=== PATIENT | female | born 1970 | race Caucasian/White ===

== ENCOUNTER 2023-11-10 14:41 | Outpatient (CLI) | payer BC, SELFPAY ==
--- NOTE | ~2023-11-10 | US_ITS ---
EXAMINATION: US retroperitoneal comp DATE: 11/10/2023 15:16 INDICATION: Chronic cystitis without hematuria TECHNIQUE: Multiple ultrasound grayscale images of the kidneys were obtained. COMPARISON: CT dated 01/17/2018 FINDINGS: The right kidney measures 11.4 x 4.8 x 5.5 cm. The left kidney measures 11.5 x 5.9 x 5.4 cm. The kidn eys demonstrate normal echogenicity. There is no hydronephrosis in either kidney. No stones identifi ed. The bladder is normal with bilateral ureteral jets visualized on color Doppler. IMPRESSION: 1. Normal kidneys without hydronephrosis. Reviewed, dictated and finalized at location B.
== END 2023-11-10 14:42 | disposition home or self-care (01) ==
PROVIDERS: Visit Provider Physician Assistant
DX: N30.20 Other chronic cystitis without hematuria (principal)
CPT/HCPCS: 76770

== ENCOUNTER 2024-01-05 17:14 | Emergency (ER) | payer BC, SELFPAY ==
[2024-01-05 17:17] VITALS: BP 139/83; PULSE 82; RESP 18; TEMP 36.4; O2SAT 100
--- NOTE | 2024-01-05 19:19 | PC.NURSE ---
called pt from waiting room to re-assess vital signs. no answer
--- NOTE | 2024-01-05 23:31 | PC.NURSE ---
Patient called for in triage area; no answer.
--- NOTE | 2024-01-05 23:49 | PC.NURSE ---
Patient again called for in triage area; no answer
== END 2024-01-05 23:55 | disposition left against medical advice (07) ==
LOC: ANHED 23:55
DX: R10.9 Unspecified abdominal pain (principal)
CPT/HCPCS: 99199

== ENCOUNTER 2024-10-13 01:23 | Day surgery (SDC) | payer BC, SELFPAY ==
[2024-05-09 08:37] VITALS: BMI 34.6
--- OUTSIDE RECORDS SUMMARY | 2024-05-15 00:46 | XMS_ITS | Data Portability ---
Author Organization [facility] [address] Address [address] [address] [place] [address] Care Team Providers Care Celery Stripper Name Role Phone DAVID HOFF Primary Care Provider Assessment Encounter Date Assessment Date Assessment LastModified by Organization Details LastModified Time 06/11/2020 06/11/2020 Annual gynecological exam performed. Patient will come back in a year unless there are new symptoms. Not available 06/11/2020 15:08:07 05/26/2023 05/26/2023 Annual gynecological exam performed. Patient will come back in a year unless there are new symptoms. [email or web address] Not available 05/26/2023 09:32:48 Plan of Treatment Reminders Order Date Submit Date Provider Last Modified By Organization Details Last Modified Time Details Appointments None recorded. Lab urinalysis, dipstick 2023 024 [email or web address], [address], [place], [address], 4 09:51:06 urinalysis, dipstick 2021 022 [email or web address], [place], [address], 2 10:21:03 Referral urogynecolo gist referral 2023 024 WILFRID Aldridge MD, [address], [place], [address], 5 05:01:48 urogynecolo gist referral 2023 024 tabpretty Aldridge MD, [address] [facility] [address], [place], [address], 4 13:48:18 pelvic floor therapy referral - Referring this patient for Cystocele. Needs Pelvic floor therapy.Ple ase contact this patient to schedule an appointment Attached to this referral are the patients demographic s and most recent office visit notes.If you have any questions or require further information , please contact me at [phone].Thank you,Kelly, Referral's 2021 022 WILFRID [facility], [address], [address], [place], [address], 3 05:01:44 urogynecolo gist referral 2020 021 WILFRID Aldridge MD, [address] [facility] [address], [place], [address], 2 05:01:10 Procedures None recorded. Surgeries None recorded. Imaging MAMMO, screening, bilateral 2023 024 [facility] (Radiology), [address] [place], [address], 4 12:50:38 Medication Orders Vagifem 10 mcg vaginal tablet 2023 024 [id number], [address], [place], [id number], 4 13:15:43 estradiol 0.025 mg/24 hr weekly transdermal patch 2023 024 [facility][id number], [address], [place], [id number], 4 13:15:01 Bactrim DS 800 mg-160 mg tablet 2023 [facility] #25654, [address], [place], [id number], 4 10:00:11 Vagifem 10 mcg vaginal tablet 2023 [facility] #90705, [address], [place], [id number], 4 12:21:27 oxybutynin chloride ER 5 mg tablet,exte nded release 24 hr 2023 [facility] #46471, [address], [place], [id number], 4 10:06:00 mupirocin 2 % topical ointment 2023 [facility] #51170, [address], [place], [id number], 4 12:20:28 estradiol 0.01% (0.1 mg/gram) vaginal cream [address] [facility] #01886, [address], [place], [id number], 4 09:36:12 estradiol 0.5 mg tablet 2020 021 [facility] #58798, [address], [place], [id number], 4 13:15:06 Prometrium 100 mg capsule [address] [facility] #15679, [address], [place], [id number], 4 09:37:16 estradiol 0.5 mg tablet 2020 021 [facility] #49201, [address], [place], [id number], 13:15:06 Patient TargetsNo targets recorded. Patient InstructionsNo instructions recorded. Reason for Referral Urogynecologist Referral for Female stress incontinence Referring Physician: Anne Herrera TOW PICKER, Encounter Date: 06/11/2020 Pelvic Floor Therapy Referra l for Cystocele Referring this patient for Cystocele. Needs Pelvic floor therapy.Please contact this patient to schedule an appointmentAttached to this referral are the patients demographics and most recent office visit notes.If you have any questions or require further information, please contact me at [phone].Thank you,Kelly Referral's Referring Physician: Anne Herrera TOW PICKER, Encounter Date: 07/18/2021 Urogynecologist Referral for Female stress incontinence Referring Physician: Anne Herrera TOW PICKER, Encounter Date: 05/26/2023 Urogynecologist Referral for Recurrent urinary tract infection Referring Physician: Ghada Ruiz TOW PICKER, Encounter Date: 09/24/2023 Results Created Date Observation Date Name Description Value Unit Range Abnormal Flag Note LastModifiedBy Organization Detail LastModifiedTime 07/19/19 22 07/18/2021 URINA LYSIS , WITH MICRO SCOPI C color, urine Yellow colorl ess, light yellow , yellow , dark yellow , straw Not Available [facility] (Lab) [address] [place], [address], 07/19/2021 03:06:59 07/19/19 22 07/18/2021 URINA LYSIS , WITH MICRO SCOPI C clarity, urine Slight ly Cloudy Not Available [facility] (Lab) [address] [place], [address], 07/19/2021 03:06:59 07/19/19 22 07/18/2021 URINA LYSIS , WITH MICRO SCOPI C glucose, urine Negati ve mg/dL negati ve Not Available [facility] (Lab) [address] [facility], [place], [address], 07/19/2021 03:06:59 07/19/19 22 07/18/2021 URINA LYSIS , WITH MICRO SCOPI C bilirubin, urine Negati ve mg/dL negati ve Not Available [facility] (Lab) [address] [facility], [place], [address], 07/19/2021 03:06:59 07/19/19 22 07/18/2021 URINA LYSIS , WITH MICRO SCOPI C ketones, urine Negati ve mg/dL negati ve Not Available [facility] (Lab) [address] [facility], [place], [address], 07/19/2021 03:06:59 07/19/19 22 07/18/2021 URINA LYSIS , WITH MICRO SCOPI C pH, urine 6.0 . 5.0-9. 0 Not Available [facility] (Lab) [address] [facility], [place], [address], 07/19/2021 03:06:59 07/19/19 22 07/18/2021 URINA LYSIS , WITH MICRO SCOPI C specific gravity, urine 1.026 . 1.001- 1.035 Not Available [facility] (Lab) [address] [place], [address], 07/19/2021 03:06:59 07/19/19 22 07/18/2021 URINA LYSIS , WITH MICRO SCOPI C blood, urine Negati ve negati ve Not Available [facility] (Lab) [address] [place], [address], 07/19/2021 03:06:59 07/19/19 22 07/18/2021 URINA LYSIS , WITH MICRO SCOPI C protein, UA Negati ve mg/dL negati ve Not Available [facility] (Lab) [address] [place], [address], 07/19/2021 03:06:59 07/19/19 22 07/18/2021 URINA LYSIS , WITH MICRO SCOPI C urobilinogen , urine <2.0 mg/dL <2.0 Not Available [facility] (Lab) [address] [facility], [place], [address], 07/19/2021 03:06:59 07/19/19 22 07/18/2021 URINA LYSIS , WITH MICRO SCOPI C nitrite, urine Negati ve negati ve Not Available [facility] (Lab) [address] [facility], [place], [address], 07/19/2021 03:06:59 07/19/19 22 07/18/2021 URINA LYSIS , WITH MICRO SCOPI C leukocyte esterase, urine Negati ve mikie/u L negati ve Not Available [facility] (Lab) [address] [facility], [place], [address], 07/19/2021 03:06:59 07/19/19 22 07/18/2021 URINA LYSIS , WITH MICRO SCOPI C WBC, urine 0-5 /hpf none, 0-5 Not Available [facility] (Lab) [address] [facility], [place], [address], 07/19/2021 03:06:59 07/19/19 22 07/18/2021 URINA LYSIS , WITH MICRO SCOPI C RBC, urine 0-2 /hpf none, 0-2 Not Available [facility] (Lab) [address] [facility], [place], [address], 07/19/2021 03:06:59 07/19/19 22 07/18/2021 URINA LYSIS , WITH MICRO SCOPI C bacteria, urine Trace /hpf none abnormal Not Available [facility] (Lab) [address] [place], [address], 07/19/2021 03:06:59 07/19/19 22 07/18/2021 URINA LYSIS , WITH MICRO SCOPI C squamous epithelial cells, urine Modera te /hpf none abnormal Not Available [facility] (Lab) [address], [place], [address], 07/19/2021 03:06:59 07/19/19 22 07/18/2021 URINA LYSIS , WITH MICRO SCOPI C mucus, urine Trace /hpf none, trace, few CLEAN CATCH Not Available [facility] (Lab) [address], [place], [address], 07/19/2021 03:06:59 07/19/19 22 07/18/2021 urina lysis , dipst ick Leukocytes neg Not Available Beth jurado [address], [place], [address], 07/18/2021 10:20:18 07/19/19 22 07/18/2021 urina lysis , dipst ick Nitrite neg Not Available [address], [place], [address], 07/18/2021 10:20:18 07/19/19 22 07/18/2021 urina lysis , dipst ick Urobilinogen neg Not Available Katelynn morrow [address], [place], [address], 07/18/2021 10:20:18 07/19/19 22 07/18/2021 urina lysis , dipst ick Protein trace Not Available [address], [place], [address], 07/18/2021 10:20:18 07/19/19 22 07/18/2021 urina lysis , dipst ick pH 5 Not Available [address], [place], [address], 07/18/2021 10:20:18 07/19/19 22 07/18/2021 urina lysis , dipst ick Blood trace Not Available [address], [place], [address], 07/18/2021 10:20:18 07/19/19 22 07/18/2021 urina lysis , dipst ick Specific [place] 1.015 Not Available [facility], [place], [address], 07/18/2021 10:20:18 07/19/19 22 07/18/2021 urina lysis , dipst ick Ketone neg Not Available [address], [place], [address], 07/18/2021 10:20:18 07/19/19 22 07/18/2021 urina lysis , dipst ick Bilirubin neg Not Available [facility] [address], [place], [address], 07/18/2021 10:20:18 07/19/19 22 07/18/2021 urina lysis , dipst ick Glucose neg Not Available [address], [place], [address], 07/18/2021 10:20:18 07/19/19 22 07/18/2021 urina lysis , dipst ick Appearance cloudy Not Available [facility] [address], [place], [address], 07/18/2021 10:20:18 07/19/19 22 07/18/2021 urina lysis , dipst ick Color yellow Not Available [address], [place], [address], 07/18/2021 10:20:18 05/26/19 24 05/26/2023 urina lysis , dipst ick Leukocytes + Not Available [facility] [address], [place], [address], 05/26/2023 09:48:11 05/26/19 24 05/26/2023 urina lysis , dipst ick Nitrite + Not Available [address], [place], [address], 05/26/2023 09:48:11 05/26/19 24 05/26/2023 urina lysis , dipst ick Protein trace Not Available [address], [place], [address], 05/26/2023 09:48:11 05/26/19 24 05/26/2023 urina lysis , dipst ick pH 6 Not Available [address], [place], [address], 05/26/2023 09:48:11 05/26/19 24 05/26/2023 urina lysis , dipst ick Blood ++ Not Available [address], [place], [address], 05/26/2023 09:48:11 05/26/19 24 05/26/2023 urina lysis , dipst ick Specific [place] 1.010 Not Available [facility] [address], [place], [address], 05/26/2023 09:48:11 06/08/19 24 06/02/2023 MAMMO , scree jaden, bilat eral No observ ation record ed. [email or web address] [facility] [address] [place], [address], 06/15/2023 15:01:05 07/07/19 24 07/06/2023 MAMMO , diagn ostic , digit al, unila teral No observ ation record ed. [email or web address] [facility] [address] [place], [address], 07/07/2023 16:06:52 Result Notes None recorded. Problems Name Problem SNOMED Code Status Onset Date Resolution Date Notes Provider Name and Address Organization Details Recorded Time Postoper ative pain 118137230 Completed 201709/09/2020 Other acute postproce dural pain;Prac shelli ID: 0001 Kitty Summers [facility] 16:24:54 Genuine stress incontin ence [id number] Completed 201809/09/2020 Stress incontine nce (female) (male);Pr actice ID: 0001 Kitty Summers [facility] 16:24:44 Atrophic vaginiti s [id number] Completed 201809/09/2020 Postmenop ausal atrophic vaginitis ;Practice ID: 0001 Kitty Summers [facility] 16:24:34 Reduced libido [id number] Completed 201809/09/2020 Decreased libido;Pr actice ID: 0001 Kitty Summers [facility] 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 16:25:05 Cyst of ovary Completed 201709/09/2020 Ovarian cyst, NOS;Recor ded Elsewhere : No Locati on: [facility] So urce: EHR Chron ic: N Practic e ID: 0001 Bill able Time: 03:30:00 PM Kitty Summers [facility] 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 16:25:[address] Concept Completed 201709/09/2020 Encounter for general adult medical exam with abnormal finding;R ecorded Elsewhere : No Locati on: [facility] So urce: EHR Chron ic: N Practic e ID: 0001 Bill able Time: 08:30:00 AM Kitty Summers [facility] 1 16:24:56 Obesity [id number] Completed 201309/09/2020 Obesity;R ecorded Elsewhere : No Locati on: [facility] So urce: EHR Chron ic: N Practic e ID: 0001 Bill able Time: 02:15:00 PM Kitty Summers [facility] 1 16:24:47 Procedur e on genitour inary system Completed 201709/09/2020 Encounter for surgical aftercare following surgery on the genitouri nary system;Re corded Elsewhere : No Locati on: [facility] So urce: EHR Chron ic: N Practic e ID: 0001 Bill able Time: 03:30:00 PM Kitty Summers [facility] 1 16:24:57 Postoper ative care Completed 201709/09/2020 Encounter for surgical aftercare following surgery on the genitouri nary system;Re corded Elsewhere : No Locati on: [facility] So urce: EHR Chron ic: N Practic e ID: 0001 Bill able Time: 03:30:00 PM Kitty Summers [facility] 1 16:24:52 Screenin g for malignan t neoplasm of rectum Completed 201309/09/2020 Screening for malignant neoplasms of the rectum;Re corded Elsewhere : No Locati on: [facility] So urce: EHR Chron ic: N Practic e ID: 0001 Bill able Time: 02:15:00 PM Kitty Summers [facility] 1 16:25:02 Pelvic and perineal pain [id number] Completed 201709/09/2020 Pelvic and perineal pain;Mathieu rded Elsewhere : No Locati on: [facility] So urce: EHR Chron ic: N Practic e ID: 0001 Jeffry able Time: 08:30:00 AM [facility] 16:24:49 Carbuncl e of skin and/or subcutan eous tissue [id number] Completed 201309/09/2020 Carbuncle and furuncle of unspecifi ed site;Prac shelli ID: 0001 Kitty Summers [facility] 16:24:35 Speciali zed medical examinat ion Completed 201309/09/2020 Routine gynecolog ical examinati on;Practi ce ID: 0001 Kitty Summers [facility] 16:25:08 Screenin g for malignan t neoplasm of cervix Completed 201309/09/2020 Pap Smear;Pra ctice ID: 0001 Kitty Summers [facility] 16:25:00 Blood leukocyt e number above referenc e range [id number] Completed 201709/09/2020 Elevated white blood cell count, unspecifi ed;Practi ce ID: 0001 Kitty cowan [facility] 16:24:46 Chronic salpingi tis [id number] Completed 201709/09/2020 Chronic salpingit is;Practi ce ID: 0001 [facility] 16:24:37 Disorder of endocrin e ovary Completed 201709/09/2020 Corpus luteum cyst of ovary, unspecifi ed side;Prac shelli ID: 0001 Kitty Summers [facility] 16:24:41 Evaluati on finding Completed 201709/09/2020 Hematuria , unspecifi ed;Record ed Elsewhere : No Locati on: [facility] So urce: EHR Chron ic: N Practic e ID: 0001 Bill able Time: 03:30:[address] [facility] 16:24:42 Problem Notes None recorded. Procedures Surgical History Date Name Laterality Status Provider Name and Address Organization Details Recorded Time 06/12/19 21 Date of Last Pap Smear completed [facility] 06/11/2020 15:15:04 02/22/19 21 Date of Last Colonoscopy completed Tiffanie Oakes [facility] 05/26/2023 09:39:27 01/23/20 20 Unlisted px foot/toes completed [facility] 06/11/2020 15:36:19 03/25/19 20 Unlisted px foot/toes completed [facility] 06/11/2020 15:37:02 02/22/19 19 Date of Last Mammogram completed [facility] 06/11/2020 15:20:15 12/28/19 18 excision of bilateral fallopian tubes and ovaries completed [facility] 06/11/2020 15:35:25 11/09/19 14 Partial Hysterectomy completed [facility] 06/11/2020 15:35:39 02/22/19 06 Cholecystectomy completed [facility] 06/11/2020 15:35:01 02/22/18 85 Appendectomy completed [facility] 06/11/2020 15:34:51 Imaging Results Imaging Date Name Status LastModified by Organiz ation Details LastModified Time 06/02/2023 MAMMO, screening, bilateral completed [address] [place], [address], 06/15/2023 15:01:05 07/06/2023 MAMMO, diagnostic, digital, unilateral completed [email or web address] [facility] [address] [place], [address], 07/07/2023 16:06:52 Procedure Notes None recorded. Medical Equipment None Reported. Allergies No known drug allergies Medications Name Sig Start Date Stop Date Status Note LastModified by Organization Details LastModified Time cyclobenz aprine 10 mg tablet TAKE 1 TABLET BY MOUTH EVERY DAY AT BEDTIME 07/18 completed Not Available Not Available Not Available amoxicill in 500 mg capsule TAKE 1 CAPSULE BY MOUTH THREE TIMES DAILY FOR 7 DAYS 12/11 completed Not Available Not Available Not Available carvedilo l 25 mg tablet TAKE 1 TABLET BY MOUTH TWICE DAILY active Not Available Not Available No t Available carvedilo l 12.5 mg tablet TAKE 1 TABLET BY MOUTH TWICE DAILY 07/18 completed Not Available Not Available Not Available ammonium lactate 12 % lotion APPLY TOPICALL Y TO FOOT DAILY NEEDED 07/18 completed Not Available Not Available Not Available atorvasta tin 10 mg tablet TAKE 1 TABLET BY MOUTH EVERY DAY 05/25 completed Not Available Not Available Not Available azithromy hung 250 mg tablet TAKE 2 TABLETS BY MOUTH FOR 1 DAY THEN TAKE 1 TABLET BY MOUTH DAILY FOR 4 DAYS 05/25 completed Not Available Not Available Not Available tizanidin e 4 mg tablet TAKE 1 TABLET BY MOUTH AT BEDTIME NEEDED 05/25 completed Not Available Not Available Not Available hydrocodo ne 5 mg-acetam inophen 325 mg tablet TAKE 1 TABLET BY MOUTH TWICE DAILY NEEDED 12/11 completed Not Available Not Available Not Available meloxicam 15 mg tablet TAKE 1 TABLET BY MOUTH EVERY DAY active Not Available Not Available No t Available phenazopy ridine 200 mg tablet TAKE 1 TABLET BY MOUTH EVERY 6-8 HOURS NEEDED 09/23 completed Not Available Not Available Not Available ondansetr on HCl 4 mg tablet TAKE 2 TABLETS BY MOUTH THREE TIMES DAILY NEEDED FOR NAUSEA active Not Available Not Available No t Available prednison e 20 mg tablet TAKE 2 TABLETS BY MOUTH EVERY DAY FOR 5 DAYS 09/23 completed Not Available Not Available Not Available clonazepa m 0.5 mg tablet take 1 tablet by oral route 3 times every day 09/23 completed Prescrib ed Elsewher e: Yes Loca tion: Manuel zarate [facility] odify By: christin gutierrez DateTime : 11/09/19 14 02:15:00 PM Not Available Not Available Not Available clonazepa m 1 mg tablet TAKE 1 TABLET BY MOUTH 40 MINUTES BEFORE FLIGHT active Not Available Not Available No t Available phentermi ne 15 mg capsule TAKE ONE CAPSULE BY MOUTH ONCE DAILY 07/18 completed Not Available Not Available Not Available topiramat e 25 mg tablet TAKE 1 TABLET BY MOUTH TWICE DAILY 05/25 completed Not Available Not Available Not Available metronida zole 500 mg tablet TAKE 1 TABLET BY MOUTH THREE TIMES DAILY FOR 7 DAYS active Not Available Not Available No t Available ciproflox acin 500 mg tablet TAKE 1 TABLET BY MOUTH EVERY 12 HOURS FOR 7 DAYS active Not Available Not Available No t Available sulfameth oxazole 800 mg-trimet hoprim 160 mg tablet TAKE 1 TABLET BY MOUTH EVERY 12 HOURS WITH MEALS active Not Available Not Available No t Available tramadol 50 mg tablet TAKE 1 TABLET BY MOUTH THREE TIMES DAILY WITH TYLENOL FOR PAIN CONTROL 05/25 completed Not Available Not Available Not Available spironola ctone 25 mg tablet TAKE 1 TABLET BY MOUTH EVERY DAY active Not Available Not Available No t Available ondansetr on 8 mg disintegr ating tablet TAKE 1 TABLET BY MOUTH EVERY 6 HOURS NEEDED 12/11 completed Not Available Not Available Not Available levothyro xine 25 mcg tablet take 1 tablet by oral route every day 12/11 completed Prescrib ed Elsewher e: Yes Loca tion: Manuel [facility] odify By: amjodie gutierrez DateTime : 09/24/19 18 08:30:00 AM Not Available Not Available Not Available cefadroxi l 500 mg capsule take 1 capsule by oral route every 12 hours for 10 days 11/17 completed Prescrib ed Elsewher e: No [facility] By: ashlyn gutierrez DateTime : 11/09/19 14 02:15:00 PM Not Available Not Available Not Available levothyro xine 100 mcg tablet TAKE 1 TABLET BY MOUTH EVERY DAY active Not Available Not Available No t Available oxycodone -acetamin ophen 5 mg-325 mg tablet TK 1 T PO Q 8 H PRN FOR MODERATE TO SEVERE PAIN 12/11 completed Not Available Not Available Not Available estradiol 0.025 mg/24 hr weekly transderm al patch Apply 1 patch every week by transder mal route. active Not Available Not Available No t Available estradiol 1 mg tablet TAKE 1 TABLET BY MOUTH EVERY DAY 07/18 completed Not Available Not Available Not Available methotrex ate sodium 2.5 mg tablet TAKE 5 TABLETS BY MOUTH IN THE MORNING AND 5 TABLETS IN THE EVENING ONCE A WEEK. 05/25 completed Not Available Not Available Not Available diazepam 2 mg tablet TAKE 1 TABLET BY MOUTH 30 MINUTES BEFORE MRI 07/18 completed Not Available Not Available Not Available phenazopy ridine 100 mg tablet TAKE 1 TABLET BY MOUTH TWICE DAILY active Not Available Not Available No t Available pantopraz ole 40 mg tablet,de layed release TAKE 1 TABLET BY MOUTH DAILY active Not Available Not Available No t Available hydrochlo rothiazid e 12.5 mg capsule take 2 capsule by oral route every day 12/11 completed Prescrib ed Elsewher e: Yes Loca tion: [facility] odify By: estefani gutierrez DateTime : 11/09/19 14 02:15:00 PM Not Available Not Available Not Available oxybutyni n chloride ER 5 mg tablet,ex tended release 24 hr TAKE 1 TABLET BY MOUTH ONCE DAILY WITH A MEAL 09/23 completed Not Available Not Available Not Available diclofena c sodium 75 mg tablet,de layed release TAKE 1 TABLET BY MOUTH TWICE DAILY 05/25 completed Not Available Not Available Not Available cephalexi n 500 mg tablet TAKE 1 TABLET BY MOUTH THREE TIMES DAILY FOR 7 DAYS active Not Available Not Available No t Available folic acid 1 mg tablet TAKE 1 TABLET BY MOUTH EVERY DAY 05/25 completed Not Available Not Available Not Available etodolac 400 mg tablet TAKE 1 TABLET BY MOUTH TWICE DAILY 05/25 completed Not Available Not Available Not Available monteluka st 10 mg tablet TAKE 1 TABLET BY MOUTH EVERY DAY 05/25 completed Not Available Not Available Not Available ranitidin e 150 mg capsule take 1 capsule by oral route 2 times every day 09/23 completed Prescrib ed Elsewher e: Yes Loca tion: Manuel zarate [facility] odify By: [email or web address] Zarate ncounthyacinth DateTime : 11/09/19 14 02:15:00 PM Not Available Not Available Not Available hydrochlo rothiazid e 25 mg tablet TAKE 1 TABLET BY MOUTH EVERY DAY active Not Available Not Available No t Available mupirocin 2 % topical ointment APPLY SMALL AMOUNT TOPICALL Y TO THE AFFECTED AREA THREE TIMES DAILY NEEDED 09/22 completed Not Available Not Available Not Available estradiol 0.5 mg tablet TAKE 1 TABLET BY MOUTH EVERY DAY 09/23 completed Not Available Not Available Not Available azelastin e 137 mcg (0.1 %) nasal spray USE 2 SPRAYS IN EACH NOSTRIL TWICE DAILY 05/25 completed Not Available Not Available Not Available estradiol 0.01% (0.1 mg/gram) vaginal cream INSERT 1GM IN THE VAGINA EVERY NIGHT AT BEDTIME FOR 14 NIGHTS THEN TWICE WEEKLY FOR MAINTENA CE 05/25 completed Not Available Not Available Not Available methylpre dnisolone 4 mg tablets in a dose pack FOLLOW PACKAGE DIRECTIO NS active Not Available Not Available No t Available cefdinir 300 mg capsule TAKE 1 CAPSULE BY MOUTH TWICE DAILY FOR 7 DAYS 12/11 completed Not Available Not Available Not Available dicyclomi ne 10 mg capsule TAKE 1 CAPSULE BY MOUTH FOUR TIMES DAILY NEEDED active Not Available Not Available No t Available estradiol 0.1 mg/24 hr weekly transderm al patch apply 1 patch by transder mal route every week 07/13 completed Prescrib ed Elsewher e: No Locat ion: Manuel zarate [facility] odify By: [email or web address] Encount er DateTime : 04/13/19 19 11:08:14 AM Not Available Not Available Not Available phentermi ne 37.5 mg capsule TAKE 1 CAPSULE BY MOUTH ONCE DAILY 07/18 completed Not Available Not Available Not Available diazepam 5 mg tablet TAKE 1 TABLET BY MOUTH 30 MINUTES BEFORE FLYING 09/23 completed Not Available Not Available Not Available progester one micronize d 100 mg capsule TAKE 1 CAPSULE BY MOUTH EVERY DAY AT BEDTIME 05/25 completed Not Available Not Available Not Available amoxicill in 875 mg-potass ium clavulana te 125 mg tablet TAKE 1 TABLET BY MOUTH TWICE DAILY FOR 7 DAYS FOR UTI active Not Available Not Available No t Available ezetimibe 10 mg tablet TAKE 1 TABLET BY MOUTH EVERY DAY active Not Available Not Available No t Available cyclobenz aprine 5 mg tablet TAKE 1-2 TABLETS BY MOUTH EVERY NIGHT AT BEDTIME 05/25 completed Not Available Not Available Not Available rosuvasta tin 10 mg tablet TAKE 1 TABLET BY MOUTH EVERY DAY 05/25 completed Not Available Not Available Not Available Wellbutri n XL 150 mg 24 hr tablet, extended release take 1 tablet by oral route every day 06/11 completed Prescrib ed Elsewher e: No Locat ion: Manuel zarate [facility] odify By: robe cee DateTime : 02/01/20 19 03:15:00 PM Not Available Not Available Not Available nitrofura ntoin monohydra te/macroc rystals 100 mg capsule TAKE 1 CAPSULE BY MOUTH TWICE DAILY FOR 5 DAYS active Not Available Not Available No t Available pantopraz ole 12/11 completed Not Available Not Available Not Available estradiol 10 mcg vaginal tablet Insert 1 tablet vaginall y at night x 14 nights; then, use twice a week for maintena nce. active Not Available Not Available No t Available Zyrtec 10 mg capsule 09/23 completed Prescrib ed Elsewher e: Yes [facility] By: christin gutierrez DateTime : 11/09/19 14 02:15:00 PM Not Available Not Available Not Available PCCA T4 Sodium Dilution 1 mg/gram powder 09/23 completed Prescrib ed Elsewher e: Yes Loca [facility]ion: [facility] By: christin gutierrez DateTime : 11/09/19 14 02:15:00 PM Not Available Not Available Not Available EnovaRx-B aclofen 1 % topical cream 09/23 completed Prescrib ed Elsewher e: Yes Loca tion: [facility] odify By: christin gutierrez DateTime : 11/09/19 14 02:15:00 PM Not Available Not Available Not Available Wegovy 0.5 mg/0.5 mL subcutane ous pen injector INJECT 0.5 MG UNDER THE SKIN ONCE A WEEK 05/25 completed Not Available Not Available Not Available Zepbound 10 mg/0.5 mL subcutane ous pen injector ADMINIST ER 10 MG UNDER THE SKIN EVERY WEEK active Not Available Not Available No t Available Zepbound 5 mg/0.5 mL subcutane ous pen injector ADMINIST ER 5 MG UNDER THE SKIN EVERY WEEK 09/23 completed Not Available Not Available Not Available Zepbound 2.5 mg/0.5 mL subcutane ous pen injector ADMINIST ER 2.5 MG UNDER THE SKIN WEEKLY 05/25 completed Not Available Not Available Not Available Zepbound 12.5 mg/0.5 mL subcutane ous pen injector ADMINIST ER 12.5 MG UNDER THE SKIN EVERY WEEK active Not Available Not Available No t Available Zepbound 7.5 mg/0.5 mL subcutane ous pen injector ADMINIST ER 7.5 MG UNDER THE SKIN EVERY WEEK 09/23 completed Not Available Not Available Not Available Vitals Date Recorded Body height Body mass index (BMI) Body weight Systolic blood pressure Diastolic blood pressure Provider Name and Address Organization Details Last Updated DateTime 06/11/2020 157.48 cm 36.3 kg/m2 76087.01 g 130 mm[Hg] 80 mm[Hg] Anne Herrera [facility] [address], [place], [address], [facility] 15:29:19 Date Recorded Body height Body mass index (BMI) Body weight Provider Name and Address Organization Details Last Updated DateTime 12/11/2020 157.48 cm 34 kg/m2 53700.18 g Kitty Summers [facility] 12/11/2020 16:16:52 Date Recorded Systolic blood pressure Diastolic blood pressure Provider Name and Address Organization Details Last Updated DateTime 12/11/2020 122 mm[Hg] 80 mm[Hg] Anne Herrera [facility]- [address], [place], [address], [facility] 12/11/2020 16:35:58 Date Recorded Body height Body mass index (BMI) Body weight Systolic blood pressure Diastolic blood pressure Provider Name and Address Organization Details Last Updated DateTime 07/18/2021 157.48 cm 36.8 kg/m2 72087.07 g 118 mm[Hg] 70 mm[Hg] Kitty Summers [facility] 2 10:15:09 Date Recorded Body height Body mass index (BMI) Body weight Systolic blood pressure Diastolic blood pressure Provider Name and Address Organization Details Last Updated DateTime 05/26/2023 157.48 cm 36.9 kg/m2 00683.66 g 139 mm[Hg] 83 mm[Hg] Tiffanie Oakes [facility] 4 09:35:18 Date Recorded Body height Body mass index (BMI) Body weight Systolic blood pressure Diastolic blood pressure Provider Name and Address Organization Details Last Updated DateTime 09/24/2023 157.48 cm 34.8 kg/m2 98821.55 g 140 mm[Hg] 82 mm[Hg] Su Wise [facility] 4 10:03:20 Social History Question Answer Notes LastModified by Organizat ion Details LastModified Time Tobacco Smoking Status Current Every Day Smoker Kitty Summers [facility] 06/11/2020 15:32:19 What Is Your Level Of Alcohol Consumption? Moderate Information not available 06/11/2020 Are You Blind Or Do You Have Difficulty Seeing? No Information not available 06/11/2020 What Is Your Level Of Caffeine Consumption? Moderate Information not available 06/11/2020 In The 14 Days Before Symptom Onset, Have You Had Close Contact With A Laboratory-confi rmed COVID-19 While That Case Was Ill? No Information not available 06/11/2020 In The 14 Days Before Symptom Onset, Have You Had Close Contact With A Person Who Is Under Investigation For COVID-19 While That Person Was Ill? No Information not available 06/11/2020 Have You Been To An Area Known To Be High Risk For COVID-19? No Information not available 06/11/2020 Are You Deaf Or Do You Have Serious Difficulty Hearing? No Information not available 06/11/2020 What Type Of Diet Are You Following? REGULAR Information not available 06/11/2020 Have You Ever Been Counseled For Unhealthy Alcohol Use? No Information not available 06/11/2020 Do You Use Protection During Sex? No Hysterectomy Information not available 06/11/2020 Do You Use Your Seat Belt Or Car Seat Routinely? Yes Information not available 06/11/2020 Are You Sexually Active? Yes Information not available 06/11/2020 Do You Have Smoke And Carbon Monoxide Detectors In Your Home? Yes Information not available 06/11/2020 How Much Tobacco Do You Smoke? 1 PPW 5 Per Day Information not available 06/11/2020 Do You Feel Stressed (tense, Restless, Nervous, Or Anxious, Or Unable To Sleep At Night)? [id number] Information not available 06/11/2020 Do You Use Any Illicit Or Recreational Drugs? No Information not available 06/11/2020 Do You Use Sunscreen Routinely? Yes Information not available 06/11/2020 Do You Or Have You Ever Used Any Other Forms Of Tobacco Or Nicotine? No Information not available 06/11/2020 Sex: Unknown Functional Status Question Answer Note LastModified by Organizat ion Details LastModified Time Do you have difficulty walking or climbing stairs? No Information not available 07/18/2021 Are you able to walk? YESWOREST Information not available 06/11/2020 Are you able to care for yourself? Yes Information not available 07/18/2021 Do you have difficulty dressing or bathing? No Information not available 07/18/2021 What is your exercise level? Occasional Information not available 06/11/2020 Mental Status None recorded. Family History Relationship Description Onset Age of this Age Resolved Age Notes LastModified by Organization Details LastModified Time Mother Asthma Not available 15:27:24 Mother Diabetes mellitus Not available 2020 15:27:37 Mother Heart disease Not available 2020 15:28:00 Mother Hypercholest erolemia Not available 2020 15:28:15 Mother Hypertensive disorder Not available 2020 15:28:29 Sister Heart disease Not available 2020 15:28:00 Sister Cyst of ovary Not available 2020 15:28:53 Sister Rheumatoid arthritis Not available 2020 15:38:24 Maternal Grandmother Heart disease Not available 2020 15:28:00 Medical History Condition Response Anxiety Disorder Y Arthritis Y Thyroid Problems Y Hypertension Y High Cholesterol Y Gynecological History Statement/Question Response Abnormal Pap N Date of Last Mammogram 02/22/2018 Date of LMP 11/08/2013 STIs/STDs N HPV Vaccine N Current Control Method Hysterectom y Date of Last Colonoscopy 02/23/2020 Sexually Active? Y Menses Monthly N Date of Last Pap Smear 06/11/2020 Sexual Problems? Y Obstetrics History GPAL:G 3 P 2 1 0 3 Type Value Full Term 2 Premature 1 Living 3 Total 3 Past Encounters Encounter ID Performer Location Encounter Start Date Encounter Closed Date Diagnosis/Indication Diagnosis SNOMED-CT Code Diagnosis ICD10 Code Diagnosis Note [id number] Anne Herrera [facility] [address] [address] 06/11/2020 14:08:21 06/11/2020 15:37:19 Gynecologic examination 84806868 Z01.419 Suggested Calcium with Vitamin D 1200-1500m g daily. Patient advised to get an annual flu shot in the fall and she could obtain at [facility] or [facility] clinic. Also to obtain TDap vaccinatio n if you have not had one in the last 10 years. Recommend yearly mammograms . Encouraged monthly self breast exams. Encourage safe sexual practices, to use condoms and limit partners if not already in a monogamous relationsh ip. Engage in daily exercise of low impact aerobic exercise 45-60 minutes 4-5 times weekly. Avoid tobacco and illicit drugs as well as using moderation with alcohol intake less than 1-2 8 oz beverages daily. This lifestyle behavior pattern will lead to less health conditions and longer life span. If BMI greater than 25 weight watchers or dietary consult advised. All questions have been answered. Patient appears to understand informatio n, but if you have any questions please call or respond to this email. Pap/hpv d/c due to hyst for non-cancer indication s See's PCP regularly on HTN medication Colon UTD Dexa-PCP discussed Female str ess incontinence 91639073 N39.3 Exam is +urethral hypermobil ity and possible cystocele REfer for urogyn consult Menopausal syndrome 1237 57811 N95.9 HRT Therapy. We discussed E/P & P only therapy. All risks/bene fits of this therapy were discussed today. Patient meets criteria for use of E/P or P-only. Handouts/w ebsite resources were given for home review. We agreed to decrease estradiol dosage & add prometrium to even out hormones; rodrigo since HTN on medication ; she understand ing risks. We will see if this improves night time sx's. RTO x 3mos [id number] Anne Herrera [facility] [address],[facility] [place] [address] 12/11/2020 15:53:03 12/11/2020 16:56:23 Menopausal flushing 840816500 N95.1 Wishes to continue Estradiol 0.5mg but d/c prometrium .Appropria te since she had a full hysterecto my at younger age. Accepts risks for using HRT therapy. Time spent in visit is a total of 15 mins with at least 50% of visit consisting of counseling and review of plan of care.Addit ional precaution giselle measures were taken to minimize potential exposure to the Covid-19 virus during this patient s visit, including available hand personal banking officer upon arrive, temperatur e check and being asked a series of screening questions. All staff wore face coverings during this encounter, as well as provided additional cleaning and sanitizing of all surfaces, including countertop s, pens, chairs, door handles, light switches, etc, prior to and following the patient s visit. [id number] Anne Herrera [facility] [address] [address] 07/18/2021 09:50:31 07/18/2021 10:51:40 Pain in pelvis 23560773 R10.2 Determined that the majority of her issues are linked to Cystocele, postmenopa use, PDF. Cystocele 184268187 N81. 10 N94.10 Return for pessary fitting 30mins appt Discussed trial of vag estrogen therapy.Rx sentCounse led on medication R/B's, Most common side effects, & use. All questions were answered to patient satisfacti on. Pelvic floor therapy discussedD efinitely indicated on examReferr al placed Time spent in visit is a total of 26 mins with at least 50% of visit consisting of counseling and review of plan of care. [id number] Anne Herrera , [facility] [address] [address] 05/26/2023 09:27:53 05/26/2023 10:48:03 Urinary symptoms 440777444 R39.9 +urine dip UTIRx sent Counseled on medication R/B's, Most common side effects, & use. All questions were answered to patient satisfacti on. Gynecologi c examination 87087591 Z01.419 Suggested Calcium with Vitamin D 1200-1500m g daily. Patient advised to get an annual flu shot in the fall and she could obtain at [facility] or [facility] care clinic. Also to obtain TDap vaccinatio n if you have not had one in the last 10 years. Recommend yearly mammograms . Encouraged monthly self breast exams. Encourage safe sexual practices, to use condoms and limit partners if not already in a monogamous relationsh ip. Engage in daily exercise of low impact aerobic exercise 45-60 minutes 4-5 times weekly. Avoid tobacco and illicit drugs as well as using moderation with alcohol intake less than 1-2 8 oz beverages daily. This lifestyle behavior pattern will lead to less health conditions and longer life span. If BMI greater than 25 weight watchers or dietary consult advised. All questions have been answered. Patient appears to understand informatio n, but if you have any questions please call or respond to this email. Pap/hpv hysterecto my non-cancer ous indication s USPSTF recommends against screening for cervical cancer in women older than 65yo, those who've had a hysterecto my for non-cancer indication s, & who have had adequate prior screening & are not otherwise at high risk for cervical cancer. STD Screen declined Genetic Screen discussed Colon Screen PCP Dexa Screen na Routine Labs PCP Urinary tr act infectious disease 95031254 N39.0 Today we discussed the followin. Treat for UTI2. Refer to urogyn for urinary issues3. Start on Vag estradiol Furuncle 872950007 L02.9 2 Use prn Counseled on medication R/B's, Most common side effects, & use. All questions were answered to patient satisfacti on. Overactive urinary bladder 555752081 N32.81 Trial of oxybutynin for OAB Counseled on medication R/B's, Most common side effects, & use. All questions were answered to patient satisfacti on. RTO x 3mos med check Female str ess incontinence 00891894 N39.3 Exam is +urethral hypermobil ity and possible cystocele REfer for urogyn consultShe will call for appointmen t Screening mammography 24 593027 Z12.31 ZACK Gupta [facility] [address] [address] 09/24/2023 09:04:46 09/24/2023 13:59:31 Recurrent urinary tract infection 584623094 N39.0 Discussed recurrent UTIs / vaginal dryness / OABshe will start the vagifem she has at home / r/b/a reviewedur lazaro consult sent Overactive urinary bladder 175875711 N32.81 Menopausal flushing 1983 48826 N95.1 currently on oral estradiol 0.5mg dailyrecom mended switching to transderma l d/t medical hx (HTN, elevated cholestero l, tobacco smoker)rx sent, r/b/a/non- hormonal alternativ es discussedp t aware of risk of ERT and her current medical conditions med check in 3-4 months Time spent in visit is a total of 30 mins with at least 50% of visit consisting of counseling and review of plan of care. Urinary tr act infectious disease 89828277 N39.0 Health Concerns Section Related Observation LastModified by Organization Detai ls LastModified Time None Recorded Concern Status LastModified by Organization Details LastModified Time None Recorded Advance Directives Directive None Recorded Payers Encounter Date Sequence Insurance Name Policy Number Policy Powell Covered Member ID Powell Member ID Guarantor Name 06/11/2020 1 [place] [id number] Madhu Free [id number] Martha Free 12/11/2020 1 [place] [id number] Madhu Free [id number] Martha Free 07/18/2021 1 [place] [id number] Madhu Free [id number] Martha Free 05/26/2023 1 [place] [id number] Madhu Free [id number] Martha Free 09/24/2023 1 [place] [id number] Madhu Free [id number] Martha Free Notes Date Note Type Note Provider Name and Address Organization Details Recorded Time 06/11/2020 text/html 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.Menopaus al Symptoms:normal vaginal lubrication;insomn ia due to night sweats; weight gain Vaginal Bleeding:history of menopause having occurred; no history of post menopausal bleeding Urinary Symptoms:no hematuria; no nocturia; no urinary frequency;stress incontinence Vulva:no genital lesion; no vulvar atrophy Vagina:normal vaginal discharge; no vaginal atrophy Breast:no breast lump; no nipple discharge; no breast pain Sexual Complaints:no sexual complaints Psychological Symptoms:no depression; no anxiety Preventive Measures:encourage regular mammograms starting age 40; encourage self breast examination; encourage regular exercise; encourage no tobacco use; needs to schedule mammogram; history of recent colonoscopy Anne Herrera [facility] [address], [place], [address], [facility] 06/11/2020 15:35:05 12/11/2020 text/html Here today for medication check of HRT therapy.Continued estradiol 0.5mgFeels it has greatly helped hot flashes & overall mood.D/C prometrium.Ripplemead it made her feel off.Stopped it & noticed how well the estradiol was helping her. TONI Nayak [address], [place], [address], [facility] 12/11/2020 16:40:57 07/18/2021 text/html Here today for pelvic pressure, GLADYS, Vag dryness, & Dyspareunia.Neg new sexual partners Anne Herrera [facility] [address], [place], [address], [facility] 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 bypatient.Menopaus al Symptoms:no menopausal symptoms; normal vaginal lubrication Vaginal Bleeding:history of menopause having occurred; no history of post menopausal bleeding Urinary Symptoms:no hematuria; no incontinence; no nocturia; no urinary frequency Vulva:no genital lesion; no vulvar atrophy Vagina:normal vaginal discharge; no vaginal atrophy Breast:no breast lump; no nipple discharge; no breast pain Sexual Complaints:no sexual complaints Psychological Symptoms:no depression; no anxiety Preventive Measures:encourage regular mammograms starting age 40; encourage self breast examination; encourage regular exercise; encourage no tobacco use; needs to schedule mammogram; history of recent colonoscopy Anne Herrera [facility] [address], [place], [address], [facility] 05/26/2023 10:47:03 09/24/2023 text/html 53yopresents for med check -on oral estradiol tablets for hot flashes/night sweats. H/o of TLH, BSO. Symptoms have been controlled on estradiol -Vagifem tablets for dryness/frequent UTI's. She has not started this yet -oxybutynin for OAB. She did not start this medical hx : tobacco smoker, RA, anxiety, high cholesterol, HTN Ghada Ruiz [facility] [address], [place], [address], [facility] 09/24/2023 13:24:37 OBGyn Episode Ob Episode Information Episode Created Date Number of Fetuses Patient Bloodtype Patient rh Status Prepregnancy Weight lbs Domestic Partner Domestic Partner Phone Father Name District Associate Judge Status 06/12/19 21 1 CLOSED Fetus Data First Name Last Name Admitted to NICU Weight (g) Sex Living Outcome Pediatric Complications Fetus ID Race Codes Race Delivery Type 3713.55 [id number] F Full Term [id number] Vaginal Delivery Spenser Calculation Initial Spenser Date Initial Exam Date Initial Exam Provider Initial Ultrasound Date Last Menstrual Period Date Ultra Sound Weeks Gestation 0 Eighteen To Twenty Week Spenser Update Ultra Sound Date Fundal Height At Umbil Quickening Date Ultra Sound Latest Weeks Gestation Final Spenser Confirmed By Final Spenser Confirmed Date Final Spenser Date Ultra Sound Latest Days Gestation 0 0 Menstrual History Last Menstrual Date Menses Monthly On Bcp Conception Prior Menses Frequency Hcg Plus Date Menarche Onset Age Delivery Information Delivery Date Delivery Type Labor Anesthesia Weeks Gestation Incision Type Labor Labor Length Hrs Delivered By Post Complications Tubal Sterilization Discharge Date Comments 9 40 false Abida Discharge Information Feeding Method Contraceptive Method Maternal HG B and HCT Levels Ob Episode Information Episode Created Date Number of Fetuses Patient Bloodtype Patient rh Status Prepregnancy Weight lbs Domestic Partner Domestic Partner Phone Father Name District Associate Judge Status 06/12/19 21 1 CLOSED Fetus Data First Name Last Name Admitted to NICU Weight (g) Sex Living Outcome Pediatric Complications Fetus ID Race Codes Race Delivery Type 3231.84 3 M Prematur e [id number] Vaginal Delivery Spenser Calculation Initial Spenser Date Initial Exam Date Initial Exam Provider Initial Ultrasound Date Last Menstrual Period Date Ultra Sound Weeks Gestation 0 Eighteen To Twenty Week Spenser Update Ultra Sound Date Fundal Height At Umbil Quickening Date Ultra Sound Latest Weeks Gestation Final Spenser Confirmed By Final Spenser Confirmed Date Final Spenser Date Ultra Sound Latest Days Gestation 0 0 Menstrual History Last Menstrual Date Menses Monthly On Bcp Conception Prior Menses Frequency Hcg Plus Date Menarche Onset Age Delivery Information Delivery Date Delivery Type Labor Anesthesia Weeks Gestation Incision Type Labor Labor Length Hrs Delivered By Post Complications Tubal Sterilization Discharge Date Comments 3 36 true Roni Discharge Information Feeding Method Contraceptive Method Maternal HG B and HCT Levels Ob Episode Information Episode Created Date Number of Fetuses Patient Bloodtype Patient rh Status Prepregnancy Weight lbs Domestic Partner Domestic Partner Phone Father Name District Associate Judge Status 06/12/19 21 1 CLOSED Fetus Data First Name Last Name Admitted to NICU Weight (g) Sex Living Outcome Pediatric Complications Fetus ID Race Codes Race Delivery Type [id number] Full Term [id number] Vaginal Delivery Spenser Calculation Initial Spenser Date Initial Exam Date Initial Exam Provider Initial Ultrasound Date Last Menstrual Period Date Ultra Sound Weeks Gestation 0 Eighteen To Twenty Week Spenser Update Ultra Sound Date Fundal Height At Umbil Quickening Date Ultra Sound Latest Weeks Gestation Final Spenser Confirmed By Final Spenser Confirmed Date Final Spenser Date Ultra Sound Latest Days Gestation 0 0 Menstrual History Last Menstrual Date Menses Monthly On Bcp Conception Prior Menses Frequency Hcg Plus Date Menarche Onset Age Delivery Information Delivery Date Delivery Type Labor Anesthesia Weeks Gestation Incision Type Labor Labor Length Hrs Delivered By Post Complications Tubal Sterilization Discharge Date Comments 1 40 false [facility] Discharge Information Feeding Method Contraceptive Method Maternal HG B and HCT Levels
--- OUTSIDE RECORDS SUMMARY | 2024-05-15 00:46 | XMS_ITS | Referral Summary ---
Author Organization 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 CHOICE OOS Member Subscriber Plan / Payer (Ef fective 2022-Present) Name:Pati Perales Relation to Subscriber:Spouse Name:TREMAINE PERALES Date of :1966 (Home) Address: [address] [place] [address] Payer ID:[id number] (NAIC) Type: ALLIANCE Address: [facility] [id number] [id number] Care Teams Dispatch Supervisor Relationship Specialty Start Date End Date Adarsh Medina MD PCP - General Internal Medicine 09/09/22
--- OUTSIDE RECORDS SUMMARY | 2024-05-15 00:46 | XMS_ITS | Clinical Summary ---
Author Organization [facility] [employer] Address [address] [place] [address] Care Team Providers Care Surgery Attendant Name Role Phone Adarsh Medina MD Primary Care Provider [phone] Source Comments [facility] [employer]non-owned Affiliates and Associated Physician Practices is amultiple site organization consisting of ambulatory clinics and hospital sitesin [place], [place], [place] and [place]. This disclosure is being madepursuant to the Care Everywhere program and may not contain all information available regarding this patient. Last updated 17.[facility] [employer] Allergies No known active allergies Medications * Be aware that medications may not be up to date on this document. Alwaysverify current medications with the patient. Medication Sig Dispensed Refills Start Date End Date Status levothyroxine (SYNTHROID) 25 MCG tablet 09/23/2017 Active hydroCHLOROthiazide (HYDRODIURIL) 25 MG tablet TK 1 T PO QD 02/21/2019 Active estradiol (ESTRACE) 1 MG tablet TK 1 T PO QD 02/10/2019 Active carvedilol (COREG) 12.5 MG tablet TK 2 TS PO BID 02/04/2019 Active buPROPion XL 24hr (WELLBUTRIN-XL) 150 MG tablet TK 1 T PO QD 01/31/2019 Active atorvastatin (LIPITOR) 10 MG tablet TK 1 T PO QD 02/21/2019 Active Active Problems No known active problems Family History Medical History Relation Name Comments CAD (Coronary Artery Disease) Mother Diabetes - Type 2 Mother Hyperlipidemia Mother Hypertension Mother Relation Name Status Comments Mother Social History Tobacco Use Types Packs/Day Years Used Date Smoking Tobacco: Every Day Cigarettes 0.1 20 Smokeless Tobacco: Never Alcohol Use Standard Drinks/Week Comments Yes 6 (1 standard drink = 0.6 oz pur e alcohol) Sex and Gender Information Value Date Recorded Sex Assigned at Not on file Gender Identity Not on file Sexual Orientation Not on file Last Filed Vital Signs Vital Sign Reading Time Taken Comments Blood Pressure 130/78 03/02/2019 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 Pulse - - Temperature - - Respiratory Rate - - Oxygen Saturation - - Inhaled Oxygen Concentration - - Weight 92.1 kg (203 lb) 03/02/2019 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 Height 157.5 cm (5' 2) 03/02/2019 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 Body Mass Index 37.13 03/02/2019 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 Plan of Treatment Health Maintenance Due Date Last Done Comments COLOGUARD (AGES 45-75) - COL ON CA SCREENING 1970 COLON MONITORING 1970 COLONOSCOPY - COLON CA SCREENING 1970 CT COLONOGRAPHY - COLON CA SCREENING 1970 Colorectal Cancer Screening 1970 FIT - COLON CA SCREENING 1970 FLEX SIG - COLON CA SCREENING 1970 MAMMOGRAM 1970 HIV SCREENING 1985 HEPATITIS C SCREENING 08/04/1988 DTAP/TDAP/TD VACCINES (1 - Tdap) 1989 HEPATITIS B VACCINE (1 of 3 - 19+ 3-dose series) 1989 SCREENING FOR DIABETES 03/02/2019 PNEUMOCOCCAL VACCINE 50+ (1 of 1 - PCV) 2020 ZOSTER VACCINE (1 of 2) 2020 COVID-19 VACCINE (1 - 2023-2 5 season) 2023 INFLUENZA VACCINE (#1) 2023 DEPRESSION SCREENING 02/23/2024 HIB VACCINE Aged Out No longer eligi ble based on patient's age to complete this topic HPV VACCINE Aged Out No longer eligi ble based on patient's age to complete this topic MENINGOCOCCAL (Group B) VACC INE SHARED DECISION-MAKING Aged Out No longer eligibl e based on patient's age to complete this topic MENINGOCOCCAL GROUPS A/C/Y/W VACCINE Aged Out No longer eligible b ased on patient's age to complete this topic Care Teams Surgery Attendant Relationship Specialty Start Date End Date Adarsh Medina MD PCP - General 12/23/17
--- OUTSIDE RECORDS SUMMARY | 2024-05-15 00:46 | XMS_ITS | Clinical Summary ---
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 Gender Identity Not on file Sexual Orientation Not on file Plan of Treatment Health Maintenance Due Date Last Done Comments Breast Cancer Screening-Mammogram 1970 Cervical Cancer Screening 1970 Colon Cancer Screening-Colonoscopy 1970 Depression Screening 1970 Hepatitis C Screening 1970 Hepatitis B Screening 1988 Regular Well Visit/Exam 18-64 1988 Zoster Vaccine (1 of 2) 2020 Covid-19 Vaccine (3 - 2023-2 5 season) 2023 11/11/2020, 10/21/2020 Influenza Vaccine (#1) 2023 DTaP/Tdap/Td Vaccine (2 - Td or Tdap) 02/21/2032 02/20/2022 Pneumococcal vaccine <65 Aged Out No longer eligible based on patient's age to complete this topic Insurance [id number] [place] [place] [id number] BLUE [employer] CHOICE OOS Care Teams Fatback Trimmer Relationship Specialty Start Date End Date Adarsh Medina MD PCP - General Internal Medicine 09/09/22
--- OUTSIDE RECORDS SUMMARY | 2024-05-15 00:47 | XMS_ITS | Data Portability ---
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 Cephalexin for a week. Call if not improved she did not see a tick nor pull 1 off [email or web address] Not available 10/16/2023 13:45:56 01/04/2024 01/04/2024 staff is trying to acquire her Pap smears mammogram reports CBC CMP lipid and thyroid studies ordered continue current therapy and follow up in 4 months [email or web address] Not available 01/09/2024 10:40:05 01/11/2024 01/11/2024 . [place]. Quitting tobacco care instructions. Continue with Flagyl and Cipro get stool studies follow up 1-2 weeks if she gets worse call or go to ER. We will give some Zofran for nausea CT scan reviewed [email or web address] Not available 01/11/2024 20:24:42 01/25/2024 01/25/2024 imaging revealed colitis she is still having symptoms GI referral we will probably need colonoscopy. Dicyclomine for cramping. Healthy lifestyle care instructions. She will see me back in about 6 weeks if she gets worse she is told to go to the hospital she has discontinued her GLP 1 [email or web address] Not available 01/25/2024 21:32:15 05/02/2024 05/02/2024 we will await the colonoscopic findings. She did have a CT scan that showed some changes consistent with colitis . For her obesity she wants to restart phentermine she tolerated it well we will do that and she will monitor her blood pressure she will see me back in 4-6 weeks continue her medications for her chronic medical problems and those have been discussed as well [email or web address] Not available 05/07/2024 13:11:09 Plan of Treatment Reminders Order Date Submit Date Provider Last Modified By Organization Details Last Modified Time Details Appointments ANY 15 2024 03:15P Natalio Medina MD Not available Not available Not available Lab C diff toxin A+B, qual IA, stool 2023 024 [facility], [address], [address], [place], [address], 01/18/2024 15:11:00 O&P (ova & parasites ), stool 2023 024 [facility], [address] [place] [address], [address], [place], [address], 01/19/2024 15:11:45 gastroint estinal pathogens panel, culture, stool 2023 024 [facility], [address], [address], [place], [address], 01/21/2024 17:08:50 lipid panel, serum 2023 024 [facility] (Lab), [address] [place], [address], 01/07/2024 13:06:38 CMP, serum or plasma 2023 024 [facility] (Lab), [address] [place], [address], 01/07/2024 16:47:22 CBC w/ auto diff 2023 024 [facility] (Lab), [address] [place], [address], 01/07/2024 16:47:59 T3, free, serum or plasma 2023 024 [facility] (Lab), [address] [place], [address], 01/07/2024 16:47:50 TSH, serum or plasma 2023 024 [facility] (Lab), [address] [place], [address], 01/07/2024 16:47:44 T4, free, serum 2023 024 [facility] (Lab), [address] [place], [address], 01/07/2024 16:47:36 Referral gastroent erologist referral 2023 024 [facility], [address], [facility], [place], [address], 05/08/2024 16:52:09 Procedures None recorded. Surgeries None recorded. Imaging None recorded. Medication Orders dicyclomi ne 10 mg capsule 2023 024 [email or web address] [id number], [address], [place], [id number], 01/25/2024 18:04:36 Zofran 4 mg tablet 2023 025 [facility], [address], [place], [id number], 05/02/2024 16:30:47 Zepbound 12.5 mg/0.5 mL subcutane ous pen injector 2023 025 [facility] [address], [place], [id number], 05/04/2024 16:59:56 Medrol (Hussein) 4 mg tablets in a dose pack 2023 [facility] #[facility]2368, [address], [place], [id number], 01/04/2024 11:04:52 cephalexi n 500 mg tablet 2023 024 [email or web address]49986, [address], [place], [id number], 01/04/2024 11:04:41 Patient TargetsNo targets recorded. Patient Instructions Encounter Date Encounter Id Patient Instructions Last Modified By Organization Details Last Modified Time 01/04/2024 [id number] A healthy lifestyle: care instructions [email or web address] Not available 01/04/2024 13:15:47 01/11/2024 [id number] Quitting Tobacco : Care Instructions [email or web address] Not available 01/11/2024 16:54:42 01/25/2024 [id number] A healthy lifestyle: care instructions [email or web address] Not available 01/25/2024 17:28:56 05/02/2024 [id number] A healthy lifestyle: care instructions [email or web address] Not available 05/02/2024 16:49:23 Reason for Referral Integration Technician Referral for Colitis Referring Physician: David Medina, Internal Medicine, Encounter Date: 01/25/2024 Results Created Date Observation Date Name Description Value Unit Range Abnormal Flag Note LastModifiedBy Organization Detail LastModifiedTime 01/07/2001/07/2024 Thyro tropi n [Unit s/vol ume] in Serum or Plasm a thyroid-stim ulating hormone thyro id-st imula ting hormo ne Not Available Not Available 05/02/2024 05:13:59 01/07/20 24 01/07/2024 Thyro xine (T4) free [Mass /volu me] in Serum or Plasm a free T4 free T4 Not Available Not Available 05/02/2024 05:13:59 01/07/20 24 01/07/2024 Triio dothy bo e (T3) Free [Mass /volu me] in Serum or Plasm a free T3 free T3 Not Available Not Available 05/02/2024 05:13:59 01/07/20 24 01/07/2024 Lipas e [Enzy matic activ ity/v olume ] in Serum or Plasm a lipase lipas e Not Available Not Available 05/02/2024 05:13:59 01/07/20 24 01/07/2024 Compr ehens yoan metab olic 1999 panel - Serum or Plasm a sodium low sodiu m Not Available Not Available 05/02/2024 05:13:59 01/07/20 24 01/07/2024 Compr ehens yoan metab olic 1999 panel - Serum or Plasm a potassium potas sium Not Available Not Available 05/02/2024 05:13:59 01/07/20 24 01/07/2024 Compr ehens yoan metab olic 2000 panel - Serum or Plasm a chloride chlor leticia Not Available Not Available 05/02/2024 05:13:59 01/07/20 24 01/07/2024 Compr ehens yoan metab olic 2000 panel - Serum or Plasm a carbon dioxide carbo n dioxi de Not Available Not Available 05/02/2024 05:13:59 01/07/20 24 01/07/2024 Compr ehens oyan metab olic 2000 panel - Serum or Plasm a anion gap low anion gap Not Available Not Available 05/02/2024 05:13:59 01/07/20 24 01/07/2024 Compr ehens yoan metab olic 1999 panel - Serum or Plasm a glucose gluco se Not Available Not Available 05/02/2024 05:13:59 01/07/20 24 01/07/2024 Compr ehens yoan metab olic 2000 panel - Serum or Plasm a BUN BUN Not Available Not Availa ble 05/02/2024 05:13:59 01/07/20 24 01/07/2024 Compr ehens yoan metab olic 2000 panel - Serum or Plasm a creatinine creat inine Not Available Not Available 05/02/2024 05:13:59 01/07/20 24 01/07/2024 Compr ehens yoan metab olic 2000 panel - Serum or Plasm a GFR >60 GFR Not Available Not Availa ble 05/02/2024 05:13:59 01/07/20 24 01/07/2024 Compr ehens yoan metab olic 1999 panel - Serum or Plasm a alkaline phosphatase alkal ine phosp hatas e Not Available Not Available 05/02/2024 05:13:59 01/07/20 24 01/07/2024 Compr ehens yoan metab olic 1999 panel - Serum or Plasm a alanine aminotransfe rase richard ne amino trans feras e Not Available Not Available 05/02/2024 05:13:59 01/07/20 24 01/07/2024 Compr ehens yoan metab olic 1999 panel - Serum or Plasm a aspartate aminotransfe rase aspar neff amino trans feras e Not Available Not Available 05/02/2024 05:13:59 01/07/20 24 01/07/2024 [facility] - Serum or Plasm a bilirubin, total bilir ubin, total Not Available Not Available 05/02/2024 05:13:59 01/07/20 24 01/07/2024 [facility] panel - Serum or Plasm a calcium calci um Not Available Not Available 05/02/2024 05:13:59 01/07/20 24 01/07/2024 Compr ehens yoan metab ic 1999 panel - Serum or Plasm a total protein total prote in Not Available Not Available 05/02/2024 05:13:59 01/07/20 24 01/07/2024 Compr ens yoan metab [facility] 2000 panel - Serum or Plasm a albumin album in Not Available Not Available 05/02/2024 05:13:59 01/07/20 24 01/07/2024 Compr ehens yoan metab ic 1999 panel - Serum or Plasm a globulin globu vandana Not Available Not Available 05/02/2024 05:13:59 01/07/20 24 01/07/2024 Compr ehens yoan metab olic 1999 panel - Serum or Plasm a A/G ratio A/G ratio Not Available Not Available 05/02/2024 05:13:59 01/07/20 24 01/07/2024 Lipid 1996 panel - Serum or Plasm a cholesterol high brad stero l Not Available Not Available 05/02/2024 05:13:58 01/07/20 24 01/07/2024 Lipid 1996 panel - Serum or Plasm a triglyceride s trigl yceri yvette Not Available Not Available 05/02/2024 05:13:58 01/07/20 24 01/07/2024 Lipid 1996 panel - Serum or Plasm a HDL cholesterol HDL brad stero l Not Available Not Available 05/02/2024 05:13:58 01/07/20 24 01/07/2024 Lipid 1996 panel - Serum or Plasm a LDL cholesterol, calculated LDL brad stero l, calcu lated Not Available Not Available 05/02/2024 05:13:58 01/07/20 24 01/07/2024 CBC W Auto Diffe renti al panel - Blood white blood cells white blood cells Not Available Not Available 05/02/2024 05:13:58 01/07/20 24 01/07/2024 CBC W Auto Diffe renti al panel - Blood red blood cells red blood cells Not Available Not Available 05/02/2024 05:13:58 01/07/20 24 01/07/2024 CBC W Auto Diffe renti al panel - Blood hemoglobin high hemog lobin Not Available Not Available 05/02/2024 05:13:58 01/07/20 24 01/07/2024 CBC W Auto Diffe renti al panel - Blood hematocrit hemat ocrit Not Available Not Available 05/02/2024 05:13:58 01/07/20 24 01/07/2024 CBC W Auto Diffe renti al panel - Blood mean red cell volume mean red cell volum e Not Available Not Available 05/02/2024 05:13:58 01/07/20 24 01/07/2024 CBC W Auto Diffe renti al panel - Blood mean red cell hemoglobin mean red cell hemog lobin Not Available Not Available 05/02/2024 05:13:58 01/07/20 24 01/07/2024 CBC W Auto Diffe renti al panel - Blood mean RBC HGB concentratio n mean RBC HGB jo ntrat ion Not Available Not Available 05/02/2024 05:13:58 01/07/20 24 01/07/2024 CBC W Auto Diffe renti al panel - Blood red cell distribution width red cell distr ibuti on width Not Available Not Available 05/02/2024 05:13:58 01/07/20 24 01/07/2024 CBC W Auto Diffe renti al panel - Blood platelets plate lets Not Available Not Available 05/02/2024 05:13:58 01/07/20 24 01/07/2024 CBC W Auto Diffe renti al panel - Blood mean platelet volume mean plate let volum e Not Available Not Available 05/02/2024 05:13:58 01/07/20 24 01/07/2024 CBC W Auto Diffe renti al panel - Blood neutrophils neutr ophil s Not Available Not Available 05/02/2024 05:13:58 01/07/20 24 01/07/2024 CBC W Auto Diffe renti al panel - Blood lymphocytes lymph ocyte s Not Available Not Available 05/02/2024 05:13:58 01/07/20 24 01/07/2024 CBC W Auto Diffe renti al panel - Blood monocytes monoc ytes Not Available Not Available 05/02/2024 05:13:58 01/07/20 24 01/07/2024 CBC W Auto Diffe renti al panel - Blood eosinophils eosin ophil s Not Available Not Available 05/02/2024 05:13:58 01/07/20 24 01/07/2024 CBC W Auto Diffe renti al panel - Blood basophils basop hils Not Available Not Available 05/02/2024 05:13:58 01/07/20 24 01/07/2024 CBC W Auto Diffe renti al panel - Blood immature granulocytes immat ure granu locyt es Not Available Not Available 05/02/2024 05:13:58 01/07/20 24 01/07/2024 CBC W Auto Diffe renti al panel - Blood neutrophils, absolute count neutr ophil s, absol tatitlek count Not Available Not Available 05/02/2024 05:13:58 01/07/20 24 01/07/2024 CBC W Auto Diffe renti al panel - Blood lymphocytes, absolute count lymph ocyte s, absol tatitlek count Not Available Not Available 05/02/2024 05:13:58 01/07/20 24 01/07/2024 CBC W Auto Diffe renti al panel - Blood monocytes, absolute count monoc ytes, absol tatitlek count Not Available Not Available 05/02/2024 05:13:58 01/07/20 24 01/07/2024 CBC W Auto Diffe renti al panel - Blood eosinophils, absolute count eosin ophil s, absol tatitlek count Not Available Not Available 05/02/2024 05:13:58 01/07/20 24 01/07/2024 CBC W Auto Diffe renti al panel - Blood basophils, absolute count basop hils, absol tatitlek count Not Available Not Available 05/02/2024 05:13:58 01/07/20 24 01/07/2024 CBC W Auto Diffe renti al panel - Blood immature granulocytes ,absolute immat ure granu locyt es,ab solut e Not Available Not Available 05/02/2024 05:13:58 01/07/20 24 01/07/2024 CBC W Auto Diffe renti al panel - Blood nucleated red blood cells nucle ated red blood cells Not Available Not Available 05/02/2024 05:13:58 01/07/20 24 01/07/2024 CBC W Auto Diffe renti al panel - Blood NRBC# NRBC# Not Available Not Availa ble 05/02/2024 05:13:58 01/17/20 24 01/18/2024 C DIFFI CILE TOXIN S A+B, EIA C difficile toxins A+B, EIA NEGATI VE negati ve Not Available [facility] ([facility]) [address] [place], [address], 01/18/2024 15:11:00 01/17/20 24 01/19/2024 OVA + ENIO ITE EXAM ova + parasite exam FINAL REPORT These resul ts were obtai jody using wet prepa ratio n(s) and trich destin stain ed smear . This test does not inclu de testi ng for Crypt ospor idium parvu m, Cyclo spora , or Micro spori ashwin. Not Available [facility] ([facility]) [address], [place], [address], 01/19/2024 15:11:45 01/17/20 24 01/19/2024 OVA + ENIO ITE EXAM result 1 COMMEN T No ova, cysts , or enio ites seen. One negat yoan speci men does not rule out the possi bilit y of a enio itic infec tion. Not Available [facility] ([facility]) [address] [place], [address], 01/19/2024 15:11:45 01/17/20 24 01/19/2024 STOOL CULTU RE salmonella/s higella screen FINAL REPORT Not Available [facility] ([facility]) [address], [place], [address], 01/21/2024 17:08:50 01/17/20 24 01/19/2024 STOOL CULTU RE E coli shiga toxin EIA NEGATI VE negati ve Not Available [facility] ([facility]) [address] [place], [address], 01/21/2024 17:08:50 01/17/20 24 01/19/2024 STOOL CULTU RE result 1 COMMEN T No Salmo gaby or Shige lla recov ered. Not Available [facility] ([facility]) [address], [place], [address], 01/21/2024 17:08:50 01/17/20 24 01/21/2024 STOOL CULTU RE campylobacte r culture FINAL REPORT Not Available [facility] ([facility]) [address] [place], [address], 01/21/2024 17:08:50 01/17/20 24 01/21/2024 STOOL CULTU RE result 1 COMMEN T No Campy lobac ter speci es isola giana. Not Available [facility] ([facility]) [address] [place], [address], 01/21/2024 17:08:50 01/05/20 24 03/29/2015 colon oscop y proce dure (PROC ) No observ ation record ed. [email or web address] Not Available 2023 17:19:05 01/07/20 24 01/07/2024 CT, abdom en + pelvi s, w/ contr ast No observ ation record ed. [facility] [address], [place], [address], 01/10/2024 21:22:55 Result Notes None recorded. Problems Name Problem SNOMED Code Status Onset Date Resolution Date Notes Provider Name and Address Organization Details Recorded Time Essential hypertension 61719265 Active 2023 Sha Velásquez [place] null, [place] - [facility] 4 11:20:30 Hypothyroidism 03651082 Active 2023 Sha Velásquez [place], [place] [facility] 4 11:20:31 Overweight 473673328 Active 2023 David Medina MD Attn: Tara santiago,[address] [place], [address], [place] - [facility] 4 18:18:46 Gastroesophage al reflux disease without esophagitis 240526364 Active 2023 David Medina MD Attn: Tara santiago,[address] [facility], [place], [address], [place] - [facility] 4 18:18:47 Body mass index 30+ - obesity 341111450 Active 2023 Renate Canchola null, [place] - [facility] 4 08:53:26 Abdominal pain 31152448 Active 2023 Sha Velásquez [place], [place] - [facility] 4 17:28:34 Problem Notes None recorded. Procedures Surgical History Date Name Laterality Status Provider Name and Address Organization Details Recorded Time 03/23/19 07 Total hysterectomy completed Claudia Aiken MA [place] - [facility] 01/04/2024 11:08:14 Appendectomy completed Denis Wang MA [facility] 05/13/2023 10:39:02 Cholecystectomy completed Denis Wang MA [facility] 05/13/2023 10:39:11 Dilation and Curettage completed Denis Wang MA [facility] 05/13/2023 10:39:29 Imaging Results Imaging Date Name Status LastModified by [facility]iz [facility] Details LastModified Time 03/29/2015 colonoscopy procedure (PROC) completed [facility] Information not available 01/18/2024 17:19:05 01/07/2024 CT, abdomen + pelvis, w/ contrast completed [facility] [address] [place], [address], 01/10/2024 21:22:55 Procedure Notes None recorded. Medical Equipment None Reported. Allergies No known drug allergies Medications Name Sig Start Date Stop Date Status Note LastModified by Organization Details LastModified Time carvedilo l 25 mg tablet TAKE 1 TABLET BY MOUTH TWICE DAILY active Not Available Not Available No t Available atorvasta tin 10 mg tablet TAKE 1 TABLET BY MOUTH EVERY DAY 05/12 completed Not Available Not Available Not Available azithromy hung 250 mg tablet TAKE 2 TABLETS BY MOUTH FOR 1 DAY THEN TAKE 1 TABLET BY MOUTH DAILY FOR 4 DAYS 07/15 completed finished abx Not Available Not Available Not Available meloxicam 15 mg tablet TAKE 1 TABLET BY MOUTH EVERY DAY 05/15 completed Not Available Not Available Not Available phenazopy ridine 200 mg tablet TAKE 1 TABLET BY MOUTH EVERY 6-8 HOURS NEEDED 10/10 completed Not Available Not Available Not Available ondansetr on HCl 4 mg tablet Take 2 tablets 3 times a day by oral route as needed, for nausea. 05/02 completed Not Available Not Available Not Available prednison e 20 mg tablet TAKE 2 TABLETS BY MOUTH EVERY DAY FOR 5 DAYS 09/12 completed Not Available Not Available Not Available clonazepa m 1 mg tablet TAKE 1 TABLET BY MOUTH 40 MINUTES BEFORE FLIGHT 01/03 completed Not Available Not Available Not Available metronida zole 500 mg tablet TAKE 1 TABLET BY MOUTH THREE TIMES DAILY FOR 7 DAYS 01/24 completed Not Available Not Available Not Available phentermi ne 37.5 mg tablet TAKE 1 TABLET BY MOUTH EVERY DAY active Not Available Not Available No t Available ciproflox acin 500 mg tablet TAKE 1 TABLET BY MOUTH EVERY 12 HOURS FOR 7 DAYS 01/24 completed Not Available Not Available Not Available sulfameth oxazole 800 mg-trimet hoprim 160 mg tablet TAKE 1 TABLET BY MOUTH EVERY 12 HOURS WITH MEALS 07/15 completed finished the abx. Not Available Not Available Not Available tramadol 50 mg tablet TAKE 1 TABLET BY MOUTH THREE TIMES DAILY WITH TYLENOL FOR PAIN CONTROL 05/12 completed Not Available Not Available Not Available spironola ctone 25 mg tablet TAKE 1 TABLET BY MOUTH EVERY DAY active Not Available Not Available No t Available levothyro xine 100 mcg tablet TAKE ONE TABLET BY MOUTH DAILY active Not Available Not Available No t Available estradiol 0.025 mg/24 hr weekly transderm al patch APPLY 1 PATCH TOPICALL Y TO THE SKIN EVERY WEEK active Not Available Not Available No t Available methotrex ate sodium 2.5 mg tablet TAKE 5 TABLETS BY MOUTH IN THE MORNING AND 5 TABLETS IN THE EVENING ONCE A WEEK. 05/12 completed Not Available Not Available Not Available phenazopy ridine 100 mg tablet TAKE 1 TABLET BY MOUTH TWICE DAILY 01/03 completed Not Available Not Available Not Available pantopraz ole 40 mg tablet,de layed release TAKE 1 TABLET BY MOUTH DAILY active Not Available Not Available No t Available oxybutyni n chloride ER 5 mg tablet,ex tended release 24 hr TAKE 1 TABLET BY MOUTH ONCE DAILY WITH A MEAL 07/15 completed Not Available Not Available Not Available diclofena c sodium 75 mg tablet,de layed release TAKE 1 TABLET BY MOUTH TWICE DAILY 05/12 completed Not Available Not Available Not Available cephalexi n 500 mg tablet TAKE 1 TABLET BY MOUTH THREE TIMES DAILY FOR 7 DAYS 01/03 completed Not Available Not Available Not Available folic acid 1 mg tablet TAKE 1 TABLET BY MOUTH EVERY DAY 05/12 completed Not Available Not Available Not Available monteluka st 10 mg tablet TAKE 1 TABLET BY MOUTH EVERY DAY 05/12 completed Not Available Not Available Not Available hydrochlo rothiazid e 25 mg tablet TAKE 1 TABLET BY MOUTH EVERY DAY 2024 active Not Available Not Available Not Avai lable mupirocin 2 % topical ointment APPLY SMALL AMOUNT TOPICALL Y TO THE AFFECTED AREA THREE TIMES DAILY NEEDED 07/15 completed finished and cleared up Not Available Not Available Not Available estradiol 0.5 mg tablet TAKE 1 TABLET BY MOUTH EVERY DAY 10/10 completed Not Available Not Available Not Available azelastin e 137 mcg (0.1 %) nasal spray USE 2 SPRAYS IN EACH NOSTRIL TWICE DAILY 05/12 completed Not Available Not Available Not Available methylpre dnisolone 4 mg tablets in a dose pack FOLLOW PACKAGE DIRECTIO NS 01/03 completed Not Available Not Available Not Available dicyclomi ne 10 mg capsule TAKE 1 CAPSULE BY MOUTH FOUR TIMES DAILY NEEDED FOR ABDOMINA L PAIN active Not Available Not Available No t Available diazepam 5 mg tablet TAKE 1 TABLET BY MOUTH 30 MINUTES BEFORE FLYING 07/15 completed already went on trip, not taking at this time. Not Available Not Available Not Available amoxicill in 875 mg-potass ium clavulana te 125 mg tablet TAKE 1 TABLET BY MOUTH TWICE DAILY FOR 7 DAYS FOR UTI 10/10 completed Not Available Not Available Not Available ezetimibe 10 mg tablet TAKE 1 TABLET BY MOUTH EVERY DAY active Not Available Not Available No t Available cyclobenz aprine 5 mg tablet TAKE 1-2 TABLETS BY MOUTH EVERY NIGHT AT BEDTIME 05/12 completed Not Available Not Available Not Available rosuvasta tin 10 mg tablet TAKE 1 TABLET BY MOUTH EVERY DAY 05/12 completed Not Available Not Available Not Available nitrofura ntoin monohydra te/macroc rystals 100 mg capsule TAKE 1 CAPSULE BY MOUTH TWICE DAILY FOR 5 DAYS 01/03 completed Not Available Not Available Not Available estradiol 10 mcg vaginal tablet INSERT 1 TABLET INTRAVAG INALLY AT NIGHT FOR 14 DAYS THEN USE TWICE A WEEK 01/24 completed Not Available Not Available Not Available levothyro xine 100 mcg capsule take 1 tablet by mouth daily 07/15 completed on the tablet instead Not Available Not Available Not Available ID NOW COVID-19 Test Kit TEST DIRECTED TODAY 05/12 completed Not Available Not Available Not Available Wegovy 0.25 mg/0.5 mL subcutane ous pen injector 05/12 completed Not Available Not Available Not Available Wegovy 0.5 mg/0.5 mL subcutane ous pen injector INJECT 0.5 MG UNDER THE SKIN ONCE A WEEK 05/12 completed Not Available Not Available Not Available Zepbound 10 mg/0.5 mL subcutane ous pen injector ADMINIST ER 10 MG UNDER THE SKIN EVERY WEEK 05/04 completed stomach distress Not Available Not Available Not Available Zepbound 5 mg/0.5 mL subcutane ous pen injector ADMINIST ER 5 MG UNDER THE SKIN EVERY WEEK 07/15 completed on increase d dose now Not Available Not Available Not Available Zepbound 2.5 mg/0.5 mL subcutane ous pen injector INJECT 2.5MG SUBCUTAN EOUSLY ONCE WEEKLY active Not Available Not Available No t Available Zepbound 12.5 mg/0.5 mL subcutane ous pen injector ADMINIST ER 12.5 MG UNDER THE SKIN EVERY WEEK 05/04 completed stomach distress Not Available Not Available Not Available Zepbound 7.5 mg/0.5 mL subcutane ous pen injector ADMINIST ER 7.5 MG UNDER THE SKIN EVERY WEEK 07/15 completed on increase d dose now. Not Available Not Available Not Available Vitals Date Recorded Body height Body mass index (BMI) Body weight Heart rate Oxygen saturation Oxygen saturation in Arterial blood by Pulse oximetry Systolic blood pressure Diastolic blood pressure Provider Name and Address Organization Details Last Updated DateTime 4 157.48 cm 34.8 kg/m2 91960.8 4 g 85 /min 98 % 98 % 128 mm[Hg] 68 mm[Hg] Cadnie Rhoades MA [place] - [facility] 4 15:55:34 Date Recorded Body height Body mass index (BMI) Body weight Heart rate Oxygen saturation Oxygen saturation in Arterial blood by Pulse oximetry Systolic blood pressure Diastolic blood pressure Provider Name and Address Organization Details Last Updated DateTime 4 157.48 cm 34.6 kg/m2 31340.9 6 g 80 /min 99 % 99 % 122 mm[Hg] 84 mm[Hg] Claudia Aiken MA [place] [facility] 4 11:04:14 Date Recorded Body height Body mass index (BMI) Body weight Heart rate Oxygen saturation Oxygen saturation in Arterial blood by Pulse oximetry Systolic blood pressure Diastolic blood pressure Provider Name and Address Organization Details Last Updated DateTime 4 157.48 cm 34.5 kg/m2 59838.5 2 g 83 /min 99 % 99 % 124 mm[Hg] 64 mm[Hg] Chloe Buckner [place] [facility] 4 16:21:30 Date Recorded Body height Body mass index (BMI) Body weight Heart rate Oxygen saturation Oxygen saturation in Arterial blood by Pulse oximetry Systolic blood pressure Diastolic blood pressure Provider Name and Address Organization Details Last Updated DateTime 4 157.48 cm 34.1 kg/m2 58910.7 g 87 /min 99 % 99 % 132 mm[Hg] 84 mm[Hg] Claudia Aiken MA [facility] 4 16:54:57 Date Recorded Body height Body mass index (BMI) Body weight Heart rate Oxygen saturation Oxygen saturation in Arterial blood by Pulse oximetry Systolic blood pressure Diastolic blood pressure Provider Name and Address Organization Details Last Updated DateTime 5 157.48 cm 34.3 kg/m2 00201.2 1 g 86 /min 100 % 100 % 114 mm[Hg] 68 mm[Hg] Claudiajaneth Aiken MA [facility] 5 16:22:56 Social History Question Answer Notes LastModified by Organizat ion Details LastModified Time Tobacco Smoking Status Current Every Day Smoker 4 cigarettes per day Denis Wang MA [facility] 05/13/2023 10:37:56 Do You Have An Advance Directive? No Information not available 05/13/2023 What Is Your Level Of Alcohol Consumption? Occasional Information not available 05/13/2023 Are You Blind Or Do You Have Difficulty Seeing? No Information not available 05/13/2023 What Is Your Level Of Caffeine Consumption? Moderate Information not available 05/13/2023 In The 14 Days Before Symptom Onset, Have You Had Close Contact With A Laboratory-confi rmed COVID-19 While That Case Was Ill? No [email or web address] Information not available 07/16/2023 In The 14 Days Before Symptom Onset, Have You Had Close Contact With A Person Who Is Under Investigation For COVID-19 While That Person Was Ill? No [email or web address] Information not available 07/16/2023 Have You Been To An Area Known To Be High Risk For COVID-19? No [email or web address] Information not available 07/16/2023 Are You Currently Employed? No [email or web address] Information not available 07/16/2023 Are You Deaf Or Do You Have Serious Difficulty Hearing? No Information not available 05/13/2023 What Type Of Diet Are You Following? REGULAR Information not available 05/13/2023 Are There Any Guns Present In Your Home? No Information not available 05/13/2023 What Was The Date Of Your Most Recent Tobacco Screening? 05/02/2024 Information not available 05/02/2024 What Is Your Current Pack Years? 10-19packyear s Information not available 05/13/2023 What Is Your Relationship Status? Information not available 05/13/2023 Do You Use Your Seat Belt Or Car Seat Routinely? Yes Information not available 05/13/2023 Do You Have Smoke And Carbon Monoxide Detectors In Your Home? Yes Information not available 05/13/2023 How Much Tobacco Do You Smoke? 1 PPW Information not available 05/13/2023 Do You Feel Stressed (tense, Restless, Nervous, Or Anxious, Or Unable To Sleep At Night)? [id number] Information not available 05/13/2023 Do You Use Any Illicit Or Recreational Drugs? No Information not available 05/13/2023 Do You Use Sunscreen Routinely? No Information not available 05/13/2023 Has Tobacco Cessation Counseling Been Provided? Yes Information not available 01/04/2024 On What Date Was Tobacco Cessation Counseling Provided? 05/02/2024 Information not available 05/02/2024 Do You Or Have You Ever Used Any Other Forms Of Tobacco Or Nicotine? No Information not available 05/13/2023 Sex: Female Functional Status Question Answer Note LastModified by Organizat ion Details LastModified Time Are you able to care for yourself? Yes Information not available 05/13/2023 What is your exercise level? Occasional Information not available 05/13/2023 Mental Status None recorded. Family History Relationship Description Onset Age of this Age Resolved Age Notes LastModified by Organization Details LastModified Time Mother Asthma [email or web address] Not availabl e 05/13/2023 10:35:47 Mother Diabetes mellitus [email or web address] Not available 04/23 10:35:53 Mother Heart disease [email or web address] Not available 04/23 10:36:04 Mother Hypercholest erolemia bandersonma Not available 04/23 10:36:09 Mother Hypertensive disorder [email or web address] Not available 04/23 10:36:14 Medical History Condition Response Coronary Artery Disease N Depression N COPD N Blood Clots N Anxiety Disorder N Acid Reflux (GERD) Y Stroke N Skin Problems N Asthma N Liver Disease N Thyroid Problems Y GI Problems N Anemia N Heart Attack (GA) N Diabetes N Heart Failure N Other N Atrial Fibrillation N High Blood Pressure Y Muscle, Joint, or Bone Problems Y Cancer N Headaches N Kidney or Bladder Problems N Allergies N Hepatitis N High Cholesterol Y Seizures/Epilepsy N Osteoporosis N Gynecological History Statement/Question Response If Post Menopausal, Age at Menopause 42 Obstetrics History GPAL:G 3 P 3 0 0 3 Type Value Full Term 3 Living 3 Total 3 Immunizations Vaccine Type Date Status Note Provider Nam e and Address Organization Details Recorded Time MMR 03/01/2022 completed Yas Hoffman R[place] null, [place] [facility] 08/23/2023 17:13:26 COVID-19, mRNA, LNP-S, PF, 30 mcg/0.3 mL dose 10/21/2020 completed Yas [place], [place] [facility] 08/23/2023 17:13:26 COVID-19, mRNA, LNP-S, PF, 30 mcg/0.3 mL dose 11/11/2020 ashutosh Hoffman R[place] [facility] 08/23/2023 17:13:26 Tdap 02/20/2022 completed Yas Hoffman [place] [facility] 08/23/2023 17:13:26 Past Encounters Encounter ID Performer Location Encounter Start Date Encounter Closed Date Diagnosis/Indication Diagnosis SNOMED-CT Code Diagnosis ICD10 Code Diagnosis Note [id number] MD Dasia Pagan (Adult Med) [address] [place] [phone] 05/13/2023 10:15:30 05/13/2023 11:23:14 Essential hypertension 26507426 I10 Hypothyroidism 31186401 E03.9 Overweight 551111566 E66 .3 Gastroesop hageal reflux disease without esophagitis 961129918 K21.9 Speckled a ntinuclear antibody pattern 356056474 R76.8 [id number] MD Dasia Pagan (Adult Med) [address] [place] [address] 06/01/2023 11:38:26 06/01/2023 12:29:23 Pain in right foot 2482324270 45366 M79.626 [id number] OBDULIO Cox [facility] [employer] [facility] [place] [address] [place] [address] 07/16/2023 08:41:48 07/16/2023 09:10:33 Acute maxillary sinusitis 67868103 J01.00 start augmentin therapy course as directed. Dysfunctio n of right eustachian tube 3314478684 952561 H69.91 start prednisone 40mg daily x 5 days. [id number] David Medina MD [facility] [employer] [facility] [place] [address] [place] [address] 09/13/2023 09:57:24 09/13/2023 10:24:10 Obesity 945070372 E66.8 Smoker 34687075 F17.200 Essential hypertension 97451303 I10 Gastroesop hageal reflux disease without esophagitis 909085040 K21.9 Body mass index 30+ - obesity 639719669 Z68.35 Hypothyroidism 64613784 E03.9 [id number] David Medina MD [facility] [employer] [facility] [place] [address] [place] [address] 10/11/2023 15:20:05 10/11/2023 16:21:59 Bite of insect 139133372 W57.XXXA [id number] MD Dasia Pagan (Adult Med) [address] [place] [address] 01/04/2024 10:50:15 01/04/2024 11:15:41 Body mass index 30+ - obesity 140012573 Z68.34 Obesity 202837870 E66.9 Essential hypertension 06862401 I10 Hypothyroidism 28219013 E03.9 [id number] MD Dasia Pagan (Adult Med) [address] [place] [address] 01/11/2024 16:07:05 01/11/2024 16:35:18 Smoker 93679385 F17.200 Colitis 85788279 K52.9 Diarrhea 05897820 R19.7 Nausea 289907503 R11.0 [id number] MD Dasia Pagan (Adult Med) [address] [place] [address] 01/25/2024 16:20:47 01/25/2024 17:26:36 Body mass index 30+ - obesity 149076934 Z68.34 Obesity 067893584 E66.9 Abdominal pain 17607958 R10.9 Colitis 74471092 K52.9 [id number] MD Dasia Pagan (Adult Med) [address] [place] [address] 05/02/2024 16:02:40 05/02/2024 17:03:33 Body mass index 30+ - obesity 604668497 Z68.34 Overweight 818184384 E66 .3 Abdominal pain 62779908 R10.9 Gastroesop hageal reflux disease without esophagitis 539107484 K21.9 Essential hypertension 80829874 I10 Hypothyroidism 62123921 E03.9 Health Concerns Section Related Observation LastModified by Organization Detai ls LastModified Time None Recorded Concern Status LastModified by Organization Details LastModified Time None Recorded Advance Directives Directive N: Payers Encounter Date Sequence Insurance Name Policy Number Policy Powell Covered Member ID Powell Member ID Guarantor Name 10/11/2023 1 [place] [id number] Madhu Free [id number] Pati Free 01/04/2024 1 [place] [id number] Madhu Free [id number] Pati Free 01/11/2024 1 [place] [id number] Madhu Free [id number] Pati Free 01/25/2024 1 [place] [id number] Madhu Free [id number] Pati Free 05/02/2024 1 [place] [id number] Madhu Free [id number] Pati Free Notes Date Note Type Note Provider Name and Address Organization Details Recorded Time 10/11/2023 text/html camping bit by a n insect she thinks now she has got a red swollen hot area on her left anterior thigh David Medina MD Attn: Accounting, [address] [facility], [place], [address], [place] [facility] 10/16/2023 13:46:14 01/04/2024 text/html Hypertension no headache or dizziness. Obesity trouble losing weight hypothyroid no heat or cold intolerance tolerance GERD no nausea no vomiting positive CM speckled still has some arthralgias and myalgias David Medina MD Attn: Accounting, [address] [facility], [place], [address], [place] [facility] 01/09/2024 10:40:52 01/11/2024 text/html she is still having some abdominal pain and some right lower back pain CT scan showed colitis her white blood cell count was normal. She is having some intermittent nausea not vomiting some stools are loose from time to time she is tolerating the Cipro and the Flagyl. No fever no chills no blood in her stool symptoms came on acutely David Medina MD Attn: Accounting, [address] [facility], [place], [address], [place] [facility] 01/11/2024 20:25:00 01/25/2024 text/html still with cramp y abdominal pain and loose stools but she is not having any blood no mucus pain is in the right flank area extending into the right groin and at times she will have it in the left lower quadrant as well David Mdeina MD Attn: Accounting, [address] [place], [address], [place] [facility] 01/25/2024 21:32:57 05/02/2024 text/html colonoscopy set up for May 15 she stopped the GLP 1 because of the bowel complaints but would like to go back on her phentermine GERD has been stable she has not had any heat or cold intolerance she was taking her blood pressure medication and her cholesterol medications David Medina MD Attn: Accounting, [address] [place], [address], [place] [facility] 05/07/2024 13:11:53 OBGyn Episode No OBEpisode recorded.
--- OUTSIDE RECORDS SUMMARY | 2024-05-15 00:47 | XMS_ITS | Data Portability ---
Author Organization [place] - [facility] [employer], Main Office Address [address] [place] [address] Care Team Providers Care Butter Printer Name Role Phone DAVID MEDINA Primary Care Provider [phone] DAVID MEDINA Referring Provider Assessment Encounter Date Assessment Date Assessment LastModified by Organization Details LastModified Time 05/01/2022 05/01/2022 Physical therapy for the back Singulair for the rhinitis will try to get wegovy for weight loss Return to clinic 1 month [email or web address] Not available 05/02/2022 13:14:45 05/26/2022 05/26/2022 Allergy consult rtc 3 months [email or web address] Not available 05/26/2022 22:16:09 09/04/2022 09/04/2022 CBC CMP lipid an d A1c T3-T4 TSH. MRI lumbar spine. X-ray both hips in CS legs sleep study Valium to be taken prior to flight she is going on a trip also before her MRI because of claustrophobia see me back in 6 weeks and hopefully she will have everything tested by then [email or web address] Not available 09/04/2022 20:13:01 11/11/2022 11/11/2022 G LP 1 no contraindication will start that inflammatory markers for joint pain rheumatoid factor CM etc.. Continue on her antihypertensive follow-up 4 months [email or web address] Not available 02/18/2023 16:02:13 03/01/2023 03/01/2023 Her medical problems have been discussed including her rheumatological problems she will see me back in several months we will try to get her on a G LP 1 agent [email or web address] Not available 03/01/2023 14:50:52 Plan of Treatment Reminders Order Date Submit Date Provider Last Modified By Organization Details Last Modified Time Details Appointments None recorded. Lab rf (rheumatoid factor), serum 2022 023 [facility] (Lab), [address] [place], [address], 3 10:30:43 CM (antinuclea r antibodies) screen, serum [address] (Lab), [address] [place], [address], 4 18:32:22 C-reactive protein, quantitativ e, serum or plasma [address] (Lab), [address] [place], [address], 4 18:32:22 ESR (erythrocyt e sedimentati on rate), blood 2022 023 [facility] (Lab), [address] [place], [address], 3 11:33:15 CMP, serum or plasma 2022 023 [facility] (Lab), [address] [place], [address], 3 10:33:53 CBC w/ auto diff 2022 023 [facility] (Lab), [address] [place], [address], 3 10:49:48 HbA1c (hemoglobin A1c), blood 2022 023 [facility] (Lab), [address] [place], [address], 3 14:28:36 CM (antinuclea r antibodies) screen, serum 2022 023 [facility] (Lab), [address] [place], [address], 3 14:28:45 CBC w/ auto diff [address] (Lab), [address] [place], [address], 3 14:48:37 lipid panel, serum [address] (Lab), [address] [place], [address], 3 14:48:37 CMP, serum or plasma [address] (Lab), [address] [place], [address], 3 14:48:37 T3, free, serum or plasma [address] (Lab), [address] [place], [address], 3 14:48:37 T4, free, serum [address] (Lab), [address] [place], [address], 3 14:48:37 TSH, serum or plasma [address] (Lab), [address] [place], [address], 3 14:48:37 Referral press tender long goods referral 2022 023 [email or web address] Dias MD, [address] [place] [address], [address], 3 14:29:34 physical therapist referral 2022 023 [facility] [place], [address] [facility], [place], [address], 3 09:00:15 Procedures polysomnogr aphy, diagnostic (PROC) - No auth required call ref# [id number] 2022 023 [facility] [place], [address] [place], [address], 4 18:01:17 Surgeries None recorded. Imaging nerve conduction study - NCS B/L legs 2022 023 [facility] [place] Scheduling, [address] [facility] [place], [address], 4 09:18:11 XR, hip, bilateral 2022 023 [facility], [address] [place], [address], 3 14:27:56 MRI, lumbar spine, w/o contrast - PT needs open MRI. no auth required 2022 023 [facility], [address] [facility] [place], [address], 3 12:55:09 Medication Orders Wegovy 0.25 mg/0.5 mL subcutaneou s pen injector 2022 023 [email or web address] [facility], [address], [place], [id number], 4 11:42:43 Wegovy 0.5 mg/0.5 mL subcutaneou s pen injector 2022 023 [email or web address] [address] [facility] #78322, [address], [place], [id number], 4 11:42:55 Wegovy 1 mg/0.5 mL subcutaneou s pen injector 2022 023 [email or web address] [address], [place], [id number], 4 11:43:00 meloxicam 15 mg tablet 2022 023 [email or web address] [facility]94589, [address], [place], [id number], 3 15:26:49 Wegovy 0.25 mg/0.5 mL subcutaneou s pen injector 2022 023 [email or web address] [facility], [address], [place], [id number], 4 11:42:43 Singulair 10 mg tablet 2022 023 [email or web address] [address] [facility] [address], [place], [id number], 3 10:29:50 Patient TargetsNo targets recorded. Patient InstructionsNo instructions recorded. Reason for Referral Physical Therapist Referral for Low back pain Referring Physician: David Medina, Internal Medicine, Encounter Date: 05/01/2022 Technician Assistant Referral for Seaso nal allergy Referring Physician: David Medina, Internal Medicine, Encounter Date: 05/26/2022 Results Created Date Observation Date Name Description Value Unit Range Abnormal Flag Note LastModifiedBy Organization Detail LastModifiedTime 04/20/19 23 04/20/2022 COVID /FLU/ RSV PCR PANEL RSV/resp.syn ctial virus,RT-PCR negati ve Not Available [facility] (Lab) [address] [place], [address], 04/20/2022 17:38:58 04/20/19 23 04/20/2022 COVID /FLU/ RSV PCR PANEL sars-cov-2 RNA(covid19) ,RT-PCR negati ve This test has been autho rized by the FDA under an Emerg ency Use Autho rizat ion (EUA) for use by autho rized labor atori es. Negat oralia resul ts do not precl ude SARS- CoV-2 and shoul d not be used as the sole basis for treat ment or other patie nt manag ement decis ions. Test resul ts shoul d be corre lated with the clini angelito histo ry, epide miolo gical data, and other data avail able to the clini gudelia evalu ating the patie nt. Luis em w the Fact Sheet s for healt h care provi ders and patie nts at the [facility] lena: https ://Penxy.Parkzzz .gov/ media /1363 12/do wnloa d https ://ww w.fda .gov/ media /1363 13/do wnloa d https ://[employer] w.fda .gov/ media /1421 92/do wnloa d https ://[employer] w.fda .gov/ media /1421 91/do wnloa d David thayer y: Real- Time RT-PC R Not Available [facility] (Lab) [address] [place], [address], 04/20/2022 17:38:58 04/20/19 23 04/20/2022 COVID /FLU/ RSV PCR PANEL influenza A RNA, RT-PCR negati ve Not Available [facility] (Lab) [address] [place], [address], 04/20/2022 17:38:58 04/20/19 23 04/20/2022 COVID /FLU/ RSV PCR PANEL influenza B RNA, RT-PCR negati ve Not Available [facility] (Lab) [address] [place], [address], 04/20/2022 17:38:58 0204/20/2022 RAPID STREP A DNA strep A DNA, VIET negati ve negati ve Not Available [facility] (Lab) [address] [place], [address], 04/20/2022 17:11:05 05/22/19 23 05/22/2022 IMMUN OGLOB ULIN IGG, QN, SERUM immunoglobul in g, qn, serum 1112 mg/dL 586-16 02 Perfo rmed at: [facility] n [address] [place] [address] Lab Direc tor: Dylan powell PhD, Phone : [phone] Not Available [facility] (Lab) [address] [place], [address], 05/22/2022 11:13:03 05/22/19 23 05/22/2022 IMMUN OGLOB ULIN IGM, QN, SERUM immunoglobul in M, qn, serum 134 mg/dL 26-217 Perfo rmed at: [facility] n [address] [place] [address] Lab Direc tor: Dylan powell PhD, Phone : [phone] Not Available [facility] (Lab) [address] [place], [address], 05/22/2022 13:09:53 05/22/19 23 05/22/2022 IMMUN OGLOB ULIN IGA, QN, SERUM immunoglobul in A, qn, serum 190 mg/dL 87-352 Perfo rmed at: [facility] [address] [place] [address] Lab Direc tor: Dylan powell PhD, Phone : [phone] Not Available [facility] (Lab) [address] [place], [address], 05/22/2022 13:09:56 05/22/19 23 05/24/2022 IMMUN OGLOB ULIN IGE, TOTAL immunoglobul in E, total 49 IU/mL 6-495 Perfo rmed at: [facility] [place] [address] , [place] [address] Lab Direc tor: Tiffanie montenegro MD, Phone : [phone] Not Available [facility] (Lab) [address] [place], [address], 05/24/2022 02:06:39 09/05/1909/04/2022 CBC/C OMPLE TE BLD COUNT W/DIF F white blood cells 9.0 x10'3 /uL 4.2-10 .8 Not Available [facility] (Lab) [address] [place], [address], 09/04/2022 12:59:05 09/05/19 23 09/04/2022 CBC/C OMPLE TE BLD COUNT W/DIF F red blood cells 4.55 x10'6 /uL 3.80-5 .20 Not Available [facility] (Lab) [address] [place], [address], 09/04/2022 12:59:05 09/05/1909/04/2022 CBC/C OMPLE TE BLD COUNT W/DIF F hemoglobin 14.5 g/dL 12.0-1 5.6 Not Available [facility] (Lab) [address] [place], [address], 09/04/2022 12:59:05 09/05/1909/04/2022 CBC/C OMPLE TE BLD COUNT W/DIF F hematocrit 43.7 % 35.7-4 5.7 Not Available [facility] (Lab) [address] [place], [address], 09/04/2022 12:59:05 09/05/19 23 09/04/2022 CBC/C OMPLE TE BLD COUNT W/DIF F mean red cell volume 96.0 fL 82.0-9 9.0 Not Available [facility] (Lab) [address] [place], [address], 09/04/2022 12:59:05 09/05/19 23 09/04/2022 CBC/C OMPLE TE BLD COUNT W/DIF F mean red cell hemoglobin 31.9 pg 27.0-3 3.0 Not Available [facility] (Lab) [address] [place], [address], 09/04/2022 12:59:05 09/05/19 23 09/04/2022 CBC/C OMPLE TE BLD COUNT W/DIF F mean RBC HGB concentratio n 33.2 g/dL 31.0-3 6.0 Not Available [facility] (Lab) [address] [place], [address], 09/04/2022 12:59:05 09/05/19 23 09/04/2022 CBC/C OMPLE TE BLD COUNT W/DIF F red cell distribution width 13.2 % 11.8-1 5.5 Not Available [facility] (Lab) [address] [place], [address], 09/04/2022 12:59:05 09/05/19 23 09/04/2022 CBC/C OMPLE TE BLD COUNT W/DIF F platelets 282 x10'3 /uL 150-40 0 Not Available [facility] (Lab) [address] [place], [address], 09/04/2022 12:59:05 09/05/19 23 09/04/2022 CBC/C OMPLE TE BLD COUNT W/DIF F mean platelet volume 11.3 fL 9.0-12 .4 Not Available [facility] (Lab) [address] [place], [address], 09/04/2022 12:59:05 09/05/19 23 09/04/2022 CBC/C OMPLE TE BLD COUNT W/DIF F neutrophils 59.0 % 39.0-7 2.0 Not Available [facility] (Lab) [address] [facility] [place], [address], 09/04/2022 12:59:05 09/05/19 23 09/04/2022 CBC/C OMPLE TE BLD COUNT W/DIF F lymphocytes 31.4 % 16.0-4 7.0 Not Available [facility] (Lab) [address] [place], [address], 09/04/2022 12:59:05 09/05/19 23 09/04/2022 CBC/C OMPLE TE BLD COUNT W/DIF F monocytes 6.5 % 5.0-12 .0 Not Available [facility] (Lab) [address] [place], [address], 09/04/2022 12:59:05 09/05/19 23 09/04/2022 CBC/C OMPLE TE BLD COUNT W/DIF F eosinophils 2.0 % 1.0-7. 0 Not Available [facility] (Lab) [address] [place], [address], 09/04/2022 12:59:05 09/05/19 23 09/04/2022 CBC/C OMPLE TE BLD COUNT W/DIF F basophils 0.8 % 0.0-2. 0 Not Available [facility] (Lab) [address] [place], [address], 09/04/2022 12:59:05 09/05/19 23 09/04/2022 CBC/C OMPLE TE BLD COUNT W/DIF F immature granulocytes 0.3 % 0.00-0 .50 Not Available [facility] (Lab) [address] [place], [address], 09/04/2022 12:59:05 09/05/19 23 09/04/2022 CBC/C OMPLE TE BLD COUNT W/DIF F neutrophils, absolute count 5.29 x10'3 /uL 1.5-8. 0 Not Available [facility] (Lab) [address] [place], [address], 09/04/2022 12:59:05 09/05/19 23 09/04/2022 CBC/C OMPLE TE BLD COUNT W/DIF F lymphocytes, absolute count 2.81 x10'3 /uL 1.07-3 .43 Not Available [facility] (Lab) [address] [place], [address], 09/04/2022 12:59:05 09/05/19 23 09/04/2022 CBC/C OMPLE TE BLD COUNT W/DIF F monocytes, absolute count 0.58 x10'3 /uL 0.29-0 .99 Not Available [facility] (Lab) [address] [place], [address], 09/04/2022 12:59:05 09/05/19 23 09/04/2022 CBC/C OMPLE TE BLD COUNT W/DIF F eosinophils, absolute count 0.18 x10'3 /uL 0.02-0 .53 Not Available [facility] (Lab) [address] [place], [address], 09/04/2022 12:59:05 09/05/19 23 09/04/2022 CBC/C OMPLE TE BLD COUNT W/DIF F basophils, absolute count 0.07 x10'3 /uL 0.01-0 .08 Not Available [facility] (Lab) [address] [place], [address], 09/04/2022 12:59:05 09/05/19 23 09/04/2022 CBC/C OMPLE TE BLD COUNT W/DIF F immature granulocytes ,absolute 0.03 x10'3 /uL 0.00-0 .05 Not Available [facility] (Lab) [address] [place], [address], 09/04/2022 12:59:05 09/05/19 23 09/04/2022 CBC/C OMPLE TE BLD COUNT W/DIF F nucleated red blood cells 0.0 % -0 Not Available [facility] (Lab) [address] [place], [address], 09/04/2022 12:59:05 09/05/19 23 09/04/2022 CBC/C OMPLE TE BLD COUNT W/DIF F NRBC# 0.00 x10'3 /uL Not Available [facility] (Lab) [address] [place], [address], 09/04/2022 12:59:05 09/05/1909/04/2022 LIPID PANEL cholesterol 221 mg/dL 140-19 9 high NIH LEANDRA NSUS RECOM MENDA TION FOR ARTURO STERO L: ADULT CHILD LOW RISK: <200 <170 BORDE RLINE : <200- 239 ----- HIGH RISK: >240 >200 Not Available [facility] (Lab) [address] [place], [address], 09/04/2022 13:48:55 09/05/1909/04/2022 LIPID PANEL triglyceride s 156 mg/dL 0-150 high NIH LEANDRA NSUS REPOR T RECOM MENDA TION FOR TRIGL YCERI YVETTE: ADULT CHILD LOW RISK: <150 ----- BODER LINE: 150-1 99 ----- HIGH RISK: >200 ----- Not Available [facility] (Lab) [address] [place], [address], 09/04/2022 13:48:55 09/05/19 23 09/04/2022 LIPID PANEL HDL cholesterol 100 mg/dL 40- Not Available [facility] (Lab) [address] [place], [address], 09/04/2022 13:48:55 09/05/19 23 09/04/2022 LIPID PANEL LDL cholesterol, calculated 90 mg/dL 0-130 NIH LEANDRA NSUS REPOR T RECOM MENDA TIONS FOR LDL: ADULT CHILD LOW RISK <130 <110 (OPTI MAL LDL) <100 ----- BORDE RLINE : 130-1 59 ----- HIGH RISK: >160 >130 A TRIGL YCERI DE RESUL T >400 INVAL IDATE S THE CALCU LATIO N FOR LDL FRACT IONAT ION - THE LDL RESUL T WILL NOT BE REPOR GIANA. Not Available [facility] (Lab) [address] [place], [address], 09/04/2022 13:48:55 09/05/19 23 09/04/2022 COMPR EHENS ORALIA METAB OLIC PANEL sodium 137 mmol/ L 137-14 5 Not Available [facility] (Lab) [address] [place], [address], 09/04/2022 13:49:02 09/05/19 23 09/04/2022 COMPR EHENS ORALIA METAB OLIC PANEL potassium 4.1 mmol/ L 3.5-5. 1 Not Available [facility] (Lab) [address] [place], [address], 09/04/2022 13:49:02 09/05/19 23 09/04/2022 COMPR EHENS ORALIA METAB OLIC PANEL chloride 102 mmol/ L 98-107 Not Available [facility] (Lab) [address] [place], [address], 09/04/2022 13:49:02 09/05/19 23 09/04/2022 COMPR EHENS ORALIA METAB OLIC PANEL carbon dioxide 28 mmol/ L 22-30 Not Available [facility] (Lab) [address] [place], [address], 09/04/2022 13:49:02 09/05/19 23 09/04/2022 COMPR EHENS ORALIA METAB OLIC PANEL anion gap 11.1 mmol/ L 14-22 low Not Available [facility] (Lab) [address] [place], [address], 09/04/2022 13:49:02 09/05/19 23 09/04/2022 COMPR EHENS ORALIA METAB OLIC PANEL glucose 97 mg/dL 70-99 Not Available [facility] (Lab) [address] [place], [address], 09/04/2022 13:49:02 09/05/19 23 09/04/2022 COMPR EHENS ORALIA METAB OLIC PANEL BUN 12 mg/dL 8-19 Not Available [facility] (Lab) [address] [place], [address], 09/04/2022 13:49:02 09/05/1909/04/2022 COMPR EHENS ORALIA METAB OLIC PANEL creatinine 0.54 mg/dL 0.66-1 .25 low Not Available [facility] (Lab) [address] [place], [address], 09/04/2022 13:49:02 09/05/1909/04/2022 COMPR EHENS ORALIA METAB OLIC PANEL GFR >60 Refer ence Range : [place] ge GFR Healt hy Adult : >60 mL/mi n/1.7 3 m2 Chron ic Kidne y Disea se: 15-60 mL/mi n/1.7 3 m2 Kidne y Failu re: <15/m L/min /1.73 m2 www.n iddk. nih.g ov The MDRD study equat ion has not been valid ated in child renetta <18 years of age; pregn ant women ; the elder ly >85 years of age; or in some racia l or ethni c subgr oups, such as Hispa nics. Outsi de the valid ated arianna eters , estim ated GFR is less accur ate, requi ring clini angelito judgm ent on a case- by-ca se basis . Clini angelito inter preta tion for other races and ages must be made by the clini gudelia. The MDRD study equat ion has not been valid ated for the evalu ation of serum creat inine relat ed to nutri jean-pierre l statu s or medic ation usage . For perso ns <18 years of age, a pedia tric GFR calcu lator is avail able on the [facility] websi te: https ://lex robb.kari zapata/osbaldo ofess ional s/kdo qi/gf r_cal culat or Not Available [facility] (Lab) [address] [place], [address], 09/04/2022 13:49:02 09/05/19 23 09/04/2022 COMPR EHENS ORALIA METAB OLIC PANEL alkaline phosphatase 59 U/L 38-126 Not Available [facility] (Lab) [address] [place], [address], 09/04/2022 13:49:02 09/05/19 23 09/04/2022 COMPR EHENS ORALIA METAB OLIC PANEL alanine aminotransfe rase 21 U/L 0-35 Not Available [facility] (Lab) [address] [place], [address], 09/04/2022 13:49:02 09/05/19 23 09/04/2022 COMPR EHENS ORALIA METAB OLIC PANEL aspartate aminotransfe rase 25 U/L 15-37 Not Available [facility] (Lab) [address] [place], [address], 09/04/2022 13:49:02 09/05/19 23 09/04/2022 COMPR EHENS ORALIA METAB OLIC PANEL bilirubin, total 0.70 mg/dL 0.20-1 .30 Not Available [facility] (Lab) [address] [place], [address], 09/04/2022 13:49:02 09/05/19 23 09/04/2022 COMPR EHENS ORALIA METAB OLIC PANEL calcium 9.5 mg/dL 8.4-10 .2 Not Available [facility] (Lab) [address] [place], [address], 09/04/2022 13:49:02 09/05/19 23 09/04/2022 COMPR EHENS ORALIA METAB OLIC PANEL total protein 7.6 g/dL 6.3-8. 2 Not Available [facility] (Lab) [address] [place], [address], 09/04/2022 13:49:02 09/05/19 23 09/04/2022 COMPR EHENS ORALIA METAB OLIC PANEL albumin 4.4 g/dL 3.4-5. 0 Not Available [facility] (Lab) [address] [place], [address], 09/04/2022 13:49:02 09/05/19 23 09/04/2022 COMPR EHENS ORALIA METAB OLIC PANEL globulin 3.2 g/dL 2.6-4. 2 Not Available [facility] (Lab) [address] [place], [address], 09/04/2022 13:49:02 09/05/19 23 09/04/2022 COMPR EHENS ORALIA METAB OLIC PANEL A/G ratio 1.4 ratio 1.0-2. 0 Not Available [facility] (Lab) [address] [place], [address], 09/04/2022 13:49:02 09/05/19 23 09/04/2022 T3 FREE free T3 3.5 pg/mL 2.77-5 .27 Not Available [facility] (Lab) [address] [place], [address], 09/04/2022 13:52:27 09/05/19 23 09/04/2022 T4 FREE free T4 1.56 NG/dL 0.78-2 .19 Not Available [facility] (Lab) [address] [place], [address], 09/04/2022 13:52:29 09/05/19 23 09/04/2022 TSH thyroid-stim ulating hormone 0.595 uIU/m L 0.465- 4.680 Not Available [facility] (Lab) [address] [place], [address], 09/04/2022 14:17:09 09/05/19 23 09/04/2022 HEMOG LOBIN A1C HA1C 5.4 % 4.0-6. 0 Diabe lena Scree jaden Crite sudheer: <5.7% Consi stent with absen ce of diabe lena 5.7-6 .4% Consi stent with incre ased risk for diabe lena (pred iabet es) >OR=6 .5% Consi stent with diabe lena REFER ENCE: Diabe lena Care 2016, 39(Dunn ppl.1 ):s13 -s22 Not Available [facility] (Lab) [address] [place], [address], 09/04/2022 15:45:53 09/05/19 23 09/07/2022 CM BY IFA RFX TITER /RANDOLPH CORNELL antinuclear antibodies, ifa Negati ve Negat oralia <1:80 Borde rline 1:80 Posit oralia >1:80 ICAP nomen sona re: AC-0 For more infor meagan olmstead about Hep-2 cell patte rns use ANApa ttern s.org , the offic ial websi te for the Inter natio nal Conse nsus on Antin uclea r Antib marcio (CM) Patte rns (ICAP ). [facility]: [facility] [address] [place] [address] Lab Direc tor: Dylan powell PhD, Phone : [phone] Not Available [facility] (Lab) [address] [place], [address], 09/07/2022 15:09:20 11/17/19 23 11/16/2022 RHEUM ATOID FACTO R rf 9.4 IU/mL 0.0-11 .9 Not Available [facility] (Lab) [address] [place], [address], 11/16/2022 10:30:43 11/17/19 23 11/16/2022 C REACT ORALIA PROTE IN,UL TRA SENS C-reactive protein 0.90 mg/dL 0.0-0. 5 high Not Available [facility] (Lab) [address] [place], [address], 11/16/2022 10:30:49 11/17/19 23 11/16/2022 COMPR EHENS ORALIA METAB OLIC PANEL sodium 134 mmol/ L 137-14 5 low Not Available [facility] (Lab) [address] [place], [address], 11/16/2022 10:33:53 11/17/19 23 11/16/2022 COMPR EHENS ORALIA METAB OLIC PANEL potassium 4.1 mmol/ L 3.5-5. 1 Not Available [facility] (Lab) [address] [place], [address], 11/16/2022 10:33:53 11/17/19 23 11/16/2022 COMPR EHENS ORALIA METAB OLIC PANEL chloride 100 mmol/ L 98-107 Not Available [facility] (Lab) [address] [place], [address], 11/16/2022 10:33:53 11/17/19 23 11/16/2022 COMPR EHENS ORALIA METAB OLIC PANEL carbon dioxide 28 mmol/ L 22-30 Not Available [facility] (Lab) [address] [place], [address], 11/16/2022 10:33:53 11/17/19 23 11/16/2022 COMPR EHENS ORALIA METAB OLIC PANEL anion gap 10.1 mmol/ L 14-22 low Not Available [facility] (Lab) [address] [place], [address], 11/16/2022 10:33:53 11/17/19 23 11/16/2022 COMPR EHENS ORALIA METAB OLIC PANEL glucose 109 mg/dL 70-99 high Not Available [facility] (Lab) [address] [place], [address], 11/16/2022 10:33:53 11/17/1911/16/2022 COMPR EHENS ORALIA METAB OLIC PANEL BUN 16 mg/dL 8-19 Not Available [facility] (Lab) [address] [place], [address], 11/16/2022 10:33:53 11/17/1911/16/2022 COMPR EHENS ORALIA METAB OLIC PANEL creatinine 0.56 mg/dL 0.66-1 .25 low Not Available [facility] (Lab) [address] [place], [address], 11/16/2022 10:33:53 11/17/1911/16/2022 COMPR EHENS ORALIA METAB OLIC PANEL GFR >60 Refer ence Range : [place] ge GFR Healt hy Adult : >60 mL/mi n/1.7 3 m2 Chron ic Kidne y Disea se: 15-60 mL/mi n/1.7 3 m2 Kidne y Failu re: <15/m L/min /1.73 m2 www.n iddk. nih.g ov The MDRD study equat ion has not been valid ated in child renetta <18 years of age; pregn ant women ; the elder ly >85 years of age; or in some racia l or ethni c subgr oups, such as [facility] nics. Outsi de the valid ated arianna eters , estim ated GFR is less accur ate, requi ring clini angelito judgm ent on a case- by-ca se basis . Clini angelito inter preta tion for other races and ages must be made by the clini gudelia. The MDRD study equat ion has not been valid ated for the evalu ation of serum creat inine relat ed to nutri jean-pierre l statu s or medic ation usage . For perso ns <18 years of age, a pedia tric GFR calcu lator is avail able on the [facility] websi te: https ://lex w.farzad robb.o rg/pr ofess ional s/kdo qi/gf r_cal culat or Not Available [facility] (Lab) [address] [place], [address], 11/16/2022 10:33:53 11/17/19 23 11/16/2022 COMPR EHENS ORALIA METAB OLIC PANEL alkaline phosphatase 62 U/L 38-126 Not Available [facility] (Lab) [address] [place], [address], 11/16/2022 10:33:53 11/17/19 23 11/16/2022 COMPR EHENS ORALIA METAB OLIC PANEL alanine aminotransfe rase 22 U/L 0-35 Not Available [facility] (Lab) [address] [place], [address], 11/16/2022 10:33:53 11/17/19 23 11/16/2022 COMPR EHENS ORALIA METAB OLIC PANEL aspartate aminotransfe rase 21 U/L 15-37 Not Available [facility] (Lab) [address] [place], [address], 11/16/2022 10:33:53 11/17/19 23 11/16/2022 COMPR EHENS ORALIA METAB OLIC PANEL bilirubin, total 0.80 mg/dL 0.20-1 .30 Not Available [facility] (Lab) [address] [place], [address], 11/16/2022 10:33:53 11/17/19 23 11/16/2022 COMPR EHENS ORALIA METAB OLIC PANEL calcium 9.9 mg/dL 8.4-10 .2 Not Available [facility] (Lab) [address] [place], [address], 11/16/2022 10:33:53 11/17/19 23 11/16/2022 COMPR EHENS ORALIA METAB OLIC PANEL total protein 7.5 g/dL 6.3-8. 2 Not Available [facility] (Lab) [address] [place], [address], 11/16/2022 10:33:53 11/17/19 23 11/16/2022 COMPR EHENS ORALIA METAB OLIC PANEL albumin 4.4 g/dL 3.4-5. 0 Not Available [facility] (Lab) [address] [place], [address], 11/16/2022 10:33:53 11/17/19 23 11/16/2022 COMPR EHENS ORALIA METAB OLIC PANEL globulin 3.1 g/dL 2.6-4. 2 Not Available [facility] (Lab) [address] [place], [address], 11/16/2022 10:33:53 11/17/19 23 11/16/2022 COMPR EHENS ORALIA METAB OLIC PANEL A/G ratio 1.4 ratio 1.0-2. 0 Not Available [facility] (Lab) [address] [place], [address], 11/16/2022 10:33:53 11/17/19 23 11/16/2022 CBC/C OMPLE TE BLD COUNT W/DIF F white blood cells 8.4 x10'3 /uL 4.2-10 .8 Not Available [facility] (Lab) [address] [place], [address], 11/16/2022 10:49:48 11/17/19 23 11/16/2022 CBC/C OMPLE TE BLD COUNT W/DIF F red blood cells 4.75 x10'6 /uL 3.80-5 .20 Not Available [facility] (Lab) [address] [place], [address], 11/16/2022 10:49:48 11/17/19 23 11/16/2022 CBC/C OMPLE TE BLD COUNT W/DIF F hemoglobin 15.0 g/dL 12.0-1 5.6 Not Available [facility] (Lab) [address] [place], [address], 11/16/2022 10:49:48 11/17/19 23 11/16/2022 CBC/C OMPLE TE BLD COUNT W/DIF F hematocrit 44.0 % 35.7-4 5.7 Not Available [facility] (Lab) [address] [place], [address], 11/16/2022 10:49:48 11/17/1911/16/2022 CBC/C OMPLE TE BLD COUNT W/DIF F mean red cell volume 92.6 fL 82.0-9 9.0 Not Available [facility] (Lab) [address] [place], [address], 11/16/2022 10:49:48 11/17/1911/16/2022 CBC/C OMPLE TE BLD COUNT W/DIF F mean red cell hemoglobin 31.6 pg 27.0-3 3.0 Not Available [facility] (Lab) [address] [place], [address], 11/16/2022 10:49:48 11/17/1911/16/2022 CBC/C OMPLE TE BLD COUNT W/DIF F mean RBC HGB concentratio n 34.1 g/dL 31.0-3 6.0 Not Available [facility] (Lab) [address] [place], [address], 11/16/2022 10:49:48 11/17/1911/16/2022 CBC/C OMPLE TE BLD COUNT W/DIF F red cell distribution width 13.0 % 11.8-1 5.5 Not Available [facility] (Lab) [address] [place], [address], 11/16/2022 10:49:48 11/17/1911/16/2022 CBC/C OMPLE TE BLD COUNT W/DIF F platelets 292 x10'3 /uL 150-40 0 Not Available [facility] (Lab) [address] [place], [address], 11/16/2022 10:49:48 11/17/1911/16/2022 CBC/C OMPLE TE BLD COUNT W/DIF F mean platelet volume 11.0 fL 9.0-12 .4 Not Available [facility] (Lab) [address] [place], [address], 11/16/2022 10:49:48 11/17/1911/16/2022 CBC/C OMPLE TE BLD COUNT W/DIF F neutrophils 59.5 % 39.0-7 2.0 Not Available [facility] (Lab) [address] [place], [address], 11/16/2022 10:49:48 11/17/1911/16/2022 CBC/C OMPLE TE BLD COUNT W/DIF F lymphocytes 29.8 % 16.0-4 7.0 Not Available [facility] (Lab) [address] [place], [address], 11/16/2022 10:49:48 11/17/1911/16/2022 CBC/C OMPLE TE BLD COUNT W/DIF F monocytes 7.7 % 5.0-12 .0 Not Available [facility] (Lab) [address] [place], [address], 11/16/2022 10:49:48 11/17/1911/16/2022 CBC/C OMPLE TE BLD COUNT W/DIF F eosinophils 1.9 % 1.0-7. 0 Not Available [facility] (Lab) [address] [place], [address], 11/16/2022 10:49:48 11/17/1911/16/2022 CBC/C OMPLE TE BLD COUNT W/DIF F basophils 0.7 % 0.0-2. 0 Not Available [facility] (Lab) [address] [place], [address], 11/16/2022 10:49:48 11/17/19 23 11/16/2022 CBC/C OMPLE TE BLD COUNT W/DIF F immature granulocytes 0.4 % 0.00-0 .50 Not Available [facility] (Lab) [address] [place], [address], 11/16/2022 10:49:48 11/17/1911/16/2022 CBC/C OMPLE TE BLD COUNT W/DIF F neutrophils, absolute count 4.99 x10'3 /uL 1.5-8. 0 Not Available [facility] (Lab) [address] [place], [address], 11/16/2022 10:49:48 11/17/19 23 11/16/2022 CBC/C OMPLE TE BLD COUNT W/DIF F lymphocytes, absolute count 2.50 x10'3 /uL 1.07-3 .43 Not Available [facility] (Lab) [address] [place], [address], 11/16/2022 10:49:48 11/17/1911/16/2022 CBC/C OMPLE TE BLD COUNT W/DIF F monocytes, absolute count 0.65 x10'3 /uL 0.29-0 .99 Not Available [facility] (Lab) [address] [place], [address], 11/16/2022 10:49:48 11/17/1911/16/2022 CBC/C OMPLE TE BLD COUNT W/DIF F eosinophils, absolute count 0.16 x10'3 /uL 0.02-0 .53 Not Available [facility] (Lab) [address] [place], [address], 11/16/2022 10:49:48 11/17/19 23 11/16/2022 CBC/C OMPLE TE BLD COUNT W/DIF F basophils, absolute count 0.06 x10'3 /uL 0.01-0 .08 Not Available [facility] (Lab) [address] [place], [address], 11/16/2022 10:49:48 11/17/19 23 11/16/2022 CBC/C OMPLE TE BLD COUNT W/DIF F immature granulocytes ,absolute 0.03 x10'3 /uL 0.00-0 .05 Not Available [facility] (Lab) [address] [place], [address], 11/16/2022 10:49:48 11/17/19 23 11/16/2022 CBC/C OMPLE TE BLD COUNT W/DIF F nucleated red blood cells 0.0 % -0 Not Available [facility] (Lab) [address] [place], [address], 11/16/2022 10:49:48 11/17/19 23 11/16/2022 CBC/C OMPLE TE BLD COUNT W/DIF F NRBC# 0.00 x10'3 /uL Not Available [facility] (Lab) [address] [place], [address], 11/16/2022 10:49:48 11/17/19 23 11/16/2022 SEDIM ENTAT ION RATE erythrocyte sedimentatio n rate 15 mm/HR 0-20 Not Available [facility] (Lab) [address] [place], [address], 11/16/2022 11:33:15 11/17/19 23 11/17/2022 CM BY IFA RFX TITER /RANDOLPH CORNELL antinuclear antibodies, ifa Positi ve abnormal Negat oralia <1:80 Borde rline 1:80 Posit oralia >1:80 Perfo rmed at: CB - [facility] [place] [address] [facility], [place] [address] Lab Direc tor: Dylan powell PhD, Phone : [phone] Not Available [facility] (Lab) [address] [place] [address], [address], 11/17/2022 15:09:50 11/17/19 23 11/17/2022 CM BY IFA RFX TITER /RANDOLPH CORNELL speckled pattern 1:160 high Dense Fine Speck led alvin cabral is noted . This alvin cabral sugge sts the prese nce of DFS70 antib marcio which has a low preva lence in syste abi autoi mmune rheum atic disea ses. ICAP orville magallanes re: AC-2, 4,5,2 9 Not Available [facility] (Lab) [address] [place], [address], 11/17/2022 15:09:50 11/17/19 23 11/17/2022 CM BY IFA RFX TITER /RANDOLPH CORNELL note: Greg t abnormal . Alvin [facility] n ----- ----- --- ----- ----- ----- ----- ----- ----- ----- ----- ----- Homog eneou s Syste abi Lupus Eryth emato segundo, Drug Induc ed Syste abi Lupus Eryth emato segundo, Chron ic Autoi mmune hepat itis, Yonis ile Idiop athic Arthr itis ----- ----- --- ----- ----- ----- ----- ----- ----- ----- ----- ----- Speck led Sjogr en Syndr ome, Syste abi Lupus Eryth emato segundo, [place] Cutan eous Lupus , Neona chucho Lupus , Conge nital Heart Block , Mixed Conne ctive Tissu e Disea se, Scler oderm a-dif fuse, Scler oderm a-Aut oimmu ne Myosi tis Overl ap Syndr ome, Syste abi Lupus Eryth emato segundo-S clero derma -Auto immun e Myosi tis Overl ap Syndr ome, Syste abi Autoi mmune Rheum atic Disea se, Undif jasmin rodarteive Tissu e Disea se ----- ----- --- ----- ----- ----- ----- ----- ----- ----- ----- ----- Nucle olar Syste abi Scler osis, Scler oderm a-Aut oimmu ne Myosi tis Overl ap Syndr ome, Sjogr en Syndr ome, Radha ud pheno yesi , Pulmo nary Arter ial Hyper tensi on, Syste abi Autoi mmune Rheum atic Disea se, Cance r ----- ----- --- ----- ----- ----- ----- ----- ----- ----- ----- ----- Centr omere Scler oderm a-CRE ST, Limit ed Cutan eous SSc, Radha ud's Pheno yesi , Prima ry Bilia ry Chola ngiti s ----- ----- --- ----- ----- ----- ----- ----- ----- ----- ----- ----- Nucle ar Dot Prima ry Bilia ry Chola ngiti s ----- ----- --- ----- ----- ----- ----- ----- ----- ----- ----- ----- Nucle ar Prima ry Bilia ry Chola ngiti s, Autoi mmune Membr ane Hepat itis/ Liver disea se, Syste abi Autoi mmune Rheum atic Disea se, Autoi mmune Cytop enias , Linea r Scler oderm a, Antip hosph olipi d Syndr ome ----- ----- --- ----- ----- ----- ----- ----- ----- ----- ----- ----- Perfo rmed at: - [facility] Ramiro olmstead [address] [facility], [place] [id number] Lab Direc tor: Dylan powell PhD, Phone : [phone] Not Available [facility] (Lab) [address] [place], [address], 11/17/2022 15:09:50 05/26/1905/26/2023 CBC/C OMPLE TE BLD COUNT W/DIF F white blood cells 8.1 x10'3 /uL 4.2-10 .8 Not Available [facility] (Lab) [address] [place], [address], 05/26/2023 14:17:22 05/26/19 24 05/26/2023 CBC/C OMPLE TE BLD COUNT W/DIF F red blood cells 4.79 x10'6 /uL 3.80-5 .20 Not Available [facility] (Lab) [address] [place], [address], 05/26/2023 14:17:22 05/26/19 24 05/26/2023 CBC/C OMPLE TE BLD COUNT W/DIF F hemoglobin 15.1 g/dL 12.0-1 5.6 Not Available [facility] (Lab) [address] [place], [address], 05/26/2023 14:17:22 05/26/19 24 05/26/2023 CBC/C OMPLE TE BLD COUNT W/DIF F hematocrit 44.9 % 35.7-4 5.7 Not Available [facility] (Lab) [address] [place], [address], 05/26/2023 14:17:22 05/26/19 24 05/26/2023 CBC/C OMPLE TE BLD COUNT W/DIF F mean red cell volume 93.7 fL 82.0-9 9.0 Not Available [facility] (Lab) [address] [place], [address], 05/26/2023 14:17:22 05/26/19 24 05/26/2023 CBC/C OMPLE TE BLD COUNT W/DIF F mean red cell hemoglobin 31.5 pg 27.0-3 3.0 Not Available [facility] (Lab) [address] [place], [address], 05/26/2023 14:17:22 05/26/19 24 05/26/2023 CBC/C OMPLE TE BLD COUNT W/DIF F mean RBC HGB concentratio n 33.6 g/dL 31.0-3 6.0 Not Available [facility] (Lab) [address] [place], [address], 05/26/2023 14:17:22 05/26/19 24 05/26/2023 CBC/C OMPLE TE BLD COUNT W/DIF F red cell distribution width 12.8 % 11.8-1 5.5 Not Available [facility] (Lab) [address] [place], [address], 05/26/2023 14:17:22 05/26/19 24 05/26/2023 CBC/C OMPLE TE BLD COUNT W/DIF F platelets 280 x10'3 /uL 150-40 0 Not Available [facility] (Lab) [address] [place], [address], 05/26/2023 14:17:22 05/26/19 24 05/26/2023 CBC/C OMPLE TE BLD COUNT W/DIF F mean platelet volume 11.7 fL 9.0-12 .4 Not Available [facility] (Lab) [address] [place], [address], 05/26/2023 14:17:22 05/26/19 24 05/26/2023 CBC/C OMPLE TE BLD COUNT W/DIF F neutrophils 62.8 % 39.0-7 2.0 Not Available [facility] (Lab) [address] [place], [address], 05/26/2023 14:17:22 05/26/19 24 05/26/2023 CBC/C OMPLE TE BLD COUNT W/DIF F lymphocytes 27.2 % 16.0-4 7.0 Not Available [facility] (Lab) [address] [place], [address], 05/26/2023 14:17:22 05/26/19 24 05/26/2023 CBC/C OMPLE TE BLD COUNT W/DIF F monocytes 7.2 % 5.0-12 .0 Not Available [facility] (Lab) [address] [place], [address], 05/26/2023 14:17:22 05/26/19 24 05/26/2023 CBC/C OMPLE TE BLD COUNT W/DIF F eosinophils 1.9 % 1.0-7. 0 Not Available [facility] (Lab) [address] [place], [address], 05/26/2023 14:17:22 05/26/19 24 05/26/2023 CBC/C OMPLE TE BLD COUNT W/DIF F basophils 0.5 % 0.0-2. 0 Not Available [facility] (Lab) [address] [place], [address], 05/26/2023 14:17:22 05/26/19 24 05/26/2023 CBC/C OMPLE TE BLD COUNT W/DIF F immature granulocytes 0.4 % 0.00-0 .50 Not Available [facility] (Lab) [address] [place], [address], 05/26/2023 14:17:22 05/26/19 24 05/26/2023 CBC/C OMPLE TE BLD COUNT W/DIF F neutrophils, absolute count 5.08 x10'3 /uL 1.5-8. 0 Not Available [facility] (Lab) [address] [place], [address], 05/26/2023 14:17:22 05/26/19 24 05/26/2023 CBC/C OMPLE TE BLD COUNT W/DIF F lymphocytes, absolute count 2.20 x10'3 /uL 1.07-3 .43 Not Available [facility] (Lab) [address] [place], [address], 05/26/2023 14:17:22 05/26/19 24 05/26/2023 CBC/C OMPLE TE BLD COUNT W/DIF F monocytes, absolute count 0.58 x10'3 /uL 0.29-0 .99 Not Available [facility] (Lab) [address] [place], [address], 05/26/2023 14:17:22 05/26/19 24 05/26/2023 CBC/C OMPLE TE BLD COUNT W/DIF F eosinophils, absolute count 0.15 x10'3 /uL 0.02-0 .53 Not Available [facility] (Lab) [address] [place], [address], 05/26/2023 14:17:22 05/26/19 24 05/26/2023 CBC/C OMPLE TE BLD COUNT W/DIF F basophils, absolute count 0.04 x10'3 /uL 0.01-0 .08 Not Available [facility] (Lab) [address] [place], [address], 05/26/2023 14:17:22 05/26/19 24 05/26/2023 CBC/C OMPLE TE BLD COUNT W/DIF F immature granulocytes ,absolute 0.03 x10'3 /uL 0.00-0 .05 Not Available [facility] (Lab) [address] [place], [address], 05/26/2023 14:17:22 05/26/19 24 05/26/2023 CBC/C OMPLE TE BLD COUNT W/DIF F nucleated red blood cells 0.0 % -0 Not Available [facility] (Lab) [address] [place], [address], 05/26/2023 14:17:22 05/26/19 24 05/26/2023 CBC/C OMPLE TE BLD COUNT W/DIF F NRBC# 0.00 x10'3 /uL Not Available [facility] (Lab) [address] [place], [address], 05/26/2023 14:17:22 05/26/19 24 05/26/2023 COMPR EHENS ORALIA METAB OLIC PANEL sodium 137 mmol/ L 137-14 5 Not Available [facility] (Lab) [address] [place], [address], 05/26/2023 18:03:38 05/26/19 24 05/26/2023 COMPR EHENS ORALIA METAB OLIC PANEL potassium 3.9 mmol/ L 3.5-5. 1 Not Available [facility] (Lab) [address] [place], [address], 05/26/2023 18:03:38 05/26/19 24 05/26/2023 COMPR EHENS ORALIA METAB OLIC PANEL chloride 102 mmol/ L 98-107 Not Available [facility] (Lab) [address] [place], [address], 05/26/2023 18:03:38 05/26/19 24 05/26/2023 COMPR EHENS ORALIA METAB OLIC PANEL carbon dioxide 29 mmol/ L 22-30 Not Available [facility] (Lab) [address] [place], [address], 05/26/2023 18:03:38 05/26/19 24 05/26/2023 COMPR EHENS ORALIA METAB OLIC PANEL anion gap 9.9 mmol/ L 14-22 low Not Available [facility] (Lab) [address] [place], [address], 05/26/2023 18:03:38 05/26/19 24 05/26/2023 COMPR EHENS ORALIA METAB OLIC PANEL glucose 87 mg/dL 70-99 Not Available [facility] (Lab) [address] [place], [address], 05/26/2023 18:03:38 05/26/19 24 05/26/2023 COMPR EHENS ORALIA METAB OLIC PANEL BUN 17 mg/dL 8-19 Not Available [facility] (Lab) [address] [place], [address], 05/26/2023 18:03:38 05/26/19 24 05/26/2023 COMPR EHENS ORALIA METAB OLIC PANEL creatinine 0.74 mg/dL 0.66-1 .25 Not Available [facility] (Lab) [address] [place], [address], 05/26/2023 18:03:38 05/26/19 24 05/26/2023 COMPR EHENS ORALIA METAB OLIC PANEL GFR >60 Refer ence Range : [place] ge GFR Healt hy Adult : >60 mL/mi n/1.7 3 m2 Chron ic Kidne y Disea se: 15-60 mL/mi n/1.7 3 m2 Kidne y Failu re: <15/m L/min /1.73 m2 www.n iddk. nih.g ov The MDRD study equat ion has not been valid ated in child renetta <18 years of age; pregn ant women ; the elder ly >85 years of age; or in some racia l or ethni c subgr oups, such as Hispa nics. Outsi de the valid ated arianna eters , estim ated GFR is less accur ate, requi ring clini angelito judgm ent on a case- by-ca se basis . Clini angelito inter preta tion for other races and ages must be made by the clini gudelia. The MDRD study equat ion has not been valid ated for the evalu ation of serum creat inine relat ed to nutri jean-pierre l statu s or medic ation usage . For perso ns <18 years of age, a pedia tric GFR calcu lator is avail able on the [facility] websi te: https ://ww w.kid cezar.o rg/pr ofess ional s/kdo qi/gf r_cal culat or Not Available [facility] (Lab) [address] [place], [address], 05/26/2023 18:03:38 05/26/19 24 05/26/2023 COMPR EHENS ORALIA METAB OLIC PANEL alkaline phosphatase 64 U/L 38-126 Not Available [facility] (Lab) [address] [place], [address], 05/26/2023 18:03:38 05/26/19 24 05/26/2023 COMPR EHENS ORALIA METAB OLIC PANEL alanine aminotransfe rase 19 U/L 0-35 Not Available [facility] (Lab) [address] [place], [address], 05/26/2023 18:03:38 05/26/19 24 05/26/2023 COMPR EHENS ORALIA METAB OLIC PANEL aspartate aminotransfe rase 25 U/L 15-37 Not Available [facility] (Lab) [address] [place], [address], 05/26/2023 18:03:38 05/26/19 24 05/26/2023 COMPR EHENS ORALIA METAB OLIC PANEL bilirubin, total 1.20 mg/dL 0.20-1 .30 Not Available [facility] (Lab) [address] [place], [address], 05/26/2023 18:03:38 05/26/19 24 05/26/2023 COMPR EHENS ORALIA METAB OLIC PANEL calcium 9.6 mg/dL 8.4-10 .2 Not Available [facility] (Lab) [address] [place], [address], 05/26/2023 18:03:38 05/26/19 24 05/26/2023 COMPR EHENS ORALIA METAB OLIC PANEL total protein 7.1 g/dL 6.3-8. 2 Not Available [facility] (Lab) [address] [place], [address], 05/26/2023 18:03:38 05/26/19 24 05/26/2023 COMPR EHENS ORALIA METAB OLIC PANEL albumin 4.4 g/dL 3.4-5. 0 Not Available [facility] (Lab) [address] [place], [address], 05/26/2023 18:03:38 05/26/19 24 05/26/2023 COMPR EHENS ORALIA METAB OLIC PANEL globulin 2.7 g/dL 2.6-4. 2 Not Available [facility] (Lab) [address] [place], [address], 05/26/2023 18:03:38 05/26/19 24 05/26/2023 COMPR EHENS ORALIA METAB OLIC PANEL A/G ratio 1.6 ratio 1.0-2. 0 Not Available [facility] (Lab) [address] [place], [address], 05/26/2023 18:03:38 05/26/19 24 05/26/2023 LIPID PANEL cholesterol 207 mg/dL 140-19 9 high NIH LEANDRA NSUS RECOM MENDA TION FOR ARTURO STERO L: ADULT CHILD LOW RISK: <200 <170 BORDE RLINE : <200- 239 ----- HIGH RISK: >240 >200 Not Available [facility] (Lab) [address] [place], [address], 05/26/2023 18:03:42 05/26/19 24 05/26/2023 LIPID PANEL triglyceride s 99 mg/dL 0-150 NIH LEANDRA NSUS REPOR T RECOM MENDA TION FOR TRIGL YCERI YVETTE: ADULT CHILD LOW RISK: <150 ----- BODER LINE: 150-1 99 ----- HIGH RISK: >200 ----- Not Available [facility] (Lab) [address] [place], [address], 05/26/2023 18:03:42 05/26/19 24 05/26/2023 LIPID PANEL HDL cholesterol 73 mg/dL 40- Not Available [facility] (Lab) [address] [place], [address], 05/26/2023 18:03:42 05/26/19 24 05/26/2023 LIPID PANEL LDL cholesterol, calculated 114 mg/dL 0-130 NIH LEANDRA NSUS REPOR T RECOM MENDA TIONS FOR LDL: ADULT CHILD LOW RISK <130 <110 (OPTI MAL LDL) <100 ----- BORDE RLINE : 130-1 59 ----- HIGH RISK: >160 >130 A TRIGL YCERI DE RESUL T >400 INVAL IDATE S THE CALCU LATIO N FOR LDL FRACT IONAT ION - THE LDL RESUL T WILL NOT BE REPOR GIANA. Not Available [facility] (Lab) [address] [place], [address], 05/26/2023 18:03:42 05/26/19 24 05/26/2023 T4 FREE free T4 1.57 NG/dL 0.78-2 .19 Not Available [facility] (Lab) [address] [place], [address], 05/26/2023 18:03:52 05/26/19 24 05/26/2023 T3 FREE free T3 3.7 pg/mL 2.77-5 .27 Not Available [facility] (Lab) [address] [place], [address], 05/26/2023 18:03:58 05/26/1905/26/2023 TSH thyroid-stim ulating hormone 0.406 uIU/m L 0.465- 4.680 low Not Available [facility] (Lab) [address] [place], [address], 05/26/2023 18:04:18 01/07/20 24 01/07/2024 CBC/C OMPLE TE BLD COUNT W/DIF F white blood cells 9.3 x10'3 /uL 4.2-10 .8 Not Available [facility] (Lab) [address] [place], [address], 01/07/2024 11:37:49 01/07/20 24 01/07/2024 CBC/C OMPLE TE BLD COUNT W/DIF F red blood cells 4.85 x10'6 /uL 3.80-5 .20 Not Available [facility] (Lab) [address] [place], [address], 01/07/2024 11:37:49 01/07/20 24 01/07/2024 CBC/C OMPLE TE BLD COUNT W/DIF F hemoglobin 15.7 g/dL 12.0-1 5.6 high Not Available [facility] (Lab) [address] [place], [address], 01/07/2024 11:37:49 01/07/20 24 01/07/2024 CBC/C OMPLE TE BLD COUNT W/DIF F hematocrit 45.6 % 35.7-4 5.7 Not Available [facility] (Lab) [address] [place], [address], 01/07/2024 11:37:49 01/07/20 24 01/07/2024 CBC/C OMPLE TE BLD COUNT W/DIF F mean red cell volume 94.0 fL 82.0-9 9.0 Not Available [facility] (Lab[facility] [address] [facility] [place], [address], 01/07/2024 11:37:49 01/07/20 24 01/07/2024 CBC/C OMPLE TE BLD COUNT W/DIF F mean red cell hemoglobin 32.4 pg 27.0-3 3.0 Not Available [facility] (Lab) [address] [facility] [place], [address], 01/07/2024 11:37:49 01/07/20 24 01/07/2024 CBC/C OMPLE TE BLD COUNT W/DIF F mean RBC HGB concentratio n 34.4 g/dL 31.0-3 6.0 Not Available [facility] (Lab) [address] [place], [address], 01/07/2024 11:37:49 01/07/20 24 01/07/2024 CBC/C OMPLE TE BLD COUNT W/DIF F red cell distribution width 13.0 % 11.8-1 5.5 Not Available [facility] (Lab) [address] [place], [address], 01/07/2024 11:37:49 01/07/20 24 01/07/2024 CBC/C OMPLE TE BLD COUNT W/DIF F platelets 324 x10'3 /uL 150-40 0 Not Available [facility] (Lab) [address] [place], [address], 01/07/2024 11:37:49 01/07/20 24 01/07/2024 CBC/C OMPLE TE BLD COUNT W/DIF F mean platelet volume 10.3 fL 9.0-12 .4 Not Available [facility] (Lab) [address] [place], [address], 01/07/2024 11:37:49 01/07/20 24 01/07/2024 CBC/C OMPLE TE BLD COUNT W/DIF F neutrophils 56.3 % 39.0-7 2.0 Not Available [facility] (Lab) [address] [place], [address], 01/07/2024 11:37:49 01/07/20 24 01/07/2024 CBC/C OMPLE TE BLD COUNT W/DIF F lymphocytes 33.7 % 16.0-4 7.0 Not Available [facility] (Lab) [address] [place], [address], 01/07/2024 11:37:49 01/07/20 24 01/07/2024 CBC/C OMPLE TE BLD COUNT W/DIF F monocytes 7.7 % 5.0-12 .0 Not Available [facility] (Lab) [address] [place], [address], 01/07/2024 11:37:49 01/07/20 24 01/07/2024 CBC/C OMPLE TE BLD COUNT W/DIF F eosinophils 1.2 % 1.0-7. 0 Not Available [facility] (Lab) [address] [place], [address], 01/07/2024 11:37:49 01/07/20 24 01/07/2024 CBC/C OMPLE TE BLD COUNT W/DIF F basophils 0.8 % 0.0-2. 0 Not Available [facility] (Lab) [address] [place], [address], 01/07/2024 11:37:49 01/07/20 24 01/07/2024 CBC/C OMPLE TE BLD COUNT W/DIF F immature granulocytes 0.3 % 0.00-0 .50 Not Available [facility] (Lab) [address] [place], [address], 01/07/2024 11:37:49 01/07/20 24 01/07/2024 CBC/C OMPLE TE BLD COUNT W/DIF F neutrophils, absolute count 5.24 x10'3 /uL 1.5-8. 0 Not Available [facility] (Lab) [address] [place], [address], 01/07/2024 11:37:49 01/07/20 24 01/07/2024 CBC/C OMPLE TE BLD COUNT W/DIF F lymphocytes, absolute count 3.13 x10'3 /uL 1.07-3 .43 Not Available [facility] (Lab) [address] [place], [address], 01/07/2024 11:37:49 01/07/20 24 01/07/2024 CBC/C OMPLE TE BLD COUNT W/DIF F monocytes, absolute count 0.72 x10'3 /uL 0.29-0 .99 Not Available [facility] (Lab) [address] [place], [address], 01/07/2024 11:37:49 01/07/20 24 01/07/2024 CBC/C OMPLE TE BLD COUNT W/DIF F eosinophils, absolute count 0.11 x10'3 /uL 0.02-0 .53 Not Available [facility] (Lab) [address] [place], [address], 01/07/2024 11:37:49 01/07/20 24 01/07/2024 CBC/C OMPLE TE BLD COUNT W/DIF F basophils, absolute count 0.07 x10'3 /uL 0.01-0 .08 Not Available [facility] (Lab) [address] [place], [address], 01/07/2024 11:37:49 01/07/20 24 01/07/2024 CBC/C OMPLE TE BLD COUNT W/DIF F immature granulocytes ,absolute 0.03 x10'3 /uL 0.00-0 .05 Not Available [facility] (Lab) [address] [place], [address], 01/07/2024 11:37:49 01/07/20 24 01/07/2024 CBC/C OMPLE TE BLD COUNT W/DIF F nucleated red blood cells 0.0 % -0 Not Available [facility] (Lab) [address] [place], [address], 01/07/2024 11:37:49 01/07/20 24 01/07/2024 CBC/C OMPLE TE BLD COUNT W/DIF F NRBC# 0.00 x10'3 /uL Not Available [facility] (Lab) [address] [place], [address], 01/07/2024 11:37:49 01/07/20 24 01/07/2024 URINA LYSIS COMPL ETE, IRIS color LIGHT- YELLOW Not Available [facility] (Lab) [address] [place], [address], 01/07/2024 12:08:09 01/07/20 24 01/07/2024 URINA LYSIS COMPL ETE, IRIS appear TURBID abnormal Not Available [facility] (Lab) [address] [place], [address], 01/07/2024 12:08:09 01/07/20 24 01/07/2024 URINA LYSIS COMPL ETE, IRIS specific gravity 1.019 1.001- 1.030 Not Available [facility] (Lab) [address] [place], [address], 01/07/2024 12:08:09 01/07/20 24 01/07/2024 URINA LYSIS COMPL ETE, IRIS pH 6.5 pH_un its 5.0-9. 0 Not Available [facility] (Lab) [address] [place], [address], 01/07/2024 12:08:09 01/07/20 24 01/07/2024 URINA LYSIS COMPL ETE, IRIS leukocytes NEGATI VE mikie/u L negati ve- Not Available [facility] (Lab) [address] [facility] [place], [address], 01/07/2024 12:08:09 01/07/20 24 01/07/2024 URINA LYSIS COMPL ETE, IRIS nitrite NEGATI VE negati ve- Not Available [facility] (Lab) [address] [place], [address], 01/07/2024 12:08:09 01/07/20 24 01/07/2024 URINA LYSIS COMPL ETE, IRIS protein NEGATI VE mg/dL negati ve- Not Available [facility] (Lab) [address] [place], [address], 01/07/2024 12:08:09 01/07/20 24 01/07/2024 URINA LYSIS COMPL ETE, IRIS glucose NORMAL mg/dL normal - Not Available [facility] (Lab) [address] [place], [address], 01/07/2024 12:08:09 01/07/2001/07/2024 URINA LYSIS COMPL ETE, IRIS ketones NEGATI VE mg/dL negati ve- Not Available [facility] (Lab) [address] [place], [address], 01/07/2024 12:08:09 01/07/20 24 01/07/2024 URINA LYSIS COMPL ETE, IRIS urobilinogen NORMAL mg/dL normal - Not Available [facility] (Lab) [address] [place], [address], 01/07/2024 12:08:09 01/07/20 24 01/07/2024 URINA LYSIS COMPL ETE, IRIS bilirubin NEGATI VE mg/dL negati ve- Not Available [facility] (Lab) [address] [place], [address], 01/07/2024 12:08:09 01/07/20 24 01/07/2024 URINA LYSIS COMPL ETE, IRIS blood NEGATI VE mg/dL negati ve- Not Available [facility] (Lab) [address] [place], [address], 01/07/2024 12:08:09 01/07/20 24 01/07/2024 URINA LYSIS COMPL ETE, IRIS white blood cells 0-8 /i??h pfi?? 0-8 Not Available [facility] (Lab) [address] [place], [address], 01/07/2024 12:08:09 01/07/2001/07/2024 URINA LYSIS COMPL ETE, IRIS red blood cells 0-4 /i??h pfi?? 0-4 Not Available [facility] (Lab) [address] [place], [address], 01/07/2024 12:08:09 01/07/20 24 01/07/2024 URINA LYSIS COMPL ETE, IRIS bacteria OCCASI ONAL abnormal Not Available [facility] (Lab) [address] [place], [address], 01/07/2024 12:08:09 01/07/20 24 01/07/2024 URINA LYSIS COMPL ETE, IRIS mucous OCCASI ONAL /i??l pfi?? abnormal Not Available [facility] (Lab) [address] [place], [address], 01/07/2024 12:08:09 01/07/20 24 01/07/2024 URINA LYSIS COMPL ETE, IRIS squamous epithelial MODERA TE /i??l pfi?? abnormal Not Available [facility] (Lab) [address] [facility] [place], [address], 01/07/2024 12:08:09 01/07/20 24 01/07/2024 LIPID PANEL cholesterol 221 mg/dL 140-19 9 high NIH LEANDRA NSUS RECOM MENDA TION FOR ARTURO STERO L: ADULT CHILD LOW RISK: <200 <170 BORDE RLINE : <200- 239 ----- HIGH RISK: >240 >200 Not Available [facility] (Lab) [address] [place], [address], 01/07/2024 12:08:19 01/07/20 24 01/07/2024 LIPID PANEL triglyceride s 147 mg/dL 0-150 NIH LEANDRA NSUS REPOR T RECOM MENDA TION FOR TRIGL YCERI YVETTE: ADULT CHILD LOW RISK: <150 ----- BODER LINE: 150-1 99 ----- HIGH RISK: >200 ----- Not Available [facility] (Lab) [address] [place], [address], 01/07/2024 12:08:19 01/07/20 24 01/07/2024 LIPID PANEL HDL cholesterol 78 mg/dL 40- Not Available [facility] (Lab) [address] [place], [address], 01/07/2024 12:08:19 01/07/2001/07/2024 LIPID PANEL LDL cholesterol, calculated 114 mg/dL 0-130 NIH LEANDRA NSUS REPOR T RECOM MENDA TIONS FOR LDL: ADULT CHILD LOW RISK <130 <110 (OPTI MAL LDL) <100 ----- BORDE RLINE : 130-1 59 ----- HIGH RISK: >160 >130 A TRIGL YCERI DE RESUL T >400 INVAL IDATE S THE CALCU LATIO N FOR LDL FRACT IONAT ION - THE LDL RESUL T WILL NOT BE REPOR GIANA. Not Available [facility] (Lab) [address] [place], [address], 01/07/2024 12:08:19 01/07/20 24 01/07/2024 COMPR EHENS ORALIA METAB OLIC PANEL sodium 136 mmol/ L 137-14 5 low Not Available [facility] (Lab) [address] [place], [address], 01/07/2024 12:08:24 01/07/20 24 01/07/2024 COMPR EHENS ORALIA METAB OLIC PANEL potassium 3.9 mmol/ L 3.5-5. 1 Not Available [facility] (Lab) [address] [place], [address], 01/07/2024 12:08:24 01/07/20 24 01/07/2024 COMPR EHENS ORALIA METAB OLIC PANEL chloride 101 mmol/ L 98-107 Not Available [facility] (Lab) [address] [place], [address], 01/07/2024 12:08:24 01/07/20 24 01/07/2024 COMPR EHENS ORALIA METAB OLIC PANEL carbon dioxide 29 mmol/ L 22-30 Not Available [facility] (Lab) [address] [place], [address], 01/07/2024 12:08:24 01/07/20 24 01/07/2024 COMPR EHENS ORALIA METAB OLIC PANEL anion gap 9.9 mmol/ L 14-22 low Not Available [facility] (Lab) [address] [place], [address], 01/07/2024 12:08:24 01/07/20 24 01/07/2024 COMPR EHENS ORALIA METAB OLIC PANEL glucose 92 mg/dL 70-99 Not Available [facility] (Lab) [address] [place], [address], 01/07/2024 12:08:24 01/07/20 24 01/07/2024 COMPR EHENS ORALIA METAB OLIC PANEL BUN 17 mg/dL 8-19 Not Available [facility] (Lab) [address] [place], [address], 01/07/2024 12:08:24 01/07/20 24 01/07/2024 COMPR EHENS ORALIA METAB OLIC PANEL creatinine 0.69 mg/dL 0.66-1 .25 Not Available [facility] (Lab) [address] [place], [address], 01/07/2024 12:08:24 01/07/20 24 01/07/2024 COMPR EHENS ORALIA METAB OLIC PANEL GFR >60 Refer ence Range : [place] ge GFR Healt hy Adult : >60 mL/mi n/1.7 3 m2 Chron ic Kidne y Disea se: 15-60 mL/mi n/1.7 3 m2 Kidne y Failu re: <15/m L/min /1.73 m2 www.n iddk. nih.g ov The MDRD study equat ion has not been valid ated in child renetta <18 years of age; pregn ant women ; the elder ly >85 years of age; or in some racia l or ethni c subgr oups, such as Hisny nics. Outsi de the valid ated arianna eters , estim ated GFR is less accur ate, requi ring clini angelito judgm ent on a case- by-ca se basis . Clini angelito inter preta tion for other races and ages must be made by the clini gudelia. The MDRD study equat ion has not been valid ated for the evalu ation of serum creat inine relat ed to nutri jean-pierre l statu s or medic ation usage . For perso ns <18 years of age, a pedia tric GFR calcu lator is avail able on the [facility] websi te: https ://lex robb.kari zapata/pr ofess ional s/kdo qi/gf r_cal culat or Not Available [facility] (Lab) [address] [place], [address], 01/07/2024 12:08:24 01/07/20 24 01/07/2024 COMPR EHENS ORALIA METAB OLIC PANEL alkaline phosphatase 64 U/L 38-126 Not Available [facility] (Lab) [address] [place], [address], 01/07/2024 12:08:24 01/07/20 24 01/07/2024 COMPR EHENS ORALIA METAB OLIC PANEL alanine aminotransfe rase 23 U/L 0-35 Not Available [facility] (Lab) [address] [place], [address], 01/07/2024 12:08:24 01/07/20 24 01/07/2024 COMPR EHENS ORALIA METAB OLIC PANEL aspartate aminotransfe rase 28 U/L 15-37 Not Available [facility] (Lab) [address] [place], [address], 01/07/2024 12:08:24 01/07/20 24 01/07/2024 COMPR EHENS ORALIA METAB OLIC PANEL bilirubin, total 0.90 mg/dL 0.20-1 .30 Not Available [facility] (Lab) [address] [place], [address], 01/07/2024 12:08:24 01/07/20 24 01/07/2024 COMPR EHENS ORALIA METAB OLIC PANEL calcium 10.0 mg/dL 8.4-10 .2 Not Available [facility] (Lab) [address] [place], [address], 01/07/2024 12:08:24 01/07/20 24 01/07/2024 COMPR EHENS ORALIA METAB OLIC PANEL total protein 7.0 g/dL 6.3-8. 2 Not Available [facility] (Lab) [address] [place], [address], 01/07/2024 12:08:24 01/07/20 24 01/07/2024 COMPR EHENS ORALIA METAB OLIC PANEL albumin 4.2 g/dL 3.4-5. 0 Not Available [facility] (Lab) [address] [place], [address], 01/07/2024 12:08:24 01/07/20 24 01/07/2024 COMPR EHENS ORALIA METAB OLIC PANEL globulin 2.8 g/dL 2.6-4. 2 Not Available [facility] (Lab) [address] [place], [address], 01/07/2024 12:08:24 01/07/20 24 01/07/2024 COMPR EHENS ORALIA METAB OLIC PANEL A/G ratio 1.5 ratio 1.0-2. 0 Not Available [facility] (Lab) [address] [place], [address], 01/07/2024 12:08:24 01/07/20 24 01/07/2024 LIPAS E SERUM lipase 72 U/L 23-300 Not Available [facility] (Lab) [address] [place], [address], 01/07/2024 12:08:29 01/07/20 24 01/07/2024 T3 FREE free T3 3.3 pg/mL 2.77-5 .27 Not Available [facility] (Lab) [address] [place], [address], 01/07/2024 12:30:56 01/07/20 24 01/07/2024 T4 FREE free T4 1.33 NG/dL 0.78-2 .19 Not Available [facility] (Lab) [address] [place], [address], 01/07/2024 12:30:57 01/07/20 24 01/07/2024 TSH thyroid-stim ulating hormone 1.060 uIU/m L 0.465- 4.680 Not Available [facility] (Lab) [address] [place], [address], 01/07/2024 13:01:53 04/13/19 23 04/13/2022 XR, lumba r spine [facility] [address] [place] [address] Patien t Name: FREE, TINY R Access ion #: [id number] Sex: F : 1970 7 Locati on: RAD Attend ing Physic christie: ANNA MEDINA Orderi ng Physic christie: ANNA MEDINA Exam Date: 9:46 AM Exam Name: XR L SPINE 4V+ Admitt ing Diagno sis(es ): RADIOL OGY REPORT - FINAL EXAM: XR L SPINE 4V+ HISTOR Y: low back pain COMPAR FOZIA: None availa ble. TECHNI QUE: AP, bilate ral obliqu e's, latera l, and coned latera l views of the lumbar sacral juncti on. FINDIN GS: Examin ation of the lumbar spine demons trates . The bony pedicl es appear intact . There is no radiog raphic eviden ce of spondy lolysi s or spondy lolist hesis. The sacral iliac joints appear normal . There is no fractu re or bone destru ction identi fied. Modera te multil evel degene rative change s noted throug hout the lumbar spine. Cholec ystect carlee clips noted. Page 1 of 2 [facility] Patien t Name: TINY PERALES Access ion #: [id number] Sex: F : 1970 7 Exam Date: 023 9:46 AM Exam Name: XR L SPINE 4V+ Admitt ing Diagno sis(es ): If clinic al sympto ms persis t, MRI examin ation could be consid ered. IMPRES BAUTISTA: No acute proces s, see above. Create d and electr onical ly signed by: Madhu vega MD Signed Date: 3:18 PM (CT) Dictat ed by: Madhu vega MD DD: 3:18 PM (CT) DT: 3:18 PM (CT) Page 2 of 2 [id number] [facility] (Imaging) [address] [place], [address], 04/22/2022 01:16:06 09/05/19 23 09/04/2022 XR, hip, bilat eral [facility] [address] [place] [address] [phone] Patien t Name: TINY PERALES Access ion #: [id number] Sex: F : 1970 2 Dictat ed By: Anna nguyen Attend ing Physic christie: [facility]ie: LUIS EDUARDO CASTILLO Exam Date: 2022 11:08 AM Exam Name: XR HIP/PE LVIS BILAT 2V Admitt ing Diagno sis(es ): Bilate ral HIP RADIOG RAPH. CLINIC AL INDICA TION: Hip Pain. TECHNI QUE: 2 views of the bilate ral hip were obtain ed. FINDIN GS: There is no eviden ce of fractu re, sublux ation or disloc ation. The alignm ent is within normal limits .The bony minera lizati on is normal .No radiop aque foreig n body is identi fied. IMPRES BAUTISTA: 1. No eviden ce of acute bony injury . Electr onical ly Signed by: Anna nguyen at 2022 13:10: 40 PM Page 1 [facility] (Imaging) [address] [place], [address], 10/15/2022 14:27:56 10/24/1910/23/2022 MRI, lumba r spine , w/o contr ast No observ ation record ed. [email or web address] [facility] [address] [place] [address] [place], [address], 11/12/2022 15:42:59 04/30/19 24 04/30/2023 XR, hand [facility] [address] [place] [address] [phone] Patien t Name: TINY PERALES Access ion #: [id number] Sex: F : 1970 2 Dictat ed By: Anna nguyen Attend ing Physic christie: ANNA MEDINA ng Physic christie: ANNA MEDINA Exam Date: 2023 11:32 AM Exam Name: XR HAND RT Admitt ing Diagno sis(es ): CLINIC AL INFORM ATION: Right hand pain after injury . There is a 9 swelli ng. TECHNI QUE: 3 views of the right hand were obtain ed, includ ing AP, latera l, and obliqu e views. COMPAR FOZIA: No prior studie s. FINDIN GS: No acute fractu re or disloc ation. No signif icant arthro bethanie. Mild diffus e soft tissue swelli ng. No radiop aque foreig n body visual ized. IMPRES BAUTISTA: No eviden ce of acute bony abnorm ality. Electr onical ly Signed by: Anna nguyen at 2023 11:58: 46 AM Page 1 [email or web address] [facility] (Imaging) [address] [place], [address], 06/03/2023 14:08:44 01/07/20 24 01/07/2024 CT, abdom en + pelvi s, w/ contr ast [facility] [address] [place] [address] Patien t Name: TINY PERALES ion #: [id number] Sex: F : 1970 9 Dictat ed By: Naomi Tolentino Attend ing Physic christie: ANNA MEDINA ng Physic christie: ANNA MEDINA Exam Date: 2023 12:15 PM Exam Name: CT ABDOME N PELVIS W Admitt ing Diagno sis(es ): Exam: CT ABDOME N PELVIS W Histor y: Unspec ified abdomi nal pain COMPAR FOZIA: CT ABDOME N PELVIS W on DOS: 2 Techni que: Multid etecto r spiral CT of the abdome n and pelvis was perfor med from lung bases to pubic symphy sis. Intrav enous contra st was admini stered during this examin ation. Portal venous imagin g was obtain ed. Axial, hutson l and sagitt al multip lanar reform ats were perfor med by the techno logist on a [facility]. Rad[facility] ion Dose : 1. Abdome n/Pelv is: CTDIvo l 16.9mG y, DLP 909.4 mGy*cm . Findin gs: Lung Bases: No acute or signif icant lung base findin g. Normal heart size. No pleura l or perica rdial effusi on. Liver: Hepati c steato sis. Gallbl adder and Biliar y Tree: Gallbl adder is surgic ally absent . Spleen : Unrema rkable Pancre as: The pancre as is normal in appear ance withou t focal lesion s or abnorm al enhanc ement. Adrena l Glands : Unrema rkable Page 1 [facility] [address] [address] Patien t Name: TINY PERALES ion #: [id number] Sex: F : 1970 9 Dictat ed By: Naomi Tolentino Attend ing Physic christie: [facility] Physic christie: ANNA MEDINA Exam Date: 2023 12:15 PM Exam Name: CT ABDOME N PELVIS W Admitt ing Diagno sis(es ): Kidney s: No hydron ephros is. Bladde r: Unrema rkable Bowel: The stomac h is grossl y normal in appear ance. Modera te to severe diffus e coloni c bowel wall thicke jaden. The append ix is not visual ized; howeve r, no second giselle findin gs of acute append icitis identi fied. Ascite s: Absent Lympha denopa thy: No mesent lulu, retrop eriton eal or peripo rtal lympha denopa thy. Abdomi nal Wall and Mesent louie: Unrema rkable . Vascul ature: The visual ized abdomi nal aorta is normal in size and calibe r. There is calcif ied athero sclero tic plaque involv ing the aorta and its branch es. Abdomi nal and pelvic vessel s demons trate normal enhanc ement. Pelvic Organs : Post cholec ystect carlee. Muscul oskele chucho: No aggres sive focal bony lesion s, acute fractu res or disloc ation. Degene rative change s of the spine. Degene rative disc space narrow ing at L5-S1. IMPRES BAUTISTA: Findin gs are suspic ious for modera te to severe acute on chroni c coliti s. Radiat ion optimi zation : All CT scans at this facili ty use at least one of these dose optimi zation techni ques: automa giana exposu re contro l mA and/or kV adjust ment per patien t size (inclu yvette target ed exams where dose is matche d to clinic al indica tion) or iterat oralia recons tructi on. Electr onical ly Signed by: Naomi Tolentino at 2023 12:55: 41 PM Page 3 [email or web address] [facility] (Imaging) [address] [place], [address], 01/08/2024 13:59:12 Result Notes None recorded. Problems Name Problem SNOMED Code Status Onset Date Resolution Date Notes Provider Name and Address Organization Details Recorded Time Sprain of right ankle 1842091445362 9105 Active 2019 [facility] Available [facility] 3 00:26:47 Bilateral plantar fasciitis 2022044656605 9108 Active 2018 Not Available [facility] 3 00:26:47 Benign essential hypertensi on 4692265 Active Not Available [facility] 3 00:26:47 Plantar fasciitis of left foot 3236710549824 9101 Active 2021 Not Available [facility] 3 00:26:47 Plantar fasciitis of right foot 3331588299793 9101 Active 2019 Not Available [facility] 3 00:26:47 Hyperchole sterolemia 08163206 Active Not Available [facility] 3 00:26:47 Acute sinusitis 23894725 Active 2022 Not Available [facility] 3 00:26:47 Pain of right ankle joint 3489136513473 9106 Active 2019 Not Available [facility] 3 00:26:47 Dry skin 57777247 Active 2020 Not Available [facility] 3 00:26:47 Postoperat oralia visit 387541553 Active 2019 Not Available [facility] 3 00:26:47 Claustroph obia 01348711 Active 2021 Not Available [facility] 3 00:26:47 Equinus contractur e of the ankle 975891563 Active 2018 Not Available [facility] 3 00:26:47 Equinus contractur e of the ankle 724362173 Active 2018 Not Available [facility] 3 00:26:47 Abdominal pain 41992640 Active 2021 Not Available [facility] 3 00:26:47 Gastroesop hageal reflux disease 404725423 Active 2021 Not Available [facility] 3 00:26:47 Adrenal mass 057089373 Active 2021 Not Available [facility] 3 00:26:47 Overweight 984002143 Active Not Available [facility] 3 00:26:47 Ankle pain 406350108 Active 2019 Not Available [facility] 3 00:26:47 Gastroesop hageal reflux disease without esophagiti s 647416729 Active 2020 Not Available [facility] 3 00:26:47 Feeling of lump in throat 682199842 Active 2021 Not Available [facility] 3 00:26:47 On examinatio n - rash present Active Not Available [facility] 3 00:26:47 Eruption 322177780 Active 2021 Not Available [facility] 3 00:26:47 Jaw pain 934087999 Active Not Available [facility] 3 00:26:47 Low back pain 329747580 Active 2021 Not Available [facility] 3 00:26:47 Chest pain 01876735 Active Not Available [facility] 3 00:26:47 Lesion of nose 082542105 Active Not Available [facility] 3 00:26:47 Disorder of adrenal gland 25992539 Active 2021 Not Available [facility] 3 00:26:47 Pain in left foot 2835982471568 07 Active 2021 Not Available [facility] 3 00:26:47 Pain in right hip joint 5274553205060 02 Active 2021 Not Available [facility] 3 00:26:47 Closed fracture of lateral malleolus 23971675 Active 2019 Not Available [facility] 3 00:26:47 Dizziness 023972225 Active 2021 Not Available [facility] 3 00:26:47 Dysphagia 14958073 Active 2021 Not Available [facility] 3 00:26:47 Hypothyroi dism 65035843 Active Not Available [facility] 3 00:26:47 Obesity 903994774 Active 2016 Not Available [facility] 3 00:26:47 Numbness 81616827 Active Not Available [facility] 3 00:26:47 Foot pain 75043579 Active Not Available [facility] 3 00:26:47 Foot pain 60017580 Active 2018 Not Available [facility] 3 00:26:48 Foot pain 53467679 Active Not Available [facility] 3 00:26:48 Anxiety 55979294 Active Not Available [facility] 3 00:26:48 Dysuria 17650454 Active Not Available [facility] 3 00:26:48 Cough 99312856 Active 2022 Not Available [facility] 3 00:26:48 Upper respirator y infection 34660626 Active 2022 Not Available [facility] 3 00:26:48 Diarrhea 04183532 Active Not Available [facility] 3 00:26:48 Urinary tract infectious disease 92486928 Active Not Available [facility] 3 00:26:48 Rhinitis 30572349 Active Not Available [facility] 3 00:26:48 Weight loss 81173852 Active 2021 Not Available [facility] 3 00:26:48 Weight gain 6085167 Active 2021 Not Available [facility] 3 00:26:48 Chronic cough 40650102 Active 2022 Not Available [facility] 3 00:26:48 Seasonal allergy 089932126 Active 2022 Not Available [facility] 3 00:26:47 Paresthesi a of lower extremity 158745213 Active 2022 Not Available [facility] 3 00:26:47 Pain in bilateral legs 5484754295811 9108 Active 2022 Not Available [facility] 3 00:26:47 Sleep disorder 39230392 Active 2022 Not Available [facility] 3 00:26:47 Joint pain 61441537 Active 2022 Not Available [facility] 3 00:26:48 Anti-nucle ar factor detected 148813246 Active 2022 MARCIN Hinson null, [place] [facility] 3 09:12:58 Notes:back/neck problems, ca rdiac arrhythmia, thyroid disease Problem Notes None recorded. Procedures Surgical History Date Name Laterality Status Provider Name and Address Organization Details Recorded Time 01/26/20 repair of ankle completed Not Available [facility] 02/2022 00:57:11 [facility]omy completed [facility]/22/2022 00:57:11 plantar fasciectomy completed Not Available [facility] 04/22/2022 00:57:11 Imaging Results Imaging Date Name Status LastModified by Organiz ation Details LastModified Time 04/13/2022 XR, lumbar spine completed [id number] [facility] (Imaging) [address] [place], [address], 04/22/2022 01:16:06 09/04/2022 XR, hip, bilateral completed [email or web address] [facility] (Imaging) [address] [place], [address], 10/15/2022 14:27:56 10/23/2022 MRI, lumbar spine, w/o contrast completed [email or web address] [facility] [address] [place] [address], [address], 11/12/2022 15:42:59 04/30/2023 XR, hand completed [email or web address] [facility] (Imaging) [address] [place], [address], 06/03/2023 14:08:44 01/07/2024 CT, abdomen + pelvis, w/ contrast completed [email or web address] [facility] (Imaging) [address] [place], [address], 01/08/2024 13:59:12 Procedure Notes None recorded. Medical Equipment None Reported. Allergies No known drug allergies Medications Name Sig Start Date Stop Date Status Note LastModified by Organization Details LastModified Time cyclobenz aprine 10 mg tablet Take 1 tablet every day by oral route at bedtime. active Not Available Not Available No t Available amoxicill in 500 mg capsule Take 1 capsule 3 times a day by oral route for 7 days. active Not Available Not Available No t Available carvedilo l 25 mg tablet TAKE 1 TABLET BY MOUTH TWICE DAILY active Not Available Not Available No t Available clonidine HCl 0.1 mg tablet 10/17 completed Not Available Not Available Not Available prednison e 10 mg tablet take po - 3 x 2 days, 2 x 2 days, 1 x 2 days active Not Available Not Available No t Available clindamyc in HCl 300 mg capsule active Not Available Not Available Not Available ammonium lactate 12 % lotion apply to foot daily as needed 09/06 completed Not Available Not Available Not Available atorvasta tin 10 mg tablet TAKE 1 TABLET BY MOUTH EVERY DAY 09/04 completed Not Available Not Available Not Available azithromy hung 250 mg tablet TAKE 2 TABLETS BY MOUTH FIRST DAY THEN TAKE 1 TABLET BY MOUTH EVERY DAY 05/01 completed Not Available Not Available Not Available ibuprofen 800 mg tablet Take 1 tablet 3 times a day by oral route with meals. 09/04 completed Not Available Not Available Not Available tizanidin e 4 mg tablet TK 1 T PO HS PRN active Not Available Not Available No t Available fluconazo le 150 mg tablet TAKE 1 TABLET BY MOUTH EVERY DAY FOR 3 DAYS 02/18 completed Not Available Not Available Not Available benzonata te 200 mg capsule Take 1 capsule 3 times a day by oral route. active Not Available Not Available No t Available ranitidin e 300 mg tablet 10/17 completed Not Available Not Available Not Available hydrocodo ne 5 mg-acetam inophen 325 mg tablet Take 1 tablet twice a day by oral route as needed for 7 days. 05/08 completed Not Available Not Available Not Available meloxicam 15 mg tablet TAKE 1 TABLET BY MOUTH EVERY DAY active Not Available Not Available No t Available phenazopy ridine 200 mg tablet TK 1 T PO TID 07/15 completed Not Available Not Available Not Available ondansetr on HCl 4 mg tablet TAKE 1 TABLET BY MOUTH EVERY 8 HOURS 08/18 completed Not Available Not Available Not Available prednison e 20 mg tablet take two tablets daily for 5 days active Not Available Not Available No t Available clonazepa m 1 mg tablet TAKE 1 TABLET BY MOUTH 40 MINUTES PRIOR TO FLIGHT 09/04 completed Not Available Not Available Not Available phentermi ne 15 mg capsule TAKE ONE CAPSULE BY MOUTH ONCE DAILY 02/03 completed Not Available Not Available Not Available penicilli n V potassium 500 mg tablet Take 1 tablet 3 times a day by oral route for 7 days. active Not Available Not Available No t Available topiramat e 25 mg tablet TAKE 1 TABLET BY MOUTH TWICE DAILY 05/26 completed Not Available Not Available Not Available phentermi ne 37.5 mg tablet 11/11 completed dupl Not Available Not Available Not Available ciproflox acin 250 mg tablet Take 1 tablet twice a day by oral route for 7 days. 02/28 completed Not Available Not Available Not Available ciproflox acin 500 mg tablet TAKE 1 TABLET BY MOUTH TWICE DAILY 05/12 completed Not Available Not Available Not Available sulfameth oxazole 800 mg-trimet hoprim 160 mg tablet TK 1 T PO BID 03/21 completed Not Available Not Available Not Available hydrocodo ne 10 mg-acetam inophen 325 mg tablet 12/17 completed Not Available Not Available Not Available peg-elect rolyte solution 420 gram oral solution 04/22 completed Not Available Not Available Not Available tramadol 50 mg tablet TAKE 1 TABLET BY MOUTH THREE TIMES DAILY WITH TYLENOL FOR PAIN CONTROL active Not Available Not Available No t Available triamcino lone acetonide 0.1 % topical cream APPLY THIN LAYER TOPICALL Y TO THE AFFECTED AREA EVERY DAY 05/01 completed Not Available Not Available Not Available spironola ctone 25 mg tablet TAKE 1 TABLET BY MOUTH EVERY DAY active Not Available Not Available No t Available amoxicill in 500 mg tablet Take 1 tablet 3 times a day by oral route for 7 days. 08/13 completed Not Available Not Available Not Available ondansetr on 8 mg disintegr ating tablet TAKE 1 TABLET BY MOUTH EVERY 6 HOURS NEEDED active Not Available Not Available No t Available baclofen 20 mg tablet 10/17 completed Not Available Not Available Not Available ketorolac 10 mg tablet 03/21 completed Not Available Not Available Not Available cefadroxi l 500 mg capsule 10/17 completed Not Available Not Available Not Available levothyro xine 100 mcg tablet TAKE 1 TABLET BY MOUTH EVERY DAY active Not Available Not Available No t Available oxycodone -acetamin ophen 5 mg-325 mg tablet TK 1 T PO Q 8 H PRN FOR MODERATE TO SEVERE PAIN active Not Available Not Available No t Available lorazepam 0.5 mg tablet Take 1 tablet every day by oral route as needed. active Not Available Not Available No t Available estradiol 1 mg tablet TAKE 1 TABLET BY MOUTH EVERY DAY 05/01 completed Not Available Not Available Not Available methotrex ate sodium 2.5 mg tablet TAKE 5 TABLETS BY MOUTH IN THE MORNING AND 5 TABLETS IN THE EVENING ONCE A WEEK. active Not Available Not Available No t Available diazepam 2 mg tablet TAKE 1 TABLET BY MOUTH 30 MINUTES BEFORE MRI 04/18 completed Not Available Not Available Not Available cephalexi n 500 mg capsule Take 1 capsule every 12 hours by oral route for 10 days. active Not Available Not Available No t Available pantopraz ole 40 mg tablet,de layed release TAKE 1 TABLET BY MOUTH EVERY DAY active Not Available Not Available No t Available nystatin 100,000 unit/gram topical cream APPLY TO THE AFFECTED AREA(S) BY TOPICAL ROUTE 2 TIMES PER DAY active Not Available Not Available No t Available diclofena c sodium 75 mg tablet,de layed release TAKE 1 TABLET BY MOUTH TWICE DAILY active Not Available Not Available No t Available folic acid 1 mg tablet TAKE 1 TABLET BY MOUTH EVERY DAY active Not Available Not Available No t Available etodolac 400 mg tablet TAKE 1 TABLET BY MOUTH TWICE DAILY 05/12 completed Not Available Not Available Not Available monteluka st 10 mg tablet TAKE 1 TABLET BY MOUTH EVERY DAY 11/11 completed Not Available Not Available Not Available bisacodyl 5 mg tablet,de layed release TK ALL 6 TS AT 9AM ON 03-28-15 active Not Available Not Available No t Available hydrochlo rothiazid e 25 mg tablet TAKE 1 TABLET BY MOUTH EVERY DAY active Not Available Not Available No t Available mupirocin 2 % topical ointment 04/10 completed Not Available Not Available Not Available estradiol 0.5 mg tablet TAKE 1 TABLET BY MOUTH EVERY DAY active Not Available Not Available No t Available lorazepam 1 mg tablet TK 1 T PO QD PRN active Not Available Not Available No t Available azelastin e 137 mcg (0.1 %) nasal spray USE 2 SPRAYS IN EACH NOSTRIL TWICE DAILY 09/04 completed Not Available Not Available Not Available Pepcid 20 mg tablet Take 1 tablet twice a day by oral route. 11/03 completed Not Available Not Available Not Available cefuroxim e axetil 500 mg tablet 10/17 completed Not Available Not Available Not Available levofloxa hung 500 mg tablet TK 1 T PO Q 24 H FOR 7 DAYS 05/12 completed Not Available Not Available Not Available estradiol 0.01% (0.1 mg/gram) vaginal cream INSERT 1GM IN THE VAGINA EVERY NIGHT AT BEDTIME FOR 14 NIGHTS THEN TWICE WEEKLY FOR MAINTENA CE 05/01 completed Not Available Not Available Not Available zolpidem 10 mg tablet 10/17 completed Not Available Not Available Not Available methylpre dnisolone 4 mg tablets in a dose pack FOLLOW PACKAGE DIRECTIO NS 05/01 completed Not Available Not Available Not Available labetalol 100 mg tablet 10/17 completed Not Available Not Available Not Available ketoconaz ole 2 % topical cream APPLY TO THE AFFECTED AREA(S) BY TOPICAL ROUTE twice daily active Not Available Not Available No t Available cefdinir 300 mg capsule Take 1 capsule twice a day by oral route for 7 days. active Not Available Not Available No t Available fluticaso ne propionat e 50 mcg/actua tion nasal spray,segundo pension Burns 1 spray every day by intranas al route. active Not Available Not Available No t Available Climara 0.1 mg/24 hr transderm al patch NESSA 1 PA EXT TO THE SKIN Q WK 07/15 completed Not Available Not Available Not Available phentermi ne 37.5 mg capsule TAKE 1 CAPSULE BY MOUTH DAILY 05/26 completed Not Available Not Available Not Available naproxen 500 mg tablet TK 1 T PO BID PRN P 03/21 completed Not Available Not Available Not Available diazepam 5 mg tablet TAKE 1 TABLET BY MOUTH 30 MINUTES BEFORE PROCEDUR E 11/11 completed Not Available Not Available Not Available progester one micronize d 100 mg capsule TAKE 1 CAPSULE BY MOUTH EVERY DAY AT BEDTIME 12/09 completed pt stopped on her own. Not Available Not Available Not Available amoxicill in 875 mg-potass ium clavulana te 125 mg tablet TK 1 T PO BID 01/20 completed Not Available Not Available Not Available Coreg 12.5 mg tablet Take 1 tablet twice a day by oral route. 05/12 completed Not Available Not Available Not Available metaxalon e 800 mg tablet TK 1 T PO TID PRN P 03/21 completed Not Available Not Available Not Available ezetimibe 10 mg tablet TAKE 1 TABLET BY MOUTH EVERY DAY active Not Available Not Available No t Available cyclobenz aprine 5 mg tablet TAKE 1-2 TABLETS BY MOUTH EVERY NIGHT AT BEDTIME 2023 active Not Available Not Available Not Avai lable rosuvasta tin 10 mg tablet TAKE 1 TABLET BY MOUTH EVERY DAY 11/11 completed Not Available Not Available Not Available bupropion HCl XL 150 mg 24 hr tablet, extended release TK 1 T PO QD 02/28 completed Not Available Not Available Not Available nitrofura ntoin monohydra te/macroc rystals 100 mg capsule TAKE 1 CAPSULE BY MOUTH EVERY 12 HOURS FOR 10 DAYS 08/18 completed Not Available Not Available Not Available azelastin e 205.5 mcg (0.15 %) nasal spray 10/17 completed Not Available Not Available Not Available ID NOW COVID-19 Test Kit TEST DIRECTED TODAY 05/26 completed Not Available Not Available Not Available Wegovy 1 mg/0.5 mL subcutane ous pen injector Inject 1 mg weekly for 4 weeks 03/01 completed Not Available Not Available Not Available Wegovy 0.25 mg/0.5 mL subcutane ous pen injector inject 0.25mg weekly for 4wks then go to 0.5mg weekly. 03/01 completed Not Available Not Available Not Available Wegovy 0.5 mg/0.5 mL subcutane ous pen injector Inject 0.5 mg weekly for 4 weeks 03/01 completed Not Available Not Available Not Available Mounjaro 2.5 mg/0.5 mL subcutane ous pen injector Inject by subcutan eous route for 28 days. active Not Available Not Available No t Available Zepbound 2.5 mg/0.5 mL subcutane ous pen injector active Not Available Not Available Not Available Vitals Date Recorded Body height Body mass index (BMI) Body weight Body temperature Heart rate Systolic blood pressure Diastolic blood pressure Provider Name and Address Organization Details Last Updated DateTime 3 157.48 cm 36 kg/m2 74288.7 g 97.2 [degF] 88 /min 126 mm[Hg] 78 mm[Hg] [facility] [employer] [facility] 3 10:10:34 Date Recorded Body height Body mass index (BMI) Body weight Body temperature Heart rate Systolic blood pressure Diastolic blood pressure Provider Name and Address Organization Details Last Updated DateTime 3 157.48 cm 36 kg/m2 17234.7 g 98.3 [degF] 80 /min 120 mm[Hg] 84 mm[Hg] MARCIN Rodriguez [facility] [employer] [facility] 3 10:03:48 Date Recorded Body height Body mass index (BMI) Body weight Body temperature Heart rate Systolic blood pressure Diastolic blood pressure Provider Name and Address Organization Details Last Updated DateTime 3 157.48 cm 36.2 kg/m2 11381.2 9 g 97.6 [degF] 74 /min 130 mm[Hg] 82 mm[Hg] MARCIN Rodriguez [employer] 3 10:45:18 Date Recorded Body height Body mass index (BMI) Body weight Body temperature Heart rate Systolic blood pressure Diastolic blood pressure Provider Name and Address Organization Details Last Updated DateTime 3 157.48 cm 36.8 kg/m2 10793.0 7 g 97.4 [degF] 81 /min 124 mm[Hg] 72 mm[Hg] MARCIN Rodriguez [employer] 3 10:33:17 Date Recorded Body height Body mass index (BMI) Body weight Body temperature Heart rate Systolic blood pressure Diastolic blood pressure Provider Name and Address Organization Details Last Updated DateTime 4 157.48 cm 38.4 kg/m2 16247.4 g 98.3 [degF] 77 /min 120 mm[Hg] 74 mm[Hg] MARCIN Rodriguez [employer] 4 11:44:48 Social History Question Answer Notes LastModified by Organization Details LastModified Time Tobacco Smoking Status Former Smoker quit 11/2017-res tarted 2018; quit , restarted MARCIN Rodriguez [employer] 05/01/2022 10:09:11 Do You Have An Advance Directive? No MIGRATION.0301 [id number] Information not available 04/22/2022 What Is Your Level Of Alcohol Consumption? Occasional MIGRATION.0301 [id number] Information not available 04/22/2022 What Is Your Level Of Caffeine Consumption? Moderate MIGRATION.0301 [id number] Information not available 04/22/2022 How Much Tobacco Do You Chew? None MIGRATION.0301 [id number] Information not available 04/22/2022 In The 14 Days Before Symptom Onset, Have You Had Close Contact With A Laboratory-conf nely YANG-19 While That Case Was Ill? No MIGRATION.0301 [id number] Information not available 04/22/2022 In The 14 Days Before Symptom Onset, Have You Had Close Contact With A Person Who Is Under Investigation For COVID-19 While That Person Was Ill? No MIGRATION.0301 [id number] Information not available 04/22/2022 What Type Of Diet Are You Following? REGULAR MIGRATION.0301 [id number] Information not available 04/22/2022 Which Illicit Or Recreational Drugs Have You Used? None MIGRATION.0301 [id number] Information not available 04/22/2022 Do You Or Have You Ever Used E-cigarettes Or Vape? Never Used Electronic Cigarettes MIGRATION.0301 [id number] Information not available 04/22/2022 What Is The Highest Grade Or Level Of School You Have Completed Or The Highest Degree You Have Received? 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 No MIGRATION.0301 [id number] Information not available 04/22/2022 What Is The Fluoride Status Of Your Home? Unknown MIGRATION.0301 471993 Information not available 04/22/2022 When Did You Quit Smoking? 1-5yearssincelastc igarette MIGRATION.0301 750814 Information not available 04/22/2022 Are There Any Guns Present In Your Home? Yes MIGRATION.0301 [id number] Information not available 04/22/2022 Do You Use Insect Repellent Routinely? Yes MIGRATION.0301 [id number] Information not available 04/22/2022 Where Do You Live? SingleLevelHouse MIGRATION.0301 [id number] Information not available 04/22/2022 Do You Have A Medical Power Of Per Diem Clerk? No MIGRATION.0301 219807 Information not available 04/22/2022 What Was The Date Of Your Most Recent Tobacco Screening? 03/01/2023 [email or web address] Information not available 03/01/2023 Have You Ever Been Counseled For Unhealthy Alcohol Use? No MIGRATION.0301 [id number] Information not available 04/22/2022 Do You Have Any Pets? Yes MIGRATION.0301 855448 Information not available 04/22/2022 What Is Your Relationship Status? MIGRATION.0301 165700 Information not available 04/22/2022 Do You Use Your Seat Belt Or Car Seat Routinely? Yes MIGRATION.0301 269596 Information not available 04/22/2022 Do You Have Smoke And Carbon Monoxide Detectors In Your Home? Yes MIGRATION.0301 684140 Information not available 04/22/2022 Are You Passively Exposed To Smoke? Yes MIGRATION.0301 300417 Information not available 04/22/2022 Do You Or Have You Ever Used Smokeless Tobacco? Never Used Smokeless Tobacco MIGRATION.0301 612392 Information not available 04/22/2022 Are There Any Smokers In Your House? No MIGRATION.0301 745389 Information not available 04/22/2022 How Much Tobacco Do You Smoke? 1 PPW [email or web address] Information not available 05/01/2022 What Types Of Sporting Activities Do You Participate In? None MIGRATION.0301 704671 Information not available 04/22/2022 Do You Feel Stressed (tense, Restless, Nervous, Or Anxious, Or Unable To Sleep At Night)? [id number] MIGRATION.0301 [id number] Information not available 04/22/2022 Do You Use Any Illicit Or Recreational Drugs? No MIGRATION.0301 124303 Information not available 04/22/2022 Do You Use Sunscreen Routinely? Yes MIGRATION.0301 [id number] Information not available 04/22/2022 Has Tobacco Cessation Counseling Been Provided? No MIGRATION.0301 969083 Information not available 04/22/2022 Have You Recently Traveled Abroad? No MIGRATION.0301 552262 Information not available 04/22/2022 Do You Have Any Dietary Restrictions? No MIGRATION.0301 429854 Information not available 04/22/2022 Do You Or Have You Ever Used Any Other Forms Of Tobacco Or Nicotine? No MIGRATION.0301 562568 Information not available 04/22/2022 Sex: Female Functional Status Question Answer Note LastModified by Organizat ion Details LastModified Time What is your exercise level? Occasional [id number] Information not available 04/22/2022 Mental Status None recorded. Family History Relationship Description Onset Age of this Age Resolved Age Notes LastModified by Organization Details LastModified Time Mother Heart disease MIGRATION.121 [id number] Not available 04/22/2022 00:57:13 Mother Diabetes mellitus MIGRATION.350 [id number] Not available 04/22/2022 00:57:13 Mother Hypertensive disorder MIGRATION.952 [id number] Not available 04/22/2022 00:57:13 Father General health good MIGRATION.349 [id number] Not available 04/22/2022 00:57:13 Brother Heart disease 43 heart attack MIGRATION.315 [id number] Not available 04/22/2022 00:57:13 Medical History Condition Response BLINDNESS N NERVE DISEASE N RHEUMATIC FEVER N BLADDER PROBLEMS N KIDNEY STONES N MRSA N OTHER # 1 N POLIO N LUNG DISEASE/DISORDER N RADIATION / CHEMOTHERAPY N COPD N Other # 2 N BLOOD DISEASES N SURGERY N EAR OR HEARING PROBLEMS N MUMPS N SHINGLES N DEPRESSION (INCLUDING POST ) N BOWEL PROBLEMS N STROKE/TIA N ULCERS N BENIGN PROSTATIC HYPERPLASIA N MEASLES N HYPOTENSION N MYOCARDIAL INFARCTION N OBESITY Y GERD/NAUSEA N ANEURYSM N URINARY/BLADDER/KIDNEY PROBLEMS N INPATIENT PSYCH CARE N CORONARY ARTERY DISEASE (CAD) N ADDICTION CONCERNS N Impotence N ENDOMETRIOSIS N USE OF BLOOD THINNERS N SKIN PROBLEMS N GASTROINTESTINAL DISORDER N PERIPHERAL VASCULAR DISEASE N MUSCLE,JOINT OR BONE PROBLEMS N GASTROINTESTINAL BLEEDING N BLOOD CLOTS N ASTHMA N CATARACTS N ERECTILE DYSFUNCTION N VARICOSITIES N GI PROBLEMS N Low Testosterone N INFERTILITY N AIDS/HIV N LIVER DISEASE N MALE HYPOGONADISM N HYPERTENSION Y Deficiency N TOURETTE'S N ANXIETY DISORDER Y BLOOD TRANSFUSION N ANEMIA/BLOOD DISORDER N CHRONIC EAR INFECTIONS N BRONCHITIS N TUBERCULOSIS N GLAUCOMA N FOOT PROBLEM N DIVERTICULITIS N SLEEP APNEA N CHICKENPOX N INFECTIOUS DISEASE N PROSTATE N HEART ARRHYTHMIA N INSOMNIA N HIGH CHOLESTEROL / HYPERLIPIDEMIA Y HYPERTHYROIDISM N EYE PROBLEMS N NEUROLOGICAL PROBLEMS N EDEMA N CHRONIC PAIN SYNDROME N HYPOTHYROIDISM Y CONSTIPATION N CAROTID BLOCKAGE N BACK / NECK PROBLEMS N HAVE YOU BEEN HOSPITALIZED OR SEEN IN [facility] IN THE PAST YEAR ? N ATHEROSCLEROSIS N BREAST PROBLEMS N DIALYSIS N ECZEMA N OSTEOPOROSIS N ARTHRITIS N APPENDICITIS N DIABETES, TYPE N BAD TEETH N ENT N HEARTBURN / REFLUX Y AUTISM SPECTRUM DISORDER (ASD) N HEPATITIS / LIVER DISEASE N PULMONARY DISEASE N GOUT N SLEEP DISORDER N ALZHEIMER'S DISEASE N Brain Problems N HERPES N DEMENTIA N SEIZURES/EPILEPSY N HEADACHES/MIGRAINES N VASCULAR DISEASE N PACEMAKER N Blood Disorder N DIZZINESS N KIDNEY DISEASE N HEART DISEASE/HEART PROBLEMS N MULTIPLE SCLEROSIS N CARDIAC ARRHYTHMIA N CANCER: SPECIFY N ANESTHESIA COMPLICATIONS N Gall Stones N ATRIAL FIBRILLATION N PULMONARY EMBOLISM N AUTOIMMUNE DISEASE N Gynecological HistoryNo gynecological history recorded. Obstetrics History GPAL:G 0 P 0 0 0 0 Immunizations Vaccine Type Date Status Note Provider Nam e and Address Organization Details Recorded Time COVID-19, mRNA, LNP-S, PF, 30 mcg/0.3 mL dose 11/11/2020 completed Not Available [facility] 3 00:26:49 COVID-19, mRNA, LNP-S, PF, 30 mcg/0.3 mL dose 10/21/2020 completed Not Available [facility] 3 00:26:49 Tdap 02/20/2022 completed Not Available [facility] 11/18/2022 00:26:49 Past Encounters Encounter ID Performer Location Encounter Start Date Encounter Closed Date Diagnosis/Indication Diagnosis SNOMED-CT Code Diagnosis ICD10 Code Diagnosis Note [id number] [facility] [address] [address] 05/08/2020 00:00:00 05/19/2020 18:43:52 [id number] [facility] [place] [address] [facility] [address] [place] [address] 06/10/2020 00:00:00 06/11/2020 11:26:54 [id number] [facility] [address] [place] [address] [address] [address] 09/06/2020 00:00:00 09/07/2020 14:15:08 [id number] [facility] [address] [place] [address] [address] [address] 11/11/2020 00:00:00 11/24/2020 17:33:54 [id number] [facility] [address] [place] [address] Ave[address] [address] 12/09/2020 00:00:00 12/09/2020 22:07:44 [id number] [facility] [address] [place] [address] [address] [address] 12/30/2020 00:00:00 01/27/2021 20:51:42 [id number] [facility] [place] [address] [place] [address] [place] [facility] [address] [place] [address] 02/03/2021 00:00:00 02/22/2021 21:54:51 [id number] [facility] [place] [address] [facility] [address] [place] [address] 03/17/2021 00:00:00 03/17/2021 21:11:45 [id number] [facility] [place] [facility] [facility] [address] [address] 04/11/2021 00:00:00 04/13/2021 12:43:04 [id number] [facility] [address] [facility] [address] [address] 04/18/2021 00:00:00 04/18/2021 20:15:45 [id number] [facility] [address] [facility] [address] [address] 05/12/2021 00:00:00 05/12/2021 21:15:29 [id number] [facility] [place] [address] [facility] [address] [place] [address] 07/31/2021 00:00:00 07/31/2021 09:15:55 [id number] [facility] [address] [facility] [address] [address] 08/18/2021 00:00:00 08/18/2021 21:58:59 [id number] [facility] [address] [place], [place] [address]e., [address] [address] 09/19/2021 00:00:00 09/19/2021 16:29:27 [id number] [facility] [address] [place], [place] [address]e., [address] [address] 11/03/2021 00:00:00 11/04/2021 08:37:02 [id number] [facility] [address] [place], [place] [address]., [address] [address] 12/10/2021 00:00:00 02/01/2022 14:23:15 [id number] [facility] [address] [address] 01/19/2022 00:00:00 03/08/2022 17:32:39 [id number] [facility] [address] [address] 02/20/2022 00:00:00 02/20/2022 15:54:43 [id number] [facility] [place] [address] [place] [address] 02/24/2022 00:00:00 02/24/2022 14:46:05 [id number] David Medina MD [facility] [address] [address] 05/01/2022 10:03:48 05/01/2022 10:56:28 Low back pain 937098237 M54.50 Rhinitis 15141060 J00 Weight gain 5604231 R63. 5 [id number] David Medina MD [facility] [address] [address] 05/26/2022 09:53:26 05/26/2022 10:28:24 Seasonal allergy 124623106 J30.2 [id number] David Medina MD [facility] [address] [address] 09/04/2022 10:34:12 09/04/2022 11:33:35 Benign essential hypertension 7250697 I10 Pain in bi lateral legs 5271507250 0051884 M79.604 M79.605 Paresthesi a of lower extremity 447162335 R20.2 Sleep disorder 09177466 G47.9 [id number] David Medina MD [facility] [address] [address] 11/11/2022 10:21:27 11/11/2022 11:19:22 Overweight 802781529 E66.3 Benign ess ential hypertension 5421021 I10 Joint pain 26675810 M25. 50 [id number] David Medina MD [facility] Internal Med [facility] [address], [facility] [address] [place] [address] 03/01/2023 11:16:27 03/01/2023 12:10:24 Gastroesophageal reflux disease without esophagitis 725284613 K21.9 Obesity 124272936 E66.9 Benign ess ential hypertension 3474559 I10 Hypothyroidism 53883978 E03.9 Hypercholesterolemia 136 16899 E78.00 Health Concerns Section Related Observation LastModified by Organization Detai ls LastModified Time None Recorded Concern Status LastModified by Organization Details LastModified Time None Recorded Advance Directives Directive N: Payers Encounter Date Sequence Insurance Name Policy Number Policy Powell Covered Member ID Powell Member ID Guarantor Name 05/01/2022 1 [place] [id number] Madhu Free [id number] [employer] 05/26/2022 1 [place] [id number] Madhu Free [id number] [employer] 09/04/2022 1 [place] [id number] Madhu Free [id number] [employer] 11/11/2022 1 [place] [id number] Madhu Free [id number] [employer] 03/01/2023 1 [place] [id number] Madhu Free [id number] [employer] Notes Date Note Type Note Provider Name and Address Organization Details Recorded Time 05/01/2022 text/html Still having pro blems with low back no bowel or bladder incontinence no numbness or tinglingWeight still having problems phentermine now workingRhinitis bothering her about signs symptoms of infection David Medina MD [address], [facility] [address], [place], [address], [facility] 05/02/2022 13:15:03 05/26/2022 text/html Sinuses are both ering her real bad does not feel good David Medina MD [address], [facility] [address], [place], [address], [employer] [facility] [employer] [facility] 05/26/2022 22:16:26 09/04/2022 text/html Pain in legs whe n she walks nothing that is clear-cut claudication symptoms got out both eyes sometimes with some numbness. Start to begin walking is not seemed get any worse as she ambulate. Also sinuses doing fine hypertension no headache no dizziness current stable assessment says that she snoring and that she stops breathing when she sleeps and she is tired in the morning David Medina MD [address], [place], [address], [employer] [facility] [employer] [facility] 09/04/2022 20:13:19 11/11/2022 text/html Trouble losing weight. Hypertension no chest pain or dizziness. Joint pain with morning stiffness David Medina MD [address], [place], [address], [employer] [facility] [employer] [facility] 02/18/2023 16:02:38 03/01/2023 text/html GERD no nausea n o vomiting obesity needs help hypertension no headache no dizziness hypothyroid some fatigue dyslipidemia could do better with diet David Medina MD [address], [place], [address], [employer] [facility] [employer] [facility] 03/01/2023 14:51:14 OBGyn Episode No OBEpisode recorded.
--- OUTSIDE RECORDS SUMMARY | 2024-05-15 00:47 | XMS_ITS | CONTINUITY OF CARE DOCUMENT ---
Author Name nicholas peterson Address Unknown Organization [facility] Address [address] [place] [address] Phone [phone] Care Team Providers Care Director Data Architecture Name Role Phone Eric MEJÍA, Yamileth Unavailable DAVID HOFF MD Unavailable DAVID HOFF MD Unavailable PROBLEMS Condition Status Date Provider Notes Chest pain-normal stress nuc ef 67%, 05/2020 active Jimbo Pathak Hypertension--normal renals, echo ef 65%, mild TR, 06/2021 Calcium score 35, 06/2021 active Jimbo Pathak Hypothyroidism active Yamileth Reyes MD Arm numbness active Yamileth Reyes MD Tobacco abuse, quit active Jimbo Pathak Other symptoms involving cardiovascular system completed - Yamileth Reyes MD Hx of ovarian cyst, post surgery active Yamileth Reyes MD Abnormal EKG active Yamileth Reyes MD Family Hx premature CAD (mother at 50 yo) - normal stress nuc 03/2019 active Bob Holloway Shortness of breath active Bob Varela rg Palpitations active Bob Holloway ENCOUNTERS Date Type Provider Location Encounter Diag nosis - In-person encounter Office Visit Yamileth Reyes MD [place] [facility] - In-person encounter Office Visit Yamileth Reyes MD [place] [facility] - In-person encounter Office Visit Yamileth Reyes MD [place] [facility] - In-person encounter Office Visit Yamileth Reyes MD [place] [facility] Hypertension--normal renals, echo ef 65%, mild TR, 06/2021 Calcium score 35, 06/2021 - In-person encounter Office Visit Yamileth Reyes MD [place] [facility] Chest pain-normal stress nuc ef 67%, 05/2020Tobacco abuse, quit - In-person encounter Office Visit Yamileth Reyes MD [place] [facility] Family Hx premature CAD (mother at 50 yo) - normal stress nuc 03/2019Shortness of breathPalpitations - In-person encounter Office Visit Yamileth Reyes MD [place] [facility] Chest pain-normal stress nuc ef 67%, 05/2020 - In-person encounter Office Visit Yamileth Reyes MD [place] [facility] Abnormal EKG - In-person encounter Office Visit Yamileth Reyes MD [place] [facility] Tobacco abuse, quitHx of ovarian cyst, post surgery - In-person encounter Office Visit Yamileth Reyes MD, [place] [facility] Chest pain-normal st ress nuc ef 67%, 05/2020Other symptoms involving cardiovascular systemHx of ovarian cyst, post surgery - In-person encounter Office Visit Yamileth Guerra Office Arm numbnessTobacco abuse, quit - In-person encounter Office Visit Yamileth Reyes MD [place] [facility] - In-person encounter Office Visit Yamileth Reyes MD [place] [facility] Chest pain-normal stress nuc ef 67%, 05/2020Hypertension--norm al renals, echo ef 65%, mild TR, 06/2021 Calcium score 35, 06/2021Hypothyroidism VITAL SIGNS Date Observation Value Provider Body Mass Index (Ratio) 37.13 kg/m2 Eric Reyes MD blood pressure, diastolic 85 mm[Hg] Li nkLogic blood pressure, systolic 127 mm[Hg] Carolina kLog blood pressure, diastolic 85 mm[Hg] Elaina harrell Mendoza blood pressure, systolic 127 mm[Hg] Kym le Mendoza oxygen saturation, oximetry 95 % Connie Mendoza pulse rate 72 /min Connie Mendoza weight E&M 203 [lb_av] Connie Mendoza blood pressure, cuff size large Elaina harrell Mendoza height E&M 62 [in_i] Connie Mendoza Body Mass Index (Ratio) 37.49 kg/m2 Eric Reyes MD pulse rate 82 /min Jimbo Ahmedzamaxwell blood pressure, diastolic 95 mm[Hg] Ri az Ahmedzai blood pressure, systolic 160 mm[Hg] Nay z Ahmedzai weight E&M 205 [lb_av] Jimbo Ahmedzai Body Mass Index (Ratio) 36.21 kg/m2 Eric Reyes MD blood pressure, diastolic 72 mm[Hg] Ke rri Gruenenfeldhyacinth blood pressure, cuff size regular Ke rri Gruenenfeldhyacinth blood pressure, systolic 136 mm[Hg] Ker ri Frediuenenfniesha oxygen saturation, oximetry 98 % Farheen Konstantinnenfniesha respiratory rate E&M 12 /min Farheen G ruenenfelder pulse rate 80 /min Farheen Gruenenfe lder weight E&M 198 [lb_av] Farheen Gruenenfe lder height E&M 62 [in_i] Farheen Gruenenfe lder Body Mass Index (Ratio) 38.04 kg/m2 Eric Reyes MD blood pressure, diastolic 70 mm[Hg] Ri az medzai blood pressure, systolic 110 mm[Hg] Nay christine medzai weight E&M 208 [lb_av] Jimbo medzai pulse rate 84 /min Jimbo medzai oxygen saturation, oximetry 96 % Jimbo medzai Body Mass Index (Ratio) 36.58 kg/m2 Eric Reyes MD blood pressure, diastolic -1 mm[Hg] Li nkLogic blood pressure, systolic 169 mm[Hg] Carolina kLogic blood pressure, diastolic 91 mm[Hg] Sa ra Tamez blood pressure, systolic 169 mm[Hg] Tamara a Tamez oxygen saturation, oximetry 98 % Zabrina Tamez respiratory rate E&M 19 /min Zabrina Si ms pulse rate 87 /min Zabrina Tamez weight E&M 200 [lb_av] Zabrina Tamez blood pressure, cuff size large Sa ra Tamez height E&M 62 [in_i] Zabrina Tamez Body Mass Index (Ratio) 35.48 kg/m2 Eric Reyes MD blood pressure, cuff size large Ke rri Gruenenfelder blood pressure, diastolic 96 mm[Hg] Ke rri Gruenenfelder blood pressure, systolic 168 mm[Hg] Kianna ri Frediuenenfelder oxygen saturation, oximetry 99 % Farheen Jayantnfelder respiratory rate E&M 16 /min Farheen Na stewartnfelder pulse rate 92 /min Farheen Vie lder weight E&M 194 [lb_av] Farheen Konstantinnenfe lder height E&M 62 [in_i] Farheen Grterencenenfe er Body Mass Index (Ratio) 35.66 kg/m2 Eric Reyes MD blood pressure, cuff size large Ke rri Gruenenfelder blood pressure, diastolic 80 mm[Hg] Ke rri Gruenenfelder blood pressure, systolic 140 mm[Hg] Ker ri Gruenenfelder oxygen saturation, oximetry 97 % Farheen Gruenenfelder respiratory rate E&M 16 /min Farheen G ruenenfelder pulse rate 89 /min Farheen Gruenenfe er weight E&M 195 [lb_av] Farheen Gruenenfe er height E&M 62 [in_i] Farheen Gruenenfe [facility] Body Mass Index (Ratio) 37.13 kg/m2 Eric Reyes MD respiratory rate E&M 16 /min [facility] pulse rate 86 /min [facility] oxygen saturation, oximetry 98 % [facility] blood pressure, diastolic 65 mm[Hg] To [facility] blood pressure, systolic 128 mm[Hg] Ton [facility] weight E&M 203 [lb_av] [facility] height E&M 62 [in_i] [facility] Body Mass Index (Ratio) 36.39 kg/m2 Eric Reyes MD blood pressure, cuff size regular Ke rri Gruenenfelder blood pressure, diastolic 80 mm[Hg] Ke rri Gruenenfelder blood pressure, systolic 104 mm[Hg] Ker ri Gruenenfelder oxygen saturation, oximetry 99 % Farheen Gruenenfelder respiratory rate E&M 18 /min Farheen G ruenenfelder pulse rate 91 /min Farheen Gruenenfe lder weight E&M 199 [lb_av] Farheen Sherwin er height E&M 62 [in_i] Farheen Sherwin er Body Mass Index (Ratio) 32.92 kg/m2 Eric Reyes MD blood pressure, diastolic 76 mm[Hg] Rh onda Clarissa blood pressure, systolic 119 mm[Hg] Rho nda Clarissa weight E&M 180 [lb_av] Letirey Romo oxygen saturation, oximetry 99 % Leti Romo respiratory rate E&M 18 /min Leti Romo pulse rate 89 /min Leti Romo height E&M 62 [in_i] Leti Romo Body Mass Index (Ratio) 31.09 kg/m2 Eric Reyes MD blood pressure, cuff size regular Susana George blood pressure, diastolic 80 mm[Hg] Susana George blood pressure, systolic 130 mm[Hg] Desmond George oxygen saturation, oximetry 99 % Anabell George respiratory rate E&M 16 /min Anabell Geogre pulse rate 82 /min Anabell George blood pressure, resting Yes Aliza George weight E&M 170 [lb_av] Anabell George height E&M 62 [in_i] Anabell George Body Mass Index (Ratio) 35.30 kg/m2 Eric Reyes MD blood pressure, diastolic 82 mm[Hg] Da anna Cass blood pressure, systolic 136 mm[Hg] Dac ia Cass oxygen saturation, oximetry 98 % Melissa Cass respiratory rate E&M 16 /min Melissa V oss pulse rate 77 /min Melissa Cass weight E&M 193 [lb_av] Melissa Cass height E&M 62 [in_i] Melissa Cass blood pressure, diastolic 100 mm[Hg] Юлия Underwood blood pressure, systolic 172 mm[Hg] Ale Underwood pulse rate 85 /min Josh jacob oxygen saturation, oximetry 96 % Josh Underwood respiratory rate E&M 16 /min Bette Underwood Body Mass Index (Ratio) 37.60 kg/m2 Carie Underwood weight E&M 205.6 [lb_av] Josh walker height E&M 62 [in_i] Josh jacob ALLERGIES Allergy Name Onset Date Reaction Criticality Status ROSUVASTATIN myalgia myalgia High Criticality a ctive ATORVASTATIN myalgias myalgias High Criticality active HISTORY OF MEDICATION USE Medication Status Instructions Dates Provider Indications Com ments spironolactone 25 mg tablet active TAKE 1 TABLET BY MOUTH EVERY DAY 11/07 Jimbo Ahmikezai Zepbound 5 mg/0.5 mL pen injector active Jimbo Ahmedzai rosuvastatin 10 mg tablet completed Take 1 tablet by mouth once a day 09/22 - 05/17 Jimbo Ahmedzai spironolactone 25 mg tablet completed Take 1 tablet by mouth once a day 09/22 - 11/07 Jimbo Ahmedzai estradiol 0.5 mg tablet active Jimbo Erwinzai carvedilol 25 mg tablet active TAKE 1 TABLET BY MOUTH TWICE DAILY 08/05 Meme Candelario Zetia 10 mg tablet active Take 1 tablet by mouth once a day 07/13 Jimbo Ahmedzai carvedilol 25 mg tablet completed - 08/05 Meme Candelario montelukast 10 mg tablet active Jimbo Valeromedzai Wegovy 0.5 mg/0.5 mL pen injector completed - 05/17 Jimbo Ahmedzai estradiol 0.5 mg tablet completed - 09/22 Jimbo Erwinzai Ozempic 0.25 mg or 0.5 mg(2 mg/1.5 mL) pen injector completed Inject 1/4 mg subcutaneously once a week Take 0.25mg once a week x4 weeks then increase to 0.5mg weekly 07/01 - 07/13 Jimbo Pathak pantoprazole 40 mg tablet,delayed release (DR/EC) active Take 1 tablet by mouth once a day 10/11 Farheen Mckinnon #30, 30 days supply, Prescribed by DAVID HOFF, Filled 12/13/2019 estradiol 1 mg tablet completed Take 1 by mouth once a day 04/13 - 09/22 Jimbo Pathak #30, 30 days supply, Filled 01/15/2020 BUPROPION HCL ER (XL) 150 MG ORAL TABLET EXTENDED RELEASE 24 HOUR completed one tab daily 04/11 - 09/24 Farheen Mckinnon PHENTERMINE HCL 37.5 MG ORAL CAPSULE completed Take one tablet daily 05/03 - 09/24 Farheen Mckinnon CLIMARA 0.1 MG/24HR TRANSDERMAL PATCH WEEKLY completed change every 7 days 04/13 - 09/24 Farheen Mckinnon #12, 84 days supply, Prescribed by NOHEMY FUNK, Filled 04/13/2018 DIAZEPAM 5 MG ORAL TABLET completed po daily 04/07 - 09/24 Anabell George carvedilol 25 mg tablet completed Take 1 tablet by mouth twice a day 04/07 - 05/01 Jimbo Pathak Lipitor 10 mg tablet completed tablet by mouth once a day 03/10 - 07/13 Jimbo Pathak NAPROXEN 500 MG ORAL TABLET completed 1 tab every 12 hours as needed - 04/07 Yamileth Reyes MD LORAZEPAM TABLET completed 1mg every day as needed - 04/07 Yamileth Reyes MD levothyroxine 100 mcg tablet active 1 tablet by mouth once a day Yamileth Reyes MD CARVEDILOL 25 MG ORAL TABLET completed one tab twice daily 03/10 - 09/24 Melissa Odell hydrochlorothiazi de 25 mg tablet active Take 0.5 tablet by mouth once a day 05/03 Yamileth Reyes MD SOCIAL HISTORY Date Observation Value Provider alcohol use yes Jimbo mikecristal smoking/tobacco cess ation, patient education and counseling yes Jimbo mikecristal cigarette use yes Jimbo mikecristal smoking status Current some day smoker Grace Erwincristal social history reviewed E&M revi ewed - no changes required Ijmbo mikecristal social history reviewed E&M revi ewed - no changes required Jimbo Ahmikecristal social history reviewed E&M revi ewed - no changes required [facility] E&M revi ewed - no changes required [facility] reviewed E&M revi ewed - no changes required Bob Holloway social history E&M Smoking Histo ry: P atient currently smokes sometimes. P atient has been counseled to quit. Bob Holloway smoking/tobacco cess ation, patient education and counseling yes Farheen Mckinnon cigarette use yes Farheen scherer smoking status Current some day smoker Brenden Mckinnon social history E&M S moking History: P atient currently smokes sometimes. P atient has been counseled to quit. Yamileth Reyes MD social history reviewed E&M revi ewed - no changes required Yamileth Reyes MD smoking/tobacco cess ation, patient education and counseling yes Farheen Mckinnon cigarette use yes Farheen scherer smoking status Current some day smoker Brenden Mckinnon number of grandchildren Yamileth Reyes MD T nuno Reyes MD social history E&M S moking History: P atient currently smokes sometimes. P atient has been counseled to quit. Yamileth Reyes MD social history reviewed E&M revi ewed - no changes required Yamileth Reyes MD smoking/tobacco cess ation, patient education and counseling yes Yamileth Reyes MD cigarette use yes Tonsari Summers smoking status Current some day smoker To nsha Summers social history E&M S moking History: P atient currently smokes sometimes. P atient has been counseled to quit. Yamileth Reyes MD social history reviewed E&M revi ewed - no changes required Yamileth Reyes MD smoking/tobacco cess ation, patient education and counseling yes Farheen Pratibha alcohol use yes Farheen Raigloria lder cigarette use yes Farheen Raisuni scherer smoking status Current some day smoker Brenden ange Pratibha social history E&M S moking History: P atient currently smokes every day. P atient has been counseled to quit. Yamileth Reyes MD smoking/tobacco cess ation, patient education and counseling yes Yamileth Reyes MD social history reviewed E&M revi ewed - no changes required Yamileth Reyes MD smoking status Current every day smoker Roxana ray Clarissa social history reviewed E&M revi ewed - no changes required Yamileth Reyes MD alcohol use yes Anabell George cigarette use yes Anabell George smoking status Current every day smoker L fransisco Ariel social history reviewed E&M revi ewed - no changes required Yamileth Reyes MD cigarette use yes Melissa Cass smoking status Current some day smoker Da anna Cass social history reviewed E&M revi ewed - no changes required Yamileth Reyes MD cigarette use yes Josh walker smoking status Current some day smoker Юлия Underwood FAMILY HISTORY Family Member Condition Mother CO female <65 Mother Family History Coron giselle Heart Disease female < 65: Mother Family History of Co ronary Artery Disease: Mother Family History of Hy pertension: Mother Family History of Di abetes: INSURANCE PROVIDERS Payer name Policy type / Coverage type [place] red libertarian ID [facility] [id number] 1 ADVANCE DIRECTIVES Name Date DISCUSSED - NO DECISION MADE TREATMENT PLAN Date Name Performer [id number],BYamileth MD [id number],B, Yamileth Reyes MD [id number],B, Yamileth Reyes MD [id number],BYamileth MD [id number],S, Jimbo Ahmedza i [id number],S, Jimbo Ahmedza i [id number],S, Jimbo Ahmedza i [id number],S, Jimbo Ahmedza i [id number],S, Jimbo Ahmedza i [id number],S, Jimbo Ahmedza i [id number],S, Jimbo Ahmedza i [id number],S, Jimbo Ahmedza i [id number],S, Jimbo Ahmedza i [id number],S, Jimbo Ahmedza i [id number],S, Jimbo Ahmedza i [id number],S, Jimbo Ahmedza i [id number],S, Jimbo Ahmedza i [id number],S, Jimbo Ahmedza i [id number],S, Jimbo Ahmedza i [id number],S, Jimbo Valeromedza i [id number],B, Jimbo Valeromedza i [id number],S, Jimbo Valeromedza i [id number],B, Jimbo Valeromedza i [id number],S, Jimbo Valeromedza i [id number],B, Jimbo Valeromedza i Cardiology: O rders: S tress Routine (CPT-25286) L IPID PANEL (7600) [facility] H er updated medication list for this problem includes: Carvedilol 25 Mg Tablet (Carvedilol) ..... Take 1 tablet by mouth twice daily [facility]: B P today: 127/85 P rior BP: 160/95 (09/22/2022) Her updated medication list for this problem includes: Spironolactone 25 Mg Tablet (Spironolactone) ..... Take 1 tablet by mouth once a day Carvedilol 25 Mg Tablet (Carvedilol) ..... Take 1 tablet by mouth twice daily Hydrochlorothiazide 25 Mg Tablet (Hydrochlorothiazide) ..... Take 0.5 tablet by mouth once a day Jimbochristine Erwintyshawnmaxwell Cardiology: O rders: S tress Routine (CPT-31286) L IPID PANEL (7600) Jimbochristine Pathak Cardiology Jimbo Pathak Telehealth- needs 6 m f/up Dorita Reyes MD Telehealth- needs 6 m f/up Dorita Reyes MD Telehealth- needs 6 m f/up Dorita Reyes MD Telehealth- needs 6 m f/up Dorita Reyes MD Cardiology Jimbo Pathak Cardiology Jimbo Ahmedzai Cardiology Jimbo Ahmedzai Cardiology Jimbo Ahmedzai Cardiology Jimbo Ahmedzai Cardiology Jimbo Ahmedzai Cardiology Jimbo Ahmedzai Cardiology Jimbo Ahmedzai Cardiology Jimbo Ahmedzai Cardiology Jimbo Ahmedzai Cardiology Jimbo Ahmedzai Cardiology Jimbo Ahmedzai Cardiology Jimbo Ahmedzai Cardiology Jimbo Ahmedzai Cardiology Jimbo Ahmedzai Cardiology Jimbo Ahmedzai Cardiology Jimbo Ahmedzai Cardiology Jimbo Ahmedzai Cardiology Jimbo Ahmedzai Cardiology Jimbo Ahmedzai Cardiology Jimbo Ahmedzai Cardiology Yamileth Reyes MD Cardiology Yamileth Reyes MD Cardiology Yamileth Reyes MD Cardiology Yamileth Reyes MD Cardiology Follow up - ltr done Yamileth Reyes MD Cardiology Follow up - ltr done Yamileth Reyes MD Cardiology Follow up - ltr done Yamileth Reyes MD Cardiology Follow up - ltr done Yamileth Reyes MD Cardiology: P t will be getting oopherectomy in the near future due to a cyst. Yamileth Reyes MD Cardiology: B P is controlled today. Yamileth Reyes MD Cardiology: H er updated medication list for this problem includes: Levothyroxine Sodium 100 Mcg Oral Tablet (Levothyroxine sodium) ..... One tab. daily Yamileth Reyes MD Cardiology: C ounseled to quit. Yamileth Reyes MD Cardiology Yamileth Reyes MD Cardiology Yamileth Reyes MD Cardiology Yamileth Reyes MD Cardiology Yamileth Reyes MD Cardiology Yamileth Reyes MD Cardiology follow up Yamileth allen MD Cardiology follow up Yamileth allen MD Cardiology follow up :stress echo , no ischemia on echo images Yamileth Reyes MD Cardiology Yamileth Reyes MD Cardiology Yamileth Reyes MD Cardiology Yamileth Reyes MD Date Name LIPID PANEL Stress Routine LIPID PANEL TSH, free T4, total T3 CBC (INCLUDES DIFF/P LT) HEMOGLOBIN A1c COMPREHENSIVE METABO LIC PANEL, W/EGFR Sleep Study Home CT, Coronary Calcium Score Renal Artery Duplex Sleep Study Home Complete Echo CT, Coronary Calcium Score Stress Exercise Card iolite Stress Exercise Card iolite HEMOGLOBIN A1c LIPID PANEL CT, Coronary Calcium Score HISTORY OF PROCEDURES Procedure Date Procedure Name Provider Procedure Notes S tatus EKG Yamileht Reyes MD completed EKG Yamileth Reyes MD completed CT- Coronary CA score Yamileth Reyes MD completed EKG Yamileth Reyes MD completed EKG Yamileth Reyes MD completed Cardiolite, 2 units Yamileth Reyes MD completed SPECT Images Yamileth Reyes MD complet ed Stress EKG Yamileth Reyes MD completed EKG Yamileth Reyes MD completed SNOMED-CT: 48261948 Physical Exam, Performed: Pulse Exam of Foot Yamileth Reyes MD completed SNOMED-CT: 87544225 Physical Exam, Performed: Pulse Exam of Foot Yamileth Reyes MD completed SNOMED-CT: 374492639 [id number] Current Medications Documented Melissa Odell completed SNOMED-CT: 24050098 Physical Exam, Performed: Pulse Exam of Foot Yamileth Reyes MD completed EKG Yamileth Reyes MD completed SNOMED-CT: 378462557 675372 Current Medications Documented Yamileth Reyes MD completed
--- OUTSIDE RECORDS SUMMARY | 2024-05-15 00:48 | XMS_ITS | Patient Health Record ---
Author Organization [facility] Address [address] [place] [address] Care Team Providers Care Map Colorer Name Role Phone Zana Norman DPM Primary Care Provider PCP, NO Unavailable Unavailable ALLERGIES No Known Allergies REASON FOR REFERRAL No Information MEDICATIONS Medication SIG (Take, Route, Frequency, Duration) [...] 07/26/2023 Encounters Encounter Location Date Provider Diagnosis [facility] [address] [place] [address] 07/26/2023 Zana Norman DPM PLAN OF TREATMENT No Information Insurance Providers Payer Name Payer Address Payer Phone Subscriber Number Group Number Insured Name Patient Relationship to Insured Coverage Start Date Coverage End Date [facility] [address] [place] [address] [id number] Free, Pati Spouse - patient is the spouse of the insured MEDICAL (GENERAL) HISTORY Medical History History ICD Code High Cholesterol High Blood Pressure Arthritis Surgical History Surgery Date(Month/Year) Endoscopic cholecystectomy 2005 Partial or subtotal hysterectomy 2007 Appendicectomy 1987 Oophorectomy 2018 Carpal tunnel release 2005 Endoscopic fasciomtomy 2019 Ankle fracture surgery 2020
--- OUTSIDE RECORDS SUMMARY | 2024-05-15 00:48 | XMS_ITS ---
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
--- OUTSIDE RECORDS SUMMARY | 2024-05-15 00:48 | XMS_ITS | Patient Health Record ---
Author Organization [facility] Address [address] [place] [address] Care Team Providers Care Mental Health Clinician Name Role Phone Adarsh Medina Primary Care Provider UnavailRaina Orosco Unavailable [phone] [facility], Provider Unavailable Unavailab le Allergies No Known Allergies Reason For Referral No Information Medications Medication SIG (Take, Route, Frequency, Duration) Notes Start Date End Date Status MONTELUKAST 10 mg 1 tab(s) orally once a day for 30 day(s) Active ESTRADIOL 0.5 mg 1 tab(s) orally once a day for 30 day(s) Active LEVOTHYROXINE 100 mcg (0.1 mg) 1 tab(s) orally once a day for 30 day(s) Active HYDROCHLOROTHIAZIDE 25 mg 1 tab(s) orall y once a day for 30 day(s) Active CARVEDILOL 25 mg 1 tab(s) orally 2 times a day for 30 day(s) Active PANTOPRAZOLE 40 mg 1 tab(s) orally once a day for 30 day(s) Active LEVOCETIRIZINE DIHYDROCHLORI DE 5 mg 1 tab(s) orally once a day (in the evening) for 30 day(s) Active Levocetirizine Dihydrochlori de 5 MG 1 tab(s) orally once a day (in the evening) for 30 day(s) Active AZELASTINE HYDROCHLORIDE LIDIA AL 137 mcg/inh 2 spray(s) intranasally 2 times a day for 30 day(s) Active Azelastine HCl 137 MCG/SPRAY 2 spray(s) intranasally 2 times a day for 30 day(s) Active hydroCHLOROthiazide 25 MG 1 tab(s) orall y once a day for 30 day(s) Active Carvedilol 25 MG 1 tab(s) orally 2 times a day for 30 day(s) Active Pantoprazole Sodium 40 MG 1 tab(s) orall y once a day for 30 day(s) Active Montelukast Sodium 10 MG 1 tab(s) orally once a day for 30 day(s) Active Estradiol 0.5 MG 1 tab(s) orally once a day for 30 day(s) Active Levothyroxine Sodium 100 MCG 1 tab(s) or ally once a day for 30 day(s) Active Problems Problem Type SNOMED Code ICD Code Onset Dates Problem Status W/U Status Risk Notes Problem Hypothyroidism (38581998) Hypothyroidism, unspecified (E03.9) Active confirmed Problem Chronic allergic conjunctivitis (97533836) Other chronic allergic conjunctivitis (H10.45) Active confirmed Problem Allergic rhinitis (59107320) Other allergic rhinitis (J30.89) Active confirmed Problem Gastro-esophageal reflux disease without esophagitis (669689707) Gastro-esophageal reflux disease without esophagitis (K21.9) Active confirmed Problem Allergic rhinitis caused by animal hair and dander (453442698650562) Allergic rhinitis due to animal (cat) (dog) hair and dander (J30.81) Active confirmed Problem Essential hypertension (92243716) Essential (primary) hypertension (I10) Active confirmed Encounters Encounter Location Date Provider Diagnosis [address] [address] 08/07/2023 Provider Ede Other allergic rhinitis J30.89 Assessments Encounter Date Diagnosis (ICD Code) Assessment Notes Treatment Notes Treatment Clinical Notes Section Notes 08/07/2023 Other allergic rhinitis (ICD-10 - J30.89) Plan Of Treatment No Information Insurance Providers Payer Name Payer Address Payer Phone Subscriber Number Group Number Insured Name Patient Relationship to Insured Coverage Start Date Coverage End Date [facility] [address] [place] [address] [id number] Ludmila Flowers Spouse - patient is the spouse of the insured Medical (General) History Medical History History ICD Code Gastro-esophageal reflux disease without esophagitis K21.9 Hypothyroidism, unspecified E03.9 Essential (primary) hypertension I10 Surgical History Surgery Date(Month/Year) Cholecystectomy Appendectomy Partial Hysterectomy Oophorectomy Carpal Tunnel Ankle surgery Hospitalization History Reason Date(Month/Year) above surgery
--- OUTSIDE RECORDS SUMMARY | 2024-05-15 00:48 | XMS_ITS ---
Author Organization [facility] Address [address] [place] [address] Care Team Providers Care Architecture Drafter Name Role Phone Adarsh Medina Primary Care Provider UnavailRaina Orosco Unavailable [phone] [facility], Provider Unavailable Unavailab le [facility] Con[facility] Encounter Medications Medication SIG (Take, [...] once a day for 30 day(s) Active Levocetirizine Dihydrochlori de 5 MG 1 tab(s) orally once a day (in the evening) for 30 day(s) Active Azelastine HCl 137 MCG/SPRAY 2 spray(s) intranasally 2 times a day for 30 day(s) Active Montelukast Sodium 10 MG 1 tab(s) orally once a day for 30 day(s) Active Encounters Encounter Location Date Provider Diagnosis [facility] [address] [place] [address] 08/07/2023 Provider ZZ-Migration Other allergic rhinitis J30.89 Assessments Encounter Date Diagnosis (ICD Code) Assessment Notes Treatment Notes Treatment Clinical Notes Section Notes 08/07/2023 Other allergic rhinitis (ICD-10 - J30.89) Plan Of Treatment Medication Medication Name Sig Start Date Stop Date Notes Levocetirizine Dihydrochlori de 5 MG 1 tab(s) orally once a day (in the evening) for 30 day(s) Azelastine HCl 137 MCG/SPRAY 2 spray(s) intranasally 2 times a day for 30 day(s) Progress Notes * Pati PRADODOB:1970 ( 53 yo F)Acc No.[id number]:08/07/2023 Patient: Pati PRYOR Provider: Justin Syed :1970 A ge:52 Y S ex:Female Date:08/07/2023 Address:[facility] [address] [facility] [place], [id number] Pcp:Adarsh Medina Subjective: * Chief Complaints: * 1 . [facility] Conversion Encounter. * Medical History: * [...] Codes: * Electronic signature of Prov leticiar ZZ-Migration on 05/15/2024 at 12:48 AM CDT Sign off status: Pending * Provider: Justin Syed Date: 08/07/2023 Generated for Avila chamorro/Sara/Jose Alfredo on: 05/15/2024 12:48 AM CDT
--- NOTE | 2024-06-16 09:19 | SUR.PREOP ---
Patient updated with new date and time of procedure. Patient confirmed there has been no changes to medical hx but she is no longer taking Mounjaro.
[2024-10-03 12:26] VITALS: BMI 34.6
--- OUTSIDE RECORDS SUMMARY | 2024-10-13 01:26 | XMS_ITS | Clinical Summary ---
Author Organization [facility] Address [address] [facility] [place] [address] Care Team Providers Care Wig Sales Consultant Name Role Phone Adarsh Medina MD Primary Care Provider [phone] Source Comments [facility],non-owned Affiliates and Associated Physician Practices is amultiple site organization consisting of ambulatory clinics and hospital sitesin [place], [place], [place] and [place]. This disclosure is being madepursuant to the Care Everywhere program and may not contain all information available regarding this patient. Last updated 17.[facility] Allergies No known active allergies Medications * Be aware that medications may not be up to date on this document. Alwaysverify current medications with the patient. levothyroxine (SYNTHROID) 25 MCG tablet 09/23/2017 Active hydroCHLOROthiaz leticia (HYDRODIURIL) 25 MG tablet TK 1 T [...] drink = 0.6 oz pur e alcohol) Comments Unknown Sex and Gender Information Value Date Recorded Sex Assigned at Not on file Legal Sex Female 12:29 PM CDT Gender Identity Not on file Sexual Orientation Not on file Last Filed Vital Signs Vital Sign Reading Time Taken Comments Blood Pressure 130/78 03/02/2019 9:10 AM GOLF TECHNICIAN Pulse - - Temperature - - Respiratory Rate - - Oxygen Saturation - - Inhaled Oxygen Concentration - - Weight 92.1 kg (203 lb) 03/02/2019 9:10 AM GOLF TECHNICIAN Height 157.5 cm (5' 2) 03/02/2019 9:10 AM GOLF TECHNICIAN Body Mass Index 37.13 03/02/2019 9:10 AM GOLF TECHNICIAN Plan of Treatment Health Maintenance Due Date [...] VACCINE (1 - 2023-2 5 season) 2023 DEPRESSION SCREENING 02/23/2024 INFLUENZA VACCINE (#1) 2024 HIB VACCINE Aged Out No longer eligi [...] patient's age to complete this topic Insurance ANTH Care Teams Wig Sales Consultant Relationship Specialty Start Date End Date Adarsh Medina MD PCP - General 12/23/17
--- OUTSIDE RECORDS SUMMARY | 2024-10-13 01:26 | XMS_ITS | Clinical Summary ---
Author Organization [facility] Address [address] [place] [address] Care Team Providers Care Peanut Blancher Name Role Phone Adarsh Medina MD Primary Care Provider [phone] Allergies No known active allergies Active Problems Problem Noted Date Diagnosed Date Pain of foot 11/05/2014 Social History Tobacco Use Types Packs/Day Years Used Date Smoking Tobacco: Never Assessed Personal Safety Answer Date Recorded Getting School Help Needed Not on file 05/07 Comments Unknown Sex and Gender Information Value Date Recorded Sex Assigned at Not on file Legal Sex Female 11:09 AM TRAFFIC MONITOR SPECIALIST Gender Identity Not on file Sexual Orientation [...] season) 2023 11/11/2020, 10/21/2020 Influenza Vaccine (#1) 2024 DTaP/Tdap/Td Vaccine (2 - Td or Tdap) 02/21/2032 02/20/2022 Pneumococcal vaccine <65 Aged Out No longer eligible based on patient's age to complete this topic Insurance BLUE ACC CHOICE OOS Care Teams Peanut Blancher Relationship Specialty Start Date End Date Adarsh Medina MD PCP - General Internal Medicine 09/09/22
[2024-10-13 06:20] VITALS: BP 136/86; PULSE 80; RESP 18; TEMP 36.1; O2SAT 99; BMI 34.7
[2024-10-13] MEDS: LACTATED RINGERS 1,000 ML 150 ML IV CONT (06:37)
--- NOTE | 2024-10-13 06:57 | WPDANESEPPF ---
Anes - Initial Pre Proc Eval Procedure: Operation Date: 10/13/24 07:30 Proposed Procedures p Colonoscopy - Nick Kingsley MD Date/Time: 10/13/24 06:57 Surgeon: Nick Kingsley MD Pre Op Diagnosis: Colitis Patient Data Age: 54 Gender: F Height: 1.57 m Weight: 86.1 kg Last Vital Signs Temp 36.1 C L 10/13/24 06:20 Pulse 80 10/13/24 06:20 Resp 18 10/13/24 06:20 BP 136/86 10/13/24 06:20 Pulse Ox 99 10/13/24 06:20 O2 Del Method Room Air 10/13/24 06:20 Allergies Allergy/AdvReac Type Severity Reaction Status Date / Time No Known Allergies Allergy Verified 10/13/24 06:17 Home Medications ?Medication ?Instructions ?Recorded ?Confirmed ?Type carvedilol 25 mg tablet 25 mg PO Q12H 03/17/24 10/13/24 History estradiol 0.025 mg/24 hr 1 patch transdermal 2XW 03/17/24 05/09/24 History semiweekly transdermal patch (Vivelle-Dot) ezetimibe 10 mg tablet 10 mg PO DAILY 03/17/24 10/13/24 History hydrochlorothiazide 25 mg tablet 25 mg PO DAILY 03/17/24 10/13/24 History levothyroxine 100 mcg tablet 100 mcg PO DAILY 03/17/24 10/13/24 History (Levoxyl) ondansetron HCl 4 mg tablet 4 mg PO Q8H 03/17/24 10/03/24 History pantoprazole 40 mg tablet,delayed 40 mg PO QAM 03/17/24 10/13/24 History release spironolactone 25 mg tablet 25 mg PO DAILY 03/17/24 10/13/24 History dicyclomine 10 mg capsule 10 mg PO QID PRN abdominal pain 1 03/20/24 05/09/24 Rx month #120 caps phentermine 37.5 mg tablet 37.5 mg PO DAILY 10/03/24 10/13/24 History Patient hx anesthesia problems: none Family hx anesthesia problems: none Results Review: All pre-operative results and documents have been reviewed as part of the pre-operative evaluation. [facility] Past Medical History Medical History (Updated 03/20/24 @ 15:38 by SUSAN Medina) Tenesmus Diarrhea Nonspecific colitis Surgical History Surgical History H/O total hysterectomy History of appendectomy History of cholecystectomy H/O dilation and curettage Family History Family History Mother Hypertension Asthma Family history of elevated blood lipids Family history of diabetes mellitus in first degree relative Acute myocardial infarction Family history of emphysema Family history of heart disease in male family member before age 55 Sibling Hypertension Family history of arthritis Other Diabetes mellitus Family history of cardiovascular disease Social History Social History Years smoked: 20 Smoking status: Current every day smoker Tobacco type: cigarettes Second hand tobacco smoke exposure: No Alcohol intake: current Drinks per week: 4 Alcohol use details: Occasionally Substance use: never Substance use type: does not use Living arrangements: with family Spiritual care concerns: No Anes - Eval Final PreProcedure Day of Procedure 10/13/24 06:57 Patient weight: obese Heart: regular rate and rhythm Lungs: clear to auscultation Airway: Mallampati scale class II Neurological: alert and oriented Last oral intake: >/= 8 hours ASA classification: III Emergent: no Anesthetic plan: proceed Anesthesia type and monitoring: general GIVS and standard monitoring Results Review: All pre-operative results and documents have been reviewed as part of the pre-operative evaluation. Informed Consent: The patient's anesthetic plan and its attendant risks and benefits were discussed with the patient/family/POA. Questions were solicited and answers provided to the satisfaction of the patient/family/POA.
--- NOTE | 2024-10-13 07:34 | PM.HPGS ---
History of Present Illness History of Present Illness Consent: Risks, benefits, and alternatives have been discussed and questions answered. Patient agrees to proceed with procedure. Chief complaint: Colitis Narrative: Pati Perales is a 54 year old female with colitis months ago, had colonoscopy years ago Review of Systems Review of Systems: All systems reviewed & are unremarkable except as noted in HPI and below PMFSH Past Medical History Medical History (Updated 10/13/24 @ 07:35 by Nick Kingsley MD) History of colitis Tenesmus Diarrhea Nonspecific colitis Surgical History Surgical History H/O total hysterectomy History of appendectomy History of cholecystectomy H/O dilation and curettage Family History Family History Mother Hypertension Asthma Family history of elevated blood lipids Family history of diabetes mellitus in first degree relative Acute myocardial infarction Family history of emphysema Family history of heart disease in male family member before age 55 Sibling Hypertension Family history of arthritis Other Diabetes mellitus Family history of cardiovascular disease Social History Social History Years smoked: 20 Smoking status: Current every day smoker Tobacco type: cigarettes Second hand tobacco smoke exposure: No Alcohol intake: current Drinks per week: 4 Alcohol use details: Occasionally Substance use: never Substance use type: does not use Living arrangements: with family Spiritual care concerns: No Meds Home Medications and Allergies Home Medications ?Medication ?Instructions ?Recorded ?Confirmed ?Type carvedilol 25 mg tablet 25 mg PO Q12H 03/17/24 10/13/24 History estradiol 0.025 mg/24 hr 1 patch transdermal 2XW 03/17/24 05/09/24 History semiweekly transdermal patch (Vivelle-Dot) ezetimibe 10 mg tablet 10 mg PO DAILY 03/17/24 10/13/24 History hydrochlorothiazide 25 mg tablet 25 mg PO DAILY 03/17/24 10/13/24 History levothyroxine 100 mcg tablet 100 mcg PO DAILY 03/17/24 10/13/24 History (Levoxyl) ondansetron HCl 4 mg tablet 4 mg PO Q8H 03/17/24 10/03/24 History pantoprazole 40 mg tablet,delayed 40 mg PO QAM 03/17/24 10/13/24 History release spironolactone 25 mg tablet 25 mg PO DAILY 03/17/24 10/13/24 History dicyclomine 10 mg capsule 10 mg PO QID PRN abdominal pain 1 03/20/24 05/09/24 Rx month #120 caps phentermine 37.5 mg tablet 37.5 mg PO DAILY 10/03/24 10/13/24 History Allergies Allergy/AdvReac Type Severity Reaction Status Date / Time No Known Allergies Allergy Verified 10/13/24 06:17 Vital Signs Vital Signs - 24 hr 10/13/24 06:20 Temperature 97 F L Pulse Rate 80 Respiratory Rate 18 Blood Pressure 136/86 Pulse Oximetry 99 Oxygen Delivery Room Air Exam Const: General: comfortable and no acute distress HENMT: Face/Nose/Sinus: Normal nares present Eyes: General: appearance normal, both eyes and all related structures Neck: Neck: no JVD Resp: Auscultation: clear to auscultation bilaterally Cardio: Rate: regular rate Rhythm: regular rhythm GI: Inspection: non-distended GI Palp: Yes Soft to palpation Skin: General skin exam: normal color Neuro: Speech: normal speech Extrem: General: normal to inspection Psych: Mental Status: mental status grossly normal Assessment and Plan Assessment and plan (1) History of colitis: Code(s): Z87.19 - Personal history of other diseases of the digestive system Status: Acute Assessment and Plan: colonoscopy
[2024-10-13 07:46] VITALS: BP 100/49; PULSE 71; RESP 15; O2SAT 99
[2024-10-13 07:56] VITALS: BP 110/62; PULSE 68; RESP 14; O2SAT 100
[2024-10-13 08:06] VITALS: BP 128/67; PULSE 64; RESP 16; O2SAT 100
== END 2024-10-13 08:13 | disposition home or self-care (01) ==
PROVIDERS: PCP Internal Medicine; Referring Provider Nurse Practitioner Family; Visit Provider Internal Medicine Gastroenterology
PROC: 0DJD8ZZ Inspection of Lower Intestinal Tract, Via Natural or Artificial Opening Endoscopic (ICD-10-PCS; CPT 45378; principal; 2024-10-13 07:30)
DX: Z12.11 Encounter for screening for malignant neoplasm of colon (principal); F17.210 Nicotine dependence, cigarettes, uncomplicated; E66.9 Obesity, unspecified; Z68.34 Body mass index [BMI] 34.0-34.9, adult; Z98.890 Other specified postprocedural states; Z90.49 Acquired absence of other specified parts of digestive tract; Z87.19 Personal history of other diseases of the digestive system; Z82.49 Family history of ischemic heart disease and other diseases of the circulatory system
CPT/HCPCS: 45378; J2704; J7120

== ENCOUNTER 2024-11-27 12:45 | Outpatient (CLI) | payer BC, SELFPAY ==
--- OUTSIDE RECORDS SUMMARY | 2023-07-26 09:10 | XMS_ITS ---
Author Organization [facility] Address [address] [place] [address] Care Team Providers Care Manufacturing Engineering Manager Name Role Phone Zana Norman DPM Primary Care Provider [phone] PCP, NO Unavailable Unavailable ALLERGIES No Known Allergies REASON FOR VISIT new MEDICATIONS Medication SIG (Take, Route, Frequency, Duration) Notes Start Date End Date Status Pantoprazole Sodium 1; Prescribe d By: Dr medina Active Spironolactone 25 MG 1 Prescribed By: Dr Reyes Active Carvedilol 25 MG 1 Prescribed By: Dr Reyes Active hydroCHLOROthiazide 25 MG 1 Prescr ibed By: Dr medina Active Estradiol 0.5 MG 1 Prescribed By: Dr Quick Active Levothyroxine Sodium 1; Prescrib ed By: Dr Medina Active SOCIAL HISTORY Tobacco Use: Social History Observation Description Date Details (start date - stop date) Current Smoker NA - NA Sex Assigned At : Social History Observation Description Sex Assigned At Unknown Tobacco Use: Question Answer Notes Patient is a: current smoker How often do you smoke cigarettes? some days, bu t not every day How many cigarettes a day do you smoke? 5 or les s How soon after you wake up d o you smoke your first cigarette? after 60 minutes Are you interested in quitting? Thinking about q uitting Alcohol screening: Question Answer Notes Did you have a drink contain ing alcohol in the past year? Yes How often did you have a dri nk containing alcohol in the past year? Two to four times a month (2 points) How many drinks did you have on a typical day when you were drinking in the past year? 3 or 4 (1 point) How often did you have six o r more drinks on one occasion in the past year? Less than monthly (1 point) Points 4 Interpretation Positive VITAL SIGNS Height 62 in 07/26/2023 Weight 195 lbs 07/26/2023 BMI 35.66 kg/m2 07/26/2023 Encounters Encounter Location Date Provider Diagnosis [facility] [address] [place] [address] 07/26/2023 Zana Norman DPM PLAN OF TREATMENT No Information History and Physical Notes * HPI (History of Present Illness) Category Sub-Category Detail Notes Depression Screening PHQ-2 (2015 Edition) Little interest or pleasure in doing things?: Not at all Feeling down, depressed, or hopeless?: N ot at all Total Score: 0
--- OUTSIDE RECORDS SUMMARY | 2023-08-07 16:30 | XMS_ITS ---
Author Organization [facility] [email or web address] [place] ([address]) Address [address] [place] [address] Care Team Providers Care Senior Hardware Engineer Name Role Phone Adarsh Medina Primary Care Provider UnavailRaina Orosco Unavailable [phone] [employer], Provider Unavailable Unavailab le [facility] Conversion Encounter Medications Medication SIG (Take, Route, Frequency, Duration) Notes Start Date End Date Status hydroCHLOROthiazide 25 MG 1 tab(s) orall y once a day; Duration: 30 day(s) Active Carvedilol 25 MG 1 tab(s) orally 2 times a day; Duration: 30 day(s) Active Pantoprazole Sodium 40 MG 1 tab(s) orall y once a day; Duration: 30 day(s) Active Estradiol 0.5 MG 1 tab(s) orally once a day; Duration: 30 day(s) Active Levothyroxine Sodium 100 MCG 1 tab(s) or ally once a day; Duration: 30 day(s) Active Levocetirizine Dihydrochlori de 5 MG 1 tab(s) orally once a day (in the evening); Duration: 30 day(s) Active Azelastine HCl 137 MCG/SPRAY 2 spray(s) intranasally 2 times a day; Duration: 30 day(s) Active Montelukast Sodium 10 MG 1 tab(s) orally once a day; Duration: 30 day(s) Active Encounters Encounter Location Date Provider Diagnosis [facility] [address] [facility] [place] [address] 08/07/2023 Provider Ede Other allergic rhinitis J30.89 Assessments Encounter Date Diagnosis (ICD Code) Assessment Notes Treatment Notes Treatment Clinical Notes Section Notes 08/07/2023 Other allergic rhinitis (ICD-10 - J30.89) Plan Of Treatment Medication Medication Name Sig Start Date Stop Date Notes Levocetirizine Dihydrochlori de 5 MG 1 tab(s) orally once a day (in the evening); Duration: 30 day(s) Azelastine HCl 137 MCG/SPRAY 2 spray(s) intranasally 2 times a day; Duration: 30 day(s) Progress Notes * Pati FLOWERSDOB:1970 ( 54 yo F)Acc No.[id number]:08/07/2023 Patient: Pati PRYOR Provider: Justin Syed :1970 A ge:52 Y S ex:Female Date:08/07/2023 Address:[facility] [address] [facility] Pcp:Adarsh Medina Subjective: * Chief Complaints: * [facility] . [facility] Conversion Encounter. * Medical History: * Medications: T aking Montelukast Sodium 10 MG Tablet 1 tab(s) orally once a day , Taking Estradiol 0.5 MG Tablet 1 tab(s) orally once a day , Taking Levothyroxine Sodium 100 MCG Tablet 1 tab(s) orally once a day , Taking hydroCHLOROthiazide 25 MG Tablet 1 tab(s) orally once a day , Taking Carvedilol 25 MG Tablet 1 tab(s) orally 2 times a day , Taking Pantoprazole Sodium 40 MG Tablet Delayed Release 1 tab(s) orally once a day Objective: * Vitals: Assessment: * Assessment: 1. O ther allergic rhinitis - J30.89 Plan: * Treatment: * Billing Information: * Visit Code: * Procedure Codes: * Electronic signature of Prov leticiar ShellZ-Migration on 11/27/2024 at 01:40 PM CDT Sign off status: Pending * Provider: Justin Syed Date: 0 08/07/2023 Generated for Avila chamorro/Sara/Jose Alfredo on: 1 01:40 PM CDT
--- NOTE | ~2024-11-27 | XR_ITS ---
Lumbar spine series Indication: Right leg pain after fall Comparison: None Technique: 3 views lumbar spine Findings: 5 nonrib-bearing lumbar-type vertebral bodies. No acute fracture. Grade 1 anterolisthesis L4 on 5. Vertebral bodies normal height. Disc spaces maintained. Moderate facet joint degenerative changes below L3. SI joints congruent. Sacrum intact. Aortic atherosclerotic disease. Cholecystectomy clips. IMPRESSION: 1. No acute findings. Reviewed, dictated and finalized at location R. IMPRESSION: 1. No acute findings.
--- NOTE | ~2024-11-27 | XR_ITS ---
EXAMINATION: XR sacrum coccyx min 2V, 11/27/2024 13:00 CDT HISTORY: pain in rt leg COMPARISON: No comparisons available. Findings: No acute fracture or malalignment. No significant degenerative changes. Soft tissues unremarkable. Impression: No acute fracture or malalignment. Reviewed, dictated and finalized at location P. Impression: No acute fracture or malalignment.
--- NOTE | ~2024-11-27 | XR_ITS ---
Examination: XR hip RT 2V w AP pelvis Clinical History: LBP AND RT HIP PAIN AFTER FALL YESTERDAY Comparison: None Technique: 2 views right hip with AP pelvis Findings/impression: 1. No fracture or dislocation right hip. 2. No pelvic fracture. Reviewed, dictated and finalized at location .
--- OUTSIDE RECORDS SUMMARY | 2024-11-27 13:40 | XMS_ITS | Clinical Summary ---
Author Organization [facility] Address [address] [place] [address] Care Team Providers Care Director Of Analytical Development Name Role Phone Adarsh Medina MD Primary Care Provider [phone] Source Comments [facility],non-owned Affiliates and Associated Physician Practices is amultiple site organization consisting of ambulatory clinics and hospital sitesin [place], [place]. This disclosure is being madepursuant to the Care Everywhere program and may not contain all information available regarding this patient. Last updated 17.[facility] Allergies No known active allergies Medications * [...] Comments Blood Pressure 130/78 03/02/2019 9:10 AM TELEPHONE TECHNICIAN Pulse - - Temperature - - Respiratory Rate - - Oxygen Saturation - - Inhaled Oxygen Concentration - - Weight 92.1 kg (203 lb) 03/02/2019 9:10 AM TELEPHONE TECHNICIAN Height 157.5 cm (5' 2) 03/02/2019 9:10 AM TELEPHONE TECHNICIAN Body Mass Index 37.13 03/02/2019 9:10 AM TELEPHONE TECHNICIAN Plan of Treatment Health Maintenance Due [...] 2020 ZOSTER VACCINE (1 of 2) 2020 DEPRESSION SCREENING 02/23/2024 COVID-19 VACCINE (1 - 2023-2 5 season) 2024 INFLUENZA VACCINE (#1) 2024 HIB VACCINE Aged [...] complete this topic Insurance ANTH Care Teams Director Of Analytical Development Relationship Specialty Start Date End Date Adarsh Medina MD PCP - General 12/23/17
--- OUTSIDE RECORDS SUMMARY | 2024-11-27 13:40 | XMS_ITS | Patient Health Record ---
Author Organization [facility] Address [address] [place] [address] Care Team Providers Care Audit Specialist Name Role Phone Zana Norman DPM Primary [...] monthly (1 point) Points 4 Interpretation Positive PLAN OF TREATMENT No Information Insurance Providers Payer Name Payer Address Payer Phone Subscriber Number Group Number Insured Name Patient Relationship to Insured Coverage Start Date Coverage End Date [facility] [address] [place] [address] [id number] Diaz Pati Spouse - patient is the spouse of the insured MEDICAL (GENERAL) HISTORY Medical History History ICD Code High Cholesterol High Blood Pressure Arthritis Surgical History Surgery Date(Month/Year) Endoscopic cholecystectomy 2005 Partial or subtotal hysterectomy 2007 Appendicectomy 1987 Oophorectomy 2018 Carpal tunnel release 2006 Endoscopic fasciomtomy 2019 Ankle fracture surgery 2020
--- OUTSIDE RECORDS SUMMARY | 2024-11-27 13:40 | XMS_ITS | Patient Health Record ---
Author Organization [facility] [place] ([address]) Address [address] [place] [address] Care Team Providers Care Sales Mgr Name Role Phone Adarsh Medina Primary Care Provider Raina Up Unavailable [phone] Allergies No Known Allergies Reason For Referral No Information Medications Medication SIG (Take, Route, Frequency, Duration) Notes Start Date End Date Status MONTELUKAST 10 mg 1 tab(s) orally once a day; Duration: 30 day(s) Active ESTRADIOL 0.5 mg 1 tab(s) orally once a day; Duration: 30 day(s) Active LEVOTHYROXINE 100 mcg (0.1 mg) 1 tab(s) orally once a day; Duration: 30 day(s) Active HYDROCHLOROTHIAZIDE 25 mg 1 tab(s) orall y once a day; Duration: 30 day(s) Active CARVEDILOL 25 mg 1 tab(s) orally 2 times a day; Duration: 30 day(s) Active PANTOPRAZOLE 40 mg 1 tab(s) orally once a day; Duration: 30 day(s) Active LEVOCETIRIZINE DIHYDROCHLORI DE 5 mg 1 tab(s) orally once a day (in the evening); Duration: 30 day(s) Active Levocetirizine Dihydrochlori de 5 MG 1 tab(s) orally once a day (in the evening); Duration: 30 day(s) Active AZELASTINE HYDROCHLORIDE LIDIA AL 137 mcg/inh 2 spray(s) intranasally 2 times a day; Duration: 30 day(s) Active Azelastine HCl 137 MCG/SPRAY 2 spray(s) intranasally 2 times a day; Duration: 30 day(s) Active hydroCHLOROthiazide 25 MG 1 tab(s) orall y once a day; Duration: 30 day(s) Active Carvedilol 25 MG 1 tab(s) orally 2 times a day; Duration: 30 day(s) Active Pantoprazole Sodium 40 MG 1 tab(s) orall y once a day; Duration: 30 day(s) Active Montelukast Sodium 10 MG 1 tab(s) orally once a day; Duration: 30 day(s) Active Estradiol 0.5 MG 1 tab(s) orally once a day; Duration: 30 day(s) Active Levothyroxine Sodium 100 MCG 1 tab(s) or ally once a day; Duration: 30 day(s) Active Problems Problem Type SNOMED Code ICD Code Onset Dates Problem Status W/U Status Risk Notes Problem Hypothyroidism (24466039) Hypothyroidism, unspecified (E03.9) Active confirmed Problem Chronic allergic conjunctivitis (11910974) Other chronic allergic conjunctivitis (H10.45) Active confirmed Problem Allergic rhinitis (42175506) Other allergic rhinitis (J30.89) Active confirmed Problem Gastro-esophageal reflux disease without esophagitis (553368646) Gastro-esophageal reflux disease without esophagitis (K21.9) Active confirmed Problem Allergic rhinitis caused by animal hair and dander (382083705254541) Allergic rhinitis due to animal (cat) (dog) hair and dander (J30.81) Active confirmed Problem Essential hypertension (85527919) Essential (primary) hypertension (I10) Active confirmed Plan Of Treatment No Information Insurance Providers Payer Name Payer Address Payer Phone Subscriber Number Group Number Insured Name Patient Relationship to Insured Coverage Start Date Coverage End Date [facility] [address] [place] [address] [id number] Ludmila Flowers Spouse - patient is the spouse of the insured Medical (General) History Medical History History ICD Code Gastro-esophageal reflux disease without esophagitis K21.9 Hypothyroidism, unspecified E03.9 Essential (primary) hypertension I10 Surgical History Surgery Date(Month/Year) Cholecystectomy Appendectomy Partial Hysterectomy Oophorectomy Carpal Tunnel Ankle surgery Hospitalization History Reason Date(Month/Year) above surgery
--- OUTSIDE RECORDS SUMMARY | 2024-11-27 13:40 | XMS_ITS | Clinical Summary ---
Author Organization [facility] Address [address] [place] [address] Care Team Providers Care Ticket Collector Name Role Phone Adarsh Medina MD Primary Care Provider [phone] Allergies No known active allergies Active Problems Problem Noted Date Diagnosed Date Pain of foot 11/05/2014 Social History Tobacco Use Types Packs/Day Years Used Date Smoking Tobacco: Never Assessed Personal Safety Answer Date Recorded Getting School Help Needed Not on file 05/07 Comments Unknown Sex and Gender Information Value Date Recorded Sex Assigned at Not on file Legal Sex Female 11:09 AM DOCK MANAGER Gender Identity Not on file Sexual Orientation Not on file Plan of Treatment Health Maintenance Due Date Last Done Comments Breast Cancer Screening-Mammogram 1970 Cervical Cancer Screening 1970 Colon Cancer Screening-Colonoscopy 1970 Depression Screening 1970 Hepatitis C Screening 1970 Hepatitis B Screening 1988 Regular Well Visit/Exam 18-64 1988 Zoster Vaccine (1 of 2) 2020 Covid-19 Vaccine (3 - 2024-2 6 season) 2024 11/11/2020, 10/21/2020 Influenza Vaccine (#1) 2024 DTaP/Tdap/Td Vaccine (2 - Td or Tdap) 02/21/2032 02/20/2022 Pneumococcal vaccine <65 Aged Out No longer eligible based on patient's age to complete this topic Insurance BLUE ACC CHOICE OOS Care Teams Ticket Collector Relationship Specialty Start Date End Date Adarsh Medina MD PCP - General Internal Medicine 09/09/22
== END 2024-11-27 12:46 | disposition home or self-care (01) ==
PROVIDERS: PCP Internal Medicine; Visit Provider Internal Medicine
DX: M79.604 Pain in right leg (principal); M25.551 Pain in right hip; W19.XXXA Unspecified fall, initial encounter; M43.16 Spondylolisthesis, lumbar region; M47.816 Spondylosis without myelopathy or radiculopathy, lumbar region; I70.0 Atherosclerosis of aorta; Z18.9 Retained foreign body fragments, unspecified material
CPT/HCPCS: 72100; 72220; 73502

== ENCOUNTER 2024-12-07 13:58 | Emergency (ER) | payer BC, SELFPAY ==
--- OUTSIDE RECORDS SUMMARY | 2023-07-26 09:10 | XMS_ITS ---
Author Organization [facility] Address [address] [place] [address] Care Team Providers Care Test Center Administrator Name Role Phone Zana Norman DPM Primary Care Provider [phone] PCP, NO Unavailable Unavailable ALLERGIES No Known [...] 07/26/2023 Encounters Encounter Location Date Provider Diagnosis [facility] [address] [place] [address] 07/26/2023 Zana Norman DPM PLAN OF TREATMENT No Information History and Physical Notes * HPI (History of Present Illness) Category Sub-Category Detail Notes Depression Screening PHQ-2 (2015 Edition) Little interest or pleasure in doing things?: Not at all Feeling down, depressed, or hopeless?: N ot at all Total Score: 0
--- OUTSIDE RECORDS SUMMARY | 2023-08-07 16:30 | XMS_ITS ---
Author Organization [facility] [employer] [facility] [employer] [place] ([address]) Address [address] [place] [address] Care Team Providers Care Sand Worker Name Role Phone Adarsh Medina Primary Care Provider UnavailRaina Orosco Unavailable [phone] [employer], Provider Unavailable Unavailab le [facility] Conversion Encounter Medications Medication SIG (Take, Route, [...] Encounter Location Date Provider Diagnosis [facility] [place] [address] [facility] [place] [address] 08/07/2023 Provider Ede Other allergic rhinitis J30.89 [...] * Pati FLOWERSDOB:1970 ( 54 yo F)Acc No.[id number]:08/07/2023 Patient: Pati PRYOR Provider: Justin Syed :1970 A ge:52 Y S ex:Female Date:08/07/2023 Address:[facility] [address] [facility] Pcp:Adarsh Medina Subjective: * Chief Complaints: * [address] [facility] [address] [facility] Conversion Encounter. * Medical History: * Medications: [...] Procedure Codes: * Electronic signature of Prov ricardo GoffZ-Migration on 12/07/2024 at 04:02 PM CDT Sign off status: Pending * Provider: Justin Syed Date: 0 08/07/2023 Generated for Avila chamorro/Sara/Bossmansmmikel on: 1 04:02 PM CDT
[2024-12-07 14:16] VITALS: BP 206/93; PULSE 78; RESP 16; TEMP 36.6; O2SAT 100
--- NOTE | 2024-12-07 14:22 | ECG_ITS ---
Test Date: 2024-12-07 14:27:58 Measurements Intervals [place] Rate: 72 P: 61 [place]: 142 QRS: 3 QRSD: 90 T: 18 QT: 384 QTc: 422 Interpretive Statements SINUS RHYTHM VOLTAGE CRITERIA FOR LVH BASELINE ARTIFACT- I, II, III, AVR, AVL, AVF, V2 BORDERLINE ECG No previous ECG available for comparison Electronically Signed On 12-07-2024 14:54:24 CDT by Davin Kumar D.O.
--- OUTSIDE RECORDS SUMMARY | 2024-12-07 16:03 | XMS_ITS | Patient Health Record ---
Author Organization [facility] ([address]) Address [address] [place] [address] Care Team Providers Care National Accounts Recruiter Name Role Phone Adarsh Medina Primary Care Provider Raina Up Unavailable [phone] Allergies No Known Allergies Reason For Referral [...] Status W/U Status Risk Notes Problem Hypothyroidism (66828631) Hypothyroidism, unspecified (E03.9) Active confirmed Problem Chronic allergic conjunctivitis (67939924) Other chronic allergic conjunctivitis (H10.45) Active confirmed Problem Allergic rhinitis (08606693) Other allergic rhinitis (J30.89) Active confirmed Problem Gastro-esophageal reflux disease without esophagitis (438680833) Gastro-esophageal reflux disease without esophagitis (K21.9) Active confirmed Problem Allergic rhinitis caused by animal hair and dander (396681650055764) Allergic rhinitis due to animal (cat) (dog) hair and dander (J30.81) Active confirmed Problem Essential hypertension (67796110) Essential (primary) hypertension (I10) Active confirmed Plan Of Treatment No Information Insurance Providers Payer Name Payer Address Payer Phone Subscriber Number Group Number Insured Name Patient Relationship to Insured Coverage Start Date Coverage End Date [facility] [id number] [place] [address] [id number] Ludmila Flowers Spouse - patient is the spouse of the insured Medical (General) History Medical History History ICD Code Gastro-esophageal reflux disease without esophagitis K21.9 Hypothyroidism, unspecified E03.9 Essential (primary) hypertension I10 Surgical History Surgery Date(Month/Year) Cholecystectomy Appendectomy Partial Hysterectomy Oophorectomy Carpal Tunnel Ankle surgery Hospitalization History Reason Date(Month/Year) above surgery
--- OUTSIDE RECORDS SUMMARY | 2024-12-07 16:03 | XMS_ITS | Data Portability ---
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 MRI lumbar spine. X-ray both hips in CS legs sleep study Valium to be taken prior to flight she is going on a trip also before her MRI because of claustrophobia see me back in 6 weeks and hopefully she will have everything tested by then [email or web address] Not available 09/04/2022 20:13:01 11/11/2022 11/11/2022 G LP 1 no contraindication will start that inflammatory markers for joint pain rheumatoid factor CM etc.. Continue on her antihypertensive follow-up 4 months [email or web address] Not available 02/18/2023 16:02:13 03/01/2023 03/01/2023 Her medical problems have been discussed including her rheumatological problems she will see me back in several months we will try to get her on a G LP 1 agent [email or web address] Not available 03/01/2023 14:50:52 Plan of Treatment Reminders Order Date Submit Date Provider Last Modified By Organization Details Last Modified Time Details Appointments None recorded. Lab rf (rheumatoid factor), serum 2022 023 [facility] (Lab), [address] [place], [address], 3 10:30:43 CM (antinuclea r antibodies) screen, serum [address] (Lab), [address] [place], [address], 4 18:32:22 C-reactive protein, quantitativ e, serum or plasma [address] (Lab), [address] [place], [address], 4 18:32:22 ESR (erythrocyt e sedimentati on rate), blood 2022 023 [facility] (Lab), [address] [place], [address], 3 11:33:15 CMP, serum or plasma 2022 023 [facility] (Lab), [address] [place], [address], 3 10:33:53 CBC w/ auto diff 2022 023 [facility] (Lab), [address] [place], [address], 3 10:49:48 HbA1c (hemoglobin A1c), blood 2022 023 [facility] (Lab), [address] [place], [address], 3 14:28:36 CM (antinuclea r antibodies) screen, serum 2022 023 [facility] ([facility] [address] [place], [address], 3 14:28:45 CBC w/ auto diff [address] (Lab), [address] [place], [address], 3 14:48:37 lipid panel, serum [address] (Lab), [address] [place], [address], 3 14:48:37 CMP, serum or plasma [address] (Lab), [address] [place], [address], 3 14:48:37 T3, free, serum or plasma [address] (Lab), [address] [place], [address], 3 14:48:37 T4, free, serum [address] (Lab), [address] [place], [address], 3 14:48:37 TSH, serum or plasma [address] (Lab), [address] [place], [address], 3 14:48:37 Referral medical doctor referral 2022 023 WILFRID Dias MD, [address], [place], [address], 3 14:29:34 physical therapist referral 2022 023 [facility] [place], [address] [place], [address], 3 09:00:15 Procedures polysomnogr aphy, diagnostic (PROC) - No auth required call ref# [id number] 2022 023 [facility] [place], [address] [place], [address], 4 18:01:17 Surgeries None recorded. Imaging nerve conduction study - NCS B/L legs 2022 023 [facility] [place] [facility] Scheduling, 1 [facility] [place], [address], 4 09:18:11 XR, hip, bilateral 2022 023 [facility], [address] [place] [address] [place], [address], 3 14:27:56 MRI, lumbar spine, w/o contrast - PT needs open MRI. no auth required 2022 023 [facility], [address] [facility] [place], [address], 3 12:55:09 Medication Orders Wegovy 0.25 mg/0.5 mL subcutaneou s pen injector 2022 023 [email or web address] [facility], [address] [place], [place], [id number], 4 11:42:43 Wegovy 0.5 mg/0.5 mL subcutaneou s pen injector 2022 023 [email or web address] [id number] [place], [place], [id number], 4 11:42:55 Wegovy 1 mg/0.5 mL subcutaneou s pen injector [address] [facility], [address] [place], [place], [id number], 4 11:43:00 meloxicam 15 mg tablet 2022 023 [email or web address] [facility] #50750, [address] [place], [place], [id number], 3 15:26:49 Wegovy 0.25 mg/0.5 mL subcutaneou s pen injector [address] [facility], [address] [place], [place], [id number], 4 11:42:43 Singulair 10 mg tablet [email or web address] [facility], [address] [place], [place], [id number], 3 10:29:50 Patient TargetsNo targets recorded. Patient InstructionsNo instructions recorded. Reason for Referral Physical Therapist Referral for Low back pain Referring Physician: David Medina, Internal Medicine, Encounter Date: 05/01/2022 Hospice Coordinator Referral for Seaso nal allergy Referring Physician: David Medina, Internal Medicine, Encounter Date: 05/26/2022 Results Created Date Observation Date Name Description Value Unit Range Abnormal Flag Note LastModifiedBy Organization Detail LastModifiedTime 04/20/19 23 04/20/2022 COVID /FLU/ RSV PCR PANEL RSV/resp.syn ctial virus,RT-PCR negati ve Not Available [facility] (Lab) [address] [place], [address], 04/20/2022 17:38:58 04/20/19 23 04/20/2022 COVID /FLU/ [...] clini gudelia evalu ating the patie nt. Jorge Alberto baca the Fact Sheet s for healt h care provi ders and patie nts at the [facility] lena: https ://ww Vettro.fda .gov/ media /1363 12/do wnloa d https ://ww w.fda .gov/ media /1363 13/do wnloa d https ://Churn Labs.fda .gov/ media /1421 92/do wnloa d https ://Churn Labs.fda .gov/ media /1421 91/do wnloa d David thayer y: Real- Time RT-PC R Not Available [facility] (Lab) [address] [place], [address], 04/20/2022 17:38:58 04/20/1904/20/2022 COVID /FLU/ RSV PCR PANEL influenza A RNA, RT-PCR negati ve Not Available [facility] (Lab) [address] [place], [address], 04/20/2022 17:38:58 04/20/19 23 04/20/2022 COVID /FLU/ RSV PCR PANEL influenza B RNA, RT-PCR negati ve Not Available [facility] (Lab) [address] [place], [address], 04/20/2022 17:38:58 04/20/19 23 04/20/2022 RAPID STREP A DNA strep A DNA, VIET negati ve negati ve Not Available [facility] (Lab) [address] [place], [address], 04/20/2022 17:11:05 05/22/19 23 05/22/2022 IMMUN OGLOB ULIN IGG, QN, SERUM immunoglobul in g, qn, serum 1112 mg/dL 586-16 02 Perfo rmed at: [facility] [place] [address] [facility] [employer] [place], [place] [id number] Lab Direc tor: Dylan powell PhD, Phone : [phone] Not Available [facility] (Lab) [address] [place], [address], 05/22/2022 11:13:03 05/22/19 23 05/22/2022 IMMUN OGLOB ULIN IGM, QN, SERUM immunoglobul in M, qn, serum 134 mg/dL 26-217 [facility] [address] [facility] [employer] [place], [place] [id number] Lab Direc tor: Dylan powell PhD, Phone : [phone] Not Available [facility] (Lab) [address] [place], [address], 05/22/2022 13:09:53 05/22/19 23 05/22/2022 IMMUN OGLOB ULIN IGA, QN, SERUM immunoglobul in A, qn, serum 190 mg/dL 87-352 [facility] [address] [facility] [employer] [place], [place] [id number] Lab Direc tor: Dylan powell PhD, Phone : [phone] Not Available [facility] (Lab) [address] [place], [address], 05/22/2022 13:09:56 05/22/19 23 05/24/2022 IMMUN OGLOB ULIN IGE, TOTAL immunoglobul in E, total 49 IU/mL 6-495 Perfo rmed at: [facility] [place] [address] , [place] [address] Lab Direc tor: Tiffanie montenegro MD, Phone : [phone] Not Available [facility] (Lab) [address] [place], [address], 05/24/2022 02:06:39 09/05/1909/04/2022 CBC/C OMPLE TE BLD COUNT W/DIF F white blood cells 9.0 x10'3 /uL 4.2-10 .8 Not Available [facility] (Lab) [address] [place], [address], 09/04/2022 12:59:05 09/05/19 23 09/04/2022 CBC/C OMPLE TE BLD COUNT W/DIF F red blood cells 4.55 x10'6 /uL 3.80-5 .20 Not Available [facility] (Lab) [address] [place], [address], 09/04/2022 12:59:05 09/05/1909/04/2022 CBC/C OMPLE TE BLD COUNT W/DIF F hemoglobin 14.5 g/dL 12.0-1 5.6 Not Available [facility] (Lab) [address] [place], [address], 09/04/2022 12:59:05 09/05/19 23 09/04/2022 CBC/C OMPLE TE BLD COUNT W/DIF F hematocrit 43.7 % 35.7-4 5.7 Not Available [facility] (Lab) [address] [place], [address], 09/04/2022 12:59:05 09/05/19 23 09/04/2022 CBC/C OMPLE TE BLD COUNT W/DIF F mean red cell volume 96.0 fL 82.0-9 9.0 Not Available [facility] (Lab) [address] [place], [address], 09/04/2022 12:59:05 09/05/19 23 09/04/2022 CBC/C OMPLE TE BLD COUNT W/DIF F mean red cell hemoglobin 31.9 pg 27.0-3 3.0 Not Available [facility] (Lab) [address] [place], [address], 09/04/2022 12:59:05 09/05/19 23 09/04/2022 CBC/C OMPLE TE BLD COUNT W/DIF F mean RBC HGB concentratio n 33.2 g/dL 31.0-3 6.0 Not Available [facility] (Lab) [address] [place], [address], 09/04/2022 12:59:05 09/05/19 23 09/04/2022 CBC/C OMPLE TE BLD COUNT W/DIF F red cell distribution width 13.2 % 11.8-1 5.5 Not Available [facility] (Lab) [address] [place], [address], 09/04/2022 12:59:05 09/05/19 23 09/04/2022 CBC/C OMPLE TE BLD COUNT W/DIF F platelets 282 x10'3 /uL 150-40 0 Not Available [facility] (Lab) [address] [place], [address], 09/04/2022 12:59:05 09/05/19 23 09/04/2022 CBC/C OMPLE TE BLD COUNT W/DIF F mean platelet volume 11.3 fL 9.0-12 .4 Not Available [facility] (Lab) [address] [place], [address], 09/04/2022 12:59:05 09/05/19 23 09/04/2022 CBC/C OMPLE TE BLD COUNT W/DIF F neutrophils 59.0 % 39.0-7 2.0 Not Available [facility] (Lab) [address] [place], [address], 09/04/2022 12:59:05 09/05/19 23 09/04/2022 CBC/C OMPLE TE BLD COUNT W/DIF F lymphocytes 31.4 % 16.0-4 7.0 Not Available [facility] (Lab) [address] [place], [address], 09/04/2022 12:59:05 09/05/19 23 09/04/2022 CBC/C OMPLE TE BLD COUNT W/DIF F monocytes 6.5 % 5.0-12 .0 Not Available [facility] (Lab) [address] [place], [address], 09/04/2022 12:59:05 09/05/19 23 09/04/2022 CBC/C OMPLE TE BLD COUNT W/DIF F eosinophils 2.0 % 1.0-7. 0 Not Available [facility] (Lab) [address] [place], [address], 09/04/2022 12:59:05 09/05/19 23 09/04/2022 CBC/C OMPLE TE BLD COUNT W/DIF F basophils 0.8 % 0.0-2. 0 Not Available [facility] (Lab) [address] [place], [address], 09/04/2022 12:59:05 09/05/19 23 09/04/2022 CBC/C OMPLE TE BLD COUNT W/DIF F immature granulocytes 0.3 % 0.00-0 .50 Not Available [facility] (Lab) [address] [place], [address], 09/04/2022 12:59:05 09/05/19 23 09/04/2022 CBC/C OMPLE TE BLD COUNT W/DIF F neutrophils, absolute count 5.29 x10'3 /uL 1.5-8. 0 Not Available [facility] (Lab) [address] [place], [address], 09/04/2022 12:59:05 09/05/19 23 09/04/2022 CBC/C OMPLE TE BLD COUNT W/DIF F lymphocytes, absolute count 2.81 x10'3 /uL 1.07-3 .43 Not Available [facility] (Lab) [address] [place], [address], 09/04/2022 12:59:05 09/05/19 23 09/04/2022 CBC/C OMPLE TE BLD COUNT W/DIF F monocytes, absolute count 0.58 x10'3 /uL 0.29-0 .99 Not Available [facility] (Lab) [address] [place], [address], 09/04/2022 12:59:05 09/05/19 23 09/04/2022 CBC/C OMPLE TE BLD COUNT W/DIF F eosinophils, absolute count 0.18 x10'3 /uL 0.02-0 .53 Not Available [facility] (Lab) [address] [place], [address], 09/04/2022 12:59:05 09/05/19 23 09/04/2022 CBC/C OMPLE TE BLD COUNT W/DIF F basophils, absolute count 0.07 x10'3 /uL 0.01-0 .08 Not Available [facility] (Lab) [address] [place], [address], 09/04/2022 12:59:05 09/05/1909/04/2022 CBC/C OMPLE TE BLD COUNT W/DIF F immature granulocytes ,absolute 0.03 x10'3 /uL 0.00-0 .05 Not Available [facility] (Lab) [address] [place], [address], 09/04/2022 12:59:05 09/05/19 23 09/04/2022 CBC/C OMPLE TE BLD COUNT W/DIF F nucleated red blood cells 0.0 % -0 Not Available [facility] (Lab) [address] [place], [address], 09/04/2022 12:59:05 09/05/19 23 09/04/2022 CBC/C OMPLE TE BLD COUNT W/DIF F NRBC# 0.00 x10'3 /uL Not Available [facility] (Lab) [address] [place], [address], 09/04/2022 12:59:05 09/05/1909/04/2022 LIPID PANEL cholesterol 221 mg/dL 140-19 9 high NIH LEANDRA NSUS RECOM MENDA TION FOR ARTURO STERO L: ADULT CHILD LOW RISK: <200 <170 BORDE RLINE : <200- 239 ----- HIGH RISK: >240 >200 Not Available [facility] (Lab) [address] [place], [address], 09/04/2022 13:48:55 09/05/1909/04/2022 LIPID PANEL triglyceride s 156 mg/dL 0-150 high NIH LEANDRA NSUS REPOR T RECOM MENDA TION FOR TRIGL YCERI YVETTE: ADULT CHILD LOW RISK: <150 ----- BODER LINE: 150-1 99 ----- HIGH RISK: >200 ----- Not Available [facility] (Lab) [address] [place], [address], 09/04/2022 13:48:55 09/05/1909/04/2022 LIPID PANEL HDL cholesterol 100 mg/dL 40- Not Available [facility] (Lab) [address] [place], [address], 09/04/2022 13:48:55 09/05/19 23 09/04/2022 LIPID PANEL [...] WILL NOT BE REPOR GIANA. Not Available [facility] (Lab) [address] [place], [address], 09/04/2022 13:48:55 09/05/19 23 09/04/2022 COMPR EHENS ORALIA METAB OLIC PANEL sodium 137 mmol/ L 137-14 5 Not Available [facility] (Lab) [address] [place], [address], 09/04/2022 13:49:02 09/05/19 23 09/04/2022 COMPR EHENS ORALIA METAB OLIC PANEL potassium 4.1 mmol/ L 3.5-5. 1 Not Available [facility] (Lab) [address] [place], [address], 09/04/2022 13:49:02 09/05/19 23 09/04/2022 COMPR EHENS ORALIA METAB OLIC PANEL chloride 102 mmol/ L 98-107 Not Available [facility] (Lab) [address] [place], [address], 09/04/2022 13:49:02 09/05/19 23 09/04/2022 COMPR EHENS ORALIA METAB OLIC PANEL carbon dioxide 28 mmol/ L 22-30 Not Available [facility] (Lab) [address] [place], [address], 09/04/2022 13:49:02 09/05/19 23 09/04/2022 COMPR EHENS ORALIA METAB OLIC PANEL anion gap 11.1 mmol/ L 14-22 low Not Available [facility] (Lab) [address] [place], [address], 09/04/2022 13:49:02 09/05/19 23 09/04/2022 COMPR EHENS ORALIA METAB OLIC PANEL glucose 97 mg/dL 70-99 Not Available [facility] (Lab) [address] [facility] [place], [address], 09/04/2022 13:49:02 09/05/19 23 09/04/2022 COMPR EHENS ORALIA METAB OLIC PANEL BUN 12 mg/dL 8-19 Not Available [facility] (Lab) [address] [place], [address], 09/04/2022 13:49:02 09/05/19 23 09/04/2022 COMPR EHENS ORALIA METAB OLIC PANEL creatinine 0.54 mg/dL 0.66-1 .25 low Not Available [facility] (Lab) [address] [place], [address], 09/04/2022 13:49:02 09/05/19 23 09/04/2022 COMPR EHENS ORALIA METAB OLIC PANEL GFR >60 Refer ence Range : Reading ge GFR Healt hy Adult : >60 [...] calcu lator is avail able on the [facility] websi te: https ://lex robb.kari zapata/pr ofess ional s/kdo qi/gf r_cal culat or Not Available [facility] (Lab) [address] [place], [address], 09/04/2022 13:49:02 09/05/1909/04/2022 COMPR EHENS ORALIA METAB OLIC PANEL alkaline phosphatase 59 U/L 38-126 Not Available [facility] (Lab) [address] [place], [address], 09/04/2022 13:49:02 09/05/19 23 09/04/2022 COMPR EHENS ORALIA METAB OLIC PANEL alanine aminotransfe rase 21 U/L 0-35 Not Available [facility] (Lab) [address] [place], [address], 09/04/2022 13:49:02 09/05/19 23 09/04/2022 COMPR EHENS ORALIA METAB OLIC PANEL aspartate aminotransfe rase 25 U/L 15-37 Not Available [facility] (Lab) [address] [place], [address], 09/04/2022 13:49:02 09/05/19 23 09/04/2022 COMPR EHENS ORALIA METAB OLIC PANEL bilirubin, total 0.70 mg/dL 0.20-1 .30 Not Available [facility] (Lab) [address] [place], [address], 09/04/2022 13:49:02 09/05/19 23 09/04/2022 COMPR EHENS ORALIA METAB OLIC PANEL calcium 9.5 mg/dL 8.4-10 .2 Not Available [facility] (Lab) [address] [place], [address], 09/04/2022 13:49:02 09/05/19 23 09/04/2022 COMPR EHENS ORALIA METAB OLIC PANEL total protein 7.6 g/dL 6.3-8. 2 Not Available [facility] (Lab) [address] [place], [address], 09/04/2022 13:49:02 09/05/19 23 09/04/2022 COMPR EHENS ORALIA METAB OLIC PANEL albumin 4.4 g/dL 3.4-5. 0 Not Available [facility] (Lab) [address] [place], [address], 09/04/2022 13:49:02 09/05/19 23 09/04/2022 COMPR EHENS ORALIA METAB OLIC PANEL globulin 3.2 g/dL 2.6-4. 2 Not Available [facility] (Lab) [address] [place], [address], 09/04/2022 13:49:02 09/05/19 23 09/04/2022 COMPR EHENS ORALIA METAB OLIC PANEL A/G ratio 1.4 ratio 1.0-2. 0 Not Available [facility] (Lab) [address] [place], [address], 09/04/2022 13:49:02 09/05/19 23 09/04/2022 T3 FREE free T3 3.5 pg/mL 2.77-5 .27 Not Available [facility] (Lab) [address] [place], [address], 09/04/2022 13:52:27 09/05/19 23 09/04/2022 T4 FREE free T4 1.56 NG/dL 0.78-2 .19 Not Available [facility] (Lab) [address] [place], [address], 09/04/2022 13:52:29 09/05/1909/04/2022 TSH thyroid-stim ulating hormone 0.595 uIU/m L 0.465- 4.680 Not Available [facility] (Lab) [address] [place], [address], 09/04/2022 14:17:09 09/05/19 23 09/04/2022 HEMOG LOBIN A1C HA1C 5.4 % 4.0-6. 0 Diabe lena Scree jaden Crite sudheer: <5.7% Consi stent with absen ce of diabe lena 5.7-6 .4% Consi stent with incre ased risk for diabe lena (pred iabet es) >OR=6 .5% Consi stent with diabe lena REFER ENCE: Diabe lena Care 2016, 39(Dunn ppl.1 ):s13 -s22 Not Available [facility] (Lab) [address] [place], [address], 09/04/2022 15:45:53 09/05/1909/07/2022 CM BY IFA RFX TITER /RANDOLPH CORNELL antinuclear antibodies, ifa Negati ve Negat oralia <1:80 Borde rline 1:80 Posit oralia >1:80 ICAP nomjaneth magallanes re: AC-0 For more infor meagan n about Hep-2 cell patte rns use ANApa ttern s.org , the offic ial websi te for the Inter natio nal Conse nsus on Antin uclea r Antib marcio (CM) Patte rns (ICAP ). Perfo rmed at: [facility] [address] [place] [address] Lab Direc tor: Dylan powell PhD, Phone : [phone] Not Available [facility] (Lab) [address] [place], [address], 09/07/2022 15:09:20 11/17/19 23 11/16/2022 RHEUM ATOID FACTO R rf 9.4 IU/mL 0.0-11 .9 Not Available [facility] (Lab) [address] [place], [address], 11/16/2022 10:30:43 11/17/19 23 11/16/2022 C REACT ORALIA PROTE IN,UL TRA SENS C-reactive protein 0.90 mg/dL 0.0-0. 5 high Not Available [facility] (Lab) [address] [place], [address], 11/16/2022 10:30:49 11/17/19 23 11/16/2022 COMPR EHENS ORALIA METAB OLIC PANEL sodium 134 mmol/ L 137-14 5 low Not Available [facility] (Lab) [address] [place], [address], 11/16/2022 10:33:53 11/17/19 23 11/16/2022 COMPR EHENS ORALIA METAB OLIC PANEL potassium 4.1 mmol/ L 3.5-5. 1 Not Available [facility] (Lab) [address] [place], [address], 11/16/2022 10:33:53 11/17/19 23 11/16/2022 COMPR EHENS ORALIA METAB OLIC PANEL chloride 100 mmol/ L 98-107 Not Available [facility] (Lab) [address] [place], [address], 11/16/2022 10:33:53 11/17/19 23 11/16/2022 COMPR EHENS ORALIA METAB OLIC PANEL carbon dioxide 28 mmol/ L 22-30 Not Available [facility] (Lab) [address] [place], [address], 11/16/2022 10:33:53 11/17/19 23 11/16/2022 COMPR EHENS ORALIA METAB OLIC PANEL anion gap 10.1 mmol/ L 14-22 low Not Available [facility] (Lab) [address] [place], [address], 11/16/2022 10:33:53 11/17/19 23 11/16/2022 COMPR EHENS ORALIA METAB OLIC PANEL glucose 109 mg/dL 70-99 high Not Available [facility] (Lab) [address] [place], [address], 11/16/2022 10:33:53 11/17/19 23 11/16/2022 COMPR EHENS ORALIA METAB OLIC PANEL BUN 16 mg/dL 8-19 Not Available [facility] (Lab) [address] [place], [address], 11/16/2022 10:33:53 11/17/19 23 11/16/2022 COMPR EHENS ORALIA METAB OLIC PANEL creatinine 0.56 mg/dL 0.66-1 .25 low Not Available [facility] (Lab) [address] [place], [address], 11/16/2022 10:33:53 11/17/19 23 11/16/2022 COMPR EHENS ORALIA METAB OLIC PANEL GFR >60 Refer ence Range : Reading ge GFR Healt hy Adult : >60 [...] or ethni c subgr oups, such as Hismn nics. Outsi de the valid ated arianna [...] calcu lator is avail able on the [facility] websi te: https ://lex robb.kari zapata/pr мария walker s/kdo qi/gf r_cal culat or Not Available [facility] (Lab) [address] [place], [address], 11/16/2022 10:33:53 11/17/19 23 11/16/2022 COMPR EHENS ORALIA METAB OLIC PANEL alkaline phosphatase 62 U/L 38-126 Not Available [facility] (Lab) [address] [place], [address], 11/16/2022 10:33:53 11/17/19 23 11/16/2022 COMPR EHENS ORALIA METAB OLIC PANEL alanine aminotransfe rase 22 U/L 0-35 Not Available [facility] (Lab) [address] [place], [address], 11/16/2022 10:33:53 11/17/19 23 11/16/2022 COMPR EHENS ORALIA METAB OLIC PANEL aspartate aminotransfe rase 21 U/L 15-37 Not Available [facility] (Lab) [address] [place], [address], 11/16/2022 10:33:53 11/17/19 23 11/16/2022 COMPR EHENS ORALIA METAB OLIC PANEL bilirubin, total 0.80 mg/dL 0.20-1 .30 Not Available [facility] (Lab) [address] [place], [address], 11/16/2022 10:33:53 11/17/19 23 11/16/2022 COMPR EHENS ORALIA METAB OLIC PANEL calcium 9.9 mg/dL 8.4-10 .2 Not Available [facility] (Lab) [address] [place], [address], 11/16/2022 10:33:53 11/17/19 23 11/16/2022 COMPR EHENS ORALIA METAB OLIC PANEL total protein 7.5 g/dL 6.3-8. 2 Not Available [facility] (Lab) [address] [place], [address], 11/16/2022 10:33:53 11/17/19 23 11/16/2022 COMPR EHENS ORALIA METAB OLIC PANEL albumin 4.4 g/dL 3.4-5. 0 Not Available [facility] (Lab) [address] [place], [address], 11/16/2022 10:33:53 11/17/19 23 11/16/2022 COMPR EHENS ORALIA METAB OLIC PANEL globulin 3.1 g/dL 2.6-4. 2 Not Available [facility] (Lab) [address] [place], [address], 11/16/2022 10:33:53 11/17/19 23 11/16/2022 COMPR EHENS ORALIA METAB OLIC PANEL A/G ratio 1.4 ratio 1.0-2. 0 Not Available [facility] (Lab) [address] [place], [address], 11/16/2022 10:33:53 11/17/19 23 11/16/2022 CBC/C OMPLE TE BLD COUNT W/DIF F white blood cells 8.4 x10'3 /uL 4.2-10 .8 Not Available [facility] (Lab) [address] [place], [address], 11/16/2022 10:49:48 11/17/19 23 11/16/2022 CBC/C OMPLE TE BLD COUNT W/DIF F red blood cells 4.75 x10'6 /uL 3.80-5 .20 Not Available [facility] (Lab) [address] [place], [address], 11/16/2022 10:49:48 11/17/1914 1111/16/2022 CBC/C OMPLE TE BLD COUNT W/DIF F hemoglobin 15.0 g/dL 12.0-1 5.6 Not Available [facility] (Lab) [address] [place], [address], 11/16/2022 10:49:48 11/17/19 23 11/16/2022 CBC/C OMPLE TE BLD COUNT W/DIF F hematocrit 44.0 % 35.7-4 5.7 Not Available [facility] (Lab) [address] [place], [address], 11/16/2022 10:49:48 11/17/1911/16/2022 CBC/C OMPLE TE BLD COUNT W/DIF F mean red cell volume 92.6 fL 82.0-9 9.0 Not Available [facility] (Lab) [address] [place], [address], 11/16/2022 10:49:48 11/17/19 23 11/16/2022 CBC/C OMPLE TE BLD COUNT W/DIF F mean red cell hemoglobin 31.6 pg 27.0-3 3.0 Not Available [facility] (Lab) [address] [place], [address], 11/16/2022 10:49:48 11/17/19 23 11/16/2022 CBC/C OMPLE TE BLD COUNT W/DIF F mean RBC HGB concentratio n 34.1 g/dL 31.0-3 6.0 Not Available [facility] (Lab) [address] [place], [address], 11/16/2022 10:49:48 11/17/19 23 11/16/2022 CBC/C OMPLE TE BLD COUNT W/DIF F red cell distribution width 13.0 % 11.8-1 5.5 Not Available [facility] (Lab) [address] [place], [address], 11/16/2022 10:49:48 11/17/19 23 11/16/2022 CBC/C OMPLE TE BLD COUNT W/DIF F platelets 292 x10'3 /uL 150-40 0 Not Available [facility] (Lab) [address] [place], [address], 11/16/2022 10:49:48 11/17/1911/16/2022 CBC/C OMPLE TE BLD COUNT W/DIF F mean platelet volume 11.0 fL 9.0-12 .4 Not Available [facility] (Lab) [address] [place], [address], 11/16/2022 10:49:48 11/17/1911/16/2022 CBC/C OMPLE TE BLD COUNT W/DIF F neutrophils 59.5 % 39.0-7 2.0 Not Available [facility] (Lab) [address] [place], [address], 11/16/2022 10:49:48 11/17/1911/16/2022 CBC/C OMPLE TE BLD COUNT W/DIF F lymphocytes 29.8 % 16.0-4 7.0 Not Available [facility] (Lab) [address] [place], [address], 11/16/2022 10:49:48 11/17/1911/16/2022 CBC/C OMPLE TE BLD COUNT W/DIF F monocytes 7.7 % 5.0-12 .0 Not Available [facility] (Lab) [address] [place], [address], 11/16/2022 10:49:48 11/17/1911/16/2022 CBC/C OMPLE TE BLD COUNT W/DIF F eosinophils 1.9 % 1.0-7. 0 Not Available [facility] (Lab) [address] [place], [address], 11/16/2022 10:49:48 11/17/19 23 11/16/2022 CBC/C OMPLE TE BLD COUNT W/DIF F basophils 0.7 % 0.0-2. 0 Not Available [facility] (Lab) [address] [place], [address], 11/16/2022 10:49:48 11/17/19 23 11/16/2022 CBC/C OMPLE TE BLD COUNT W/DIF F immature granulocytes 0.4 % 0.00-0 .50 Not Available [facility] (Lab) [address] [place], [address], 11/16/2022 10:49:48 11/17/1911/16/2022 CBC/C OMPLE TE BLD COUNT W/DIF F neutrophils, absolute count 4.99 x10'3 /uL 1.5-8. 0 Not Available [facility] (Lab) [address] [place], [address], 11/16/2022 10:49:48 11/17/19 23 11/16/2022 CBC/C OMPLE TE BLD COUNT W/DIF F lymphocytes, absolute count 2.50 x10'3 /uL 1.07-3 .43 Not Available [facility] (Lab) [address] [place], [address], 11/16/2022 10:49:48 11/17/1911/16/2022 CBC/C OMPLE TE BLD COUNT W/DIF F monocytes, absolute count 0.65 x10'3 /uL 0.29-0 .99 Not Available [facility] (Lab) [address] [place], [address], 11/16/2022 10:49:48 11/17/19 23 11/16/2022 CBC/C OMPLE TE BLD COUNT W/DIF F eosinophils, absolute count 0.16 x10'3 /uL 0.02-0 .53 Not Available [facility] (Lab) [address] [place], [address], 11/16/2022 10:49:48 11/17/19 23 11/16/2022 CBC/C OMPLE TE BLD COUNT W/DIF F basophils, absolute count 0.06 x10'3 /uL 0.01-0 .08 Not Available [facility] (Lab) [address] [place], [address], 11/16/2022 10:49:48 11/17/19 23 11/16/2022 CBC/C OMPLE TE BLD COUNT W/DIF F immature granulocytes ,absolute 0.03 x10'3 /uL 0.00-0 .05 Not Available [facility] (Lab) [address] [place], [address], 11/16/2022 10:49:48 11/17/19 23 11/16/2022 CBC/C OMPLE TE BLD COUNT W/DIF F nucleated red blood cells 0.0 % -0 Not Available [facility] (Lab) [address] [place], [address], 11/16/2022 10:49:48 11/17/19 23 11/16/2022 CBC/C OMPLE TE BLD COUNT W/DIF F NRBC# 0.00 x10'3 /uL Not Available [facility] (Lab) [address] [place], [address], 11/16/2022 10:49:48 11/17/19 23 11/16/2022 SEDIM ENTAT ION RATE erythrocyte sedimentatio n rate 15 mm/HR 0-20 Not Available [facility] (Lab) [address] [place], [address], 11/16/2022 11:33:15 11/17/19 23 11/17/2022 CM BY IFA RFX TITER /RANDOLPH CORNELL antinuclear antibodies, ifa Positi ve abnormal Negat oralia <1:80 Borde rline 1:80 Posit oralia >1:80 Perfo rmed at: - [facility] [address], [place] [id number] [facility] Lab Direc tor: Dylan powell PhD, Phone : [phone] Not Available [facility] (Lab) [address] [place], [address], 11/17/2022 15:09:50 11/17/19 23 11/17/2022 CM BY IFA RFX TITER /RANDOLPH CORNELL speckled pattern 1:160 high Dense Fine Speck led alvin cabral is noted . This alvin cabral sugge sts the prese nce of DFS70 antib marcio which has a low preva lence in syste abi autoi mmune rheum atic disea ses. ICAP nomen clatu re: AC-2, 4,5,2 9 Not Available [facility] (Lab) [address] [place], [address], 11/17/2022 15:09:50 11/17/19 23 11/17/2022 CM BY IFA RFX TITER /RANDOLPH CORNELL note: Commjaneth t abnormal . Alvin Shepherd tial Disea se Assoc iatio n ----- ----- --- [...] Syste abi Lupus Eryth emato segundo, Subac [place] Cutan eous Lupus , Neona chucho Lupus , Conge nital Heart Block , Mixed Conne ctive Tissu e Disea se, Scler oderm a-dif fuse, Scler oderm a-Aut oimmu ne Myosi tis Overl ap Syndr ome, Syste abi Lupus Eryth emato segundo-S clero derma -Auto immun e Myosi tis Overl ap Syndr ome, Syste abi Autoi mmune Rheum atic Disea se, Undif jasmin Ashe ctive Tissu e Disea se ----- ----- --- [...] ----- ----- Perfo rmed at: - [facility] [address] [place] [address], [place] [address] Lab Direc tor: Dylan powell PhD, Phone : [phone] Not Available [facility] (Lab) [address] [place], [address], 11/17/2022 15:09:50 05/26/19 24 05/26/2023 CBC/C OMPLE TE BLD COUNT W/DIF F white blood cells 8.1 x10'3 /uL 4.2-10 .8 Not Available [facility] (Lab) [address] [place], [address], 05/26/2023 14:17:22 05/26/19 24 05/26/2023 CBC/C OMPLE TE BLD COUNT W/DIF F red blood cells 4.79 x10'6 /uL 3.80-5 .20 Not Available [facility] (Lab) [address] [place], [address], 05/26/2023 14:17:22 05/26/19 24 05/26/2023 CBC/C OMPLE TE BLD COUNT W/DIF F hemoglobin 15.1 g/dL 12.0-1 5.6 Not Available [facility] (Lab) [address] [place], [address], 05/26/2023 14:17:22 05/26/19 24 05/26/2023 CBC/C OMPLE TE BLD COUNT W/DIF F hematocrit 44.9 % 35.7-4 5.7 Not Available [facility] (Lab) [address] [place], [address], 05/26/2023 14:17:22 05/26/19 24 05/26/2023 CBC/C OMPLE TE BLD COUNT W/DIF F mean red cell volume 93.7 fL 82.0-9 9.0 Not Available [facility] (Lab) [address] [place], [address], 05/26/2023 14:17:22 05/26/19 24 05/26/2023 CBC/C OMPLE TE BLD COUNT W/DIF F mean red cell hemoglobin 31.5 pg 27.0-3 3.0 Not Available [facility] (Lab) [address] [place], [address], 05/26/2023 14:17:22 05/26/19 24 05/26/2023 CBC/C OMPLE TE BLD COUNT W/DIF F mean RBC HGB concentratio n 33.6 g/dL 31.0-3 6.0 Not Available [facility] (Lab) [address] [place], [address], 05/26/2023 14:17:22 05/26/19 24 05/26/2023 CBC/C OMPLE TE BLD COUNT W/DIF F red cell distribution width 12.8 % 11.8-1 5.5 Not Available [facility] (Lab) [address] [place], [address], 05/26/2023 14:17:22 05/26/19 24 05/26/2023 CBC/C OMPLE TE BLD COUNT W/DIF F platelets 280 x10'3 /uL 150-40 0 Not Available [facility] (Lab) [address] [place], [address], 05/26/2023 14:17:22 05/26/19 24 05/26/2023 CBC/C OMPLE TE BLD COUNT W/DIF F mean platelet volume 11.7 fL 9.0-12 .4 Not Available [facility] (Lab) [address] [place], [address], 05/26/2023 14:17:22 05/26/19 24 05/26/2023 CBC/C OMPLE TE BLD COUNT W/DIF F neutrophils 62.8 % 39.0-7 2.0 Not Available [facility] (Lab) [address] [place], [address], 05/26/2023 14:17:22 05/26/19 24 05/26/2023 CBC/C OMPLE TE BLD COUNT W/DIF F lymphocytes 27.2 % 16.0-4 7.0 Not Available [facility] (Lab) [address] [place], [address], 05/26/2023 14:17:22 05/26/19 24 05/26/2023 CBC/C OMPLE TE BLD COUNT W/DIF F monocytes 7.2 % 5.0-12 .0 Not Available [facility] (Lab) [address] [place], [address], 05/26/2023 14:17:22 05/26/1905/26/2023 CBC/C OMPLE TE BLD COUNT W/DIF F eosinophils 1.9 % 1.0-7. 0 Not Available [facility] (Lab) [address] [place], [address], 05/26/2023 14:17:22 05/26/19 24 05/26/2023 CBC/C OMPLE TE BLD COUNT W/DIF F basophils 0.5 % 0.0-2. 0 Not Available [facility] (Lab) [address] [place], [address], 05/26/2023 14:17:22 05/26/19 24 05/26/2023 CBC/C OMPLE TE BLD COUNT W/DIF F immature granulocytes 0.4 % 0.00-0 .50 Not Available [facility] (Lab) [address] [place], [address], 05/26/2023 14:17:22 05/26/19 24 05/26/2023 CBC/C OMPLE TE BLD COUNT W/DIF F neutrophils, absolute count 5.08 x10'3 /uL 1.5-8. 0 Not Available [facility] (Lab) [address] [place], [address], 05/26/2023 14:17:22 05/26/19 24 05/26/2023 CBC/C OMPLE TE BLD COUNT W/DIF F lymphocytes, absolute count 2.20 x10'3 /uL 1.07-3 .43 Not Available [facility] (Lab) [address] [place], [address], 05/26/2023 14:17:22 05/26/19 24 05/26/2023 CBC/C OMPLE TE BLD COUNT W/DIF F monocytes, absolute count 0.58 x10'3 /uL 0.29-0 .99 Not Available [facility] (Lab) [address] [place], [address], 05/26/2023 14:17:22 05/26/19 24 05/26/2023 CBC/C OMPLE TE BLD COUNT W/DIF F eosinophils, absolute count 0.15 x10'3 /uL 0.02-0 .53 Not Available [facility] (Lab) [address] [place], [address], 05/26/2023 14:17:22 05/26/19 24 05/26/2023 CBC/C OMPLE TE BLD COUNT W/DIF F basophils, absolute count 0.04 x10'3 /uL 0.01-0 .08 Not Available [facility] (Lab) [address] [place], [address], 05/26/2023 14:17:22 05/26/19 24 05/26/2023 CBC/C OMPLE TE BLD COUNT W/DIF F immature granulocytes ,absolute 0.03 x10'3 /uL 0.00-0 .05 Not Available [facility] (Lab) [address] [place], [address], 05/26/2023 14:17:22 05/26/19 24 05/26/2023 CBC/C OMPLE TE BLD COUNT W/DIF F nucleated red blood cells 0.0 % -0 Not Available [facility] (Lab) [address] [place], [address], 05/26/2023 14:17:22 05/26/19 24 05/26/2023 CBC/C OMPLE TE BLD COUNT W/DIF F NRBC# 0.00 x10'3 /uL Not Available [facility] (Lab) [address] [place], [address], 05/26/2023 14:17:22 05/26/19 24 05/26/2023 COMPR EHENS ORALIA METAB OLIC PANEL sodium 137 mmol/ L 137-14 5 Not Available [facility] (Lab) [address] [place], [address], 05/26/2023 18:03:38 05/26/19 24 05/26/2023 COMPR EHENS ORALIA METAB OLIC PANEL potassium 3.9 mmol/ L 3.5-5. 1 Not Available [facility] (Lab) [address] [place], [address], 05/26/2023 18:03:38 05/26/19 24 05/26/2023 COMPR EHENS ORALIA METAB OLIC PANEL chloride 102 mmol/ L 98-107 Not Available [facility] (Lab) [address] [place], [address], 05/26/2023 18:03:38 05/26/19 24 05/26/2023 COMPR EHENS ORALIA METAB OLIC PANEL carbon dioxide 29 mmol/ L 22-30 Not Available [facility] (Lab) [address] [place], [address], 05/26/2023 18:03:38 05/26/19 24 05/26/2023 COMPR EHENS ORALIA METAB OLIC PANEL anion gap 9.9 mmol/ L 14-22 low Not Available [facility] (Lab) [address] [place], [address], 05/26/2023 18:03:38 05/26/19 24 05/26/2023 COMPR EHENS ORALIA METAB OLIC PANEL glucose 87 mg/dL 70-99 Not Available [facility] (Lab) [address] [place], [address], 05/26/2023 18:03:38 05/26/19 24 05/26/2023 COMPR EHENS ORALIA METAB OLIC PANEL BUN 17 mg/dL 8-19 Not Available [facility] (Lab) [address] [place], [address], 05/26/2023 18:03:38 05/26/19 24 05/26/2023 COMPR EHENS ORALIA METAB OLIC PANEL creatinine 0.74 mg/dL 0.66-1 .25 Not Available [facility] (Lab) [address] [place], [address], 05/26/2023 18:03:38 05/26/19 24 05/26/2023 COMPR EHENS ORALIA METAB OLIC PANEL GFR >60 Refer ence Range : Reading ge GFR Healt hy Adult : >60 [...] calcu lator is avail able on the [facility] websi te: https ://ww w.kid cezar.o rg/pr ofess ional s/kdo qi/gf r_cal culat or Not Available [facility] (Lab) [address] [place], [address], 05/26/2023 18:03:38 05/26/19 24 05/26/2023 COMPR EHENS ORALIA METAB OLIC PANEL alkaline phosphatase 64 U/L 38-126 Not Available [facility] (Lab) [address] [place], [address], 05/26/2023 18:03:38 05/26/19 24 05/26/2023 COMPR EHENS ORALIA METAB OLIC PANEL alanine aminotransfe rase 19 U/L 0-35 Not Available [facility] (Lab) [address] [place], [address], 05/26/2023 18:03:38 05/26/19 24 05/26/2023 COMPR EHENS ORALIA METAB OLIC PANEL aspartate aminotransfe rase 25 U/L 15-37 Not Available [facility] (Lab) [address] [place], [address], 05/26/2023 18:03:38 05/26/19 24 05/26/2023 COMPR EHENS ORALIA METAB OLIC PANEL bilirubin, total 1.20 mg/dL 0.20-1 .30 Not Available [facility] (Lab) [address] [place], [address], 05/26/2023 18:03:38 05/26/19 24 05/26/2023 COMPR EHENS ORALIA METAB OLIC PANEL calcium 9.6 mg/dL 8.4-10 .2 Not Available [facility] (Lab) [address] [place], [address], 05/26/2023 18:03:38 05/26/19 24 05/26/2023 COMPR EHENS ORALIA METAB OLIC PANEL total protein 7.1 g/dL 6.3-8. 2 Not Available [facility] (Lab) [address] [place], [address], 05/26/2023 18:03:38 05/26/19 24 05/26/2023 COMPR EHENS ORALIA METAB OLIC PANEL albumin 4.4 g/dL 3.4-5. 0 Not Available [facility] (Lab) [address] [place], [address], 05/26/2023 18:03:38 05/26/19 24 05/26/2023 COMPR EHENS ORALIA METAB OLIC PANEL globulin 2.7 g/dL 2.6-4. 2 Not Available [facility] (Lab) [address] [place], [address], 05/26/2023 18:03:38 05/26/19 24 05/26/2023 COMPR EHENS ORALIA METAB OLIC PANEL A/G ratio 1.6 ratio 1.0-2. 0 Not Available [facility] (Lab) [address] [place], [address], 05/26/2023 18:03:38 05/26/19 24 05/26/2023 LIPID PANEL cholesterol 207 mg/dL 140-19 9 high NIH LEANDRA NSUS RECOM MENDA TION FOR ARTURO STERO L: ADULT CHILD LOW RISK: <200 <170 BORDE RLINE : <200- 239 ----- HIGH RISK: >240 >200 Not Available [facility] (Lab) [address] [place], [address], 05/26/2023 18:03:42 05/26/19 24 05/26/2023 LIPID PANEL triglyceride s 99 mg/dL 0-150 NIH LEANDRA NSUS REPOR T RECOM MENDA TION FOR TRIGL YCERI YVETTE: ADULT CHILD LOW RISK: <150 ----- BODER LINE: 150-1 99 ----- HIGH RISK: >200 ----- Not Available [facility] (Lab) [address] [place], [address], 05/26/2023 18:03:42 05/26/19 24 05/26/2023 LIPID PANEL HDL cholesterol 73 mg/dL 40- Not Available [facility] (Lab) [address] [place], [address], 05/26/2023 18:03:42 05/26/19 24 05/26/2023 LIPID PANEL [...] WILL NOT BE REPOR GIANA. Not Available [facility] (Lab) [address] [place], [address], 05/26/2023 18:03:42 05/26/19 24 05/26/2023 T4 FREE free T4 1.57 NG/dL 0.78-2 .19 Not Available [facility] (Lab) [address] [place], [address], 05/26/2023 18:03:52 05/26/19 24 05/26/2023 T3 FREE free T3 3.7 pg/mL 2.77-5 .27 Not Available [facility] (Lab) [address] [place], [address], 05/26/2023 18:03:58 05/26/1905/26/2023 TSH thyroid-stim ulating hormone 0.406 uIU/m L 0.465- 4.680 low Not Available [facility] (Lab) [address] [place], [address], 05/26/2023 18:04:18 01/07/20 24 01/07/2024 CBC/C OMPLE TE BLD COUNT W/DIF F white blood cells 9.3 x10'3 /uL 4.2-10 .8 Not Available [facility] (Lab) [address] [place], [address], 01/07/2024 11:37:49 01/07/20 24 01/07/2024 CBC/C OMPLE TE BLD COUNT W/DIF F red blood cells 4.85 x10'6 /uL 3.80-5 .20 Not Available [facility] (Lab) [address] [place], [address], 01/07/2024 11:37:49 01/07/20 24 01/07/2024 CBC/C OMPLE TE BLD COUNT W/DIF F hemoglobin 15.7 g/dL 12.0-1 5.6 high Not Available [facility] (Lab) [address] [place], [address], 01/07/2024 11:37:49 01/07/20 24 01/07/2024 CBC/C OMPLE TE BLD COUNT W/DIF F hematocrit 45.6 % 35.7-4 5.7 Not Available [facility] (Lab) [address] [place], [address], 01/07/2024 11:37:49 01/07/20 24 01/07/2024 CBC/C OMPLE TE BLD COUNT W/DIF F mean red cell volume 94.0 fL 82.0-9 9.0 Not Available [facility] (Lab) [address] [place], [address], 01/07/2024 11:37:49 01/07/20 24 01/07/2024 CBC/C OMPLE TE BLD COUNT W/DIF F mean red cell hemoglobin 32.4 pg 27.0-3 3.0 Not Available [facility] (Lab) [address] [place], [address], 01/07/2024 11:37:49 01/07/20 24 01/07/2024 CBC/C OMPLE TE BLD COUNT W/DIF F mean RBC HGB concentratio n 34.4 g/dL 31.0-3 6.0 Not Available [facility] (Lab) [address] [place], [address], 01/07/2024 11:37:49 01/07/20 24 01/07/2024 CBC/C OMPLE TE BLD COUNT W/DIF F red cell distribution width 13.0 % 11.8-1 5.5 Not Available [facility] (Lab) [address] [place], [address], 01/07/2024 11:37:49 01/07/20 24 01/07/2024 CBC/C OMPLE TE BLD COUNT W/DIF F platelets 324 x10'3 /uL 150-40 0 Not Available [facility] (Lab) [address] [place], [address], 01/07/2024 11:37:49 01/07/20 24 01/07/2024 CBC/C OMPLE TE BLD COUNT W/DIF F mean platelet volume 10.3 fL 9.0-12 .4 Not Available [facility] (Lab) [address] [place], [address], 01/07/2024 11:37:49 01/07/20 24 01/07/2024 CBC/C OMPLE TE BLD COUNT W/DIF F neutrophils 56.3 % 39.0-7 2.0 Not Available [facility] (Lab) [address] [place], [address], 01/07/2024 11:37:49 01/07/20 24 01/07/2024 CBC/C OMPLE TE BLD COUNT W/DIF F lymphocytes 33.7 % 16.0-4 7.0 Not Available [facility] (Lab) [address] [place], [address], 01/07/2024 11:37:49 01/07/2001/07/2024 CBC/C OMPLE TE BLD COUNT W/DIF F monocytes 7.7 % 5.0-12 .0 Not Available [facility] (Lab) [address] [place], [address], 01/07/2024 11:37:49 01/07/20 24 01/07/2024 CBC/C OMPLE TE BLD COUNT W/DIF F eosinophils 1.2 % 1.0-7. 0 Not Available [facility] (Lab) [address] [place], [address], 01/07/2024 11:37:49 01/07/2001/07/2024 CBC/C OMPLE TE BLD COUNT W/DIF F basophils 0.8 % 0.0-2. 0 Not Available [facility] (Lab) [address] [place], [address], 01/07/2024 11:37:49 01/07/20 24 01/07/2024 CBC/C OMPLE TE BLD COUNT W/DIF F immature granulocytes 0.3 % 0.00-0 .50 Not Available [facility] (Lab) [address] [place], [address], 01/07/2024 11:37:49 01/07/20 24 01/07/2024 CBC/C OMPLE TE BLD COUNT W/DIF F neutrophils, absolute count 5.24 x10'3 /uL 1.5-8. 0 Not Available [facility] (Lab) [address] [place], [address], 01/07/2024 11:37:49 01/07/20 24 01/07/2024 CBC/C OMPLE TE BLD COUNT W/DIF F lymphocytes, absolute count 3.13 x10'3 /uL 1.07-3 .43 Not Available [facility] (Lab) [address] [place], [address], 01/07/2024 11:37:49 01/07/20 24 01/07/2024 CBC/C OMPLE TE BLD COUNT W/DIF F monocytes, absolute count 0.72 x10'3 /uL 0.29-0 .99 Not Available [facility] (Lab) [address] [place], [address], 01/07/2024 11:37:49 01/07/20 24 01/07/2024 CBC/C OMPLE TE BLD COUNT W/DIF F eosinophils, absolute count 0.11 x10'3 /uL 0.02-0 .53 Not Available [facility] (Lab) [address] [place], [address], 01/07/2024 11:37:49 01/07/20 24 01/07/2024 CBC/C OMPLE TE BLD COUNT W/DIF F basophils, absolute count 0.07 x10'3 /uL 0.01-0 .08 Not Available [facility] (Lab) [address] [place], [address], 01/07/2024 11:37:49 01/07/20 24 01/07/2024 CBC/C OMPLE TE BLD COUNT W/DIF F immature granulocytes ,absolute 0.03 x10'3 /uL 0.00-0 .05 Not Available [facility] (Lab) [address] [place], [address], 01/07/2024 11:37:49 01/07/20 24 01/07/2024 CBC/C OMPLE TE BLD COUNT W/DIF F nucleated red blood cells 0.0 % -0 Not Available [facility] (Lab) [address] [place], [address], 01/07/2024 11:37:49 01/07/20 24 01/07/2024 CBC/C OMPLE TE BLD COUNT W/DIF F NRBC# 0.00 x10'3 /uL Not Available [facility]Lab) [address] [facility] [place], [address], 01/07/2024 11:37:49 01/07/20 24 01/07/2024 URINA LYSIS COMPL ETE, IRIS color LIGHT- YELLOW Not Available [facility] (Lab) [address] [place], [address], 01/07/2024 12:08:09 01/07/20 24 01/07/2024 URINA LYSIS COMPL ETE, IRIS appear TURBID abnormal Not Available [facility] (Lab) [address] [place], [address], 01/07/2024 12:08:09 01/07/2001/07/2024 URINA LYSIS COMPL ETE, IRIS specific gravity 1.019 1.001- 1.030 Not Available [facility] (Lab) [address] [place], [address], 01/07/2024 12:08:09 01/07/2001/07/2024 URINA LYSIS COMPL ETE, IRIS pH 6.5 pH_un its 5.0-9. 0 Not Available [facility] (Lab) [address] [place], [address], 01/07/2024 12:08:09 01/07/20 24 01/07/2024 URINA LYSIS COMPL ETE, IRIS leukocytes NEGATI VE mikie/u L negati ve- Not Available [facility] (Lab) [address] [place], [address], 01/07/2024 12:08:09 01/07/20 24 01/07/2024 URINA LYSIS COMPL ETE, IRIS nitrite NEGATI VE negati ve- Not Available [facility] (Lab) [address] [place], [address], 01/07/2024 12:08:09 01/07/20 24 01/07/2024 URINA LYSIS COMPL ETE, IRIS protein NEGATI VE mg/dL negati ve- Not Available [facility] (Lab) [address] [place], [address], 01/07/2024 12:08:09 01/07/2001/07/2024 URINA LYSIS COMPL ETE, IRIS glucose NORMAL mg/dL normal - Not Available [facility] (Lab) [address] [place], [address], 01/07/2024 12:08:09 01/07/2001/07/2024 URINA LYSIS COMPL ETE, IRIS ketones NEGATI VE mg/dL negati ve- Not Available [facility] (Lab) [address] [place], [address], 01/07/2024 12:08:09 01/07/20 24 01/07/2024 URINA LYSIS COMPL ETE, IRIS urobilinogen NORMAL mg/dL normal - Not Available [facility] (Lab) [address] [place], [address], 01/07/2024 12:08:09 01/07/20 24 01/07/2024 URINA LYSIS COMPL ETE, IRIS bilirubin NEGATI VE mg/dL negati ve- Not Available [facility] (Lab) [address] [place], [address], 01/07/2024 12:08:09 01/07/20 24 01/07/2024 URINA LYSIS COMPL ETE, IRIS blood NEGATI VE mg/dL negati ve- Not Available [facility] (Lab) [address] [place], [address], 01/07/2024 12:08:09 01/07/20 24 01/07/2024 URINA LYSIS COMPL ETE, IRIS white blood cells 0-8 /i??h pfi?? 0-8 Not Available [facility] (Lab[facility] [address] [facility] [place], [address], 01/07/2024 12:08:09 01/07/20 24 01/07/2024 URINA LYSIS COMPL ETE, IRIS red blood cells 0-4 /i??h pfi?? 0-4 Not Available [facility] (Lab) [address] [place], [address], 01/07/2024 12:08:09 01/07/20 24 01/07/2024 URINA LYSIS COMPL ETE, IRIS bacteria OCCASI ONAL abnormal Not Available [facility] (Lab) [address] [facility] [place], [address], 01/07/2024 12:08:09 01/07/20 24 01/07/2024 URINA LYSIS COMPL ETE, IRIS mucous OCCASI ONAL /i??l pfi?? abnormal Not Available [facility] (Lab) [address] [place], [address], 01/07/2024 12:08:09 01/07/20 24 01/07/2024 URINA LYSIS COMPL ETE, IRIS squamous epithelial MODERA TE /i??l pfi?? abnormal Not Available [facility] (Lab) [address] [place], [address], 01/07/2024 12:08:09 01/07/20 24 01/07/2024 LIPID PANEL cholesterol 221 mg/dL 140-19 9 high NIH LEANDRA NSUS RECOM MENDA TION FOR ARTURO STERO L: ADULT CHILD LOW RISK: <200 <170 BORDE RLINE : <200- 239 ----- HIGH RISK: >240 >200 Not Available [facility] (Lab) [address] [place], [address], 01/07/2024 12:08:19 01/07/20 24 01/07/2024 LIPID PANEL triglyceride s 147 mg/dL 0-150 NIH LEANDRA NSUS REPOR T RECOM MENDA TION FOR TRIGL YCERI YVETTE: ADULT CHILD LOW RISK: <150 ----- BODER LINE: 150-1 99 ----- HIGH RISK: >200 ----- Not Available [facility] (Lab) [address] [place], [address], 01/07/2024 12:08:19 01/07/2001/07/2024 LIPID PANEL HDL cholesterol 78 mg/dL 40- Not Available [facility] (Lab) [address] [place], [address], 01/07/2024 12:08:19 01/07/2001/07/2024 LIPID PANEL LDL cholesterol, [...] WILL NOT BE REPOR GIANA. Not Available [facility] (Lab) [address] [place], [address], 01/07/2024 12:08:19 01/07/20 24 01/07/2024 COMPR EHENS ORALIA METAB OLIC PANEL sodium 136 mmol/ L 137-14 5 low Not Available [facility] (Lab) [address] [place], [address], 01/07/2024 12:08:24 01/07/20 24 01/07/2024 COMPR EHENS ORALIA METAB OLIC PANEL potassium 3.9 mmol/ L 3.5-5. 1 Not Available [facility] (Lab) [address] [place], [address], 01/07/2024 12:08:24 01/07/20 24 01/07/2024 COMPR EHENS ORALIA METAB OLIC PANEL chloride 101 mmol/ L 98-107 Not Available [facility] (Lab) [address] [facility] [place], [address], 01/07/2024 12:08:24 01/07/20 24 01/07/2024 COMPR EHENS ORALIA METAB OLIC PANEL carbon dioxide 29 mmol/ L 22-30 Not Available [facility] (Lab) [address] [place], [address], 01/07/2024 12:08:24 01/07/20 24 01/07/2024 COMPR EHENS ORALIA METAB OLIC PANEL anion gap 9.9 mmol/ L 14-22 low Not Available [facility] (Lab) [address] [place], [address], 01/07/2024 12:08:24 01/07/20 24 01/07/2024 COMPR EHENS ORALIA METAB OLIC PANEL glucose 92 mg/dL 70-99 Not Available [facility] (Lab) [address] [place], [address], 01/07/2024 12:08:24 01/07/20 24 01/07/2024 COMPR EHENS ORALIA METAB OLIC PANEL BUN 17 mg/dL 8-19 Not Available [facility] (Lab) [address] [place], [address], 01/07/2024 12:08:24 01/07/20 24 01/07/2024 COMPR EHENS ORALIA METAB OLIC PANEL creatinine 0.69 mg/dL 0.66-1 .25 Not Available [facility] (Lab) [address] [place], [address], 01/07/2024 12:08:24 01/07/20 24 01/07/2024 COMPR EHENS ORALIA METAB OLIC PANEL GFR >60 Refer ence Range : Reading ge GFR Healt hy Adult : >60 [...] calcu lator is avail able on the [facility] websi te: https :[email or web address] [email or web address] [email or web address] rg/pr venusess hectoral s/kdo qi/gf r_cal culat or Not Available [facility] (Lab) [address] [place], [address], 01/07/2024 12:08:24 01/07/20 24 01/07/2024 COMPR EHENS ORALIA METAB OLIC PANEL alkaline phosphatase 64 U/L 38-126 Not Available [facility] (Lab) [address] [place], [address], 01/07/2024 12:08:24 01/07/20 24 01/07/2024 COMPR EHENS ORALIA METAB OLIC PANEL alanine aminotransfe rase 23 U/L 0-35 Not Available [facility] (Lab) [address] [place], [address], 01/07/2024 12:08:24 01/07/20 24 01/07/2024 COMPR EHENS ORALIA METAB OLIC PANEL aspartate aminotransfe rase 28 U/L 15-37 Not Available [facility] (Lab) [address] [place], [address], 01/07/2024 12:08:24 01/07/20 24 01/07/2024 COMPR EHENS ORALIA METAB OLIC PANEL bilirubin, total 0.90 mg/dL 0.20-1 .30 Not Available [facility] (Lab) [address] [place], [address], 01/07/2024 12:08:24 01/07/20 24 01/07/2024 COMPR EHENS ORALIA METAB OLIC PANEL calcium 10.0 mg/dL 8.4-10 .2 Not Available [facility] (Lab) [address] [place], [address], 01/07/2024 12:08:24 01/07/20 24 01/07/2024 COMPR EHENS ORALIA METAB OLIC PANEL total protein 7.0 g/dL 6.3-8. 2 Not Available [facility] (Lab) [address] [place], [address], 01/07/2024 12:08:24 01/07/20 24 01/07/2024 COMPR EHENS ORALIA METAB OLIC PANEL albumin 4.2 g/dL 3.4-5. 0 Not Available [facility] (Lab) [address] [place], [address], 01/07/2024 12:08:24 01/07/20 24 01/07/2024 COMPR EHENS ORALIA METAB OLIC PANEL globulin 2.8 g/dL 2.6-4. 2 Not Available [facility] (Lab) [address] [place], [address], 01/07/2024 12:08:24 01/07/20 24 01/07/2024 COMPR EHENS ORALIA METAB OLIC PANEL A/G ratio 1.5 ratio 1.0-2. 0 Not Available [facility] (Lab) [address] [place], [address], 01/07/2024 12:08:24 01/07/20 24 01/07/2024 LIPAS E SERUM lipase 72 U/L 23-300 Not Available [facility] (Lab) [address] [place], [address], 01/07/2024 12:08:29 01/07/20 24 01/07/2024 T3 FREE free T3 3.3 pg/mL 2.77-5 .27 Not Available [facility] (Lab) [address] [place], [address], 01/07/2024 12:30:56 01/07/20 24 01/07/2024 T4 FREE free T4 1.33 NG/dL 0.78-2 .19 Not Available [facility] (Lab) [address] [place], [address], 01/07/2024 12:30:57 01/07/20 24 01/07/2024 TSH thyroid-stim ulating hormone 1.060 uIU/m L 0.465- 4.680 Not Available [facility] (Lab) [address] [place], [address], 01/07/2024 13:01:53 04/13/19 23 04/13/2022 XR, lumba r spine [facility] [address] [place] [address] [phone] Patien t Name: TINY PERALES Access ion #: [id number] Sex: F : 1970 7 Locati [...] carlee clips noted. Page 1 of 2 [facility] Joi t Name: TINY PERALES Access ion #: [id number] Sex: F : 1970 7 Exam Date: 023 9:46 AM Exam Name: XR L SPINE 4V+ Admitt ing Diagno sis(es ): If clinic al sympto ms shannon t, MRI examin ation could be consid ered. IMPRES BAUTISTA: No acute proces s, see above. Create d and electr onical ly signed by: Madhu vega MD Signed Date: 3:18 PM (CT) Dictat ed by: Madhu vega MD DD: 3:18 PM (CT) DT: 3:18 PM (CT) Page 2 of 2 [id number] [facility] (Imaging) [address] [place], [address], 04/22/2022 01:16:06 09/05/19 23 09/04/2022 XR, hip, bilat eral [facility] [address] [facility] [place] [address] [phone] Patien t Name: TINY PERALES Access ion #: [id number] Sex: F : 1970 2 Dictat ed By: Anna nguyen Attend ing Physic christie: ANNA MEDINA Orderi Physic christie: LUIS EDUARDO CASTILLO Exam Date: [...] at 2022 13:10: 40 PM Page 1 [facility] (Imaging) [address] [facility] [place], [address], 10/15/2022 14:27:56 10/24/1910/23/2022 MRI, lumba r spine , w/o contr ast No observ ation record ed. [email or web address] [facility] [address] [place] [address], [address], 11/12/2022 15:42:59 04/30/19 24 04/30/2023 XR, hand [facility] [address] [facility] [place] [address] [phone] Patien t Name: TINY PERALES Access ion #: [id number] Sex: F : 1970 2 Dictat ed [...] 2023 11:58: 46 AM Page 1 [email or web address] [facility] (Im[facility]) [address] [place], [address], 06/03/2023 14:08:44 01/07/20 24 01/07/2024 CT, abdom en + pelvi s, w/ contr ast [facility] [address] [place] [address] [phone] Patien t Name: TINY PERALES Access ion #: [id number] Sex: F : 1970 9 Dictat ed By: Naomi Tolentino Attend ing Physic christie: ANNA MEDINA Physic christie: ANNA MEDINA Exam Date: 2023 [...] [facility] Portal venous imagin g was obtain ed. Axial, hutson l and sagitt al multip lanar reform ats were perfor med by the techno logist on a separa te [facility]st [facility]. Radiat ion Dose : 1. Abdome n/Pelv [...] l Glands : Unrema rkable Page 1 [facility] [address] [address] Patien t Name: TINY PERALES ion #: [id number] Sex: F : 1970 9 Dictat ed By: Naomi Tolentino Attend ing Physic christie: LUIS EDUARDO CASTILLO [facility] Physic christie: ANNA MEDINA Exam Date: 2023 [...] zation : [facility] use at least one of these dose optimi zation techni ques: automa giana exposu re contro l mA and/or kV adjust ment per patien t size (inclu yvette target ed exams where dose is matche d to clinic al indica tion) or iterat oralia recons tructi on. Electr onical ly Signed by: Naomi Tolentino at 2023 12:55: 41 PM Page 3 [email or web address] (Imaging) [address] [place], [address], 01/08/2024 13:59:12 Result Notes Documentation Provider Name and Address Organization Details Recorded Time Xr, Hip, Bilateral : [facility] [address] [place] [address] Patient Name: TINY PERALES Sex: F : 1970 Dictated By: David Hodges Attending Physician: DAVID MEDINA Ordering Physician: LUIS EDUARDO HERNANDEZ Exam Date: 09/04/2022 11:08 AM Exam Name: XR HIP/PELVIS BILAT 2V Admitting Diagnosis(es): Bilateral HIP RADIOGRAPH. CLINICAL INDICATION: Hip Pain. TECHNIQUE: 2 views of the bilateral hip were obtained. FINDINGS: There is no evidence of fracture, subluxation or dislocation.The alignment is within normal limits.The bony mineralization is normal.No radiopaque foreign body is identified. IMPRESSION: 1. No evidence of acute bony injury. Page 1 MARCIN Hinson, [facility] [employer] [facility] 10/15/2022 14:27:56 Xr, Hand : [place] [address] Patient Name: TINY PERALES Sex: F : 1970 Dictated By: David Hodges Attending Physician: DAVID MEDINA Ordering Physician: DAVID MEDINA Exam Date: 04/30/2023 11:32 AM Exam Name: XR HAND RT Admitting Diagnosis(es): CLINICAL INFORMATION: Right hand pain after injury. There is a 9 swelling. TECHNIQUE: 3 views of the right hand were obtained, including AP, lateral, and oblique views. COMPARISON: No prior studies. FINDINGS: No acute fracture or dislocation. No significant arthropathy. Mild diffuse soft tissue swelling. No radiopaque foreign body visualized. IMPRESSION: No evidence of acute bony abnormality. Page 1 Wendi Alcocer APRN [address] [place] [address], [phone], [facility] [employer] [facility] 06/03/2023 14:08:44 Ct, Abdomen + Pelvis, W/ Contrast : [place] [address] Patient Name: TINY PERALES Sex: F : 1970 Dictated By: Brice Tolentino Attending Physician: DAVID MEDINA Ordering Physician: DAVID MEDINA Exam Date: 01/07/2024 12:15 PM Exam Name: CT ABDOMEN PELVIS W Admitting Diagnosis(es): Exam: CT ABDOMEN PELVIS W History: Unspecified abdominal pain COMPARISON: CT ABDOMEN PELVIS W on DOS: 05/09/21 Technique: Multidetector spiral CT of the abdomen and pelvis was performed from lung bases to pubic symphysis. Intravenous contrast was administered during this examination. Portal venous imaging was obtained. Axial, coronal and sagittal multiplanar reformats were performed by the technologist on a separate workstation. Radiation Dose : 1. Abdomen/Pelvis: CTDIvol 16.9mGy, DLP 909.4 mGy*cm. Findings: Lung Bases: No acute or significant lung base finding. Normal heart size. No pleural or pericardial effusion. Liver: Hepatic steatosis. Gallbladder and Biliary Tree: Gallbladder is surgically absent. Spleen: Unremarkable Pancreas: The pancreas is normal in appearance without focal lesions or abnormal enhancement. Adrenal Glands: Unremarkable Page 1 [facility] [address] [place] [address] Patient Name: TINY PERALES Sex: F : 1970 Dictated By: Brice Tolentino Attending Physician: LUIS EDUARDO HERNANDEZ Ordering Physician: DAVID EMDINA Exam Date: 01/07/2024 12:15 PM Exam Name: CT ABDOMEN PELVIS W Admitting Diagnosis(es): Kidneys: No hydronephrosis. Bladder: Unremarkable Bowel: The stomach is grossly normal in appearance. Moderate to severe diffuse colonic bowel wall thickening. The appendix is not visualized; however, no secondary findings of acute appendicitis identified. Ascites: Absent Lymphadenopathy: No mesenteric, retroperitoneal or periportal lymphadenopathy. Abdominal Wall and Mesentery: Unremarkable. Vasculature: The visualized abdominal aorta is normal in size and caliber. There is calcified atherosclerotic plaque involving the aorta and its branches. Abdominal and pelvic vessels demonstrate normal enhancement. Pelvic Organs: Post cholecystectomy. Musculoskeletal: No aggressive focal bony lesions, acute fractures or dislocation. Degenerative changes of the spine. Degenerative disc space narrowing at L5-S1. IMPRESSION: Findings are suspicious for moderate to severe acute on chronic colitis. Radiation optimization: All CT scans at this facility use at least one of these dose optimization techniques: automated exposure control mA and/or kV adjustment per patient size (includes targeted exams where dose is matched to clinical indication) or iterative reconstruction. Page 3 Wendi Alcocer APRN [address] [facility], [facility] [address], [place], [address], [facility] [employer] [facility] 01/08/2024 13:59:12 Problems Name Problem SNOMED Code Status Onset Date Resolution Date Notes Provider Name and Address Organization Details Recorded Time Benign essential hypertensi on 5518030 Active Not Available [facility] 3 00:26:47 Hyperchole sterolemia 02559041 Active Not Available [facility] 3 00:26:47 Overweight 683796499 Active Not Available [facility] 3 00:26:47 On examinatio n - rash present Active Not Available [facility] 3 00:26:47 Jaw pain 905383708 Active Not Available [facility] 3 00:26:47 Chest pain 60275401 Active Not Available [facility] 3 00:26:47 Lesion of nose 328647678 Active Not Available [facility] 3 00:26:47 Hypothyroi dism 33291413 Active Not Available [facility] 3 00:26:47 Numbness 57551831 Active Not Available [facility] 3 00:26:47 Foot pain 65937361 Active Not Available [facility] 3 00:26:47 Foot pain 93810239 Active Not Available [facility] 3 00:26:48 Anxiety 30322083 Active Not Available [facility] 3 00:26:48 Dysuria 78720056 Active Not Available [facility] 3 00:26:48 Diarrhea 83310089 Active Not Available [facility] 3 00:26:48 Urinary tract infectious disease 40737255 Active Not Available [facility] 3 00:26:48 Rhinitis 39309062 Active Not Available [facility] 3 00:26:48 Obesity 963398354 Active 2016 Not Available [facility] 3 00:26:47 Bilateral plantar fasciitis 7963087302584 9108 Active 2018 Not Available [facility] 3 00:26:47 Equinus contractur e of the ankle 072346962 Active 2018 Not Available [facility] 3 00:26:47 Foot pain 71479091 Active 2018 Not Available [facility] 3 00:26:48 Equinus contractur e of the ankle 573906381 Active 2018 Not Available [facility] 3 00:26:47 Postoperat oralia visit 950084210 Active 2019 Not Available [facility] 3 00:26:47 Sprain of right ankle 4655505222752 9105 Active 2019 Not Available [facility] 3 00:26:47 Ankle pain 013505702 Active 2019 Not Available [facility] 3 00:26:47 Closed fracture of lateral malleolus 57697547 Active 2019 Not Available [facility] 3 00:26:47 Pain of right ankle joint 2633119086026 9106 Active 2019 Not Available [facility] 3 00:26:47 Plantar fasciitis of right foot 3966133081837 9101 Active 2019 Not Available [facility] 3 00:26:47 Dry skin 75507869 Active 2020 Not Available [facility] 3 00:26:47 Gastroesop hageal reflux disease without esophagiti s 324271140 Active 2020 [facility] Available [facility] 3 00:26:47 Dizziness 425929740 Active 2021 Not Available [facility] 3 00:26:47 Disorder of adrenal gland 90593034 Active 2021 [facility] Available [facility] 3 00:26:47 Plantar fasciitis of left foot 2859689590447 9101 Active 2021 Not Available [facility] 3 00:26:47 Pain in left foot 7295168694676 07 Active 2021 Not Available [facility] 3 00:26:47 Adrenal mass 069760766 Active 2021 Not Available [facility] 3 00:26:47 Abdominal pain 66650218 Active 2021 Not Available [facility] 3 00:26:47 Gastroesop hageal reflux disease 962851103 Active 2021 Not Available [facility] 3 00:26:47 Weight gain 7686401 Active 2021 Not Available [facility] 3 00:26:48 Weight loss 52235873 Active 2021 Not Available [facility] 3 00:26:48 Low back pain 805092665 Active 2021 Not Available [facility] 3 00:26:47 Pain of right hip joint 4347295708289 02 Active 2021 Not Available [facility] 3 00:26:47 Dysphagia 83046433 Active 2021 Not Available [facility] 3 00:26:47 Claustroph obia 15658343 Active 2021 [facility] Available [facility] 3 00:26:47 Feeling of lump in throat 544369396 Active 2021 Not Available [facility] 3 00:26:47 Eruption 780368588 Active 2021 Not Available [facility] 3 00:26:47 Acute sinusitis 71099435 Active 2022 Not Available [facility] 3 00:26:47 Cough 25406556 Active 2022 Not Available [facility] 3 00:26:48 Upper respirator y infection 96250815 Active 2022 Not Available [facility] 3 00:26:48 Chronic cough 52942719 Active 2022 Not Available [facility] 3 00:26:48 Seasonal allergy 691521703 Active 2022 Not Available [facility] 3 00:26:47 Paresthesi a of lower extremity 808224517 Active 2022 Not Available [facility] 3 00:26:47 Pain in bilateral legs 3914795194573 9108 Active 2022 Not Available [facility] 3 00:26:47 Sleep disorder 00138055 Active 2022 Not Available [facility] 3 00:26:47 Pain of joint 59449808 Active 2022 Not Available [facility] 3 00:26:48 Anti-nucle ar factor detected 952745964 Active 2022 MARCIN Hinson null, [place] [facility] [place] [employer] [facility] 3 09:12:58 Notes:back/neck problems, ca rdiac arrhythmia, thyroid disease Problem Notes None recorded. Procedures Surgical History Date Name Laterality Status Provider Name and Address Organization Details Recorded Time 01/26/20 repair of ankle completed Not Available [facility] 02/2022 00:57:11 [facility] 04/22/[facility]22 00:57:11 plantar fasciectomy completed Not Available [facility] 04/22/2022 00:57:11 Imaging Results None recorded. Procedure Notes None recorded. Medical Equipment None [...] e 50 mcg/actua tion nasal spray,segundo pension [place] 1 spray every day by intranas al [...] Body weight Body temperature Heart rate Systolic And Diastolic Provider Name and Address Organization Details Last Updated DateTime 4 157.48 cm 38.4 kg/m2 53334.4 g 98.3 [degF] 77 /min 120/74 mm[Hg] Daphen Sullivan [facility] [employer] [facility] [employer] 4 11:44:48 Date Recorded Body height Body mass index (BMI) Body weight Body temperature Heart rate Systolic And Diastolic Provider Name and Address Organization Details Last Updated DateTime 3 157.48 cm 36 kg/m2 10610.7 g 97.2 [degF] 88 /min 126/78 mm[Hg] Daphne Sullivan [facility] [employer] [facility] [employer] 3 10:10:34 Date Recorded Body height Body mass index (BMI) Body weight Body temperature Heart rate Systolic And Diastolic Provider Name and Address Organization Details Last Updated DateTime 3 157.48 cm 36 kg/m2 33486.7 g 98.3 [degF] 80 /min 120/84 mm[Hg] Daphne Sullivan Lori [employer] [facility] [employer] 3 10:03:48 Date Recorded Body height Body mass index (BMI) Body weight Body temperature Heart rate Systolic And Diastolic Provider Name and Address Organization Details Last Updated DateTime 3 157.48 cm 36.2 kg/m2 90065.2 9 g 97.6 [degF] 74 /min 130/82 mm[Hg] MARCIN Rodriguez [facility] 3 10:45:18 Date Recorded Body height Body mass index (BMI) Body weight Body temperature Heart rate Systolic And Diastolic Provider Name and Address Organization Details Last Updated DateTime 3 157.48 cm 36.8 kg/m2 92240.0 7 g 97.4 [degF] 81 /min 124/72 mm[Hg] MARCIN Rodriguez [facility] 3 10:33:17 Social History Question Answer Notes LastModified by Organization Details LastModified Time Tobacco Smoking Status Former Smoker quit 11/2017-res tarted 2018; quit , restarted MARCIN Rodriguez [facility] [employer] [facility] [employer] 05/01/2022 10:09:11 Do You Have An Advance Directive? No MIGRATION.030 [id number] Information not available 04/22/2022 What Is Your Level Of Caffeine Consumption? Moderate MIGRATION.030 310739 Information not available 04/22/2022 How Much Tobacco Do You Chew? None MIGRATION.030 [id number] Information not available 04/22/2022 In The 14 Days Before Symptom Onset, Have You Had Close Contact With A Laboratory-conf irmed COVID-19 While That Case Was Ill? No MIGRATION.030 [id number] Information not available 04/22/2022 In The 14 Days Before Symptom Onset, Have You Had Close Contact With A Person Who Is Under Investigation For COVID-19 While That Person Was Ill? No MIGRATION.030 [id number] Information not available 04/22/2022 What Type Of Diet Are You Following? REGULAR MIGRATION.030 [id number] Information not available 04/22/2022 Which Illicit Or Recreational Drugs Have You Used? None MIGRATION.030 520000 Information not available 04/22/2022 What Is The Highest Grade Or Level Of School You Have Completed Or The Highest Degree You Have Received? [id number] MIGRATION.300026 Information not available 04/22/2022 Have There Been Any Changes To Your Family Or Social Situation? No MIGRATION.030 303618 Information not available 04/22/2022 What Is The Fluoride Status Of Your Home? Unknown MIGRATION.0301 [id number] Information not available 04/22/2022 When Did You Quit Smoking? 1-5yearssincelastc igarette MIGRATION.0301 [id number] Information not available 04/22/2022 Are There Any Guns Present In Your Home? Yes MIGRATION.0301 [id number] Information not available 04/22/2022 Do You Use Insect Repellent Routinely? Yes MIGRATION.0301 [id number] Information not available 04/22/2022 Where Do You Live? SingleLevelHouse MIGRATION.0301 [id number] Information not available 04/22/2022 Do You Have A Medical Power Of Telesales Representative? No MIGRATION.0301 [id number] Information not available 04/22/2022 What Was The Date Of Your Most Recent Tobacco Screening? 03/01/2023 [email or web address] Information not available 03/01/2023 Have You Ever Been Counseled For Unhealthy Alcohol Use? No MIGRATION.0301 019616 Information not available 04/22/2022 Do You Have Any Pets? Yes MIGRATION.0301 [id number] Information not available 04/22/2022 What Is Your Relationship Status? MIGRATION.0301 [id number] Information not available 04/22/2022 Do You Use Your Seat Belt Or Car Seat Routinely? Yes MIGRATION.0301 [id number] Information not available 04/22/2022 Do You Have Smoke And Carbon Monoxide Detectors In Your Home? Yes MIGRATION.0301 [id number] Information not available 04/22/2022 Are You Passively Exposed To Smoke? Yes MIGRATION.0301 780830 Information not available 04/22/2022 Are There Any Smokers In Your House? No MIGRATION.0301 [id number] Information not available 04/22/2022 How Much Tobacco Do You Smoke? 1 PPW Information not available 05/01/2022 What Types Of Sporting Activities Do You Participate In? None MIGRATION.0301 [id number] Information not available 04/22/2022 Do You Use Sunscreen Routinely? Yes MIGRATION.0301 [id number] Information not available 04/22/2022 Has Tobacco Cessation Counseling Been Provided? No MIGRATION.0301 663027 Information not available 04/22/2022 Have You Recently Traveled Abroad? No MIGRATION.0301 [id number] Information not available 04/22/2022 Do You Have Any Dietary Restrictions? No MIGRATION.0301 026671 Information not available 04/22/2022 Sex: Female Functional Status Question Answer Note LastModified by Organizat [employer] Details LastModified Time Do you use any illicit or recreational drugs? No MIGRATION.767845 6895 Information not available 04/22/2022 Do you or have you ever used any other forms of tobacco or nicotine? No MIGRATION.163199 1924 Information not available 04/22/2022 What is your level of alcohol consumption? Occasional MIGRATION.180668 5556 Information not available 04/22/2022 Do you or have you ever used smokeless tobacco? 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 Never used electronic cigarettes MIGRATION.668688 8646 Information not available 04/22/2022 What is your exercise level? Occasional MIGRATION.583533 2212 Information not available 04/22/2022 Mental Status Question Answer Note LastModified by [employer]uiz[employer] Details LastModified Time Do you feel stressed (tense, restless, nervous, or anxious, or unable to sleep at night)? [id number] MIGRATION.[id number] Information not available 04/22/2022 Family History Relationship Description Onset Age of this Age Resolved Age Notes LastModified by Organization Details LastModified Time Mother Heart disease MIGRATION.319 [id number] Not available 04/22/2022 00:57:13 Mother Diabetes mellitus MIGRATION.712 [id number] Not available 04/22/2022 00:57:13 Mother Hypertensive disorder MIGRATION.301 [id number] Not available 04/22/2022 00:57:13 Father General health good MIGRATION.726 6000022 Not available 04/22/2022 00:57:13 Brother Heart disease 43 heart attack MIGRATION.543 [id number] Not available 04/22/2022 00:57:13 Medical History Condition Response NERVE DISEASE N BLINDNESS N RHEUMATIC FEVER N KIDNEY STONES N BLADDER PROBLEMS N MRSA N OTHER # 1 N POLIO N LUNG DISEASE/DISORDER N COPD N RADIATION / CHEMOTHERAPY N Other # 2 N BLOOD DISEASES N SURGERY N EAR OR HEARING PROBLEMS N MUMPS N SHINGLES N BOWEL PROBLEMS N DEPRESSION (INCLUDING POST ) N STROKE/TIA N ULCERS N BENIGN PROSTATIC HYPERPLASIA N MEASLES N HYPOTENSION N MYOCARDIAL INFARCTION N OBESITY Y GERD/NAUSEA N ANEURYSM N URINARY/BLADDER/KIDNEY PROBLEMS N CORONARY ARTERY DISEASE (CAD) N INPATIENT PSYCH CARE N ADDICTION CONCERNS N ENDOMETRIOSIS N Impotence N USE OF BLOOD THINNERS N SKIN [...] INSOMNIA N HIGH CHOLESTEROL / HYPERLIPIDEMIA Y EYE PROBLEMS N HYPERTHYROIDISM N NEUROLOGICAL PROBLEMS N EDEMA N CHRONIC PAIN SYNDROME N HYPOTHYROIDISM Y CONSTIPATION N CAROTID BLOCKAGE N BACK / NECK PROBLEMS N HAVE YOU BEEN HOSPITALIZED OR SEEN IN [facility] IN THE PAST YEAR ? N ATHEROSCLEROSIS N BREAST PROBLEMS N DIALYSIS N ECZEMA N OSTEOPOROSIS N ARTHRITIS N APPENDICITIS N DIABETES, TYPE N BAD TEETH N ENT N HEARTBURN / REFLUX Y AUTISM SPECTRUM DISORDER (ASD) N HEPATITIS / LIVER DISEASE N PULMONARY DISEASE N GOUT N SLEEP DISORDER N ALZHEIMER'S DISEASE N Brain Problems N HERPES N DEMENTIA N HEADACHES/MIGRAINES N SEIZURES/EPILEPSY N VASCULAR DISEASE N PACEMAKER N Blood Disorder N DIZZINESS N HEART DISEASE/HEART PROBLEMS N KIDNEY DISEASE N MULTIPLE SCLEROSIS N CARDIAC ARRHYTHMIA N CANCER: SPECIFY N ANESTHESIA COMPLICATIONS N ATRIAL FIBRILLATION N Gall Stones N PULMONARY EMBOLISM N AUTOIMMUNE DISEASE N Gynecological HistoryNo gynecological history recorded. Obstetrics History GPAL:G 0 P 0 0 0 0 Immunizations Vaccine Type Date Status Note Provider Nam e and Address Organization Details Recorded Time COVID-19, mRNA, LNP-S, PF, 30 mcg/0.3 mL dose 11/11/2020 completed Not Available [facility] 3 00:26:49 COVID-19, mRNA, LNP-S, PF, 30 mcg/0.3 mL dose 10/21/2020 completed Not Available [facility] 3 00:26:49 Tdap 02/20/2022 completed Not Available [facility] 11/18/2022 00:26:49 Past Encounters Encounter ID Performer Location Encounter Start Date Encounter Closed Date Diagnosis/Indication Diagnosis SNOMED-CT Code Diagnosis ICD10 Code Diagnosis IMO Codes Diagnosis Note [id number] David Medina MD [facility] Internal Med [facility] [address] [address] 05/08/2020 00:00:00 05/19/2020 18:43:52 [id number] [facility] Podiatry [place] [address] [facility] [address] [place] [address] 06/10/2020 00:00:00 06/11/2020 11:26:54 [id number] David Medina MD S_GMG Internal Med [facility] [address] [address] 09/06/2020 00:00:00 09/07/2020 14:15:08 [id number] David Medina MD S_GMG Internal Med [facility] [address] [place] [address]., [address] [address] 11/11/2020 00:00:00 11/24/2020 17:33:54 [id number] David Medina MD S_GMG Internal Med [facility] [address] [facility] [address] [address] 12/09/2020 00:00:00 12/09/2020 22:07:44 [id number] David Medina MD S_GMG Internal Med [facility] [address] [place], [place] [address]., [address] [address] 12/30/2020 00:00:00 01/27/2021 20:51:42 [id number] David Medina MD S_GMG Internal Med [facility] [address] [place], [place] [address]., [address] [address] 02/03/2021 00:00:00 02/22/2021 21:54:51 [id number] David Medina MD [facility] Internal Med [facility] [address] [place] [address]., [address] [address] 03/17/2021 00:00:00 03/17/2021 21:11:45 [id number] David Medina MD [facility] Internal Med [facility] [address] [facility] [address] [place] [address] 04/11/2021 00:00:00 04/13/2021 12:43:04 [id number] David Medina MD [facility] Internal Med [facility] 15 [address] [facility] [address] [place] [address] 04/18/2021 00:00:00 04/18/2021 20:15:45 [id number] David Medina MD [facility] Internal Med [facility] 15 [address] [facility] [address] [place] [address] 05/12/2021 00:00:00 05/12/2021 21:15:29 [id number] A[facility]Histor ic[facility]Gateway [facility] Podiatry [place] [address] [facility] [address] [place] [address] 07/31/2021 00:00:00 07/31/2021 09:15:55 [id number] David Medina MD [facility] Internal Med [facility] [address] [facility] [address] [address] 08/18/2021 00:00:00 08/18/2021 21:58:59 [id number] David Medina MD [facility] Internal Med [facility] [address]43 [facility] [address] [address] 09/19/2021 00:00:00 09/19/2021 16:29:27 [id number] David Medina MD [facility] Internal Med [facility] [address] [facility] [address] [address] 11/03/2021 00:00:00 11/04/2021 08:37:02 [id number] David Medina MD [facility] Internal Med [facility] 15 [address] [facility] [address] [address] 12/10/2021 00:00:00 02/01/2022 14:23:15 [id number] David Medina MD [facility] Internal Med [facility] 15 [address] [facility] [address] [address] 01/19/2022 00:00:00 03/08/2022 17:32:39 [id number] David Medina MD S_GMG Internal Med [facility] [address] [facility] [address] [address] 02/20/2022 00:00:00 02/20/2022 15:54:43 [id number] Michelet Vazquez MD S_GMG ENT [place] [address] [place] [address] 02/24/2022 00:00:00 02/24/2022 14:46:05 [id number] David Medina MD S_[facility]G Internal Med [facility] [address] [facility] [address] [address] 05/01/2022 10:03:48 05/01/2022 10:56:28 Low back pain 302865795 M54.50 Rhinitis 76900468 J00 Weight gain 9243559 R63. 5 [id number] David Medina MD S_G Internal Med [facility] [address] [facility] [address] [address] 05/26/2022 09:53:26 05/26/2022 10:28:24 Seasonal allergy 933412001 J30.2 [id number] David Medina MD [facility] Internal Med [facility] [address] [facility] [address] [address] 09/04/2022 10:34:12 09/04/2022 11:33:35 Benign essential hypertension 5282963 I10 Pain in bi lateral legs 8494296372 8573425 M79.604 M79.605 Paresthesi a of lower extremity 272259058 R20.2 Sleep disorder 18462320 G47.9 [id number] David Medina MD S_G Internal Med [facility] [address] [facility] [address] 11/11/2022 10:21:27 11/11/2022 11:19:22 Overweight 613310506 E66.3 Benign ess ential hypertension 9715604 I10 Pain of joint 86469793 M 25.50 [id number] David Medina MD S_G Internal Med [facility] [address] [facility] [address] [address] 03/01/2023 11:16:27 03/01/2023 12:10:24 Gastroesophageal reflux disease without esophagitis 983325762 K21.9 Obesity 879269414 E66.9 Benign ess ential hypertension 3709629 I10 Hypothyroidism 32678368 E03.9 Hypercholesterolemia 136 08284 E78.00 Health Concerns Section Related Observation LastModified by Organization Detai ls LastModified Time None Recorded Concern Status LastModified by Organization Details LastModified Time None Recorded Advance Directives Directive N: Payers Insurance Date Sequence Insurance Name Policy Number Policy Powell Covered Member ID Powell Member ID Guarantor Name 02/26/2023 1 [facility] (O) [id number] Madhu Perales [id number] Tiny Perales Notes Date Note Type Note Provider Name and Address Organization Details Recorded Time 05/01/2022 text/html Still having problems with low back no bowel or bladder incontinence no numbness or tinglingWeight still having problems phentermine now workingRhinitis bothering her about signs symptoms of infection David Medina MD [address], [place], [address], [facility] 05/02/2022 13:15:03 05/26/2022 text/html Sinuses are bothering her real bad does not feel good David Medina MD [address] [address], [place], [address], [employer] 05/26/2022 22:16:26 09/04/2022 text/html Pain in legs when she walks nothing that is clear-cut claudication symptoms got out both eyes sometimes with some numbness. Start to begin walking is not seemed get any worse as she ambulate. Also sinuses doing fine hypertension no headache no dizziness current stable assessment says that she snoring and that she stops breathing when she sleeps and she is tired in the morning MD [address], [place], [address], [employer] 09/04/2022 20:13:19 11/11/2022 text/html Trouble losing weight. Hypertension no chest pain or dizziness. Joint pain with morning stiffness David Medina MD [address], [place], [address], [facility] [employer] [facility] 02/18/2023 16:02:38 03/01/2023 text/html GERD no nausea no vomiting obesity needs help hypertension no headache no dizziness hypothyroid some fatigue dyslipidemia could do better with diet David Medina MD [address], [place], [address], [facility] [employer] [facility] 03/01/2023 14:51:14 OBGyn Episode No OBEpisode recorded.
--- OUTSIDE RECORDS SUMMARY | 2024-12-07 16:03 | XMS_ITS | Patient Health Record ---
Author Organization [facility] Address [address] [place] [address] Care Team Providers Care Hris Manager Name Role Phone Zana Norman DPM [...] Insured Coverage Start Date Coverage End Date [facility] [address] [phone] [id number] Diaz Pati Spouse - patient is the spouse of the insured MEDICAL (GENERAL) HISTORY Medical History History ICD Code High Cholesterol High Blood Pressure Arthritis Surgical History Surgery Date(Month/Year) Endoscopic cholecystectomy 2005 Partial or subtotal hysterectomy 2007 Appendicectomy 1987 Oophorectomy 2018 Carpal tunnel release 2006 Endoscopic fasciomtomy 2019 Ankle fracture surgery 2020
--- OUTSIDE RECORDS SUMMARY | 2024-12-07 16:03 | XMS_ITS | Clinical Summary ---
Author Organization 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
--- OUTSIDE RECORDS SUMMARY | 2024-12-07 16:03 | XMS_ITS | Data Portability ---
Author Organization NIKIA ZIYADAmi Montes Address [address] [place] [address] Care Team Providers Care Travel Insurance Agent Name Role Phone DAVID MEDINA Primary Care Provider [facility] [employer] Assessment Encounter Date Assessment Date Assessment LastModified by Organization Details LastModified Time 05/02/2024 05/02/2024 we will await th e colonoscopic findings. She did have a CT scan that showed some changes consistent with colitis . For her obesity she wants to restart phentermine she tolerated it well we will do that and she will monitor her blood pressure she will see me back in 4-6 weeks continue her medications for her chronic medical problems and those have been discussed as well Not available 05/07/2024 13:11:09 06/22/2024 06/22/2024 Switch to clinda mycin she will let me know in 48 hours how she is doing she needs to quit smoking healthy lifestyle care instructions consider CT neck or ENT consult if she does not get better Not available 06/23/2024 20:15:49 06/27/2024 06/27/2024 Continue with th e clindamycin she will let me know by phone in about 4 or 5 days how she is doing has an appointment later this month I told her to keep that she is supposed to have a colonoscopy in 2 days I think she needs to postpone that until she gets over this honestly I do not think she will be able to drink the prep at this time [email or web address] Not available 06/27/2024 23:19:15 08/22/2024 08/22/2024 Get colonoscopy results considering bound once that is negative quitting tobacco care instructions continue with her medications carvedilol cetirizine for her rhinitis hydrochlorothiazide levothyroxine pantoprazole phentermine spironolactone she will follow up with me in 2-3 months we discussed the GLP 1 she had abdominal pain before it is unclear what role that medicine plate and she states that she wants to start the medication and she starts developing any symptoms she will stop [email or web address] Not available 08/22/2024 22:02:40 11/27/2024 11/27/2024 We will x-ray he r lumbar spine her pelvis sacrum coccyx give her some hydrocodone and we will have Orthopedics take a look at her. Sounds musculoskeletal she is pretty sure the pop was in her buttock area not in her back and not in her hip. She may end up needing some therapy she has trouble sitting the buttock does not have any evidence of expansive hematoma we will have her off work until seen by ortho this week also be treated for UTI [email or web address] Not available 11/27/2024 22:45:26 Plan of Treatment Reminders Order Date Submit Date Provider Last Modified By Organization Details Last Modified Time Details Appointments ANY 15 2024 03:15P M David Medina MD Not available Not available Not available Lab urinalysi s complete, reflex culture 2024 025 [facility], [address], [address], [place], [address], 08/23/2024 07:14:56 Referral orthopedi c surgeon referral 2024 025 WILFRID Wang MD, [address], [place], [address], 11/30/2024 12:40:01 Procedures None recorded. Surgeries None recorded. Imaging XR, lumbar spine 2024 025 [email or web address] [facility] ([facility]), [address], [place], [address], 11/27/2024 17:51:26 XR, hip + pelvis, unilatera l 2024 025 [facility] ([facility]), [address], [place], [address], 11/27/2024 17:51:26 XR, sacrum + coccyx 2024 025 [email or web address] [facility] ([facility]), [address], [place], [address], 11/27/2024 17:51:26 Medication Orders Macrobid 100 mg capsule 2024 025 [address] [id number], [address] [place] [address], [id number], 11/27/2024 17:51:26 Zepbound 2.5 mg/0.5 mL subcutane ous pen injector 2024 025 [place] [id number], [address] [place] [address], [id number], 11/27/2024 12:00:37 clindamyc in HCl 300 mg capsule 2024 025 [place] [id number], [address], [phone], 08/22/2024 16:17:55 Patient TargetsNo targets recorded. Patient Instructions Encounter Date Encounter Id Patient Instructions Last Modified By Organization Details Last Modified Time 05/02/2024 [id number] A healthy lifestyle: care instructions [email or web address] Not available 05/02/2024 16:49:23 06/22/2024 [id number] Quitting Tobacco : Care Instructions [email or web address] Not available 06/22/2024 17:37:53 A healthy lifestyle: care instructions [email or web address] Not available 06/22/2024 17:37:53 06/27/2024 [id number] A healthy lifestyle: care instructions [email or web address] Not available 06/27/2024 17:35:09 08/22/2024 [id number] A healthy lifestyle: care instructions [email or web address] Not available 08/22/2024 17:30:59 Quitting Tobacco : Care Instructions [email or web address] Not available 08/22/2024 17:30:59 11/27/2024 [id number] A healthy lifestyle: care instructions Not available 11/27/2024 17:51:26 Quitting Tobacco : Care Instructions [email or web address] Not available 11/27/2024 17:51:26 Reason for Referral Orthopedic Surgeon Referral for Pain in right lower limb Referring Physician: David Medina, Internal Medicine, Encounter Date: 11/27/2024 Results Created Date Observation Date Name Description Value Unit Range Abnormal Flag Note LastModifiedBy Organization Detail LastModifiedTime 08/23/1908/23/2024 MICRO SCOPI C EXAMI NATIO N WBC None seen /hpf 0-5 Not Available [facility] ([facility]) [address] [facility], [place], [address], 08/23/2024 07:14:55 08/23/1908/23/2024 MICRO SCOPI C EXAMI NATIO N RBC None seen /hpf 0-2 Not Available [facility] ([facility]) [address] [place], [address], 08/23/2024 07:14:55 08/23/19 25 08/23/2024 MICRO SCOPI C EXAMI NATIO N epithelial cells (non renal) 0-10 /hpf 0-10 Not Available [facility] ([facility]) [address] [facility], [place], [address], 08/23/2024 07:14:55 08/23/19 25 08/23/2024 MICRO SCOPI C EXAMI NATIO N casts None seen /lpf nonese en Not Available [facility] ([facility]) [address] [place], [address], 08/23/2024 07:14:55 08/23/19 25 08/23/2024 MICRO SCOPI C EXAMI NATIO N bacteria None seen nonese en/few Not Available [facility] ([facility]) [address] [facility], [place], [address], 08/23/2024 07:14:55 08/23/19 25 08/23/2024 UA/M W/RFL X CULTU RE, ROUTI NE specific gravity 1.010 1.005- 1.030 Not Available [facility] ([facility]) [address] [facility], [place], [address], 08/23/2024 07:14:56 08/23/19 25 08/23/2024 UA/M W/RFL X CULTU RE, ROUTI NE pH 6.5 5.0-7. 5 Not Available [facility] ([facility]) [address] [facility], [place], [address], 08/23/2024 07:14:56 08/23/19 25 08/23/2024 UA/M W/RFL X CULTU RE, ROUTI NE urine-color YELLOW yellow Not Available [facility]) [address] [facility], [place], [address], 08/23/2024 07:14:56 08/23/19 25 08/23/2024 UA/M W/RFL X CULTU RE, ROUTI NE appearance CLEAR clear Not Available [facility] ([facility]) [address] [facility], [place], [address], 08/23/2024 07:14:56 08/23/19 25 08/23/2024 UA/M W/RFL X CULTU RE, ROUTI NE WBC esterase NEGATI VE negati ve Not Available [facility] ([facility]) [address] [facility], [place], [address], 08/23/2024 07:14:56 08/23/19 25 08/23/2024 UA/M W/RFL X CULTU RE, ROUTI NE protein NEGATI VE negati ve/tra ce Not Available [facility] ([facility]) [address] [facility], [place], [address], 08/23/2024 07:14:56 08/23/19 25 08/23/2024 UA/M W/RFL X CULTU RE, ROUTI NE glucose NEGATI VE negati ve Not Available [facility] ([facility]) [address] [place], [address], 08/23/2024 07:14:56 08/23/19 25 08/23/2024 UA/M W/RFL X CULTU RE, ROUTI NE ketones NEGATI VE negati ve Not Available [facility] ([facility]) [address] [place], [address], 08/23/2024 07:14:56 08/23/19 25 08/23/2024 UA/M W/RFL X CULTU RE, ROUTI NE occult blood NEGATI VE negati ve Not Available [facility] ([facility]) [address] [place], [address], 08/23/2024 07:14:56 08/23/19 25 08/23/2024 UA/M W/RFL X CULTU RE, ROUTI NE bilirubin NEGATI VE negati ve Not Available [facility] ([facility]) [address] [place], [address], 08/23/2024 07:14:56 08/23/19 25 08/23/2024 UA/M W/RFL X CULTU RE, ROUTI NE urobilinogen ,semi-qn 0.2 mg/dL 0.2-1. 0 Not Available [facility] ([facility]) [address] [place], [address], 08/23/2024 07:14:56 08/23/19 25 08/23/2024 UA/M W/RFL X CULTU RE, ROUTI NE nitrite, urine NEGATI VE negati ve Not Available [facility] ([facility]) [address] [place], [address], 08/23/2024 07:14:56 08/23/19 25 08/23/2024 UA/M W/RFL X CULTU RE, ROUTI NE microscopic examination COMMEN T Micro scopi c follo ws if indic ated. Not Available [facility] ([facility]) [address] [facility], [place], [address], 08/23/2024 07:14:56 08/23/19 25 08/23/2024 UA/M W/RFL X CULTU RE, ROUTI NE microscopic examination SEE BELOW: Micro scopi c was indic ated and was perfo rmed. Not Available [facility] ([facility]) [address] [facility], [place], [address], 08/23/2024 07:14:56 08/23/19 25 08/23/2024 UA/M W/RFL X CULTU RE, ROUTI NE urinalysis reflex COMMEN T This speci men will not refle x to a Urine Cultu re. Not Available [facility] ([facility]) [address] [facility], [place], [address], 08/23/2024 07:14:56 11/28/19 25 11/27/2024 XR, lumba r spine No observ ation record ed. [address] [facility], [place], [address], 11/28/2024 21:38:04 11/28/19 25 11/27/2024 XR, hip + pelvi s, unila teral No observ ation record ed. [address], [place], [address], 11/28/2024 21:38:04 11/28/19 25 11/27/2024 XR, sacru m + coccy x No observ ation record ed. [address], [place], [address], 11/28/2024 21:38:05 Result Notes None recorded. Problems Name Problem SNOMED Code Status Onset Date Resolution Date Notes Provider Name and Address Organization Details Recorded Time Essential hypertensio n 82241549 Active 2023 Sha Velásquez [place] null, [place] [facility] 4 11:20:30 Hypothyroid ism 54783818 Active 2023 Sha Velásquez [place], [place] [facility] 4 11:20:31 Overweight 940065900 Active 2023 David Medina MD Attn: Tara santiago,[address] [facility], [place], [address], [place] [facility] 4 18:18:46 Gastroesoph ageal reflux disease without esophagitis 879860038 Active 2023 David Medina MD Attn: Tara g,[address] [facility], [place], [address], [place] [facility] 4 18:18:47 Body mass index 30+ - obesity 149812304 Active 2023 Renate Canchola [place], [place] [facility] 4 08:53:26 Abdominal pain 90199643 Active 2023 Sha Velásquez [place], [place] [facility] 4 17:28:34 Obese class II 8039365497098 05 Active 2024 Sha Velásquez [place], [place] [facility] 5 16:41:52 Urinary symptoms 219688940 Active 2024 Sha Velásquez [place], [place] [facility] 5 12:49:40 Problem Notes None recorded. Procedures Surgical History Date Name Laterality Status Provider Name and Address Organization Details Recorded Time 03/23/19 07 Total hysterectomy completed Claudia Aiken [place] [facility] 01/04/2024 11:08:14 Appendectomy completed Denis Wang [place] [facility] 05/13/2023 10:39:02 Cholecystectomy completed HORTENSIA Powers - [facility] 05/13/2023 10:39:11 Dilation and Curettage completed Denis Wang [place] [facility] 05/13/2023 10:39:29 Imaging Results None recorded. Procedure Notes None recorded. Medical Equipment None Reported. Allergies No known drug allergies Medications Name Sig Start Date Stop Date Status Note LastModified by Organization Details LastModified Time carvedilo l 25 mg tablet TAKE 1 TABLET BY MOUTH TWICE DAILY active Not Available Not Available No t Available clindamyc in HCl 300 mg capsule TAKE 1 CAPSULE BY MOUTH THREE TIMES DAILY FOR 10 DAYS 08/22 completed Not Available Not Available Not Available cetirizin e 10 mg tablet TAKE 1 TABLET BY [...] abx Not Available Not Available Not Available hydrocodo ne 5 mg-acetam inophen 325 mg tablet Take 1 tablet 3 times a day by oral route as needed, for pain. 2024 active Not Available Not Available Not Avai lable meloxicam 15 mg tablet TAKE 1 TABLET BY MOUTH EVERY DAY 05/15 completed Not Available Not Available Not Available phenazopy ridine 200 mg tablet TAKE 1 TABLET BY MOUTH NEEDED EVERY 6-8 HOURS. 11/27 completed Not Available Not Available Not Available [...] TABLET BY MOUTH 40 MINUTES BEFORE FLIGHT 08/22 completed Not Available Not Available Not Available metronida zole 500 mg tablet TAKE 1 TABLET BY MOUTH THREE TIMES DAILY FOR 7 DAYS 01/24 completed Not Available Not Available Not Available phentermi ne 37.5 mg tablet TAKE 1 TABLET BY MOUTH EVERY DAY 12/[address] Medina due to BP see pt case 12/07/24 . Not Available Not Available Not Available ciproflox [...] Not Available Not Available No t Available Macrobid 100 mg capsule Take 1 capsule twice a day by oral route for 5 days. 2024 active Not Available Not Available Not Avai lable levothyro xine 100 mcg tablet TAKE 1 TABLET BY MOUTH DAILY active [...] TIMES DAILY NEEDED FOR ABDOMINA L PAIN 11/27 completed Not Available Not Available Not Available diazepam 5 mg tablet TAKE 1 TABLET BY MOUTH 30 MINUTES BEFORE FLYING 07/15 completed already went on trip, not taking at this time. Not Available Not Available Not Available amoxicill in 875 mg-potass ium clavulana te 125 mg tablet Take 1 tablet twice a day by oral route for 7 days. 08/22 completed Not Available Not Available Not Available [...] mg/0.5 mL subcutane ous pen injector Inject 2.5 mg every week by subcutan eous route. 11/27 completed Not Available Not Available Not Available [...] in Arterial blood by Pulse oximetry Systolic And Diastolic Provider Name and Address Organization Details Last Updated DateTime 5 157.48 cm 34.3 kg/m2 73888.2 1 g 86 /min 100 % 100 % 114/68 mm[Hg] Claudia Aiken [facility] 5 16:22:56 Date Recorded Body height Body mass index (BMI) Body weight Heart rate Oxygen saturation Oxygen saturation in Arterial blood by Pulse oximetry Systolic And Diastolic Provider Name and Address Organization Details Last Updated DateTime 5 157.48 cm 34 kg/m2 06706.1 8 g 77 /min 99 % 99 % 112/66 mm[Hg] Chloe Buckner [facility] 5 16:53:17 Date Recorded Body height Body mass index (BMI) Body weight Heart rate Oxygen saturation Oxygen saturation in Arterial blood by Pulse oximetry Systolic And Diastolic Provider Name and Address Organization Details Last Updated DateTime 5 157.48 cm 35.4 kg/m2 25766.4 1 g 82 /min 98 % 98 % 110/70 mm[Hg] Claudia Aiken [facility] 5 16:10:47 Date Recorded Body height Body mass index (BMI) Body weight Heart rate Oxygen saturation Oxygen saturation in Arterial blood by Pulse oximetry Systolic And Diastolic Provider Name and Address Organization Details Last Updated DateTime 5 157.48 cm 35.2 kg/m2 80689.2 5 g 81 /min 97 % 97 % 124/82 mm[Hg] Claudia AikenHORTENSIA [facility] 5 16:17:22 Date Recorded Body height Body mass index (BMI) Body weight Heart rate Oxygen saturation Oxygen saturation in Arterial blood by Pulse oximetry Systolic And Diastolic Provider Name and Address Organization Details Last Updated DateTime 5 157.48 cm 35.3 kg/m2 34100.3 3 g 73 /min 98 % 98 % 112/74 mm[Hg] Claudia Aiken [facility] 5 11:59:34 Social History Question Answer Notes LastModified by Organizat ion Details LastModified Time Tobacco Smoking Status Current Every Day Smoker 4 cigarettes per day Denis Wang MA [facility] 05/13/2023 10:37:56 Do You Have An Advance Directive? No Information not available 05/13/2023 Are You Blind Or Do You Have Difficulty Seeing? No Information not available 05/13/2023 What Is Your Level Of Caffeine Consumption? Moderate Information not available 05/13/2023 In The 14 Days Before Symptom Onset, Have You Had Close Contact With A Laboratory-confi rmed COVID-19 While That Case Was Ill? No [email or web address] Information not available 07/16/2023 In The 14 Days Before Symptom Onset, Have You Had Close Contact With A Person Who Is Under Investigation For COVID-19 While That Person Was Ill? No Information not available 07/16/2023 Have You Been To An Area Known To Be High Risk For COVID-19? No [email or web address] Information not available 07/16/2023 Are You Deaf Or Do You Have Serious Difficulty Hearing? No Information not available 05/13/2023 What Type Of Diet Are You Following? REGULAR Information not available 05/13/2023 Are There Any Guns Present In Your Home? No Information not available 05/13/2023 What Was The Date Of Your Most Recent Tobacco Screening? 11/27/2024 Information not available 11/27/2024 What Is Your Current Pack Years? 10-19packye ars Information not available 05/13/2023 What Is Your Relationship Status? Information not available 05/13/2023 Do You Use Your Seat Belt Or Car Seat Routinely? Yes Information not available 05/13/2023 Do You Have Smoke And Carbon Monoxide Detectors In Your Home? Yes Information not available 05/13/2023 How Much Tobacco Do You Smoke? 1 PPW Information not available 05/13/2023 Do You Use Sunscreen Routinely? No Information not available 05/13/2023 Has Tobacco Cessation Counseling Been Provided? Yes Information not available 01/04/2024 On What Date Was Tobacco Cessation Counseling Provided? 11/27/2024 Information not available 11/27/2024 Sex: Female Functional Status Question Answer Note LastModified by Organizat ion Details LastModified Time Do you use any illicit or recreational drugs? No Information not available 05/13/2023 Do you or have you ever used any other forms of tobacco or nicotine? No Information not available 05/13/2023 What is your level of alcohol consumption? Occasional Information not available 05/13/2023 Are you currently employed? No [email or web address] Information not available 07/16/2023 Are you able to care for yourself independently? Yes Information not available 05/13/2023 What is your exercise level? Occasional Information not available 05/13/2023 Mental Status Question Answer Note LastModified by Organization D etails LastModified Time Do you feel stressed (tense, restless, nervous, or anxious, or unable to sleep at night)? ET8348-2 Information not available 05/13/2023 Family History Relationship Description Onset Age of [...] History Condition Response Coronary Artery Disease N Other N Atrial Fibrillation N High Blood Pressure Y Kidney or Bladder Problems N Thyroid Problems Y GI Problems N Depression N COPD N Blood Clots N Skin Problems N Anemia N Heart Attack ([place]) N Anxiety Disorder N Diabetes N Muscle, Joint, or Bone Problems Y Seizures/Epilepsy N Acid Reflux (GERD) Y Cancer N Stroke N Asthma N Allergies N High Cholesterol Y Hepatitis N Liver Disease N Headaches N Heart Failure N Osteoporosis N Gynecological History Statement/Question Response [...] PF, 30 mcg/0.3 mL dose 11/11/2020 completed Yas Hoffman R[place], [place] [facility] 08/23/2023 17:13:26 Tdap 02/20/2022 completed Yas Hoffman R[place] [facility] 08/23/2023 17:13:26 Past Encounters Encounter ID Performer Location Encounter Start Date Encounter Closed Date Diagnosis/Indication Diagnosis SNOMED-CT Code Diagnosis ICD10 Code Diagnosis IMO Codes Diagnosis Note [id number] MD Dasia Sanford (Adult Med) [address] [place] [id number] 05/13/2023 10:15:30 05/13/2023 11:23:14 Essential hypertension 24434481 I10 Hypothyroidism 43652889 E03.9 Overweight 062419523 E66 .3 Gastroesop hageal reflux disease without esophagitis 390870455 K21.9 Speckled a ntinuclear antibody pattern 672140322 R76.8 [id number] [facility] [address] [place] [id number] 06/01/2023 11:38:26 06/01/2023 12:29:23 Pain in right foot 7166843904 00935 M79.679 [id number] David Medina MD [facility] [address] [place] [phone] 07/16/2023 08:41:48 07/16/2023 09:10:33 Acute maxillary sinusitis 63668841 J01.00 start augmentin therapy course as directed. Dysfunctio n of right eustachian tube 6270862409 501596 H69.91 start prednisone 40mg daily x 5 days. [id number] David Medina MD [facility] [address] [place] [address] 09/13/2023 09:57:24 09/13/2023 10:24:10 Obesity 900090284 E66.8 Smoker 67788092 F17.200 Essential hypertension 26753333 I10 Gastroesop hageal reflux disease without esophagitis 905130669 K21.9 Body mass index 30+ - obesity 775591726 Z68.35 Hypothyroidism 50387169 E03.9 [id number] David Medina MD [facility] [address] [place] [address] 10/11/2023 15:20:05 10/11/2023 16:21:59 Bite of insect 034851370 W57.XXXA [id number] MD Dasia Sanford (Adult Med) [address] [place] [id number] 01/04/2024 10:50:15 01/04/2024 11:15:41 Body mass index 30+ - obesity 861203684 Z68.34 Obesity 984358339 E66.9 Essential hypertension 05060246 I10 Hypothyroidism 48586001 E03.9 [id number] MD Dasia Sanford (Adult Med) [address] [place] [id number] 01/11/2024 16:07:05 01/11/2024 16:35:18 Smoker 09707880 F17.200 Colitis 21449801 K52.9 Diarrhea 80428603 R19.7 Nausea 723170488 R11.0 [id number] MD Dasia Sanford (Adult Med) [address] [place] [id number] 01/25/2024 16:20:47 01/25/2024 17:26:36 Body mass index 30+ - obesity 871405328 Z68.34 Obesity 487769430 E66.9 Abdominal pain 35249802 R10.9 Colitis 71160355 K52.9 [id number] MD Dasia Sanford (Adult Med) [address] [place] [id number] 05/02/2024 16:02:40 05/02/2024 17:03:33 Body mass index 30+ - obesity 571828213 Z68.34 Overweight 559450959 E66 .3 Abdominal pain 38683869 R10.9 Gastroesop hageal reflux disease without esophagitis 523462144 K21.9 Essential hypertension 98846323 I10 Hypothyroidism 96629392 E03.9 [id number] David Medina MD [address] [place] [id number] 1 06/22/2024 16:43:28 06/22/2024 17:16:53 Cigarette smoker 35026834 F17.210 [id number] Smoker 79737174 F17.200 Obesity ca used by energy imbalance 797107114 E66.811 E66.09 Z68.34 03082940 Obese class I 7369276920 94611 E66.811 7208160763 Pain in throat 986329555 R07.0 [id number] [id number] MD Dasia Sanford (Adult Med) [address] [place] [id number] 0 06/27/2024 15:23:32 06/27/2024 16:39:35 Body mass index 30+ - obesity 623211864 Z68.35 424237 Obese class I 9177141537 50223 E66.811 7362823069 Pain in throat 424861255 R07.0 86103 [id number] David Medina MD [facility] ([facility] [address] [place] [address] 08/22/2024 15:54:07 08/22/2024 16:44:58 Body mass index 30+ - obesity 993422550 Z68.35 299721 Obese class II 948944164 1 94569 E66.812 0247503398 Smoker 06108823 F17.200 Dysuria 67300092 R30.0 22910 Essential hypertension 61014405 I10 Gastroesop hageal reflux disease without esophagitis 809789142 K21.9 Hypothyroidism 55806479 E03.9 [id number] David Medina MD [facility] [address] [place] [address] 11/27/2024 11:44:17 11/27/2024 13:14:28 Obese class II 5547361864 16993 E66.812 E66.3 4088495741 35.3 Smoker 83157543 F17.200 Pain in ri ght lower limb 706562426 M79.604 [id number] Urinary symptoms 2881594 08 R39.9 12279749 Health Concerns Section Related Observation LastModified by Organization Detai ls LastModified Time None Recorded Concern Status LastModified by Organization Details LastModified Time None Recorded Advance Directives Directive N: Payers Insurance Date Sequence Insurance Name Policy Number Policy Powell Covered Member ID Powell Member ID Guarantor Name 11/27/2024 1 [facility] ([facility] [id number] Pati R Free [id number] Pati Free Notes Date Note Type Note Provider Name and Address Organization Details Recorded Time 05/02/2024 text/html colonoscopy set up for May 15 she stopped the GLP 1 because of the bowel complaints but would like to go back on her phentermine GERD has been stable she has not had any heat or cold intolerance she was taking her blood pressure medication and her cholesterol medications David Medina MD Attn: Accounting,[address] [facility], [place], [address], [facility] - [place] 05/07/2024 13:11:53 06/22/2024 text/html Sinus drainage maybe little sore throat and now she has got pain on the right side of her neck does not have a stiff neck denies fever chills she swallows okay no cough wheezing shortness of breath no skin rashes no travel David Medina MD Attn: Accounting, [address] [facility], [place], [address], [facility] - [place] 06/23/2024 20:16:36 06/27/2024 text/html Short interval follow up on her throat and neck throat is still sore the neck pain she has is better no stiff neck no fever no chills Claudia Aiken MA [facility], [place] - [place] 06/29/2024 12:07:26 08/22/2024 text/html Hypertension blood pressure looks good obesity trouble losing weight considering GLP thinks she may have a UTI David Medina MD Attn: Accounting, [address] [facility], [place], [address], [facility] - [place] 08/22/2024 22:02:57 11/27/2024 text/html Couple of days ago she was in some dress shoes on some wet floor and she slipped heard a pop in her buttock area and she said extreme pain in her right buttock down to her knee no back pain per se but it is hard for her to ambulate there is no numbness or tingling but the pain is severe she can move her knee she has trouble basically bearing weight. She has also developed UTI symptoms David Medina MD Attn: Accounting, [address] [facility], [place], [address], [facility] - [place] 11/27/2024 22:45:48 OBGyn Episode No OBEpisode recorded.
--- NOTE | 2024-12-07 17:38 | PC.NURSE ---
Pt called to be roomed, no response
--- OUTSIDE RECORDS SUMMARY | 2024-12-07 18:09 | XMS_ITS | Clinical Summary ---
Author Organization [facility] Address [address] [facility] [place] [address] Care Team Providers Care Crystalizer Tender Name Role Phone Adarsh Medina MD Primary Care Provider [phone] Source Comments [facility],non-owned Affiliates and Associated Physician Practices is amultiple site organization consisting of ambulatory clinics and hospital sitesin [place], [place], [place] and [place]. This disclosure is being madepursuant to the Care Everywhere program and may not contain all information available regarding this patient. Last updated 17.[facility] Allergies No known active allergies Medications * [...] Comments Blood Pressure 130/78 03/02/2019 9:10 AM CLINICAL TRAINING COORDINATOR Pulse - - Temperature - - Respiratory Rate - - Oxygen Saturation - - Inhaled Oxygen Concentration - - Weight 92.1 kg (203 lb) 03/02/2019 9:10 AM CLINICAL TRAINING COORDINATOR Height 157.5 cm (5' 2) 03/02/2019 9:10 AM CLINICAL TRAINING COORDINATOR Body Mass Index 37.13 03/02/2019 9:10 AM CLINICAL TRAINING COORDINATOR Plan of Treatment Health Maintenance Due Date [...] complete this topic Insurance ANTH Care Teams Crystalizer Tender Relationship Specialty Start Date End Date Adarsh Medina MD PCP - General 12/23/17
--- OUTSIDE RECORDS SUMMARY | 2024-12-07 18:09 | XMS_ITS | Clinical Summary ---
Author Organization [facility] Address [address] [place] [address] Care Team Providers Care Photonics Engineering Technologist Name Role Phone Adarsh Medina MD Primary Care Provider [phone] Allergies No known active allergies Active Problems Problem Noted Date Diagnosed Date Pain of foot 11/05/2014 Social History Tobacco Use Types Packs/Day Years Used Date Smoking Tobacco: Never Assessed Personal Safety Answer Date Recorded Getting School Help Needed Not on file 05/07 Comments Unknown Sex and Gender Information Value Date Recorded Sex Assigned at Not on file Legal Sex Female 11:09 AM 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
--- OUTSIDE RECORDS SUMMARY | 2024-12-07 18:09 | XMS_ITS | Data Portability ---
Author Organization [facility] [place] Address [address] [place] [address] [place] [address] Care Team Providers Care Reconciliation Analyst Name Role Phone DAVID HOFF Primary Care Provider [phone] Assessment Encounter Date Assessment Date Assessment LastModified [...] Lab urinalysis, dipstick 2023 024 [email or web address] ch1 [place], [address], [place], [address], 4 09:51:06 urinalysis, dipstick 2021 022 [place], [address], [place], [address], 10:21:03 Referral urogynecolo gist referral 2023 024 WILFRID Aldridge MD, [address], [address], [place], [address], 5 05:01:48 urogynecolo gist referral 2023 024 [email or web address] Dale Aldridge MD, [address] [facility] [address], [place], [address], 4 13:48:18 pelvic floor therapy referral - Referring this patient for Cystocele. Needs Pelvic floor therapy. Please contact this patient to schedule an appointment Attached to this referral are the patients demographic s and most recent office visit notes. If you have any questions or require further information , please contact me at [phone]. Thank you, Kelly, Referral's 2021 022 WILFRID [facility], [address], [address], [place], [address], 3 05:01:44 urogynecolo gist referral 2020 021 WILFRID Aldridge MD, [address] [facility] [address], [place], [address], 2 05:01:10 Procedures None recorded. Surgeries None recorded. Imaging MAMMO, screening, bilateral 2023 024 [facility] (Radiology), [address] [place], [address], 4 12:50:38 Medication Orders Vagifem 10 mcg vaginal tablet [address] [facility]16, [address], [place], [id number], 4 13:15:43 estradiol 0.025 mg/24 hr weekly transdermal patch [address] [facility] #66907, [address], [place], [id number], 4 13:15:01 Bactrim DS 800 mg-160 mg tablet [address] [facility] #09642, [address], [place], [id number], 4 10:00:11 Vagifem 10 mcg vaginal tablet [address] [facility] #20454, [address], [place], [id number], 4 12:21:27 oxybutynin chloride ER 5 mg tablet,exte nded release 24 hr [address] [facility] #55074, [address], [place], [id number], 4 10:06:00 mupirocin 2 % topical ointment [address] [facility] #12504, [address], [place], [id number], 4 12:20:28 estradiol 0.01% (0.1 mg/gram) vaginal cream [address] [place] #72407, [address], [place], [id number], 4 09:36:12 estradiol 0.5 mg tablet 2020 021 [facility] #26986, [address], [place], [id number], 4 13:15:06 Prometrium 100 mg capsule [address] [facility]70776, [address], [place], [id number], 4 09:37:16 estradiol 0.5 mg tablet 2020 021 [facility], [address] [facility] [place], [id number], 13:15:06 Patient TargetsNo targets recorded. Patient InstructionsNo instructions recorded. Reason for Referral Urogynecologist Referral for Female urinary stress incontinence Referring Physician: Anne Herrera BEAD WRAPPER, Encounter Date: 06/11/2020 Pelvic Floor Therapy Referra l for Cystocele Referring this patient for Cystocele. Needs Pelvic floor therapy.Please contact this patient to schedule an appointmentAttached to this referral are the patients demographics and most recent office visit notes.If you have any questions or require further information, please contact me at [phone].Thank you,Kelly Referral's Referring Physician: Anne Herrera BEAD WRAPPER, Encounter Date: 07/18/2021 Urogynecologist Referral for Female urinary stress incontinence Referring Physician: Anne Herrera BEAD WRAPPER, Encounter Date: 05/26/2023 Urogynecologist Referral for Recurrent urinary tract infection Referring Physician: Ghada Ruiz BEAD WRAPPER, Encounter Date: 09/24/2023 Results Created Date Observation Date Name Description Value Unit Range Abnormal Flag Note LastModifiedBy Organization Detail LastModifiedTime 07/19/1907/18/2021 URINA LYSIS , WITH MICRO SCOPI C color, urine Yellow colorl ess, light yellow , yellow , dark yellow , straw Not Available [facility] (Lab) [address], [place], [address], 07/19/2021 03:06:59 07/19/19 22 07/18/2021 URINA LYSIS , WITH MICRO SCOPI C clarity, urine Slight ly Cloudy Not Available [facility] (Lab) [address], [place], [address], 07/19/2021 03:06:59 07/19/19 22 07/18/2021 URINA LYSIS , WITH MICRO SCOPI C glucose, urine Negati ve mg/dL negati ve Not Available [facility] (Lab) [address] [facility], [place], [address], 07/19/2021 03:06:59 07/19/19 22 07/18/2021 URINA LYSIS , WITH MICRO SCOPI C bilirubin, urine Negati ve mg/dL negati ve Not Available [facility] (Lab) [address] [facility], [place], [address], 07/19/2021 03:06:59 07/19/19 22 07/18/2021 URINA LYSIS , WITH MICRO SCOPI C ketones, urine Negati ve mg/dL negati ve Not Available [facility] (Lab) [address] [facility], [place], [address], 07/19/2021 03:06:59 07/19/19 22 07/18/2021 URINA LYSIS , WITH MICRO SCOPI C pH, urine 6.0 . 5.0-9. 0 Not Available [facility] (Lab) [address] [facility], [place], [address], 07/19/2021 03:06:59 07/19/19 22 07/18/2021 URINA LYSIS , WITH MICRO SCOPI C specific gravity, urine 1.026 . 1.001- 1.035 Not Available [facility] (Lab) [address] [facility], [place], [address], 07/19/2021 03:06:59 07/19/19 22 07/18/2021 URINA LYSIS , WITH MICRO SCOPI C blood, urine Negati ve negati ve Not Available [facility] (Lab) [address] [place], [address], 07/19/2021 03:06:59 07/19/19 22 07/18/2021 URINA LYSIS , WITH MICRO SCOPI C protein, UA Negati ve mg/dL negati ve Not Available [facility] (Lab) [address] [place], [address], 07/19/2021 03:06:59 07/19/19 22 07/18/2021 URINA LYSIS , WITH MICRO SCOPI C urobilinogen , urine <2.0 mg/dL <2.0 Not Available [facility] (Lab) [address] [facility], [place], [address], 07/19/2021 03:06:59 07/19/19 22 07/18/2021 URINA LYSIS , WITH MICRO SCOPI C nitrite, urine Negati ve negati ve Not Available [facility] (Lab) [address] [facility], [place], [address], 07/19/2021 03:06:59 07/19/19 22 07/18/2021 URINA LYSIS , WITH MICRO SCOPI C leukocyte esterase, urine Negati ve mikie/u L negati ve Not Available [facility] (Lab) [address] [place], [address], 07/19/2021 03:06:59 07/19/19 22 07/18/2021 URINA LYSIS , WITH MICRO SCOPI C WBC, urine 0-5 /hpf none, 0-5 Not Available [facility] (Lab) [address] [facility], [place], [address], 07/19/2021 03:06:59 07/19/19 22 07/18/2021 URINA LYSIS , WITH MICRO SCOPI C RBC, urine 0-2 /hpf none, 0-2 Not Available [facility] (Lab) [address] [facility], [place], [address], 07/19/2021 03:06:59 07/19/19 22 07/18/2021 URINA LYSIS , WITH MICRO SCOPI C bacteria, urine Trace /hpf none abnormal Not Available [facility] (Lab) [address] [place], [address], 07/19/2021 03:06:59 07/19/19 22 07/18/2021 URINA LYSIS , WITH MICRO SCOPI C squamous epithelial cells, urine Modera te /hpf none abnormal Not Available [facility] (Lab) [address], [place], [address], 07/19/2021 03:06:59 07/19/19 22 07/18/2021 URINA LYSIS , WITH MICRO SCOPI C mucus, urine Trace /hpf none, trace, few CLEAN CATCH Not Available [facility] (Lab) [address], [place], [address], 07/19/2021 03:06:59 07/19/19 22 07/18/2021 urina lysis , dipst ick Leukocytes neg Not Available [facility] [address], [place], [address], 07/18/2021 10:20:18 07/19/19 22 07/18/2021 urina lysis , dipst ick Nitrite neg Not Available [place] [address], [place], [address], 07/18/2021 10:20:18 07/19/19 22 07/18/2021 urina lysis , dipst ick Urobilinogen neg Not Available [facility] [address], [place], [address], 07/18/2021 10:20:18 07/19/19 22 07/18/2021 urina lysis , dipst ick Protein trace Not Available [place] [address], [place], [address], 07/18/2021 10:20:18 07/19/19 22 07/18/2021 urina lysis , dipst ick pH 5 Not Available [place] [address], [place], [address], 07/18/2021 10:20:18 07/19/19 22 07/18/2021 urina lysis , dipst ick Blood trace Not Available [place] [address], [place], [address], 07/18/2021 10:20:18 07/19/19 22 07/18/2021 urina lysis , dipst ick Specific [place] 1.015 Not Available [facility] g[address], [place], [address], 07/18/2021 10:20:18 07/19/19 22 07/18/2021 urina lysis , dipst ick Ketone neg Not Available [place] [address], [place], [address], 07/18/2021 10:20:18 07/19/19 22 07/18/2021 urina lysis , dipst ick Bilirubin neg Not Available [facility] [address], [place], [address], 07/18/2021 10:20:18 07/19/19 22 07/18/2021 urina lysis , dipst ick Glucose neg Not Available [place] [address], [place], [address], 07/18/2021 10:20:18 07/19/19 22 07/18/2021 urina lysis , dipst ick Appearance cloudy Not Available [facility] [address], [place], [address], 07/18/2021 10:20:18 07/19/19 22 07/18/2021 urina lysis , dipst ick Color yellow Not Available [place] [address], [place], [address], 07/18/2021 10:20:18 05/26/19 24 05/26/2023 CULTU RE: URINE result report SEE RESULT S BELOW abnormal Test: Cultu re: Urine Speci men Sourc e: Urine - Clean Catch Speci men Type: Urine Speci men Date: 11:28 AM Resul t Date: 6:45 AM Resul t Statu s: Final resul t Dylan mal: Yes Savita sher Lab: [facility] [address] [facility] [address] Tel: CULTU RE ----- ----- ----- --- 75,00 0-100 ,000 CFU/m l Esche suhas a coli (Abno rmal) SUSCE PTIBI LITY ----- ----- ----- --- Esche suhas a coli METHO D REED ----- ----- ----- ----- ----- ---- ----- ----- ----- ----- --- AMPIC ILLIN <=8 ug/mL Susce ptibl e CEFAZ FERMIN <=2 ug/mL Susce ptibl e NITRO FURAN TOIN <=32 ug/mL Susce ptibl e TRIME THOPR IM/HENAO LFAME THOXA ZOLE <=2 ug/mL Susce ptibl e Not Available [facility] (Lab) [address] [facility], [place], [address], 05/29/2023 07:49:58 05/26/19 24 05/26/2023 urina lysis , dipst ick Leukocytes + Not Available [facility] [address], [place], [address], 05/26/2023 09:48:11 05/26/19 24 05/26/2023 urina lysis , dipst ick Nitrite + Not Available [place] [address], [place], [address], 05/26/2023 09:48:11 05/26/19 24 05/26/2023 urina lysis , dipst ick Protein trace Not Available [place] [address], [place], [address], 05/26/2023 09:48:11 05/26/19 24 05/26/2023 urina lysis , dipst ick pH 6 Not Available [place] [address], [place], [address], 05/26/2023 09:48:11 05/26/19 24 05/26/2023 urina lysis , dipst ick Blood ++ Not Available [place] [address], [place], [address], 05/26/2023 09:48:11 05/26/19 24 05/26/2023 urina lysis , dipst ick Specific [place] 1.010 Not Available [facility] [address], [place], [address], 05/26/2023 09:48:11 06/08/19 24 06/02/2023 MAMMO , scree jaden, bilat eral No observ ation record ed. [email or web address] [facility] [address] [place], [address], 06/15/2023 15:01:05 07/07/19 24 07/06/2023 MAMMO , diagn ostic , digit al, unila teral No observ ation record ed. [email or web address] [facility] [address] [place], [address], 07/07/2023 16:06:52 Result Notes None recorded. Problems Name Problem SNOMED Code Status Onset Date Resolution Date Notes Provider Name and Address Organization Details Recorded Time Obesity 554221552 Completed 201309/09/2020 Obesity;R ecorded Elsewhere : No Locati on: [facility] So urce: EHR Chron ic: N Practic e ID: 0001 Bill able Time: 02:15:00 PM Kitty Summers [place], [place] - [facility] 16:24:47 Screenin g for malignan t neoplasm of rectum Completed 201309/09/2020 Screening for malignant neoplasms of the rectum;Re corded Elsewhere : No Locati on: [facility] So urce: EHR Chron ic: N Practic e ID: 0001 Bill able Time: 02:15:00 PM Kitty Summers [facility] 1 16:25:02 Carbuncl e of skin AND/OR subcutan eous tissue Completed 201309/09/2020 Carbuncle and furuncle of unspecifi ed site;Prac shelli ID: [address] [facility] 1 16:24:35 Speciali zed medical examinat ion Completed 201309/09/2020 Routine gynecolog ical examinati on;Practi ce ID: [address] [facility] 16:25:08 Screenin g for malignan t neoplasm of cervix Completed 201309/09/2020 Pap Smear;Pra ctice ID: [address] [facility] [address] 16:25:[address] Concept Completed 201709/09/2020 Encounter for general licensed dispensing optician exam with abnormal findings; Recorded Elsewhere : No Locati on: [facility] So urce: EHR Chron ic: N Practic e ID: 0001 Bill able Time: 08:30:00 AM Kitty Summers [facility] [address] 16:25:[address] Concept Completed 201709/09/2020 Encounter for general adult medical exam with abnormal finding;R ecorded Elsewhere : No Locati on: [facility] So urce: EHR Chron ic: N Practic e ID: 0001 Bill able Time: 08:30:00 AM Kitty Summers [facility] 1 16:24:56 Pelvic and perineal pain [id number] Completed 201709/09/2020 Pelvic and perineal pain;Mathieu rded Elsewhere : No Locati on: [facility] So urce: EHR Chron ic: N Practic e ID: 0001 Bill able Time: 08:30:00 AM Kitty cowan [facility] 16:24:49 Cyst of ovary Completed 201709/09/2020 Ovarian cyst, NOS;Recor ded Elsewhere : No Locati on: [facility] So urce: EHR Chron ic: N Practic e ID: 0001 Bill able Time: 03:30:00 PM Kitty cowan [facility] 16:24:39 Blood leukocyt e number above referenc e range [id number] Completed 201709/09/2020 Elevated white blood cell count, unspecifi ed;Practi ce ID: 0001 Kitty cowan [facility] 16:24:46 Evaluati on finding Completed 201709/09/2020 Hematuria , unspecifi ed;Record ed Elsewhere : No Locati on: [facility] So urce: EHR Chron ic: N Practic e ID: 0001 Bill able Time: 03:30:00 PM Kitty cowan [facility] 16:24:42 Chronic salpingi tis [id number] Completed 201709/09/2020 Chronic salpingit is;Practi ce ID: 0001 Kitty cowan [facility] 16:24:37 Disorder of endocrin e ovary Completed 201709/09/2020 Corpus luteum cyst of ovary, unspecifi ed side;Prac shelli ID: 0001 Kitty cowan, [facility] 16:24:41 Procedur e on genitour inary system Completed 201709/09/2020 Encounter for surgical aftercare following surgery on the genitouri nary system;Re corded Elsewhere : No Locati on: [facility] So urce: EHR Chron ic: N Practic e ID: 0001 Bill able Time: 03:30:00 PM Kitty cowan [facility] 16:24:57 Postoper ative care Completed 201709/09/2020 Encounter for surgical aftercare following surgery on the genitouri nary system;Re corded Elsewhere : No Locati on: [facility] So urce: EHR Chron ic: N Practic e ID: 0001 Bill able Time: 03:30:00 PM Kitty cowan [facility] 16:24:52 Postoper ative pain [id number] Completed 201709/09/2020 Other acute postproce dural pain;Prac shelli ID: 0001 Kitty cowan [facility] 16:24:54 Genuine stress incontin ence 14746579 Completed 201809/09/2020 Stress incontine nce (female) (male);Pr actice ID: 0001 Kitty Summers [facility] 16:24:44 Atrophic vaginiti s [id number] Completed 201809/09/2020 Postmenop ausal atrophic vaginitis ;Practice ID: 0001 Kitty cowan [facility] 16:24:34 Reduced libido 5107820 Completed 201809/09/2020 Decreased libido;Pr actice ID: 0001 Kitty cowan [facility] 16:24:[address] Concept Completed 201809/09/2020 Encntr for licensed dispensing optician exam (general) (routine) w/o abn findings; Practice ID: 0001 Kitty cowan [facility] 16:25:05 Problem Notes None recorded. Procedures Surgical History Date Name Laterality Status Provider Name and Address Organization Details Recorded Time 06/12/19 Date of Last Pap Smear completed Kitty Summers [facility] 06/11/2020 15:15:04 02/22/19 21 Date of Last Colonoscopy completed Tiffanie Oakes [facility] 05/26/2023 09:39:27 01/23/20 20 Unlisted px foot/toes completed [facility] 06/11/2020 15:36:19 03/25/19 20 Unlisted px foot/toes completed [facility] 06/11/2020 15:37:02 02/22/19 19 Date of Last Mammogram completed [facility] 06/11/2020 15:20:15 12/28/19 18 excision of bilateral fallopian tubes and ovaries completed [facility] 06/11/2020 15:35:25 11/09/19 14 Partial Hysterectomy completed [facility] 06/11/2020 15:35:39 02/22/19 06 Cholecystectomy completed [facility] 06/11/2020 15:35:01 02/22/18 85 Appendectomy completed [facility] 06/11/2020 15:34:51 Imaging Results None recorded. Procedure Notes None [...] 3 times every day 09/23 completed Prescrib erica [place] e: Yes Loca gerardo: [facility] odify By: amkuhl E ncounter DateTime : 11/09/19 14 02:15:00 PM Not [...] Prescrib ed Elsewher e: Yes Loca tion: [facility] odify By: amkkeny [address]arate ncounter DateTime : 09/24/19 18 08:30:00 AM Not Available Not Available Not Available cefadroxi l 500 mg capsule take 1 capsule by oral route every 12 hours for 10 days 11/17 completed Prescrib ed Elsewher e: No Locat ion: [facility] odify By: ashlyn Zarate ncounter DateTime : 11/09/19 14 02:15:00 PM Not [...] ed Elsewher e: Yes Loca tion: [facility] odify By: estefani gutierrez DateTime : 11/09/19 [...] Prescrib ed Elsewher e: Yes Loca tion: [facility] By: christin gutierrez DateTime : 11/09/19 [...] Prescrib ed Elsewher e: No Locat ion: [facility] odify By: michael claros DateTime : 04/13/19 11:08:14 AM Not Available Not Available Not [...] Prescrib ed Elsewher e: No Locat ion: [facility] odify By: robe Salazar unter DateTime : 02/01/20 03:15:00 PM Not Available Not Available Not [...] nights; then, use twice a week for hans nce. active Not Available Not Available No t Available Zyrtec 10 mg capsule 09/23 completed Prescrib ed Elsewher e: Yes Loca tion: [facility] odify By: christin hoganunter DateTime : 11/09/19 14 02:15:00 PM Not Available Not Available Not Available [facility] T4 Sodium Dilution 1 mg/gram powder 09/23 completed Prescrib ed Elsewher e: Yes [facility] odify By: christin Zarate ncounter DateTime : 11/09/19 14 02:15:00 PM Not Available Not Available Not Available EnovaRx-B aclofen 1 % topical cream 09/23 completed Prescrib ed Elsewher e: Yes [facility]oca [facility] odify By: christin Zarate ncounter DateTime : 11/09/19 14 02:15:00 PM Not [...] Body mass index (BMI) Body weight Systolic And Diastolic Provider Name and Address Organization Details Last Updated DateTime 05/26/2023 157.48 cm 36.9 kg/m2 09506.66 g 139/83 mm[Hg] Tiffanie Oakes [facility] 05/26/2023 09:35:18 Date Recorded Body height Body mass index (BMI) Body weight Systolic And Diastolic Provider Name and Address Organization Details Last Updated DateTime 06/11/2020 157.48 cm 36.3 kg/m2 63969.01 g 130/80 mm[Hg] Anne Herrera, [facility] [address], [place], [address], [facility] 06/11/2020 15:29:19 Date Recorded Body height Body mass index (BMI) Body weight Systolic And Diastolic Provider Name and Address Organization Details Last Updated DateTime 07/18/2021 157.48 cm 36.8 kg/m2 41058.07 g 118/70 mm[Hg] Kitty [facility] 07/18/2021 10:15:09 Date Recorded Body height Body mass index (BMI) Body weight Systolic And Diastolic Provider Name and Address Organization Details Last Updated DateTime 09/24/2023 157.48 cm 34.8 kg/m2 29147.55 g 140/82 mm[Hg] Su Wise [facility] 09/24/2023 10:03:20 Date Recorded Systolic And Diastolic Provider Name and Address Organization Details Last Updated DateTime 12/11/2020 122/80 mm[Hg] Anne Herrera, [facility] [address], [place], [address], [facility] 12/11/2020 16:35:58 Date Recorded Body height Body mass index (BMI) Body weight Provider Name and Address Organization Details Last Updated DateTime 12/11/2020 157.48 cm 34 kg/m2 32226.18 g Kitty Summers [facility] 12/11/2020 16:16:52 Social History Question Answer Notes LastModified by Organizat ion Details LastModified Time Tobacco Smoking Status Current Every Day Smoker Kitty Summers [facility] 06/11/2020 15:32:19 Are You Blind Or Do You Have [...] Day Information not available 06/11/2020 Do You Use Sunscreen Routinely? Yes Information not available 06/11/2020 Do You Have Difficulty Walking Or Climbing Stairs? No Information not available 07/18/2021 Sex: Unknown Functional Status Question Answer Note LastModified by Organizat ion Details LastModified Time Do you use any illicit or recreational drugs? No Information not available 06/11/2020 Do you or have you ever used any other forms of tobacco or nicotine? No Information not available 06/11/2020 What is your level of alcohol consumption? Moderate Information not available 06/11/2020 Are you able to walk independently without assistance or assistive devices? YESWOREST Information not available 06/11/2020 Are you able to care for yourself independently? Yes Information not available 07/18/2021 Do you have difficulty dressing, bathing, grooming, or toileting? No Information not available 07/18/2021 What is your exercise level? Occasional Information not available 06/11/2020 Mental Status Question Answer Note LastModified by Organization D etails LastModified Time Do you feel stressed (tense, restless, nervous, or anxious, or unable to sleep at night)? [id number] Information not available 06/11/2020 Family History Relationship Description Onset Age of [...] ICD10 Code Diagnosis IMO Codes Diagnosis Note [id number] Anne Herrera [facility] [address] [address] 06/11/2020 14:08:21 06/11/2020 15:37:19 Gynecologic examination [id number] Z01.419 Suggested Calcium with Vitamin D 1200-1500m g daily. Patient advised to get an annual flu shot in the fall and she could obtain at [facility] or [facility]. Also to obtain TDap vaccinatio n if [...] HTN medication Colon UTD Dexa-PCP discussed Female uri nary stress incontinence [id number] N39.3 Exam is +urethral hypermobil ity and possible cystocele REfer for urogyn consult Menopausal syndrome [id number] N95.9 HRT Therapy. We discussed E/P & [...] improves night time sx's. RTO x 3mos [id number] Anne Herrera [facility] [address],[place] [address] 12/11/2020 15:53:03 12/11/2020 16:56:23 Menopausal flushing [id number] N95.1 Wishes to continue Estradiol 0.5mg but [...] this patient s visit, including available hand presiding steward upon arrive, temperatur e check and being asked a series of screening questions. All staff wore face coverings during this encounter, as well as provided additional cleaning and sanitizing of all surfaces, including countertop s, pens, chairs, door handles, light switches, etc, prior to and following the patient s visit. [id number] [facility] [address],[place] [address] 07/18/2021 09:50:31 07/18/2021 10:51:40 Pain in pelvis [id number] R10.2 Determined that the majority of her issues are linked to Cystocele, postmenopa use, PDF. Cystocele [id number] N81. 10 N94.10 Return for pessary fitting [...] counseling and review of plan of care. [id number] [facility] [address],[place] [address] 05/26/2023 09:27:53 05/26/2023 10:48:03 Urinary symptoms [id number] R39.9 +urine dip UTIRx sent Counseled on medication R/B's, Most common side effects, & use. All questions were answered to patient satisfacti on. Gynecologi c examination [id number] Z01.419 Suggested Calcium with Vitamin D 1200-1500m g daily. Patient advised to get an annual flu shot in the fall and she could obtain at [facility] or [facility] care clinic. Also to obtain TDap vaccinatio [...] Labs PCP Urinary tr act infectious disease [id number] N39.0 Today we discussed the followin. Treat for UTI2. Refer to urogyn for urinary issues3. Start on Vag estradiol Furuncle [id number] L02.9 2 Use prn Counseled on medication R/B's, Most common side effects, & use. All questions were answered to patient satisfacti on. Overactive urinary bladder [id number] N32.81 Trial of oxybutynin for OAB Counseled on medication R/B's, Most common side effects, & use. All questions were answered to patient satisfacti on. RTO x 3mos med check Female uri nary stress incontinence 74942088 N39.3 Exam is +urethral hypermobil ity and possible cystocele REfer for urogyn consultShe will call for appointmen t Screening mammography 24 [id number] Z12. ZACK Gupta [place] [facility] [address],[place] [address] 09/24/2023 09:04:46 09/24/2023 13:59:31 Recurrent urinary tract infection [id number] N39.0 Discussed recurrent UTIs / vaginal dryness / OABshe will start the vagifem she has at home / r/b/a ria willis consult sent Overactive urinary bladder 499642287 N32.81 Menopausal flushing 1983 46304 N95.1 currently on oral estradiol 0.5mg dailyrecom [...] of care. Urinary tr act infectious disease 58303123 N39.0 Health Concerns Section Related Observation LastModified by Organization Detai ls LastModified Time None Recorded Concern Status LastModified by Organization Details LastModified Time None Recorded Advance Directives Directive None Recorded Payers Insurance Date Sequence Insurance Name Policy Number Policy Powell Covered Member ID Powell Member ID Guarantor Name 09/24/2023 1 [employer] [id number] Madhu Free [id number] Martha Free 09/21/2023 1 [employer] [id number] Madhu Free [id number] Martha Free Notes Date Note Type Note Provider Name and Address Organization Details Recorded Time 1 text/html 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 For urinary symptoms, patient reportsstress incontinencebut reportsno hematuria,no nocturia, andno urinary frequency. For vaginal bleeding, patient reportshistory of menopause having occurredandno history of post menopausal bleeding. For vulva, patient reportsno genital lesionandno vulvar atrophy. For vagina, patient reportsnormal vaginal dischargeandno vaginal atrophy.Breast symptomsFor breast, patient reportsno breast lump,no nipple discharge, andno breast pain.Psychological symptomsFor sexual complaints, patient reportsno sexual complaints. For psychological symptoms, patient reportsno depressionandno anxiety.Preventative measuresFor preventive measures, patient reportsencourage regular mammograms starting age 40,encourage self breast examination,encourage regular exercise,encourage no tobacco use,needs to schedule mammogram, andhistory of recent colonoscopy. Anne Herrera, [facility] [address], [place], [address], [facility] 06/11/2020 15:35:05 1 text/html ROS as noted in the HPI Here today for medication check of HRT therapy.Continued estradiol 0.5mgFeels it has greatly helped hot flashes & overall mood.D/C prometrium.[place] it made her feel off.Stopped it & noticed how well the estradiol was helping her. Anne Herrera, [facility] [address], [place], [address], [facility] 12/11/2020 16:40:57 2 text/html ROS as noted in the HPI Here today for pelvic pressure, GLADYS, Vag dryness, & Dyspareunia.Neg new sexual partners Anne Herrera [facility] [address], [place], [address], [facility] 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 For vaginal bleeding, patient reportshistory of menopause having occurredandno history of post menopausal bleeding. For urinary symptoms, patient reportsno hematuria,no incontinence,no nocturia, andno urinary frequency. For vulva, patient reportsno genital lesionandno vulvar atrophy. For vagina, patient reportsnormal vaginal dischargeandno vaginal atrophy.Breast symptomsFor breast, patient reportsno breast lump,no nipple discharge, andno breast pain.Psychological symptomsFor sexual complaints, patient reportsno sexual complaints. For psychological symptoms, patient reportsno depressionandno anxiety.Preventative measuresFor preventive measures, patient reportsencourage regular mammograms starting age 40,encourage self breast examination,encourage regular exercise,encourage no tobacco use,needs to schedule mammogram, andhistory of recent colonoscopy. ZACK Nayak- [address], [place], [address], [facility] 05/26/2023 10:47:03 4 text/html 53yopresents for med check -on oral estradiol tablets for hot flashes/night sweats. H/o of TLH, BSO. Symptoms have been controlled on estradiol -Vagifem tablets for dryness/frequent UTI's. She has not started this yet -oxybutynin for OAB. She did not start this medical hx : tobacco smoker, RA, anxiety, high cholesterol, HTN ZACK Gupta [address], [place], [address], [facility] 09/24/2023 13:24:37 OBGyn Episode Ob Episode Information Episode Created Date Number of Fetuses Patient Bloodtype Patient rh Status Prepregnancy Weight lbs Domestic Partner Domestic Partner Phone Father Name Product Accountant Status 06/12/19 21 1 CLOSED Fetus Data [...] Domestic Partner Domestic Partner Phone Father Name Product Accountant Status 06/12/19 21 1 CLOSED Fetus Data [...] Domestic Partner Domestic Partner Phone Father Name Product Accountant Status 06/12/19 21 1 CLOSED Fetus Data [...]
== END 2024-12-07 18:02 | disposition left against medical advice (07) ==
LOC: ANHED 17:52
PROVIDERS: Emergency Provider Preventive Medicine Aerospace Medicine; PCP Internal Medicine
DX: R03.0 Elevated blood-pressure reading, without diagnosis of hypertension (principal)
CPT/HCPCS: 93005; 99199